=== PATIENT | male | born 1970 | race Caucasian/White ===

== ENCOUNTER 2025-03-06 09:02 | Outpatient (REF) | payer OTHER, SELFPAY ==
--- NOTE | ~2025-03-06 | XR_ITS ---
EXAMINATION: XR SHOULDER, IGOR 2V CLINICAL INFORMATION: M25.511 - Pain in right shoulder COMPARISON: None available. TECHNIQUE: Two views of each shoulder. FINDINGS: RIGHT SHOULDER: Normal bone mineralization. No fracture, dislocation, or suspicious bone lesion. Normal alignment. The glenohumeral joint demonstrates mild degenerative arthritis. The AC joint demonstrates minimal degenerative spurring. No undersurface spurring of the acromion. The subacromial space is preserved. Remainder of the soft tissue and bony structures appear normal. LEFT SHOULDER: Normal bone mineralization. No fracture, dislocation, or suspicious bone lesion. Normal alignment. The glenohumeral joint demonstrates mild degenerative arthritis. The AC joint demonstrates minimal degenerative spurring. No undersurface spurring of the acromion. The subacromial space is preserved. Remainder of the soft tissue and bony structures appear normal. XR/XR Shoulder Igor min 2V IMPRESSION: 1. Mild osteoarthrosis of the bilateral glenohumeral and AC joints. Electronically signed by: Dago Streeter MD 03/06/2025 02:25 PM EDT
--- OUTSIDE RECORDS SUMMARY | 2025-03-07 09:12 | XMS_ITS | Patient Health Record ---
Author Organization [employer] Address [address] [place] [address] [address] [place] [address] Care Team Providers Care Tool Polisher Name Role Phone CORKY TORRES Primary Care Provider Kiara Ethan Unavailable [phone] Allergies Allergen (clinical drug ingredient) Drug/Non Drug Allergy documented on EMR Reaction Allergy Type Onset Date Status Codeine Phosphate Unknown Drug Allergy Active Substance with 3-fzfygik-2-methylglut aryl-coenzyme A reductase inhibitor mechanism of action (substance) Statins muscle pain Drug Allergy Active Results Component Value Reference Range Notes Zolpidem, UR Confirmation Reviewed date:01/28/2025 07:43:10 AM Interpretation: Performing Lab:[email or web address], [address] [place] [address], Phone - [phone], Director - Suzie Notes/Report: Zolpidem Confirmation Positive Zolpidem Acid PRESENT Screening Confirmation Threshold Threshold Analyte --------- --------- -------- 2.0 ng/mL 2.0 ng/mL Zolpidem 10.0 ng/mL 10.0 ng/mL Zolpidem Acid This test was developed and its performance characteristics determined by [employer]. It has not been cleared or approved by the Food and Drug Administration. REFERENCE RANGE: NOT ESTABLISHED Zolpidem Negative REFERENCE RANGE : NOT ESTABLISHED Zolpidem, UR Screen W RFX Co nf Reviewed date:01/28/2025 07:43:21 AM Interpretation: Performing Lab:[email or web address], [address] [place] [address], Phone - [phone], Director - Suzie Notes/Report: Zolpidem Screen Further testing indicated Screening threshold: 2.0 ng/mL Screening analysis for zolpidem performed by Liquid Chromatography with Tandem Mass Spectrometry (LC/MS/MS). This test was developed and its performance characteristics determined by [facility]. It has not been cleared or approved by the Food and Drug Administration. Written Authorization Reviewed date:01/28/2025 07:43:14 AM Interpretation: Performing Lab:[facility], [address] [place] [address], Phone - [phone], Director - Suzie Notes/Report: Written Authorization Written Authorization Received. Authorization received from ORIGINAL REQUEST 12-04-2024 Logged by Alison Howard TSH+Free T4 Reviewed date:12/10/2024 06:05:18 PM Interpretation: Performing Lab:[facility], [address] [place] [address], Phone - [phone], Director - Deniz Notes/Report: TSH-ICMA 2.3 Reference Range: Non- Adult 0.450-4.500 Free T4 by Dialysis/Livestock Speculator 1.5 This test was developed and its performance characteristics determined by [facility]. It has not been cleared or approved by the Food and Drug Administration. Reference Range: Pubertal Children and Adults: 0.8 - 1.7 Hemoglobin [id number] Reviewed date:12/10/2024 06:05:24 PM Interpretation: Performing Lab:[facility], [address] [place] [address], Phone - [phone], Director - Deniz Notes/Report: Hemoglobin A1c 8.8 4.8-5.6 % . Prediabetes: 5.7 - 6.4 Diabetes: >6.4 Glycemic control for adults with diabetes: <7.0 Lipid Panel-[id number] Reviewed date:02/07/2025 03:03:16 PM Interpretation: Performing Lab:[facility], [address] [place] [address], Phone - [phone], Director - Marcella Notes/Report: Cholesterol, Total 138 100-199 mg/dL Triglycerides 201 0-149 mg/dL HDL Cholesterol 31 >39 mg/dL VLDL Cholesterol Pankaj 34 5-40 mg/dL LDL Chol Calc (NIH) 73 0-99 mg/dL CBC with Diff, Platelet, NLR -[id number] Reviewed date:02/07/2025 03:04:42 PM Interpretation: Performing Lab:[facility], [facility], Phone - [phone], Director - MDJodry Notes/Report: WBC 11.1 3.4-10.8 x10E3/uL RBC 5.06 [...] % Immature Grans (Abs) 0.0 0.0-0.1 x10E3/uL Ferritin-[id number] Reviewed date:02/07/2025 03:04:24 PM Interpretation: Performing Lab:[facility], [facility], [place], Phone - [phone], Director - MOJodry Notes/Report: Ferritin 116 30-400 ng/mL Iron and TIBC-[id number] Reviewed date:02/07/2025 03:04:49 PM Interpretation: Performing Lab:[facility], Phone - [phone], Marcella Notes/Report: Iron Bind.Cap.(TIBC) 290 250-450 ug/dL UIBC 170 111-343 ug/dL Iron 120 38-169 ug/dL Iron Saturation 41 15-55 % LDH-[id number] Reviewed date:02/07/2025 03:04:30 PM Interpretation: Performing Lab:[facility] [address] [place] [address], Phone - [phone], Director Francisco Naranjo Notes/Report: LDH 208 121-224 IU/L PSA (Serial Monitor)-[id number] Reviewed date:06/11/2024 05:13:00 PM Interpretation: Performing Lab:[facility], [address] [place] [address], Phone - [phone], Marcella Notes/Report: Prostate Specific Ag 0.2 0.0-4.0 ng/mL Madie ECLIA methodology. . According to the [place] [employer], Serum PSA should decrease and [...] presence or absence of malignant disease. Hemoglobin [id number] Reviewed date:06/11/2024 05:13:08 PM Interpretation: Performing Lab:[facility], [address] [place] [address], Phone - [phone], Director Francisco Naranjo Notes/Report: Hemoglobin A1c 8.5 4.8-5.6 % . Prediabetes: 5.7 - 6.4 Diabetes: >6.4 Glycemic control for adults with diabetes: <7.0 Lipid Panel-[id number] Reviewed date:06/11/2024 05:13:10 PM Interpretation: Performing Lab:[facility] [address] [place] [address] [place], Phone - [phone], Marcella Notes/Report: Cholesterol, Total 132 100-199 mg/dL Triglycerides 166 0-149 mg/dL HDL Cholesterol 30 >39 mg/dL VLDL Cholesterol Pankaj 29 5-40 mg/dL LDL Chol Calc (NIH) 73 0-99 mg/dL Comp. Metabolic Panel (14)-3 Reviewed date:06/11/2024 05:13:16 PM Interpretation: Performing Lab:[facility] [place], [address] [place], [place], Phone - [phone], Director - Marcella Notes/Report: Glucose 54 70-99 [...] ALT (SGPT) 31 0-44 IU/L Albumin/Creatinine Ratio,Uri ne-[id number] Reviewed date:06/11/2024 04:47:12 PM Interpretation: Performing Lab:[facility], [address] [place], [place], Phone - [phone], Director - Marcella Notes/Report: Creatinine, Urine 41.6 Not Estab. mg/dL Albumin, Urine 6.8 Not Estab. ug/mL Alb/Creat Ratio 16 0-29 mg/g creat Normal: 0 - 29 Moderately increased: 30 - 300 Severely increased: >300 Reason For Referral Reason Evaluation and manag ement Diagnosis 1 Encounter for screen ing for malignant neoplasm of colon (Z12.11) Referral Organization [facility] [employer] [facility] Referring Provider First Name CORKY Referring Provider Last Name MELISSA Referring Provider Speciality Internal M edicine Referred Provider Specialty Gastroentero logy General Notes Referral sent to [facility] Gastroenterology - Office will call patient for scheduling.Dayana Latraya 06/05/2024 01:28:50 PM > Referral Priority Routine Reason Evaluation and manag ement Diagnosis 1 Essential (primary) hypertension (I10) Referral Organization [facility] Referring Provider First Name CORKY Referring Provider Last Name GU Referring Provider Speciality Internal edicine Referred Provider Specialty Cardiology General Notes Referral sent to [facility] Cardiology - Office will call patient for scheduling.Dayana Latraya 06/05/2024 03:26:26 PM > Referral Priority Routine Reason Evaluation and manag ement Diagnosis 1 Type 2 diabetes tushar itus with unspecified complications (E11.8) Referral Organization [facility] Referring Provider First Name CORKY Referring Provider Last Name GU Referring Provider Speciality Internal edicine Referred Provider Specialty Endocrinolog y General Notes Referral sent to [facility] Endocrinology - Office will call patient for scheduling.Dayana Latraya 06/05/2024 03:27:15 PM > Referral Priority Routine Reason Evaluation and manag ement Diagnosis 1 Type 2 diabetes tushar itus with unspecified complications (E11.8) Referral Organization [facility] Referring Provider First Name CORKY Referring Provider Last Name [facility] Referred Provider Specialty Podiatry General Notes Referral sent to [facility] in [place] - Office will call patient for scheduling.Dayana Latraya 06/05/2024 03:28:04 PM > Referral Priority Routine Reason Evaluation and manag ement Diagnosis 1 Chronic kidney disea se, unspecified (N18.9) Referral Organization [facility] Referring Provider First Name CORKY Referring Provider Last Name [facility] Referring Provider Speciality Internal edicine Referred Provider Specialty Nephrology General Notes Referral sent to [facility] [place] - [facility] will call patient for scheduling.Dayana Latraya 06/05/2024 03:28:48 PM > Referral Priority Routine Reason Evaluation and manag ement Diagnosis 1 Obstructive sleep ap keith (G47.33) Referral Organization [facility] Referring Provider First Name CORKY Referring Provider Last Name GU Referring Provider Speciality Internal edicine Referred Provider Specialty Sleep Medici ne General Notes Referral sent to [facility] in [facility] will call patient for scheduling.Dayana Latraya 06/05/2024 03:30:15 PM > Referral Priority Routine Reason knee and back pain- NEOS Diagnosis 1 Pain in unspecified knee (M25.569) Diagnosis 2 Pain in thoracic spi ne (M54.6) Referral Organization [facility] Referring Provider First Name CORKY Referring Provider Last Name SHERRY Referring Provider Speciality Internal edicine Referred Provider Specialty Orthopedic S urgery General Notes Referral sent to [facility] - Office will call patient for scheduling., Quentin Anne 06/05/2024 03:33:05 PM > Referral Priority Routine Reason Evaluation and manag ement Diagnosis 1 Type 2 diabetes tushar itus with unspecified complications (E11.8) Referral Organization [facility] Referring Provider First Name CORKY Referring Provider Last Name SHERRY Referring Provider Speciality Internal edicine Referred Provider Specialty Ophthalmolog y General Notes Referral sent to [facility] in [place]- Office will call patient for scheduling., Quentin Anne 06/05/2024 03:34:08 PM > Referral Priority Routine Reason please evaluate and treat Diagnosis 1 Pain in right should er (M25.511) Referral Organization [facility] Referring Provider First Name Ethan Referring Provider Last Name Kiara Referred Provider Specialty Orthopedic S urgery General Notes REFERRAL WAS FAXED T O [facility]. PLEASE CONTACT PATIENT FOR SCHEDULING., Vanda Story 10/03/2024 04:50:54 PM > Referral Priority Routine Reason EGD and C-scope, pos itive cologuard Please evaluate and treat Diagnosis 1 Weight loss, uninten tional (R63.4) Referral Organization [facility] Referring Provider First Name Ethan Referring Provider Last Name Kiara Referred Provider Specialty Gastroentero logy General Notes Please call the johnny ent to schedule the appointment, Referral has been faxed to [facility] - [phone] Charmain 12/26/2024 04:17:19 PM > Referral Priority Routine Reason please evaluate and treat Please evaluate and treat Diagnosis 1 Chronic pain syndrom e (G89.4) Referral Organization [facility] Referring Provider First Name Ethan Referring Provider Last Name Kaira Referred Provider Specialty Pain Medicin e General Notes Please call the johnny ent to schedule the appointment, [facility]. 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) Active confirmed Problem Morbid obesity (disorder) (398301676) Morbid (severe) obesity due to excess calories (E66.01) Active confirmed Problem Mixed hyperlipidemia (265777821) Mixed hyperlipidemia (E78.2) Active confirmed Problem Tobacco user (915876079) Nicotine dependence, cigarettes, uncomplicated (F17.210) Active confirmed Problem Generalized anxiety disorder (09698767) Generalized anxiety disorder (F41.1) Active confirmed Problem Insomnia (040018335) Insomnia, unspecified (G47.00) Active confirmed Problem Chronic pain syndrome (622555783) Chronic pain syndrome (G89.4) Active confirmed Problem Chronic kidney disease (936959781) Chronic kidney disease, unspecified (N18.9) Active confirmed Problem Erectile dysfunction (disorder) (212892490) Male erectile dysfunction, unspecified (N52.9) Active confirmed Problem Essential hypertension (64759421) Essential (primary) hypertension (I10) Active confirmed Problem Lower urinary tract symptoms due to benign prostatic hypertrophy (35922754399483) Benign prostatic hyperplasia with lower urinary tract symptoms (N40.1) Active confirmed Problem Obstructive sleep apnea (54662743) Obstructive sleep apnea (G47.33) Active confirmed Vital Signs Heart Rate 98 /min 02/25/2025 Temperature 97.4 degrees Fahrenheit 02/25/2025 Blood pressure diastolic 90 mm Hg 02/25/2025 Oximetry 95 % 02/25/2025 Height 6'3'' in 02/25/2025 Blood pressure systolic 140 mm Hg 02/25/2025 Weight 350.1 lbs 02/25/2025 BMI 43.75 kg/m2 02/25/2025 Encounters Encounter Location Date Provider Diagnosis [address] [place] [address] 06/03/2024 CORKY TORRES Essential (primary) hypertension I10 [...] Z71.6 and Chronic kidney disease, unspecified N18.[address] [place] [address] 07/08/2024 CORKY TORRES Type 2 diabetes mellitus with unspecified complications E11.8 ; Essential (primary) hypertension I10 ; Mixed hyperlipidemia E78.2 ; Chronic pain syndrome G89.4 and Insomnia, unspecified G47.[address] [place] [address] 08/08/2024 CORKY TORRES Chronic pain syndrom e G89.4 and Essential (primary) hypertension I10 [address] [place] [address] 09/05/2024 Ghadeer Mazloum Chronic pain syndrom e G89.4 ; Essential (primary) hypertension I10 and Pain in right shoulder M25.[address] [place] [address] 10/03/2024 Ghadeer Mazloum Chronic pain syndrom e G89.4 ; Essential (primary) hypertension I10 ; Pain in right shoulder M25.511 ; Hypothyroidism, unspecified E03.9 and Diabetes mellitus due to underlying condition with diabetic nephropathy E08.[address] [place] [address] 10/17/2024 Ghadeer Mazloum Acute sinusitis, unspecified J01.[address] [place] [address] 10/31/2024 Ghadeer Mazloum Chronic pain syndrom e G89.4 ; Essential (primary) hypertension I10 ; Hypothyroidism, unspecified E03.9 and Diabetes mellitus due to underlying condition with diabetic nephropathy E08.[address] [place] [address] 11/28/2024 Ghadeer Mazloum Chronic pain syndrom e G89.4 and Essential (primary) hypertension I10 [address] [place] [address] 12/26/2024 Ghadeer Mazloum Chronic pain syndrom e G89.4 ; Essential (primary) hypertension I10 ; Mixed hyperlipidemia E78.2 and Weight loss, unintentional R63.[address] [place] [address] 01/28/2025 Ghadeer Mazloum Chronic pain syndrom e G89.4 ; Essential (primary) hypertension I10 ; Mixed hyperlipidemia E78.2 ; Diabetes mellitus due to underlying condition with diabetic nephropathy E08.21 and Chronic kidney disease, unspecified N18.[address] [place] [address] 02/25/2025 Ghadeer Mazloum Chronic pain syndrom e G89.4 ; Essential (primary) hypertension I10 ; Mixed hyperlipidemia E78.2 ; Diabetes mellitus due to underlying condition with diabetic nephropathy E08.21 and Chronic kidney disease, unspecified N18.[address] [place] [address] 06/04/[address] [place] [address] 06/06/2024 [facility] [address] [facility] [address] [place] [address] 06/14/2024 [facility] [address] [facility] [address] [place] [address] 06/24/[address] [place] [address] 07/18/2024 [facility] [address] [facility] [address] [place] [address] 10/03/[address] [place] [address] 10/04/[address] [place] [address] 10/14/[address] [place] [address] 11/29/2024 [facility] 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 CHF. Patient mentioned that swine nutritionist told him that his pump is not [...] prescribed by his primary care physician at [place]. We will retrieve old records Chronic kidney disease. Stage is not known. We will do blood work and referral to ab initio etl developer BPH. Stable on current regimen. JAYE. He [...] this note under HIPAA compliance and under [place] law mandated for scribe services. Patient aware [...] and consider PCSK-9. CHF. Patient mentioned that swine nutritionist told him that his pump is not [...] prescribed by his primary care physician at [place]. We will retrieve old records Chronic kidney disease. Stage is not known. We will do blood work and referral to ab initio etl developer BPH. Stable on current regimen. JAYE. He [...] this note under HIPAA compliance and under [place] law mandated for scribe services. Patient aware [...] Ezetimibe 10 MG CHF. Patient mentioned that swine nutritionist told him that his pump is not [...] prescribed by his primary care physician at [place]. Chronic kidney disease. Stage is not known. He does not appear to be in volume overload. Advised appropriate hydration. Avoid NSAIDs. BPH. Stable on current regimen. JYAE./ Insomnia. He sleeps well with AVAPS and [...] this note under HIPAA compliance and under [place] law mandated for scribe services. Patient aware [...] Ezetimibe 10 MG CHF. Patient mentioned that swine nutritionist told him that his pump is not [...] prescribed by his primary care physician at [place]. Chronic kidney disease. Stage is not known. [...] this note under HIPAA compliance and under [place] law mandated for scribe services. Patient aware [...] necessity supported by H&P, imaging and testing [place] pain treatment protocol completed. Yes Chronic opioid/pain [...] opioid misuse based on ORT. Toxicology and BOTTLING MACHINE OPERATOR monitoring done and will follow protocol set forth by practice. As such controlled substance use requires judicious monitoring to access patient compliance with mutually agreed upon controlled substance use agreement which has been signed by the patient and initiation of controlled substance prescribing. Therefore following state, Federal, [facility] guidelines for controlled substance testing policies. This patient has been assessed on the basis of psychometric risk tool, BOTTLING MACHINE OPERATOR monitoring, toxicology test results. Comorbid conditions may [...] necessity supported by H&P, imaging and testing [place] pain treatment protocol completed. Yes Chronic opioid/pain [...] opioid misuse based on ORT. Toxicology and BOTTLING MACHINE OPERATOR monitoring done and will follow protocol set forth by practice. As such controlled substance use requires judicious monitoring to access patient compliance with mutually agreed upon controlled substance use agreement which has been signed by the patient and initiation of controlled substance prescribing. Therefore following state, Federal, [facility] guidelines for controlled substance testing policies. This patient has been assessed on the basis of psychometric risk tool, BOTTLING MACHINE OPERATOR monitoring, toxicology test results. Comorbid conditions may [...] necessity supported by H&P, imaging and testing [place] pain treatment protocol completed. Yes Chronic opioid/pain [...] opioid misuse based on ORT. Toxicology and BOTTLING MACHINE OPERATOR monitoring done and will follow protocol set forth by practice. As such controlled substance use requires judicious monitoring to access patient compliance with mutually agreed upon controlled substance use agreement which has been signed by the patient and initiation of controlled substance prescribing. Therefore following state, Federal, [facility] guidelines for controlled substance testing policies. This patient has been assessed on the basis of psychometric risk tool, BOTTLING MACHINE OPERATOR monitoring, toxicology test results. Comorbid conditions may [...] necessity supported by H&P, imaging and testing [place] pain treatment protocol completed. Yes Chronic opioid/pain [...] opioid misuse based on ORT. Toxicology and BOTTLING MACHINE OPERATOR monitoring done and will follow protocol set forth by practice. As such controlled substance use requires judicious monitoring to access patient compliance with mutually agreed upon controlled substance use agreement which has been signed by the patient and initiation of controlled substance prescribing. Therefore following state, Federal, [facility] guidelines for controlled substance testing policies. This patient has been assessed on the basis of psychometric risk tool, BOTTLING MACHINE OPERATOR monitoring, toxicology test results. Comorbid conditions may [...] necessity supported by H&P, imaging and testing [place] pain treatment protocol completed. Yes Chronic opioid/pain [...] opioid misuse based on ORT. Toxicology and BOTTLING MACHINE OPERATOR monitoring done and will follow protocol set forth by practice. As such controlled substance use requires judicious monitoring to access patient compliance with mutually agreed upon controlled substance use agreement which has been signed by the patient and initiation of controlled substance prescribing. Therefore following state, Federal, [facility] guidelines for controlled substance testing policies. This patient has been assessed on the basis of psychometric risk tool, BOTTLING MACHINE OPERATOR monitoring, toxicology test results. Comorbid conditions may [...] necessity supported by H&P, imaging and testing [place] pain treatment protocol completed. Yes Chronic opioid/pain [...] opioid misuse based on ORT. Toxicology and BOTTLING MACHINE OPERATOR monitoring done and will follow protocol set forth by practice. As such controlled substance use requires judicious monitoring to access patient compliance with mutually agreed upon controlled substance use agreement which has been signed by the patient and initiation of controlled substance prescribing. Therefore following state, Federal, [facility] guidelines for controlled substance testing policies. This patient has been assessed on the basis of psychometric risk tool, BOTTLING MACHINE OPERATOR monitoring, toxicology test results. Comorbid conditions may [...] necessity supported by H&P, imaging and testing [place] pain treatment protocol completed. Yes Chronic opioid/pain [...] opioid misuse based on ORT. Toxicology and BOTTLING MACHINE OPERATOR monitoring done and will follow protocol set forth by practice. As such controlled substance use requires judicious monitoring to access patient compliance with mutually agreed upon controlled substance use agreement which has been signed by the patient and initiation of controlled substance prescribing. Therefore following state, Federal, [facility] guidelines for controlled substance testing policies. This patient has been assessed on the basis of psychometric risk tool, BOTTLING MACHINE OPERATOR monitoring, toxicology test results. Comorbid conditions may [...] necessity supported by H&P, imaging and testing [place] pain treatment protocol completed. Yes Chronic opioid/pain [...] opioid misuse based on ORT. Toxicology and BOTTLING MACHINE OPERATOR monitoring done and will follow protocol set [...] on the basis of psychometric risk tool, BOTTLING MACHINE OPERATOR monitoring, toxicology test results. Comorbid conditions may [...] necessity supported by H&P, imaging and testing [place] pain treatment protocol completed. Yes Chronic opioid/pain [...] opioid misuse based on ORT. Toxicology and BOTTLING MACHINE OPERATOR monitoring done and will follow protocol set [...] on the basis of psychometric risk tool, BOTTLING MACHINE OPERATOR monitoring, toxicology test results. 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 Hernandez is a 54-year-old gentleman with type 2 diabetes mellitus, hypertension, hyperlipidemia, hypothyroidism, ,obstructive sleep apnea, generalized anxiety disorder/depressio n and insomnia here for follow up. Plan as follows Chronic pain secondary to degenerative disc disease. Prognosis: Mild to moderate Medical necessity supported by H&P, imaging and testing [place] pain treatment protocol completed. Yes Chronic opioid/pain [...] opioid misuse based on ORT. Toxicology and BOTTLING MACHINE OPERATOR monitoring done and will follow protocol set [...] on the basis of psychometric risk tool, BOTTLING MACHINE OPERATOR monitoring, toxicology test results. Comorbid conditions may [...] of diabetic medications is usually through his it support analyst. He does have an appointment for follow-up with his it support analyst. He states that he is noncompliant with his diets. He was also recently seen by batterboard setter and recommended Lasix surgery. He does also [...] necessity supported by H&P, imaging and testing [place] pain treatment protocol completed. Yes Chronic opioid/pain [...] opioid misuse based on ORT. Toxicology and BOTTLING MACHINE OPERATOR monitoring done and will follow protocol set forth by practice. As such controlled substance use requires judicious monitoring to access patient compliance with mutually agreed upon controlled substance use agreement which has been signed by the patient and initiation of controlled substance prescribing. Therefore following state, Federal, [facility] guidelines for controlled substance testing policies. This patient has been assessed on the basis of psychometric risk tool, BOTTLING MACHINE OPERATOR monitoring, toxicology test results. Comorbid conditions may [...] of diabetic medications is usually through his it support analyst. He does have an appointment for follow-up with his it support analyst. He states that he is noncompliant with his diets. He was also recently seen by batterboard setter and recommended Lasix surgery. He does also [...] necessity supported by H&P, imaging and testing [place] pain treatment protocol completed. Yes Chronic opioid/pain [...] opioid misuse based on ORT. Toxicology and BOTTLING MACHINE OPERATOR monitoring done and will follow protocol set forth by practice. As such controlled substance use requires judicious monitoring to access patient compliance with mutually agreed upon controlled substance use agreement which has been signed by the patient and initiation of controlled substance prescribing. Therefore following state, Federal, [facility] guidelines for controlled substance testing policies. This patient has been assessed on the basis of psychometric risk tool, BOTTLING MACHINE OPERATOR monitoring, toxicology test results. Comorbid conditions may [...] of diabetic medications is usually through his it support analyst. He does have an appointment for follow-up with his it support analyst. He states that he is noncompliant with his diets. He was also recently seen by batterboard setter and recommended Lasix surgery. He does also [...] GLP-1, Jardiance was also discontinued by the ab initio etl developer. He has an appointment tomorrow with it support analyst for further discussion on diabetes management. Advised on diet modification. He is up-to-date with his batterboard setter. Foot care discussed Chronic kidney disease. He does follow with [facility] the ab initio etl developer. He is not volume overloaded. Avoid nephrotoxins [...] necessity supported by H&P, imaging and testing [place] pain treatment protocol completed. Yes Chronic opioid/pain [...] opioid misuse based on ORT. Toxicology and BOTTLING MACHINE OPERATOR monitoring done and will follow protocol set forth by practice. As such controlled substance use requires judicious monitoring to access patient compliance with mutually agreed upon controlled substance use agreement which has been signed by the patient and initiation of controlled substance prescribing. Therefore following state, Federal, [facility] guidelines for controlled substance testing policies. This patient has been assessed on the basis of psychometric risk tool, BOTTLING MACHINE OPERATOR monitoring, toxicology test results. Comorbid conditions may [...] of diabetic medications is usually through his it support analyst. He does have an appointment for follow-up with his it support analyst. He states that he is noncompliant with his diets. He was also recently seen by batterboard setter and recommended Lasix surgery. He does also [...] GLP-1, Jardiance was also discontinued by the ab initio etl developer. He has an appointment tomorrow with it support analyst for further discussion on diabetes management. Advised on diet modification. He is up-to-date with his batterboard setter. Foot care discussed Chronic kidney disease. He does follow with [facility] the ab initio etl developer. He is not volume overloaded. Avoid nephrotoxins [...] necessity supported by H&P, imaging and testing [place] pain treatment protocol completed. Yes I have [...] opioid misuse based on ORT. Toxicology and BOTTLING MACHINE OPERATOR monitoring done and will follow protocol set forth by practice. As such controlled substance use requires judicious monitoring to access patient compliance with mutually agreed upon controlled substance use agreement which has been signed by the patient and initiation of controlled substance prescribing. Therefore following state, Federal, [facility] guidelines for controlled substance testing policies. This patient has been assessed on the basis of psychometric risk tool, BOTTLING MACHINE OPERATOR monitoring, toxicology test results. Comorbid conditions may [...] of diabetic medications is usually through his it support analyst. He does have an appointment for follow-up with his it support analyst. He states that he is noncompliant with his diets. He was also recently seen by batterboard setter and recommended Lasix surgery. He does also [...] GLP-1, Jardiance was also discontinued by the ab initio etl developer. He has an appointment with it support analyst for further discussion on diabetes management. Advised on diet modification. He is up-to-date with his batterboard setter. Foot care discussed Chronic kidney disease. He does follow with [facility] the ab initio etl developer. He is not volume overloaded. Avoid nephrotoxins [...] necessity supported by H&P, imaging and testing [place] pain treatment protocol completed. Yes I have [...] opioid misuse based on ORT. Toxicology and BOTTLING MACHINE OPERATOR monitoring done and will follow protocol set [...] on the basis of psychometric risk tool, BOTTLING MACHINE OPERATOR monitoring, toxicology test results. Comorbid conditions may [...] of diabetic medications is usually through his it support analyst. He does have an appointment for follow-up with his it support analyst. He states that he is noncompliant with his diets. He was also recently seen by batterboard setter and recommended Lasix surgery. He does also [...] GLP-1, Jardiance was also discontinued by the ab initio etl developer. He has an appointment with it support analyst for further discussion on diabetes management. Advised on diet modification. He is up-to-date with his batterboard setter. Foot care discussed Chronic kidney disease. He does follow with [facility] the ab initio etl developer. He is not volume overloaded. Avoid nephrotoxins [...] necessity supported by H&P, imaging and testing [place] pain treatment protocol completed. Yes I have [...] opioid misuse based on ORT. Toxicology and BOTTLING MACHINE OPERATOR monitoring done and will follow protocol set forth by practice. As such controlled substance use requires judicious monitoring to access patient compliance with mutually agreed upon controlled substance use agreement which has been signed by the patient and initiation of controlled substance prescribing. Therefore following state, Federal, [facility] guidelines for controlled substance testing policies. This patient has been assessed on the basis of psychometric risk tool, BOTTLING MACHINE OPERATOR monitoring, toxicology test results. Comorbid conditions may [...] of diabetic medications is usually through his it support analyst. He does have an appointment for follow-up with his it support analyst. He states that he is noncompliant with his diets. He was also recently seen by batterboard setter and recommended Lasix surgery. He does also [...] GLP-1, Jardiance was also discontinued by the ab initio etl developer. He has an appointment with it support analyst for further discussion on diabetes management. Advised on diet modification. He is up-to-date with his batterboard setter. Foot care discussed Chronic kidney disease. He does follow with [facility] the ab initio etl developer. He is not volume overloaded. Avoid nephrotoxins [...] necessity supported by H&P, imaging and testing [place] pain treatment protocol completed. Yes Chronic opioid/pain [...] opioid misuse based on ORT. Toxicology and BOTTLING MACHINE OPERATOR monitoring done and will follow protocol set forth by practice. As such controlled substance use requires judicious monitoring to access patient compliance with mutually agreed upon controlled substance use agreement which has been signed by the patient and initiation of controlled substance prescribing. Therefore following state, Federal, [facility] guidelines for controlled substance testing policies. This patient has been assessed on the basis of psychometric risk tool, BOTTLING MACHINE OPERATOR monitoring, toxicology test results. Comorbid conditions may [...] of diabetic medications is usually through his it support analyst. He does have an appointment for follow-up with his it support analyst. He states that he is noncompliant with his diets. He was also recently seen by batterboard setter and recommended Lasix surgery. He does also [...] GLP-1, Jardiance was also discontinued by the ab initio etl developer. He has an appointment tomorrow with it support analyst for further discussion on diabetes management. Advised on diet modification. He is up-to-date with his batterboard setter. Foot care discussed Chronic kidney disease. He does follow with [facility] the ab initio etl developer. He is not volume overloaded. Avoid nephrotoxins [...] necessity supported by H&P, imaging and testing [place] pain treatment protocol completed. Yes Chronic opioid/pain [...] opioid misuse based on ORT. Toxicology and BOTTLING MACHINE OPERATOR monitoring done and will follow protocol set forth by practice. As such controlled substance use requires judicious monitoring to access patient compliance with mutually agreed upon controlled substance use agreement which has been signed by the patient and initiation of controlled substance prescribing. Therefore following state, Federal, [facility] guidelines for controlled substance testing policies. This patient has been assessed on the basis of psychometric risk tool, BOTTLING MACHINE OPERATOR monitoring, toxicology test results. Comorbid conditions may [...] of diabetic medications is usually through his it support analyst. He does have an appointment for follow-up with his it support analyst. He states that he is noncompliant with his diets. He was also recently seen by batterboard setter and recommended Lasix surgery. He does also [...] necessity supported by H&P, imaging and testing [place] pain treatment protocol completed. Yes Chronic opioid/pain [...] opioid misuse based on ORT. Toxicology and BOTTLING MACHINE OPERATOR monitoring done and will follow protocol set forth by practice. As such controlled substance use requires judicious monitoring to access patient compliance with mutually agreed upon controlled substance use agreement which has been signed by the patient and initiation of controlled substance prescribing. Therefore following state, Federal, [facility] guidelines for controlled substance testing policies. This patient has been assessed on the basis of psychometric risk tool, BOTTLING MACHINE OPERATOR monitoring, toxicology test results. Comorbid conditions may [...] this patient under direct supervision of Dr. Torrse, who did not see the patient but was available upon request 10/03/2024 Pain in right shoulder (ICD-10 - M25.511) Chronic pain secondary to degenerative disc disease. Prognosis: Mild to moderate Medical necessity supported by H&P, imaging and testing [place] pain treatment protocol completed. Yes Chronic opioid/pain [...] opioid misuse based on ORT. Toxicology and BOTTLING MACHINE OPERATOR monitoring done and will follow protocol set forth by practice. As such controlled substance use requires judicious monitoring to access patient compliance with mutually agreed upon controlled substance use agreement which has been signed by the patient and initiation of controlled substance prescribing. Therefore following state, Federal, [facility] guidelines for controlled substance testing policies. This patient has been assessed on the basis of psychometric risk tool, BOTTLING MACHINE OPERATOR monitoring, toxicology test results. Comorbid conditions may [...] necessity supported by H&P, imaging and testing [place] pain treatment protocol completed. Yes Chronic opioid/pain [...] opioid misuse based on ORT. Toxicology and BOTTLING MACHINE OPERATOR monitoring done and will follow protocol set [...] on the basis of psychometric risk tool, BOTTLING MACHINE OPERATOR monitoring, toxicology test results. Comorbid conditions may [...] necessity supported by H&P, imaging and testing [place] pain treatment protocol completed. Yes Chronic opioid/pain [...] opioid misuse based on ORT. Toxicology and BOTTLING MACHINE OPERATOR monitoring done and will follow protocol set forth by practice. As such controlled substance use requires judicious monitoring to access patient compliance with mutually agreed upon controlled substance use agreement which has been signed by the patient and initiation of controlled substance prescribing. Therefore following state, Federal, [facility] guidelines for controlled substance testing policies. This patient has been assessed on the basis of psychometric risk tool, BOTTLING MACHINE OPERATOR monitoring, toxicology test results. Comorbid conditions may [...] tolerate side effects. He is not on EBAR/ARB and most likely secondary to chronic kidney disease but results are not available. Hypertension. Blood pressure well controlled on current regimen and check renal function and electrolytes Hyperlipidemia. Unfortunately he cannot tolerate statins. Continue Ezetimibe 10 MG CHF. Patient mentioned that swine nutritionist told him that his pump is not [...] prescribed by his primary care physician at [place]. Chronic kidney disease. Stage is not known. [...] this note under HIPAA compliance and under [place] law mandated for scribe services. Patient aware [...] and consider PCSK-9. CHF. Patient mentioned that swine nutritionist told him that his pump is not [...] prescribed by his primary care physician at [place]. We will retrieve old records Chronic kidney disease. Stage is not known. We will do blood work and referral to ab initio etl developer BPH. Stable on current regimen. JAYE. He [...] this note under HIPAA compliance and under [place] law mandated for scribe services. Patient aware [...] and consider PCSK-9. CHF. Patient mentioned that swine nutritionist told him that his pump is not [...] prescribed by his primary care physician at [place]. We will retrieve old records Chronic kidney disease. Stage is not known. We will do blood work and referral to ab initio etl developer BPH. Stable on current regimen. JAYE. He [...] this note under HIPAA compliance and under [place] law mandated for scribe services. Patient aware [...] necessity supported by H&P, imaging and testing [place] pain treatment protocol completed. Yes Chronic opioid/pain [...] opioid misuse based on ORT. Toxicology and BOTTLING MACHINE OPERATOR monitoring done and will follow protocol set forth by practice. As such controlled substance use requires judicious monitoring to access patient compliance with mutually agreed upon controlled substance use agreement which has been signed by the patient and initiation of controlled substance prescribing. Therefore following state, Federal, [facility] guidelines for controlled substance testing policies. This patient has been assessed on the basis of psychometric risk tool, BOTTLING MACHINE OPERATOR monitoring, toxicology test results. Comorbid conditions may [...] necessity supported by H&P, imaging and testing [place] pain treatment protocol completed. Yes Chronic opioid/pain [...] opioid misuse based on ORT. Toxicology and BOTTLING MACHINE OPERATOR monitoring done and will follow protocol set [...] on the basis of psychometric risk tool, BOTTLING MACHINE OPERATOR monitoring, toxicology test results. Comorbid conditions may [...] Ezetimibe 10 MG CHF. Patient mentioned that swine nutritionist told him that his pump is not [...] prescribed by his primary care physician at [place]. Chronic kidney disease. Stage is not known. [...] this note under HIPAA compliance and under [place] law mandated for scribe services. Patient aware [...] necessity supported by H&P, imaging and testing [place] pain treatment protocol completed. Yes Chronic opioid/pain [...] opioid misuse based on ORT. Toxicology and BOTTLING MACHINE OPERATOR monitoring done and will follow protocol set [...] on the basis of psychometric risk tool, BOTTLING MACHINE OPERATOR monitoring, toxicology test results. Comorbid conditions may [...] of diabetic medications is usually through his it support analyst. He does have an appointment for follow-up with his it support analyst. He states that he is noncompliant with his diets. He was also recently seen by batterboard setter and recommended Lasix surgery. He does also [...] necessity supported by H&P, imaging and testing [place] pain treatment protocol completed. Yes Chronic opioid/pain [...] opioid misuse based on ORT. Toxicology and BOTTLING MACHINE OPERATOR monitoring done and will follow protocol set forth by practice. As such controlled substance use requires judicious monitoring to access patient compliance with mutually agreed upon controlled substance use agreement which has been signed by the patient and initiation of controlled substance prescribing. Therefore following state, Federal, [facility] guidelines for controlled substance testing policies. This patient has been assessed on the basis of psychometric risk tool, BOTTLING MACHINE OPERATOR monitoring, toxicology test results. Comorbid conditions may [...] of diabetic medications is usually through his it support analyst. He does have an appointment for follow-up with his it support analyst. He states that he is noncompliant with his diets. He was also recently seen by batterboard setter and recommended Lasix surgery. He does also [...] GLP-1, Jardiance was also discontinued by the ab initio etl developer. He has an appointment tomorrow with it support analyst for further discussion on diabetes management. Advised on diet modification. He is up-to-date with his batterboard setter. Foot care discussed Chronic kidney disease. He does follow with [facility] the ab initio etl developer. He is not volume overloaded. Avoid nephrotoxins [...] necessity supported by H&P, imaging and testing [place] pain treatment protocol completed. Yes I have [...] opioid misuse based on ORT. Toxicology and BOTTLING MACHINE OPERATOR monitoring done and will follow protocol set forth by practice. As such controlled substance use requires judicious monitoring to access patient compliance with mutually agreed upon controlled substance use agreement which has been signed by the patient and initiation of controlled substance prescribing. Therefore following state, Federal, [facility] guidelines for controlled substance testing policies. This patient has been assessed on the basis of psychometric risk tool, BOTTLING MACHINE OPERATOR monitoring, toxicology test results. Comorbid conditions may [...] of diabetic medications is usually through his it support analyst. He does have an appointment for follow-up with his it support analyst. He states that he is noncompliant with his diets. He was also recently seen by batterboard setter and recommended Lasix surgery. He does also [...] GLP-1, Jardiance was also discontinued by the ab initio etl developer. He has an appointment with it support analyst for further discussion on diabetes management. Advised on diet modification. He is up-to-date with his batterboard setter. Foot care discussed Chronic kidney disease. He does follow with [facility] the ab initio etl developer. He is not volume overloaded. Avoid nephrotoxins [...] necessity supported by H&P, imaging and testing [place] pain treatment protocol completed. Yes I have [...] opioid misuse based on ORT. Toxicology and BOTTLING MACHINE OPERATOR monitoring done and will follow protocol set [...] on the basis of psychometric risk tool, BOTTLING MACHINE OPERATOR monitoring, toxicology test results. Comorbid conditions may [...] of diabetic medications is usually through his it support analyst. He does have an appointment for follow-up with his it support analyst. He states that he is noncompliant with his diets. He was also recently seen by batterboard setter and recommended Lasix surgery. He does also [...] GLP-1, Jardiance was also discontinued by the ab initio etl developer. He has an appointment with it support analyst for further discussion on diabetes management. Advised on diet modification. He is up-to-date with his batterboard setter. Foot care discussed Chronic kidney disease. He does follow with [facility] the ab initio etl developer. He is not volume overloaded. Avoid nephrotoxins [...] necessity supported by H&P, imaging and testing [place] pain treatment protocol completed. Yes Chronic opioid/pain [...] opioid misuse based on ORT. Toxicology and BOTTLING MACHINE OPERATOR monitoring done and will follow protocol set forth by practice. As such controlled substance use requires judicious monitoring to access patient compliance with mutually agreed upon controlled substance use agreement which has been signed by the patient and initiation of controlled substance prescribing. Therefore following state, Federal, [facility] guidelines for controlled substance testing policies. This patient has been assessed on the basis of psychometric risk tool, BOTTLING MACHINE OPERATOR monitoring, toxicology test results. Comorbid conditions may [...] of diabetic medications is usually through his it support analyst. He does have an appointment for follow-up with his it support analyst. He states that he is noncompliant with his diets. He was also recently seen by batterboard setter and recommended Lasix surgery. He does also [...] GLP-1, Jardiance was also discontinued by the ab initio etl developer. He has an appointment tomorrow with it support analyst for further discussion on diabetes management. Advised on diet modification. He is up-to-date with his batterboard setter. Foot care discussed Chronic kidney disease. He does follow with [facility] the ab initio etl developer. He is not volume overloaded. Avoid nephrotoxins [...] necessity supported by H&P, imaging and testing [place] pain treatment protocol completed. Yes Chronic opioid/pain [...] opioid misuse based on ORT. Toxicology and BOTTLING MACHINE OPERATOR monitoring done and will follow protocol set forth by practice. As such controlled substance use requires judicious monitoring to access patient compliance with mutually agreed upon controlled substance use agreement which has been signed by the patient and initiation of controlled substance prescribing. Therefore following state, Federal, [facility] guidelines for controlled substance testing policies. This patient has been assessed on the basis of psychometric risk tool, BOTTLING MACHINE OPERATOR monitoring, toxicology test results. Comorbid conditions may [...] Ezetimibe 10 MG CHF. Patient mentioned that swine nutritionist told him that his pump is not [...] prescribed by his primary care physician at [place]. Chronic kidney disease. Stage is not known. [...] this note under HIPAA compliance and under [place] law mandated for scribe services. Patient aware [...] and consider PCSK-9. CHF. Patient mentioned that swine nutritionist told him that his pump is not [...] prescribed by his primary care physician at [place]. We will retrieve old records Chronic kidney disease. Stage is not known. We will do blood work and referral to ab initio etl developer BPH. Stable on current regimen. JAYE. He [...] this note under HIPAA compliance and under [place] law mandated for scribe services. Patient aware [...] and consider PCSK-9. CHF. Patient mentioned that swine nutritionist told him that his pump is not [...] prescribed by his primary care physician at [place]. We will retrieve old records Chronic kidney disease. Stage is not known. We will do blood work and referral to ab initio etl developer BPH. Stable on current regimen. JAYE. He [...] this note under HIPAA compliance and under [place] law mandated for scribe services. Patient aware [...] and consider PCSK-9. CHF. Patient mentioned that swine nutritionist told him that his pump is not [...] prescribed by his primary care physician at [place]. We will retrieve old records Chronic kidney disease. Stage is not known. We will do blood work and referral to ab initio etl developer BPH. Stable on current regimen. JAYE. He [...] this note under HIPAA compliance and under [place] law mandated for scribe services. Patient aware [...] and consider PCSK-9. CHF. Patient mentioned that swine nutritionist told him that his pump is not [...] prescribed by his primary care physician at [place]. We will retrieve old records Chronic kidney disease. Stage is not known. We will do blood work and referral to ab initio etl developer BPH. Stable on current regimen. JAYE. He [...] this note under HIPAA compliance and under [place] law mandated for scribe services. Patient aware [...] and consider PCSK-9. CHF. Patient mentioned that swine nutritionist told him that his pump is not [...] prescribed by his primary care physician at [place]. We will retrieve old records Chronic kidney disease. Stage is not known. We will do blood work and referral to ab initio etl developer BPH. Stable on current regimen. JAYE. He [...] this note under HIPAA compliance and under [place] law mandated for scribe services. Patient aware [...] and consider PCSK-9. CHF. Patient mentioned that swine nutritionist told him that his pump is not [...] prescribed by his primary care physician at [place]. We will retrieve old records Chronic kidney disease. Stage is not known. We will do blood work and referral to ab initio etl developer BPH. Stable on current regimen. JAYE. He [...] this note under HIPAA compliance and under [place] law mandated for scribe services. Patient aware [...] and consider PCSK-9. CHF. Patient mentioned that swine nutritionist told him that his pump is not [...] prescribed by his primary care physician at [place]. We will retrieve old records Chronic kidney disease. Stage is not known. We will do blood work and referral to ab initio etl developer BPH. Stable on current regimen. JAYE. He [...] this note under HIPAA compliance and under [place] law mandated for scribe services. Patient aware [...] and consider PCSK-9. CHF. Patient mentioned that swine nutritionist told him that his pump is not [...] prescribed by his primary care physician at [place]. We will retrieve old records Chronic kidney disease. Stage is not known. We will do blood work and referral to ab initio etl developer BPH. Stable on current regimen. JAYE. He [...] this note under HIPAA compliance and under [place] law mandated for scribe services. Patient aware [...] and consider PCSK-9. CHF. Patient mentioned that swine nutritionist told him that his pump is not [...] prescribed by his primary care physician at [place]. We will retrieve old records Chronic kidney disease. Stage is not known. We will do blood work and referral to ab initio etl developer BPH. Stable on current regimen. JAYE. He [...] this note under HIPAA compliance and under [place] law mandated for scribe services. Patient aware [...] and consider PCSK-9. CHF. Patient mentioned that swine nutritionist told him that his pump is not [...] prescribed by his primary care physician at [place]. We will retrieve old records Chronic kidney disease. Stage is not known. We will do blood work and referral to ab initio etl developer BPH. Stable on current regimen. JAYE. He [...] this note under HIPAA compliance and under [place] law mandated for scribe services. Patient aware [...] and consider PCSK-9. CHF. Patient mentioned that swine nutritionist told him that his pump is not [...] prescribed by his primary care physician at [place]. We will retrieve old records Chronic kidney disease. Stage is not known. We will do blood work and referral to ab initio etl developer BPH. Stable on current regimen. JAYE. He [...] this note under HIPAA compliance and under [place] law mandated for scribe services. Patient aware [...] and consider PCSK-9. CHF. Patient mentioned that swine nutritionist told him that his pump is not [...] prescribed by his primary care physician at [place]. We will retrieve old records Chronic kidney disease. Stage is not known. We will do blood work and referral to ab initio etl developer BPH. Stable on current regimen. JAYE. He [...] this note under HIPAA compliance and under [place] law mandated for scribe services. Patient aware [...] Xray: Shoulder Right-Min 2 Vws 4 Hemoglobin [id number] 10/03/2024 Hemoglobin [id number] 10/31/2024 ColoFIT,Occult Blood,Fecal,IA-[id number] 06/2025 TSH+Free [id number] 10/31/2024 TSH+Free T4 10/03/2024 DRUG MONITOR, ZOLPIDEM, QN, URINE ([id number] ) 11/29/2024 Next Appt Details Provider Name:Ethan nelson, 03/27/2025 11:00:00 AM, [address] [place] [address], [phone], Insurance Providers Payer Name Payer Address Payer Phone Subscriber Number Group Number Insured Name Patient Relationship to Insured Coverage Start Date Coverage End Date [facility] [address] [place] [id number] Peter Hernandez Self - patient is the insured Medical (General) History Medical History History ICD Code type 2 diabetes mellitus see [facility] ndocrinology hypertension hyperlipidemia generalized anxiety disorder insomnia hypothyroidism CKD-[facility] Surgical History Surgery Date(Month/Year) partial thyroidectomy left distal toe amputation
== END 2025-03-06 09:03 | disposition home or self-care (01) ==
LOC: HO.HOSX 09:02
PROVIDERS: Visit Provider Orthopaedic Surgery
DX: M25.512 Pain in left shoulder (principal); M25.311 Other instability, right shoulder
CPT/HCPCS: 73030; 99202

== ENCOUNTER 2025-03-06 13:52 | Outpatient (AMB) | payer OTHER, SELFPAY ==
--- NOTE | 2025-03-06 14:00 | MHC.OFFVIS ---
Vital Signs 03/06/25 14:08 Height 6 ft 4 in Weight 350 lb BMI 42.6 Intake Visit Reasons: Right shoulder pain and weakness, Left shoulder pain Intake Note: Peter is a 54 year old right hand dominant male who presents with complaints of progressively worsening right shoulder pain and weakness as well as intermittent left shoulder pain. The patient states that he fell onto his right shoulder this past winter when he slipped on ice. Since that time he has had difficulty lifting his right hand to shoulder height. He has failed the last 6 weeks of conservative treatment which has included physical therapy exercises, a home exercise program, Tylenol and anti-inflammatory medicines. Allergies codeine (Codeine) Allergy (Unknown, Unverified 03/06/25 14:09) RASH [id number]-[id number] Reductase Inhibitor Adverse Reaction (Severe, Verified 03/06/25 14:10) Joint Pain Medication List - Last Reconciled 03/06/25 by Yobany Cortes MD carvedilol 6.25 mg PO BID cholecalciferol (vitamin D3) 50 mcg PO DAILY ezetimibe 10 mg PO DAILY finasteride 5 mg PO DAILY fluticasone propionate 50 mcg/actuation 1 spray intranasal DAILY gabapentin 600 mg PO DAILY insulin regular hum U-500 conc (Humulin R U-500 (Conc) Insulin Kwikpen) 60 units subcut TID levothyroxine 150 mcg PO QAM oxycodone 15 mg PO QID PRN potassium chloride ER 20 mEq PO DAILY tirzepatide (Mounjaro) 5 mg subcut QWEEK zolpidem 10 mg PO BEDTIME PRN PFSH Social History (Updated 03/06/25 @ 14:09 by TAQUERIA Vizcaino) Patient Tobacco Use Status: Current everyday Tobacco user Current occupational status: retired Current occupation: rt handed Physical Exam Vital Signs: BMI result Body Mass Index 42.6 Const Other: Well-nourished well-developed very friendly male awake alert and oriented x3 in no acute distress Extrem Other: Physical examination of the patient's right shoulder shows full passive range of motion but decreased active range of motion when compared to his left shoulder, 3/5 strength with supraspinatus testing, positive impingement signs, no instability Results Reviewed Results Reviewed: X-rays of the patient's bilateral shoulders taken today show severe acromioclavicular joint narrowing, type 2 acromion, no acute bony Assessment & Plan Assessment & Plan (1) Rotator cuff insufficiency of right shoulder: Code(s): M25.311 - Other instability, right shoulder Category: Medical (2) Left shoulder pain: Code(s): M25.512 - Pain in left shoulder Plan Mr. Hernandez presents with progressively worsening right shoulder pain and weakness due to impingement syndrome and possible full-thickness rotator cuff tearing. Thus, I will send the patient for an MRI of his right shoulder for further evaluation. I will see him back once the MRI is completed to discuss the findings and treatment options. Feel free to call me at any time should questions regarding his orthopedic management arise. Thank you very much for asking me to see this very friendly gentleman. I spent 22 minutes in reviewing the patient's records and imaging studies, seeing the patient and documenting in the medical record. Orders: Orders MR shoulder RT wo con Today M25.311 - Other instability, right shoulder Coding Level of Care Code New Pt Level 3 (76635) Complex EM visit Add On G2211 Diagnoses Rotator cuff insufficiency of right shoulder M25.311 Left shoulder pain M25.512
[2025-03-06 14:08] VITALS: BMI 42.6
--- OUTSIDE RECORDS SUMMARY | 2025-03-06 15:06 | XMS_ITS | Patient Health Record ---
Author Organization [facility] Address [address] [place] [address] [address] [place] [address] Care Team Providers Care Traveling Engineer Name Role Phone CORKY TORRES Primary Care Provider [phone] Ethan Craig Unavailable [phone] Allergies Allergen (clinical drug ingredient) Drug/Non Drug Allergy documented on EMR Reaction Allergy Type Onset Date Status Codeine Phosphate Unknown Drug Allergy Active Substance with 2-owthgig-2-methylglut aryl-coenzyme A reductase inhibitor mechanism of action (substance) Statins muscle pain Drug Allergy Active Results Component Value Reference Range Notes Lipid Panel-[id number] Reviewed date:02/07/2025 03:03:16 PM Interpretation: Performing Lab:[facility], [address] [facility], Phone - [phone], Director - Marcella Notes/Report: Cholesterol, Total 138 100-199 mg/dL Triglycerides 201 0-149 mg/dL HDL Cholesterol 31 >39 mg/dL VLDL Cholesterol Pankaj 34 5-40 mg/dL LDL Chol Calc ([facility]) 73 0-99 mg/dL CBC with Diff, Platelet, NLR -[id number] Reviewed date:02/07/2025 03:04:42 PM Interpretation: Performing Lab:[facility], [address] [facility], [place], Phone - [phone], Director - Marcella Notes/Report: WBC 11.1 3.4-10.8 x10E3/uL RBC 5.06 4.14-5.80 x10E6/uL Hemoglobin 17.2 13.0-17.7 g/dL Hematocrit 49.7 37.5-51.0 % MCV 98 79-97 fL MCH 34.0 26.6-33.0 pg MCHC 34.6 31.5-35.7 g/dL RDW 12.8 11.6-15.4 % Platelets 240 150-450 x10E3/uL Neutrophils 60 Not Estab. % Lymphs 33 Not Estab. % Monocytes 5 Not Estab. % Eos 2 Not Estab. % Basos 0 Not Estab. % Neutrophils (Absolute) 6.6 1.4-7.0 x10E3/uL Lymphs (Absolute) 3.7 0.7-3.1 x10E3/uL Neut/Lymph Ratio 1.8 0.0-2.9 ratio Published COVID-19 studies suggest: Low likelihood of severe COVID-19 disease progression 0.0-2.9 High likelihood of severe COVID-19 disease progression >4.9 Monocytes(Absolute) 0.6 0.1-0.9 x10E3/uL Eos (Absolute) 0.2 0.0-0.4 x10E3/uL Baso (Absolute) 0.0 0.0-0.2 x10E3/uL Immature Granulocytes 0 Not Estab. % Immature Grans (Abs) 0.0 0.0-0.1 x10E3/uL Ferritin-[id number] Reviewed date:02/07/2025 03:04:24 PM Interpretation: Performing Lab:[facility], Phone - [phone], Director - Bany Notes/Report: Ferritin 116 30-400 ng/mL Iron and TIBC-[id number] Reviewed date:02/07/2025 03:04:49 PM Interpretation: Performing Lab:[facility], Phone - [phone], Director - Bany Notes/Report: Iron Bind.Cap.(TIBC) 290 250-450 ug/dL UIBC 170 111-343 ug/dL Iron 120 38-169 ug/dL Iron Saturation 41 15-55 % LDH-[id number] Reviewed date:02/07/2025 03:04:30 PM Interpretation: Performing Lab:[facility] [place], Phone - [phone], Director - Bany Notes/Report: LDH 208 121-224 IU/L Zolpidem, UR Screen W RFX Co nf Reviewed date:01/28/2025 07:43:21 AM Interpretation: Performing Lab:[facility], [address] [place] [address], Phone - [phone], Director - Suzie Notes/Report: Zolpidem Screen Further testing indicated Screening threshold: 2.0 ng/mL Screening analysis for zolpidem performed by Liquid Chromatography with Tandem Mass Spectrometry (LC/MS/MS). This test was developed and its performance characteristics determined by [facility]. It has not been cleared or approved by the Food and Drug Administration. Written Authorization Reviewed date:01/28/2025 07:43:14 AM Interpretation: Performing Lab:[facility], [address] [place] [address], Phone - [phone], Director - Suzie Notes/Report: Written Authorization Written Authorization Received. Authorization received from ORIGINAL REQUEST 12-04-2024 Logged by Alison Howard Zolpidem, UR Confirmation Reviewed date:01/28/2025 07:43:10 AM Interpretation: Performing Lab:[facility], [address] [place] [address], Phone - [phone], Director - Suzie Notes/Report: Zolpidem Confirmation Positive Zolpidem Acid PRESENT Screening Confirmation Threshold Threshold Analyte --------- --------- -------- 2.0 ng/mL 2.0 ng/mL Zolpidem 10.0 ng/mL 10.0 ng/mL Zolpidem Acid This test was developed and its performance characteristics determined by [facility]. It has not been cleared or approved by the Food and Drug Administration. REFERENCE RANGE: NOT ESTABLISHED Zolpidem Negative REFERENCE RANGE : NOT ESTABLISHED TSH+Free T4 Reviewed date:12/10/2024 06:05:18 PM Interpretation: Performing Lab:[facility], [address] [place] [address], Phone - [phone], Director - Deniz Notes/Report: TSH-ICMA 2.3 Reference Range: Non- Adult 0.450-4.500 Free T4 by Dialysis/Surgical Appliances Salesperson 1.5 This test was developed and its performance characteristics determined by [facility]. It has not been cleared or approved by the Food and Drug Administration. Reference Range: Pubertal Children and Adults: 0.8 - 1.7 Hemoglobin X1a-[id number] Reviewed date:12/10/2024 06:05:24 PM Interpretation: Performing Lab:[facility], [address] [place] [address], Phone - [phone], Director [facility] Notes/Report: Hemoglobin A1c 8.8 4.8-5.6 % . Prediabetes: 5.7 - 6.4 Diabetes: >6.4 Glycemic control for adults with diabetes: <7.0 PSA (Serial Monitor)-[id number] Reviewed date:06/11/2024 05:13:00 PM Interpretation: Performing Lab:[facility], [address] [place] [address], Phone - [phone], Director - Marcella Notes/Report: Prostate Specific Ag 0.2 0.0-4.0 ng/mL Madie ECLIA methodology. . According to the [place] [employer], Serum PSA should decrease and remain at undetectable levels after radical prostatectomy. The AUA defines biochemical recurrence as an initial PSA value 0.2 ng/mL or greater followed by a subsequent confirmatory PSA value 0.2 ng/mL or greater. Values obtained with different assay methods or kits cannot be used interchangeably. Results cannot be interpreted as absolute evidence of the presence or absence of malignant disease. Hemoglobin [id number]-[id number] Reviewed date:06/11/2024 05:13:08 PM Interpretation: Performing Lab:[facility], [address] [place] [address], Phone - [phone], - Marcella Notes/Report: Hemoglobin A1c 8.5 4.8-5.6 % . Prediabetes: 5.7 - 6.4 Diabetes: >6.4 Glycemic control for adults with diabetes: <7.0 Lipid Panel-[id number] Reviewed date:06/11/2024 05:13:10 PM Interpretation: Performing Lab:[facility], [address] [place] [address], [place], Phone - [phone], - Marcella Notes/Report: Cholesterol, Total 132 100-199 mg/dL Triglycerides 166 0-149 mg/dL HDL Cholesterol 30 >39 mg/dL VLDL Cholesterol Pankaj 29 5-40 mg/dL LDL Chol Calc (NI[facility]) 73 0-99 mg/dL Comp. Metabolic Panel (14)-3 Reviewed date:06/11/2024 05:13:16 PM Interpretation: Performing Lab:[facility] [place], [address] [place], [place], Phone - [phone], Director - Marcella Notes/Report: Glucose 54 70-99 mg/dL BUN 21 6-24 mg/dL Creatinine 1.34 0.76-1.27 mg/dL eGFR 63 >59 mL/min/1.73 BUN/Creatinine Ratio 16 9-20 Sodium 141 134-144 mmol/L Potassium 4.0 3.5-5.2 mmol/L Chloride 104 96-106 mmol/L Carbon Dioxide, Total 21 20-29 mmol/L Calcium 8.7 8.7-10.2 mg/dL Protein, Total 6.6 6.0-8.5 g/dL Albumin 4.2 3.8-4.9 g/dL Globulin, Total 2.4 1.5-4.5 g/dL Bilirubin, Total 0.4 0.0-1.2 mg/dL Alkaline Phosphatase 104 44-121 IU/L AST (SGOT) 31 0-40 IU/L ALT (SGPT) 31 0-44 IU/L Albumin/Creatinine Ratio,Uri ne-[id number] Reviewed date:06/11/2024 04:47:12 PM Interpretation: Performing Lab:[facility], [address], [place], Phone - [phone], Director - Marcella Notes/Report: Creatinine, Urine 41.6 Not Estab. mg/dL Albumin, Urine 6.8 Not Estab. ug/mL Alb/Creat Ratio 16 0-29 mg/g creat Normal: 0 - 29 Moderately increased: 30 - 300 Severely increased: >300 Reason For Referral Reason Evaluation and manag ement Diagnosis 1 Encounter for screen ing for malignant neoplasm of colon (Z12.11) Referral Organization [facility] Referring Provider First Name CORKY Referring Provider Last Name MELISSA Referring Provider Speciality Internal M edicine Referred Provider Specialty Gastroentero logy General Notes Referral sent to [facility] - Office will call patient for scheduling.Dayana Latraya 06/05/2024 01:28:50 PM > Referral Priority Routine Reason Evaluation and manag ement Diagnosis 1 Essential (primary) hypertension (I10) Referral Organization [facility] Referring Provider First Name CORKY Referring Provider Last Name GU Referring Provider Speciality Internal edicine Referred Provider Specialty Cardiology General Notes Referral sent to [facility] Cardiology - Office will call patient for scheduling.Dayana Latraya 06/05/2024 03:26:26 PM > Referral Priority Routine Reason Evaluation and manag ement Diagnosis 1 Type 2 diabetes tushar itus with unspecified complications (E11.8) Referral Organization [facility] Referring Provider First Name CORKY Referring Provider Last Name GU Referring Provider Speciality Internal edicine Referred Provider Specialty Endocrinolog y General Notes Referral sent to [facility] Endocrinology - Office will call patient for scheduling.Dayana Latraya 06/05/2024 03:27:15 PM > Referral Priority Routine Reason Evaluation and manag ement Diagnosis 1 Type 2 diabetes tushar itus with unspecified complications (E11.8) Referral Organization [facility] Referring Provider First Name CORKY Referring Provider Last Name [facility] Referred Provider Specialty Podiatry General Notes Referral sent to [facility] in [place] - Office will call patient for scheduling.Dayana Latraya 06/05/2024 03:28:04 PM > Referral Priority Routine Reason Evaluation and manag ement Diagnosis 1 Chronic kidney disea se, unspecified (N18.9) Referral Organization [facility] Referring Provider First Name CORKY Referring Provider Last Name [facility] Referring Provider Speciality Internal edicine Referred Provider Specialty Nephrology General Notes Referral sent to [facility] [place] [facility] will call patient for scheduling.Dayana Latraya 06/05/2024 03:28:48 PM > Referral Priority Routine Reason Evaluation and manag ement Diagnosis 1 Obstructive sleep ap keith (G47.33) Referral Organization [facility] Referring Provider First Name CORKY Referring Provider Last Name GU Referring Provider Speciality Internal edicine Referred Provider Specialty Sleep Medici ne General Notes Ref[facility] will call patient for scheduling.Dayana Latraya 06/05/2024 03:30:15 PM > Referral Priority Routine Reason knee and back pain- NEOS Diagnosis 1 Pain in unspecified knee (M25.569) Diagnosis 2 Pain in thoracic spi ne (M54.6) Referral Organization [facility] Referring Provider First Name CORKY Referring Provider Last Name HSERRY Referring Provider Speciality Internal edicine Referred Provider Specialty Orthopedic S urgery General Notes Referral sent to [facility] - Office will call patient for scheduling., Quentin Anne 06/05/2024 03:33:05 PM > Referral Priority Routine Reason Evaluation and manag ement Diagnosis 1 Type 2 diabetes tushar itus with unspecified complications (E11.8) Referral Organization [facility] Referring Provider First Name CORKY Referring Provider Last Name SHERRY Referring Provider Speciality Internal edicine Referred Provider Specialty Ophthalmolog y General Notes Referral sent to [facility] in [place]- Office will call patient for scheduling., Quentin Anne 06/05/2024 03:34:08 PM > Referral Priority Routine Reason please evaluate and treat Diagnosis 1 Pain in right should er (M25.511) Referral Organization [facility] Referring Provider First Name Ethan Referring Provider Last Name Kiara Referred Provider Specialty Orthopedic S urgery General Notes REFERRAL WAS FAXED T O [facility] PLEASE CONTACT PATIENT FOR SCHEDULING., Vanda Story 10/03/2024 04:50:54 PM > Referral Priority Routine Reason EGD and C-scope, pos itive cologuard Please evaluate and treat Diagnosis 1 Weight loss, uninten tional (R63.4) Referral Organization [facility] Referring Provider First Name Ethan Referring Provider Last Name Kiara Referred Provider Specialty Gastroentero logy General Notes Please call the johnny ent to schedule the appointment, Referral has been faxed to [facility] - [phone] Charmain 12/26/2024 04:17:19 PM > Referral Priority Routine Reason please evaluate and treat Please evaluate and treat Diagnosis 1 Chronic pain syndrom e (G89.4) Referral Organization [facility] Referring Provider First Name Ethan Referring Provider Last Name Kiara Referred Provider Specialty Pain Medicin e General Notes Please call the johnny ent to schedule the appointment, [facility]. Please contact them at [phone], Makayla Madrigal 01/30/2025 03:59:43 PM > Referral Priority Routine Medications Medication SIG (Take, Route, Frequency, Duration) Notes Start Date End Date Status buPROPion HCl 75 MG 2 tablets Orally Twice a day for 90 days Active Baclofen 20 MG 1 tablet Administer without regards to meals as needed Orally Three times a day for 90 days Active Ezetimibe 10 MG 1 tablet Orally Once a day for 90 days Active Gabapentin 600 MG 1 tablet Orally three times a day for 90 days Active Fluticasone Propionate 50 MCG/ACT 1 spray in each nostril Nasally Once a day for 90 days Active Carvedilol 6.25 MG 1 tablet with food Orally Twice a day for 90 days Active Levothyroxine Sodium 150 MCG 1 tablet in the morning on an empty stomach Orally Once a day for 90 days Active oxyCODONE HCl 15 MG 1 tablet as needed Orally every 6 hrs for 28 days Partial Fill upon Patient Request 02/25/2025 Active predniSONE 20 MG 1 tablet Orally Once a day for 7 days 10/17/2024 Not-Taking FreeStyle Lite w/Device as directed 06/03/2024 Active Vitamin D3 50 MCG (1999 UT) 1 capsule Orally Once a day for 90 days 06/03/2024 Not-Taking Potassium Chloride ER 20 MEQ 1 tablet with food Orally Once a day for 90 days Active Blood Glucose Test - as directed In Vitro 06/03/2024 Active Benzonatate 100 MG 1 capsule as needed Orally Three times a day for 15 days 10/17/2024 Not-Taking Insulin Syringe-Needle U-100 32G X 5/16 0.5 ML as directed to inject insulin E11.8 for 90 days 06/03/2024 Active Loperamide HCl 2 MG 1 capsule as needed Orally Four times a day for 90 days Not-Taking Jardiance 25 MG 1 tablet Orally Once a day for 90 days Not-Taking Sildenafil Citrate 50 MG 1 tablet as needed Orally Once a day for 30 days 06/03/2024 Active Mounjaro 2.5 MG/0.5ML as directed Subcutaneous Not-Taking Furosemide 40 MG 1 tablet Orally twice a day for 90 days Not-Taking HumaLOG 100 UNIT/ML as directed Injection RU500 Active Vitamin D3 50 MCG (2000 UT) 1 capsule Orally Once a day Active Melatonin 10 MG 1 tablet at bedtime as needed Orally Once a day Active Ibuprofen 800 MG 1 tablet with food or milk as needed Orally every 8 hrs for 90 days Not-Taking Centrum Active Amoxicillin 500 MG 1 tablet Orally Three times a day for 10 days 10/17/2024 Not-Taking Zolpidem Tartrate 10 MG 1 tablet at bedtime as needed Orally Once a day for 90 days 11/28/2024 Active Niacin ER 1000 MG 1 tablet with food Orally Once a day for 90 days Active Finasteride 5 MG 1 tablet Orally Once a day for 90 days Active Social History Tobacco Use: Social History Observation Description Date Details (start date - stop date) Current Smoker NA - NA Tobacco Use/Smoking Question Answer Notes Are you a current smoker How often do you smoke cigarettes? 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) Active confirmed Problem Morbid obesity (disorder) (369575795) Morbid (severe) obesity due to excess calories (E66.01) Active confirmed Problem Mixed hyperlipidemia (844638186) Mixed hyperlipidemia (E78.2) Active confirmed Problem Tobacco user (613489525) Nicotine dependence, cigarettes, uncomplicated (F17.210) Active confirmed Problem Generalized anxiety disorder (95082544) Generalized anxiety disorder (F41.1) Active confirmed Problem Insomnia (511653361) Insomnia, unspecified (G47.00) Active confirmed Problem Chronic pain syndrome (140707473) Chronic pain syndrome (G89.4) Active confirmed Problem Chronic kidney disease (787340690) Chronic kidney disease, unspecified (N18.9) Active confirmed Problem Erectile dysfunction (disorder) (524572931) Male erectile dysfunction, unspecified (N52.9) Active confirmed Problem Essential hypertension (04167005) Essential (primary) hypertension (I10) Active confirmed Problem Lower urinary tract symptoms due to benign prostatic hypertrophy (24131825389800) Benign prostatic hyperplasia with lower urinary tract symptoms (N40.1) Active confirmed Problem Obstructive sleep apnea (86702935) Obstructive sleep apnea (G47.33) Active confirmed Vital Signs Heart Rate 98 /min 02/25/2025 Temperature 97.4 degrees Fahrenheit 02/25/2025 Oximetry 95 % 02/25/2025 Blood pressure diastolic 90 mm Hg 02/25/2025 Height 6'3'' in 02/25/2025 Blood pressure systolic 140 mm Hg 02/25/2025 Weight 350.1 lbs 02/25/2025 BMI 43.75 kg/m2 02/25/2025 Encounters Encounter Location Date Provider Diagnosis [address] [place] [address] 06/03/2024 CORKY TORRES Essential (primary) hypertension I10 ; Diabetes mellitus due to underlying condition with diabetic nephropathy E08.21 ; Mixed hyperlipidemia E78.2 ; Hypothyroidism, unspecified E03.9 ; Generalized anxiety disorder F41.1 ; Insomnia, unspecified G47.00 ; Radiculopathy, lumbosacral region M54.17 ; Benign prostatic hyperplasia with lower urinary tract symptoms N40.1 ; Encounter for screening for malignant neoplasm of prostate Z12.5 ; Male erectile dysfunction, unspecified N52.9 ; Obstructive sleep apnea G47.33 ; Morbid (severe) obesity due to excess calories E66.01 ; Dietary counseling and surveillance Z71.3 ; Nicotine dependence, cigarettes, uncomplicated F17.210 ; Tobacco abuse counseling Z71.6 and Chronic kidney disease, unspecified N18.[address] [place] [address] 07/08/2024 CORKY TORRES Type 2 diabetes mellitus with unspecified complications E11.8 ; Essential (primary) hypertension I10 ; Mixed hyperlipidemia E78.2 ; Chronic pain syndrome G89.4 and Insomnia, unspecified G47.[address] [place] [address] 08/08/2024 CORKY TORRES Chronic pain syndrom e G89.4 and Essential (primary) hypertension I10 [address] [place] [address] 09/05/2024 Ghadeer Mazloum Chronic pain syndrom e G89.4 ; Essential (primary) hypertension I10 and Pain in right shoulder M25.[address] [place] [address] 10/03/2024 Ghadeer Mazloum Chronic pain syndrom e G89.4 ; Essential (primary) hypertension I10 ; Pain in right shoulder M25.511 ; Hypothyroidism, unspecified E03.9 and Diabetes mellitus due to underlying condition with diabetic nephropathy E08.[address] [place] [address] 10/17/2024 Ghadeer Mazloum Acute sinusitis, unspecified J01.[address] [place] [address] 10/31/2024 Ghadeer Mazloum Chronic pain syndrom e G89.4 ; Essential (primary) hypertension I10 ; Hypothyroidism, unspecified E03.9 and Diabetes mellitus due to underlying condition with diabetic nephropathy E08.[address] [place] [address] 11/28/2024 Ghadeer Mazloum Chronic pain syndrom e G89.4 and Essential (primary) hypertension I10 [address] [place] [address] 12/26/2024 Ghadeer Mazloum Chronic pain syndrom e G89.4 ; Essential (primary) hypertension I10 ; Mixed hyperlipidemia E78.2 and Weight loss, unintentional R63.[address] [place] [address] 01/28/2025 Ghadeer Mazloum Chronic pain syndrom e G89.4 ; Essential (primary) hypertension I10 ; Mixed hyperlipidemia E78.2 ; Diabetes mellitus due to underlying condition with diabetic nephropathy E08.21 and Chronic kidney disease, unspecified N18.[address] [place] [address] 02/25/2025 Ghadeer Mazloum Chronic pain syndrom e G89.4 ; Essential (primary) hypertension I10 ; Mixed hyperlipidemia E78.2 ; Diabetes mellitus due to underlying condition with diabetic nephropathy E08.21 and Chronic kidney disease, unspecified N18.[address] [place] [address] 06/04/[address] [place] [address] 06/06/2024 [facility] [address] [facility] [address] [place] [address] 06/14/2024 [facility] [address] [address] [place] [address] 06/24/[address] [place] [address] 07/18/2024 [facility] [address] [facility] [address] [place] [address] 10/03/[address] [place] [address] 10/04/[address] [place] [address] 10/14/[address] [place] [address] 11/29/2024 [facility] 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 Hernandez is a 53-year-old gentleman with type 2 diabetes mellitus, hypertension, hyperlipidemia, hypothyroidism, generalized anxiety disorder and insomnia here to establish care. Plan is as follows: Type 2 diabetes mellitus. His last A1c was greater than 9. Is currently on sliding scale. He is not on statins because he cannot tolerate side effects. He is not on BEAR/ARB and most likely secondary to chronic kidney disease but results are not available. Referred to Ophthalmology and Podiatry. Check A1c. Hypertension. Blood pressure well controlled on current regimen and check renal function and electrolytes Hyperlipidemia. Unfortunately he cannot tolerate statins. Continue Ezetimibe 10 MG and check lipid panel and consider PCSK-9. CHF. Patient mentioned that industrial sociologist told him that his pump is not up to the more. Currently he is on Lasix. Referral to cardiology and retrieve old records. Low-sodium diet recommended. Hypothyroidism. Continue Levothyroxine 150 MCG and advised to take it first thing in the morning on an empty stomach. ELIZ/insomnia. Mood is stable on current regimen plan he is also on Ambien which was prescribed by his previous PCP Radiculopathy. He is on oxycodone 10 MG and according to the patient he has been on this medication for a long time. It was prescribed by his primary care physician at [place]. We will retrieve old records Chronic kidney disease. Stage is not known. 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 Stable on current regimen. JAYE. He sleeps well with AVAPS and needs equipment and is Referred to sleep medicine. Male erectile dysfunction. Start Sildenafil 50 MG Morbid obesity. Advised low calorie foods and appropriate hydration, sleep and try to lose on average 6 pounds a month. Once he has his blood work done he may benefit from GLP-1. Nicotine dependence. Encouraged to quit smoking but is not ready at this point. Screening blood work before next appointment. He dangelo dthis cologuard done and was positive. Referral to GI for colonoscopy General health concerns discussed with patient. Scribe services used to formulate this note under HIPAA compliance and under [place] law mandated for scribe services. Patient aware of service. Verbal consent and written consent taken from the patient. Patient understands and verbalizes understanding of the scribes services and all questions answered regarding scribes services. Patient agrees to use of scribes services. 06/03/2024 Essential (primary) hypertension (ICD-10 - I10) Mr. Hernandez is a 53-year-old gentleman with type 2 diabetes mellitus, hypertension, hyperlipidemia, hypothyroidism, generalized anxiety disorder and insomnia here to establish care. Plan is as follows: Type 2 diabetes mellitus. His last A1c was greater than 9. Is currently on sliding scale. He is not on statins because he cannot tolerate side effects. He is not on BEAR/ARB and most likely secondary to chronic kidney disease but results are not available. Referred to Ophthalmology and Podiatry. Check A1c. Hypertension. Blood pressure well controlled on current regimen and check renal function and electrolytes Hyperlipidemia. Unfortunately he cannot tolerate statins. Continue Ezetimibe 10 MG and check lipid panel and consider PCSK-9. CHF. Patient mentioned that industrial sociologist told him that his pump is not up to the more. Currently he is on Lasix. Referral to cardiology and retrieve old records. Low-sodium diet recommended. Hypothyroidism. Continue Levothyroxine 150 MCG and advised to take it first thing in the morning on an empty stomach. ELIZ/insomnia. Mood is stable on current regimen plan he is also on Ambien which was prescribed by his previous PCP Radiculopathy. He is on oxycodone 10 MG and according to the patient he has been on this medication for a long time. It was prescribed by his primary care physician at [place]. We will retrieve old records Chronic kidney disease. Stage is not known. 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 Stable on current regimen. JAYE. He sleeps well with AVAPS and needs equipment and is Referred to sleep medicine. Male erectile dysfunction. Start Sildenafil 50 MG Morbid obesity. Advised low calorie foods and appropriate hydration, sleep and try to lose on average 6 pounds a month. Once he has his blood work done he may benefit from GLP-1. Nicotine dependence. Encouraged to quit smoking but is not ready at this point. Screening blood work before next appointment. He dangelo dthis cologuard done and was positive. Referral to GI for colonoscopy General health concerns discussed with patient. Scribe services used to formulate this note under HIPAA compliance and under [place] law mandated for scribe services. Patient aware of service. Verbal consent and written consent taken from the patient. Patient understands and verbalizes understanding of the scribes services and all questions answered regarding scribes services. Patient agrees to use of scribes services. 07/08/2024 Type 2 diabetes mellitus with unspecified complications (ICD-10 - E11.8) Mr. Hernandez is a 53-year-old gentleman with type 2 diabetes mellitus, hypertension, hyperlipidemia, hypothyroidism, ,obstructive sleep apnea, generalized anxiety disorder/depressio n and insomnia here for follow up. Plan is as follows: Type 2 diabetes mellitus. His last A1c was 8.5. Is currently on sliding scale. He is not on statins because he cannot tolerate side effects. He is not on BEAR/ARB and most likely secondary to chronic kidney disease but results are not available. Hypertension. Blood pressure well controlled on current regimen and check renal function and electrolytes Hyperlipidemia. Unfortunately he cannot tolerate statins. Continue Ezetimibe 10 MG CHF. Patient mentioned that industrial sociologist told him that his pump is not up to the more. Currently he is on Lasix. Low-sodium diet recommended. Hypothyroidism. Continue Levothyroxine 150 MCG and advised to take it first thing in the morning on an empty stomach. ELIZ/insomnia. Mood is stable on current regimen plan he is also on Ambien which was prescribed by his previous PCP Radiculopathy. He is on oxycodone 10 MG and according to the patient he has been on this medication for a long time. It was prescribed by his primary care physician at [place]. Chronic kidney disease. Stage is not known. He does not appear to be in volume overload. Advised appropriate hydration. Avoid NSAIDs. BPH. Stable on current regimen. JAYE./ Insomnia. He sleeps well with AVAPS and he is on ambien Male erectile dysfunction. Continue Sildenafil 50 MG Morbid obesity. Advised low calorie foods and appropriate hydration, sleep and try to lose on average 6 pounds a month. Nicotine dependence. Encouraged to quit smoking but is not ready at this point. Blood work reviewed with patient and questions answered. General health concerns discussed with patient. Scribe services used to formulate this note under HIPAA compliance and under [place] law mandated for scribe services. Patient aware of service. Verbal consent and written consent taken from the patient. Patient understands and verbalizes understanding of the scribes services and all questions answered regarding scribes services. Patient agrees to use of scribes services. 07/08/2024 Essential (primary) hypertension (ICD-10 - I10) Mr. Hernandez is a 53-year-old gentleman with type 2 diabetes mellitus, hypertension, hyperlipidemia, hypothyroidism, ,obstructive sleep apnea, generalized anxiety disorder/depressio n and insomnia here for follow up. Plan is as follows: Type 2 diabetes mellitus. His last A1c was 8.5. Is currently on sliding scale. He is not on statins because he cannot tolerate side effects. He is not on BEAR/ARB and most likely secondary to chronic kidney disease but results are not available. Hypertension. Blood pressure well controlled on current regimen and check renal function and electrolytes Hyperlipidemia. Unfortunately he cannot tolerate statins. Continue Ezetimibe 10 MG CHF. Patient mentioned that industrial sociologist told him that his pump is not up to the more. Currently he is on Lasix. Low-sodium diet recommended. Hypothyroidism. Continue Levothyroxine 150 MCG and advised to take it first thing in the morning on an empty stomach. ELIZ/insomnia. Mood is stable on current regimen plan he is also on Ambien which was prescribed by his previous PCP Radiculopathy. He is on oxycodone 10 MG and according to the patient he has been on this medication for a long time. It was prescribed by his primary care physician at [place]. Chronic kidney disease. Stage is not known. He does not appear to be in volume overload. Advised appropriate hydration. Avoid NSAIDs. BPH. Stable on current regimen. JAYE./ Insomnia. He sleeps well with AVAPS and he is on ambien Male erectile dysfunction. Continue Sildenafil 50 MG Morbid obesity. Advised low calorie foods and appropriate hydration, sleep and try to lose on average 6 pounds a month. Nicotine dependence. Encouraged to quit smoking but is not ready at this point. Blood work reviewed with patient and questions answered. General health concerns discussed with patient. Scribe services used to formulate this note under HIPAA compliance and under [place] law mandated for scribe services. Patient aware of service. Verbal consent and written consent taken from the patient. Patient understands and verbalizes understanding of the scribes services and all questions answered regarding scribes services. Patient agrees to use of scribes services. 08/08/2024 Chronic pain syndrome (ICD-10 - G89.4) Chronic pain secondary to degenerative disc disease. Prognosis: Mild to moderate Medical necessity supported by H&P, imaging and testing [place] pain treatment protocol completed. Yes Chronic opioid/pain maintenance. This patient request for ongoing pain management using chronic opioids have met the compliance requirement today satisfying the [employer] of state medical board recommendations and guidelines for judicious use, supervised opioid dispensing. Patient agreed to a personal interview for renewal for further opioids as planned at next scheduled visit or sooner if conditions change. Medication contract agreement and compliance reinforced. All risks and benefits associated with opioid neutralization, safe use and storage are described in great detail and patient voluntarily accepts all obligations. Patient is at moderate risk of opioid misuse based on ORT. Toxicology and TRADING ANALYST monitoring done and will follow protocol set forth by practice. As such controlled substance use requires judicious monitoring to access patient compliance with mutually agreed upon controlled substance use agreement which has been signed by the patient and initiation of controlled substance prescribing. Therefore following state, Federal, [facility] guidelines for controlled substance testing policies. This patient has been assessed on the basis of psychometric risk tool, TRADING ANALYST monitoring, toxicology test results. Comorbid conditions may contribute to her compliance with chronic ongoing pain condition/function al impairment. Urine toxicology screen reviewed. appropriately positive and negative Liver function tests are normal Prescription monitoring program reviewed Opioid risk tool [ ORT] for narcotic abuse used to evaluate risk continue current regimen Counseling done. 09/05/2024 Chronic pain syndrome (ICD-10 - G89.4) Chronic pain secondary to degenerative disc disease. Prognosis: Mild to moderate Medical necessity supported by H&P, imaging and testing [place] pain treatment protocol completed. Yes Chronic opioid/pain maintenance. This patient request for ongoing pain management using chronic opioids have met the compliance requirement today satisfying the [employer] of state medical board recommendations and guidelines for judicious use, supervised opioid dispensing. Patient agreed to a personal interview for renewal for further opioids as planned at next scheduled visit or sooner if conditions change. Medication contract agreement and compliance reinforced. All risks and benefits associated with opioid neutralization, safe use and storage are described in great detail and patient voluntarily accepts all obligations. Patient is at moderate risk of opioid misuse based on ORT. Toxicology and TRADING ANALYST monitoring done and will follow protocol set forth by practice. As such controlled substance use requires judicious monitoring to access patient compliance with mutually agreed upon controlled substance use agreement which has been signed by the patient and initiation of controlled substance prescribing. Therefore following state, Federal, [facility] guidelines for controlled substance testing policies. This patient has been assessed on the basis of psychometric risk tool, TRADING ANALYST monitoring, toxicology test results. Comorbid conditions may contribute to her compliance with chronic ongoing pain condition/function al impairment. Urine toxicology screen reviewed. appropriately positive and negative Liver function tests are normal Prescription monitoring program reviewed Opioid risk tool [ORT] for narcotic abuse used to evaluate risk continue current regimen Counseling done. Hypertension - Blood pressure is well controlled. Continue the same regimen. Increase hydration to reduce salt intake are recommended. Weight loss is also recommended. Pain in the right shoulder - He had a mechanical fall, tripped into his right shoulder and he has been experiencing pain. Physical examination is remarkable for limited range of motion. Order x-ray to rule out any abnormalities. He declines physical therapy. Advised on compressions and continue using NSAIDs. I have rendered the services for this patient under direct supervision of Dr. Torres, who did not see the patient but was available upon request 09/05/2024 Essential (primary) hypertension (ICD-10 - I10) Chronic pain secondary to degenerative disc disease. Prognosis: Mild to moderate Medical necessity supported by H&P, imaging and testing [place] pain treatment protocol completed. Yes Chronic opioid/pain maintenance. This patient request for ongoing pain management using chronic opioids have met the compliance requirement today satisfying the [employer] of state medical board recommendations and guidelines for judicious use, supervised opioid dispensing. Patient agreed to a personal interview for renewal for further opioids as planned at next scheduled visit or sooner if conditions change. Medication contract agreement and compliance reinforced. All risks and benefits associated with opioid neutralization, safe use and storage are described in great detail and patient voluntarily accepts all obligations. Patient is at moderate risk of opioid misuse based on ORT. Toxicology and TRADING ANALYST monitoring done and will follow protocol set forth by practice. As such controlled substance use requires judicious monitoring to access patient compliance with mutually agreed upon controlled substance use agreement which has been signed by the patient and initiation of controlled substance prescribing. Therefore following state, Federal, [facility] guidelines for controlled substance testing policies. This patient has been assessed on the basis of psychometric risk tool, TRADING ANALYST monitoring, toxicology test results. Comorbid conditions may contribute to her compliance with chronic ongoing pain condition/function al impairment. Urine toxicology screen reviewed. appropriately positive and negative Liver function tests are normal Prescription monitoring program reviewed Opioid risk tool [ORT] for narcotic abuse used to evaluate risk continue current regimen Counseling done. Hypertension - Blood pressure is well controlled. Continue the same regimen. Increase hydration to reduce salt intake are recommended. Weight loss is also recommended. Pain in the right shoulder - He had a mechanical fall, tripped into his right shoulder and he has been experiencing pain. Physical examination is remarkable for limited range of motion. Order x-ray to rule out any abnormalities. He declines physical therapy. Advised on compressions and continue using NSAIDs. I have rendered the services for this patient under direct supervision of Dr. Torres, who did not see the patient but was available upon request 10/03/2024 Chronic pain syndrome (ICD-10 - G89.4) Chronic pain secondary to degenerative disc disease. Prognosis: Mild to moderate Medical necessity supported by H&P, imaging and testing [place] pain treatment protocol completed. Yes Chronic opioid/pain maintenance. This patient request for ongoing pain management using chronic opioids have met the compliance requirement today satisfying the [employer] of state medical board recommendations and guidelines for judicious use, supervised opioid dispensing. Patient agreed to a personal interview for renewal for further opioids as planned at next scheduled visit or sooner if conditions change. Medication contract agreement and compliance reinforced. All risks and benefits associated with opioid neutralization, safe use and storage are described in great detail and patient voluntarily accepts all obligations. Patient is at moderate risk of opioid misuse based on ORT. Toxicology and TRADING ANALYST monitoring done and will follow protocol set forth by practice. As such controlled substance use requires judicious monitoring to access patient compliance with mutually agreed upon controlled substance use agreement which has been signed by the patient and initiation of controlled substance prescribing. Therefore following state, Federal, [facility] guidelines for controlled substance testing policies. This patient has been assessed on the basis of psychometric risk tool, TRADING ANALYST monitoring, toxicology test results. Comorbid conditions may contribute to her compliance with chronic ongoing pain condition/function al impairment. Urine toxicology screen reviewed. appropriately positive and negative Liver function tests are normal Prescription monitoring program reviewed Opioid risk tool [ORT] for narcotic abuse used to evaluate risk continue current regimen Counseling done. Hypertension - Blood pressure is well controlled. Continue the same regimen. Increase hydration to reduce salt intake are recommended. Weight loss is also recommended. Pain the right shoulder: - Recent Xray was non-concerning for pathology. PE is remarkable for Positive ludington and lift off test, positive empty can test. Referred pt to orthopedic to r/o muscle tear. Declines PT. As for now can take tylenol for pain. Hypothyroidism: - Currently on 150mcg. Check TSH T2DM: - Previous A1c of 8.5. Currently on Mounjaro 2.5mg and Jardiance. He is also on sliding scale. Check A1c. I have rendered the services for this patient under direct supervision of Dr. Torres, who did not see the patient but was available upon request 10/03/2024 Essential (primary) hypertension (ICD-10 - I10) Chronic pain secondary to degenerative disc disease. Prognosis: Mild to moderate Medical necessity supported by H&P, imaging and testing [place] pain treatment protocol completed. Yes Chronic opioid/pain maintenance. This patient request for ongoing pain management using chronic opioids have met the compliance requirement today satisfying the [employer] of state medical board recommendations and guidelines for judicious use, supervised opioid dispensing. Patient agreed to a personal interview for renewal for further opioids as planned at next scheduled visit or sooner if conditions change. Medication contract agreement and compliance reinforced. All risks and benefits associated with opioid neutralization, safe use and storage are described in great detail and patient voluntarily accepts all obligations. Patient is at moderate risk of opioid misuse based on ORT. Toxicology and TRADING ANALYST monitoring done and will follow protocol set forth by practice. As such controlled substance use requires judicious monitoring to access patient compliance with mutually agreed upon controlled substance use agreement which has been signed by the patient and initiation of controlled substance prescribing. Therefore following state, Federal, [facility] guidelines for controlled substance testing policies. This patient has been assessed on the basis of psychometric risk tool, TRADING ANALYST monitoring, toxicology test results. Comorbid conditions may contribute to her compliance with chronic ongoing pain condition/function al impairment. Urine toxicology screen reviewed. appropriately positive and negative Liver function tests are normal Prescription monitoring program reviewed Opioid risk tool [ORT] for narcotic abuse used to evaluate risk continue current regimen Counseling done. Hypertension - Blood pressure is well controlled. Continue the same regimen. Increase hydration to reduce salt intake are recommended. Weight loss is also recommended. Pain the right shoulder: - Recent Xray was non-concerning for pathology. PE is remarkable for Positive ludington and lift off test, positive empty can test. Referred pt to orthopedic to r/o muscle tear. Declines PT. As for now can take tylenol for pain. Hypothyroidism: - Currently on 150mcg. Check TSH T2DM: - Previous A1c of 8.5. Currently on Mounjaro 2.5mg and Jardiance. He is also on sliding scale. Check A1c. I have rendered the services for this patient under direct supervision of Dr. Torres, who did not see the patient but was available upon request 10/17/2024 Acute sinusitis, unspecified (ICD-10 - J01.90) Mr. Hernandez is a 54-year-old gentleman with type 2 diabetes mellitus, hypertension, hyperlipidemia, hypothyroidism, ,obstructive sleep apnea, generalized anxiety disorder/depressio n and insomnia here for possible sinus infection.Plan as follows; Acute sinusitis: - He admits to worsening sxs of acute sinusitis. Tender to palpate along the sinus area. Started patient on Amoxicillin, prednisone and benzonatate. recommended Tylenol prn for pain.Increase in hydration. Given dry oral mucosa, POC obtained with glucose level of 396. He is not on Insulin lantus. He takes Humalog before meal. He did not have any meal yet. recommended ER visit for IV hydration but he refused and states that he is doing fine and once he gets home he will take humalog. I have rendered the services for this patient under direct supervision of Dr. Torres, who did not see the patient but was available upon request 10/31/2024 Chronic pain syndrome (ICD-10 - G89.4) Chronic pain secondary to degenerative disc disease. Prognosis: Mild to moderate Medical necessity supported by H&P, imaging and testing [place] pain treatment protocol completed. Yes Chronic opioid/pain maintenance. This patient request for ongoing pain management using chronic opioids have met the compliance requirement today satisfying the [place] state medical board recommendations and guidelines for judicious use, supervised opioid dispensing. Patient agreed to a personal interview for renewal for further opioids as planned at next scheduled visit or sooner if conditions change. Medication contract agreement and compliance reinforced. All risks and benefits associated with opioid neutralization, safe use and storage are described in great detail and patient voluntarily accepts all obligations. Patient is at moderate risk of opioid misuse based on ORT. Toxicology and TRADING ANALYST monitoring done and will follow protocol set forth by practice. As such controlled substance use requires judicious monitoring to access patient compliance with mutually agreed upon controlled substance use agreement which has been signed by the patient and initiation of controlled substance prescribing. Therefore following state, Federal, [facility] guidelines for controlled substance testing policies. This patient has been assessed on the basis of psychometric risk tool, TRADING ANALYST monitoring, toxicology test results. Comorbid conditions may contribute to her compliance with chronic ongoing pain condition/function al impairment. Urine toxicology screen reviewed. appropriately positive and negative Liver function tests are normal Prescription monitoring program reviewed Opioid risk tool [ORT] for narcotic abuse used to evaluate risk continue current regimen Counseling done. Hypertension - Blood pressure is well controlled. Continue the same regimen. Increase hydration to reduce salt intake are recommended. Weight loss is also recommended. Pain the right shoulder: - Recent Xray was non-concerning for pathology. PE is remarkable for Positive ludington and lift off test, positive empty can test. Referred pt to orthopedic to r/o muscle tear. Declines PT. As for now can take tylenol for pain. Hypothyroidism: - Currently on 150mcg. Check TSH T2DM: - Previous A1c of 8.5. Currently on Mounjaro 5mg and Jardiance. He is also on sliding scale. Check A1c. I have rendered the services for this patient under direct supervision of Dr. Torres, who did not see the patient but was available upon request 10/31/2024 Essential (primary) hypertension (ICD-10 - I10) Chronic pain secondary to degenerative disc disease. Prognosis: Mild to moderate Medical necessity supported by H&P, imaging and testing [place] pain treatment protocol completed. Yes Chronic opioid/pain maintenance. This patient request for ongoing pain management using chronic opioids have met the compliance requirement today satisfying the [employer] [place] state medical board recommendations and guidelines for judicious use, supervised opioid dispensing. Patient agreed to a personal interview for renewal for further opioids as planned at next scheduled visit or sooner if conditions change. Medication contract agreement and compliance reinforced. All risks and benefits associated with opioid neutralization, safe use and storage are described in great detail and patient voluntarily accepts all obligations. Patient is at moderate risk of opioid misuse based on ORT. Toxicology and TRADING ANALYST monitoring done and will follow protocol set forth by practice. As such controlled substance use requires judicious monitoring to access patient compliance with mutually agreed upon controlled substance use agreement which has been signed by the patient and initiation of controlled substance prescribing. Therefore following state, Federal, [facility] guidelines for controlled substance testing policies. This patient has been assessed on the basis of psychometric risk tool, TRADING ANALYST monitoring, toxicology test results. Comorbid conditions may contribute to her compliance with chronic ongoing pain condition/function al impairment. Urine toxicology screen reviewed. appropriately positive and negative Liver function tests are normal Prescription monitoring program reviewed Opioid risk tool [ORT] for narcotic abuse used to evaluate risk continue current regimen Counseling done. Hypertension - Blood pressure is well controlled. Continue the same regimen. Increase hydration to reduce salt intake are recommended. Weight loss is also recommended. Pain the right shoulder: - Recent Xray was non-concerning for pathology. PE is remarkable for Positive [place] and lift off test, positive empty can test. Referred pt to orthopedic to r/o muscle tear. Declines PT. As for now can take tylenol for pain. Hypothyroidism: - Currently on 150mcg. Check TSH T2DM: - Previous A1c of 8.5. Currently on Mounjaro 5mg and Jardiance. He is also on sliding scale. Check A1c. I have rendered the services for this patient under direct supervision of Dr. Torres, who did not see the patient but was available upon request 11/28/2024 Chronic pain syndrome (ICD-10 - G89.4) Chronic pain secondary to degenerative disc disease. Prognosis: Mild to moderate Medical necessity supported by H&P, imaging and testing [place] pain treatment protocol completed. Yes Chronic opioid/pain maintenance. This patient request for ongoing pain management using chronic opioids have met the compliance requirement today satisfying the [place] of state medical board recommendations and guidelines for judicious use, supervised opioid dispensing. Patient agreed to a personal interview for renewal for further opioids as planned at next scheduled visit or sooner if conditions change. Medication contract agreement and compliance reinforced. All risks and benefits associated with opioid neutralization, safe use and storage are described in great detail and patient voluntarily accepts all obligations. Patient is at moderate risk of opioid misuse based on ORT. Toxicology and TRADING ANALYST monitoring done and will follow protocol set forth by practice. As such controlled substance use requires judicious monitoring to access patient compliance with mutually agreed upon controlled substance use agreement which has been signed by the patient and initiation of controlled substance prescribing. Therefore following state, Federal, CMS guidelines for controlled substance testing policies. This patient has been assessed on the basis of psychometric risk tool, TRADING ANALYST monitoring, toxicology test results. Comorbid conditions may contribute to her compliance with chronic ongoing pain condition/function al impairment. Urine toxicology screen reviewed. appropriately positive and negative Liver function tests are normal Prescription monitoring program reviewed Opioid risk tool [ORT] for narcotic abuse used to evaluate risk continue current regimen Counseling done. Hypertension - Blood pressure is well controlled. Continue the same regimen. Increase hydration to reduce salt intake are recommended. Weight loss is also recommended. I have rendered the services for this patient under direct supervision of Dr. Torres, who did not see the patient but was available upon request 11/28/2024 Essential (primary) hypertension (ICD-10 - I10) Chronic pain secondary to degenerative disc disease. Prognosis: Mild to moderate Medical necessity supported by H&P, imaging and testing [place] pain treatment protocol completed. Yes Chronic opioid/pain maintenance. This patient request for ongoing pain management using chronic opioids have met the compliance requirement today satisfying the [employer] of state medical board recommendations and guidelines for judicious use, supervised opioid dispensing. Patient agreed to a personal interview for renewal for further opioids as planned at next scheduled visit or sooner if conditions change. Medication contract agreement and compliance reinforced. All risks and benefits associated with opioid neutralization, safe use and storage are described in great detail and patient voluntarily accepts all obligations. Patient is at moderate risk of opioid misuse based on ORT. Toxicology and TRADING ANALYST monitoring done and will follow protocol set forth by practice. As such controlled substance use requires judicious monitoring to access patient compliance with mutually agreed upon controlled substance use agreement which has been signed by the patient and initiation of controlled substance prescribing. Therefore following state, Federal, CMS guidelines for controlled substance testing policies. This patient has been assessed on the basis of psychometric risk tool, TRADING ANALYST monitoring, toxicology test results. Comorbid conditions may contribute to her compliance with chronic ongoing pain condition/function al impairment. Urine toxicology screen reviewed. appropriately positive and negative Liver function tests are normal Prescription monitoring program reviewed Opioid risk tool [ORT] for narcotic abuse used to evaluate risk continue current regimen Counseling done. Hypertension - Blood pressure is well controlled. Continue the same regimen. Increase hydration to reduce salt intake are recommended. Weight loss is also recommended. I have rendered the services for this patient under direct supervision of Dr. Torres, who did not see the patient but was available upon request 11/29/2024 Other extermination supervisor (current) drug therapy (ICD-10 - Z79.899) 12/26/2024 Chronic pain syndrome (ICD-10 - G89.4) Mr. Hernandez is a 54-year-old gentleman with type 2 diabetes mellitus, hypertension, hyperlipidemia, hypothyroidism, ,obstructive sleep apnea, generalized anxiety disorder/depressio n and insomnia here for follow up. Plan as follows Chronic pain secondary to degenerative disc disease. Prognosis: Mild to moderate Medical necessity supported by H&P, imaging and testing [place] pain treatment protocol completed. Yes Chronic opioid/pain maintenance. This patient request for ongoing pain management using chronic opioids have met the compliance requirement today satisfying the [employer] of state medical board recommendations and guidelines for judicious use, supervised opioid dispensing. Patient agreed to a personal interview for renewal for further opioids as planned at next scheduled visit or sooner if conditions change. Medication contract agreement and compliance reinforced. All risks and benefits associated with opioid neutralization, safe use and storage are described in great detail and patient voluntarily accepts all obligations. Patient is at moderate risk of opioid misuse based on ORT. Toxicology and TRADING ANALYST monitoring done and will follow protocol set forth by practice. As such controlled substance use requires judicious monitoring to access patient compliance with mutually agreed upon controlled substance use agreement which has been signed by the patient and initiation of controlled substance prescribing. Therefore following state, Federal, CMS guidelines for controlled substance testing policies. This patient has been assessed on the basis of psychometric risk tool, TRADING ANALYST monitoring, toxicology test results. Comorbid conditions may contribute to her compliance with chronic ongoing pain condition/function al impairment. Urine toxicology screen reviewed. appropriately positive For oxycodone. Liver function tests are normal Prescription monitoring program reviewed Opioid risk tool [ORT] for narcotic abuse used to evaluate risk continue current regimen Counseling done. Hypertension - Blood pressure is well controlled. Continue the same regimen. Increase hydration to reduce salt intake are recommended. Weight loss is also recommended. Type 2 diabetes - He is currently on Mounjaro 2.5mg. His recent A1c is 8.8. Adjustment of diabetic medications is usually through his security system installer. He does have an appointment for follow-up with his security system installer. He states that he is noncompliant with his diets. He was also recently seen by automation manager and recommended Lasix surgery. He does also follow with podiatry for plantar fasciitis which he has been taking ibuprofen on a daily basis with minimal improvement. I have discussed discussing with his provider cortisone injections. Hyperlipidemia - His previous LDL is within goal of 73. 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 I will check lipid panel again Unintentional weight loss - Have explained to the patient that given he was on Trulicity before and now on Mounjaro, he is also on metformin these meds are known to help with weight loss especially the new GLP-1 medication. I have also discussed that given his diabetes is uncontrolled that also could contribute into weight loss as well. However given that for a period of 5 months he was not on any medications and he lost up to 70 pounds unintentionally and the fact that he had positive stool test and he was supposed to get a repeat of the colonoscopy for reassurance I will start the workup of intentional weight loss to rule out any abnormalities/carlos gnancy. He is a smoker, this year he will be starting to get low-dose CAT scan of the lungs however goal to proceed with low dose of the CAT scan with and without contrast, I will also obtain a CAT scan of the abdomen and pelvis, CAT scan of the brain, he recently had thyroid testing done and it was within normal limits, recent comp is not concerning. I will check CBC and LDH. I will also get stool test and refer patient to GI for endoscopy and colonoscopy workup. I have rendered the services for this patient under direct supervision of Dr. Torres, who did not see the patient but was available upon request I have rendered the services for this patient under direct supervision of Dr. Torres, who did not see the patient but was available upon request 12/26/2024 Essential (primary) hypertension (ICD-10 - I10) Mr. Hernandez is a 54-year-old gentleman with type 2 diabetes mellitus, hypertension, hyperlipidemia, hypothyroidism, ,obstructive sleep apnea, generalized anxiety disorder/depressio n and insomnia here for follow up. Plan as follows Chronic pain secondary to degenerative disc disease. Prognosis: Mild to moderate Medical necessity supported by H&P, imaging and testing [place] pain treatment protocol completed. Yes Chronic opioid/pain maintenance. This patient request for ongoing pain management using chronic opioids have met the compliance requirement today satisfying the [employer] of state medical board recommendations and guidelines for judicious use, supervised opioid dispensing. Patient agreed to a personal interview for renewal for further opioids as planned at next scheduled visit or sooner if conditions change. Medication contract agreement and compliance reinforced. All risks and benefits associated with opioid neutralization, safe use and storage are described in great detail and patient voluntarily accepts all obligations. Patient is at moderate risk of opioid misuse based on ORT. Toxicology and TRADING ANALYST monitoring done and will follow protocol set forth by practice. As such controlled substance use requires judicious monitoring to access patient compliance with mutually agreed upon controlled substance use agreement which has been signed by the patient and initiation of controlled substance prescribing. Therefore following state, Federal, [facility] guidelines for controlled substance testing policies. This patient has been assessed on the basis of psychometric risk tool, TRADING ANALYST monitoring, toxicology test results. Comorbid conditions may contribute to her compliance with chronic ongoing pain condition/function al impairment. Urine toxicology screen reviewed. appropriately positive For oxycodone. Liver function tests are normal Prescription monitoring program reviewed Opioid risk tool [ORT] for narcotic abuse used to evaluate risk continue current regimen Counseling done. Hypertension - Blood pressure is well controlled. Continue the same regimen. Increase hydration to reduce salt intake are recommended. Weight loss is also recommended. Type 2 diabetes - He is currently on Mounjaro 2.5mg. His recent A1c is 8.8. Adjustment of diabetic medications is usually through his security system installer. He does have an appointment for follow-up with his security system installer. He states that he is noncompliant with his diets. He was also recently seen by automation manager and recommended Lasix surgery. He does also follow with podiatry for plantar fasciitis which he has been taking ibuprofen on a daily basis with minimal improvement. I have discussed discussing with his provider cortisone injections. Hyperlipidemia - His previous LDL is within goal of 73. 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 I will check lipid panel again Unintentional weight loss - Have explained to the patient that given he was on Trulicity before and now on Mounjaro, he is also on metformin these meds are known to help with weight loss especially the new GLP-1 medication. I have also discussed that given his diabetes is uncontrolled that also could contribute into weight loss as well. However given that for a period of 5 months he was not on any medications and he lost up to 70 pounds unintentionally and the fact that he had positive stool test and he was supposed to get a repeat of the colonoscopy for reassurance I will start the workup of intentional weight loss to rule out any abnormalities/carlos gnancy. He is a smoker, this year he will be starting to get low-dose CAT scan of the lungs however goal to proceed with low dose of the CAT scan with and without contrast, I will also obtain a CAT scan of the abdomen and pelvis, CAT scan of the brain, he recently had thyroid testing done and it was within normal limits, recent comp is not concerning. I will check CBC and LDH. I will also get stool test and refer patient to GI for endoscopy and colonoscopy workup. I have rendered the services for this patient under direct supervision of Dr. Torres, who did not see the patient but was available upon request I have rendered the services for this patient under direct supervision of Dr. Torres, who did not see the patient but was available upon request 01/28/2025 Chronic pain syndrome (ICD-10 - G89.4) Mr. Hernandez is a 54-year-old gentleman with type 2 diabetes mellitus, hypertension, hyperlipidemia, hypothyroidism, ,obstructive sleep apnea, generalized anxiety disorder/depressio n and insomnia here for follow up. Plan as follows Chronic pain secondary to degenerative disc disease. Prognosis: Mild to moderate Medical necessity supported by H&P, imaging and testing [place] pain treatment protocol completed. Yes Chronic opioid/pain maintenance. This patient request for ongoing pain management using chronic opioids have met the compliance requirement today satisfying the [employer] of state medical board recommendations and guidelines for judicious use, supervised opioid dispensing. Patient agreed to a personal interview for renewal for further opioids as planned at next scheduled visit or sooner if conditions change. Medication contract agreement and compliance reinforced. All risks and benefits associated with opioid neutralization, safe use and storage are described in great detail and patient voluntarily accepts all obligations. Patient is at moderate risk of opioid misuse based on ORT. Toxicology and TRADING ANALYST monitoring done and will follow protocol set forth by practice. As such controlled substance use requires judicious monitoring to access patient compliance with mutually agreed upon controlled substance use agreement which has been signed by the patient and initiation of controlled substance prescribing. Therefore following state, Federal, [facility] guidelines for controlled substance testing policies. This patient has been assessed on the basis of psychometric risk tool, TRADING ANALYST monitoring, toxicology test results. Comorbid conditions may contribute to her compliance with chronic ongoing pain condition/function al impairment. Urine toxicology screen reviewed. appropriately positive For oxycodone. Liver function tests are normal Prescription monitoring program reviewed Opioid risk tool [ORT] for narcotic abuse used to evaluate risk continue current regimen Discussed with patient that due to safety concern at his best to continue with oxycodone rather than switch him back to morphine given the incident as mentioned above in HPI especially that he has uncontrolled type II diabetes with neuropathy. I will also refer patient to pain management given ongoing joint pain, To discuss steroid injections. Counseling done. Hypertension - Blood pressure is well controlled. Continue the same regimen. Increase hydration to reduce salt intake are recommended. Weight loss is also recommended. Type 2 diabetes - He is currently on Mounjaro 2.5mg. His recent A1c is 8.8. Adjustment of diabetic medications is usually through his security system installer. He does have an appointment for follow-up with his security system installer. He states that he is noncompliant with his diets. He was also recently seen by automation manager and recommended Lasix surgery. He does also follow with podiatry for plantar fasciitis which he has been taking ibuprofen on a daily basis with minimal improvement. I have discussed discussing with his provider cortisone injections. Hyperlipidemia - His previous LDL is within goal of 73. 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 I will check lipid panel again Type 2 diabetes. He has stopped taking the GLP-1, Jardiance was also discontinued by the bulk plant operator. He has an appointment tomorrow with security system installer for further discussion on diabetes management. Advised on diet modification. He is up-to-date with his automation manager. Foot care discussed Chronic kidney disease. He does follow with [facility] the bulk plant operator. He is not volume overloaded. Avoid nephrotoxins and NSAIDs. Pending blood work to be done. I have rendered the services for this patient under direct supervision of Dr. Torres, who did not see the patient but was available upon request 01/28/2025 Essential (primary) hypertension (ICD-10 - I10) Mr. Hernandez is a 54-year-old gentleman with type 2 diabetes mellitus, hypertension, hyperlipidemia, hypothyroidism, ,obstructive sleep apnea, generalized anxiety disorder/depressio n and insomnia here for follow up. Plan as follows Chronic pain secondary to degenerative disc disease. Prognosis: Mild to moderate Medical necessity supported by H&P, imaging and testing [place] pain treatment protocol completed. Yes Chronic opioid/pain maintenance. This patient request for ongoing pain management using chronic opioids have met the compliance requirement today satisfying the [employer] of state medical board recommendations and guidelines for judicious use, supervised opioid dispensing. Patient agreed to a personal interview for renewal for further opioids as planned at next scheduled visit or sooner if conditions change. Medication contract agreement and compliance reinforced. All risks and benefits associated with opioid neutralization, safe use and storage are described in great detail and patient voluntarily accepts all obligations. Patient is at moderate risk of opioid misuse based on ORT. Toxicology and TRADING ANALYST monitoring done and will follow protocol set forth by practice. As such controlled substance use requires judicious monitoring to access patient compliance with mutually agreed upon controlled substance use agreement which has been signed by the patient and initiation of controlled substance prescribing. Therefore following state, Federal, [facility] guidelines for controlled substance testing policies. This patient has been assessed on the basis of psychometric risk tool, TRADING ANALYST monitoring, toxicology test results. Comorbid conditions may contribute to her compliance with chronic ongoing pain condition/function al impairment. Urine toxicology screen reviewed. appropriately positive For oxycodone. Liver function tests are normal Prescription monitoring program reviewed Opioid risk tool [ORT] for narcotic abuse used to evaluate risk continue current regimen Discussed with patient that due to safety concern at his best to continue with oxycodone rather than switch him back to morphine given the incident as mentioned above in HPI especially that he has uncontrolled type II diabetes with neuropathy. I will also refer patient to pain management given ongoing joint pain, To discuss steroid injections. Counseling done. Hypertension - Blood pressure is well controlled. Continue the same regimen. Increase hydration to reduce salt intake are recommended. Weight loss is also recommended. Type 2 diabetes - He is currently on Mounjaro 2.5mg. His recent A1c is 8.8. Adjustment of diabetic medications is usually through his security system installer. He does have an appointment for follow-up with his security system installer. He states that he is noncompliant with his diets. He was also recently seen by automation manager and recommended Lasix surgery. He does also follow with podiatry for plantar fasciitis which he has been taking ibuprofen on a daily basis with minimal improvement. I have discussed discussing with his provider cortisone injections. Hyperlipidemia - His previous LDL is within goal of 73. 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 I will check lipid panel again Type 2 diabetes. He has stopped taking the GLP-1, Jardiance was also discontinued by the bulk plant operator. He has an appointment tomorrow with security system installer for further discussion on diabetes management. Advised on diet modification. He is up-to-date with his automation manager. Foot care discussed Chronic kidney disease. He does follow with [facility] the bulk plant operator. He is not volume overloaded. Avoid nephrotoxins and NSAIDs. Pending blood work to be done. I have rendered the services for this patient under direct supervision of Dr. Torres, who did not see the patient but was available upon request 02/25/2025 Chronic pain syndrome (ICD-10 - G89.4) Mr. Hernandez is a 54-year-old gentleman with type 2 diabetes mellitus, hypertension, hyperlipidemia, hypothyroidism, ,obstructive sleep apnea, generalized anxiety disorder/depressio n and insomnia here for follow up. Plan as follows Chronic pain secondary to degenerative disc disease. Prognosis: Mild to moderate Medical necessity supported by H&P, imaging and testing [place] pain treatment protocol completed. Yes I have increased oxycodone to 15 mg every 6 hours. Discussed with patient that for further adjustment in the pain management medication that has to be discussed with Dr. Torres. Chronic opioid/pain maintenance. This patient request for ongoing pain management using chronic opioids have met the compliance requirement today satisfying the [employer] of state medical board recommendations and guidelines for judicious use, supervised opioid dispensing. Patient agreed to a personal interview for renewal for further opioids as planned at next scheduled visit or sooner if conditions change. Medication contract agreement and compliance reinforced. All risks and benefits associated with opioid neutralization, safe use and storage are described in great detail and patient voluntarily accepts all obligations. Patient is at moderate risk of opioid misuse based on ORT. Toxicology and TRADING ANALYST monitoring done and will follow protocol set forth by practice. As such controlled substance use requires judicious monitoring to access patient compliance with mutually agreed upon controlled substance use agreement which has been signed by the patient and initiation of controlled substance prescribing. Therefore following state, Federal, [facility] guidelines for controlled substance testing policies. This patient has been assessed on the basis of psychometric risk tool, TRADING ANALYST monitoring, toxicology test results. Comorbid conditions may contribute to her compliance with chronic ongoing pain condition/function al impairment. Urine toxicology screen reviewed. appropriately positive For oxycodone. Liver function tests are normal Prescription monitoring program reviewed Opioid risk tool [ORT] for narcotic abuse used to evaluate risk continue current regimen Discussed with patient that due to safety concern at his best to continue with oxycodone rather than switch him back to morphine given the incident as mentioned above in HPI especially that he has uncontrolled type II diabetes with neuropathy. I will also refer patient to pain management given ongoing joint pain, To discuss steroid injections. Counseling done. Hypertension - Blood pressure is high normal control. Continue the same regimen. Increase hydration to reduce salt intake are recommended. Weight loss is also recommended. We will check BP in 4 weeks. Type 2 diabetes - He is currently on Mounjaro 2.5mg. His recent A1c is 8.8. Adjustment of diabetic medications is usually through his security system installer. He does have an appointment for follow-up with his security system installer. He states that he is noncompliant with his diets. He was also recently seen by automation manager and recommended Lasix surgery. He does also follow with podiatry for plantar fasciitis which he has been taking ibuprofen on a daily basis with minimal improvement. I have discussed discussing with his provider cortisone injections. Hyperlipidemia - His previous LDL is within goal of 73. 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 Type 2 diabetes. He has stopped taking the GLP-1, Jardiance was also discontinued by the bulk plant operator. He has an appointment with security system installer for further discussion on diabetes management. Advised on diet modification. He is up-to-date with his automation manager. Foot care discussed Chronic kidney disease. He does follow with [facility] the bulk plant operator. He is not volume overloaded. Avoid nephrotoxins and NSAIDs. Pending blood work to be done. I have rendered the services for this patient under direct supervision of Dr. Torres, who did not see the patient but was available upon request 02/25/2025 Essential (primary) hypertension (ICD-10 - I10) Mr. Hernandez is a 54-year-old gentleman with type 2 diabetes mellitus, hypertension, hyperlipidemia, hypothyroidism, ,obstructive sleep apnea, generalized anxiety disorder/depressio n and insomnia here for follow up. Plan as follows Chronic pain secondary to degenerative disc disease. Prognosis: Mild to moderate Medical necessity supported by H&P, imaging and testing [place] pain treatment protocol completed. Yes I have increased oxycodone to 15 mg every 6 hours. Discussed with patient that for further adjustment in the pain management medication that has to be discussed with Dr. Torres. Chronic opioid/pain maintenance. This patient request for ongoing pain management using chronic opioids have met the compliance requirement today satisfying the [place] of state medical board recommendations and guidelines for judicious use, supervised opioid dispensing. Patient agreed to a personal interview for renewal for further opioids as planned at next scheduled visit or sooner if conditions change. Medication contract agreement and compliance reinforced. All risks and benefits associated with opioid neutralization, safe use and storage are described in great detail and patient voluntarily accepts all obligations. Patient is at moderate risk of opioid misuse based on ORT. Toxicology and TRADING ANALYST monitoring done and will follow protocol set forth by practice. As such controlled substance use requires judicious monitoring to access patient compliance with mutually agreed upon controlled substance use agreement which has been signed by the patient and initiation of controlled substance prescribing. Therefore following state, Federal, CMS guidelines for controlled substance testing policies. This patient has been assessed on the basis of psychometric risk tool, TRADING ANALYST monitoring, toxicology test results. Comorbid conditions may contribute to her compliance with chronic ongoing pain condition/function al impairment. Urine toxicology screen reviewed. appropriately positive For oxycodone. Liver function tests are normal Prescription monitoring program reviewed Opioid risk tool [ORT] for narcotic abuse used to evaluate risk continue current regimen Discussed with patient that due to safety concern at his best to continue with oxycodone rather than switch him back to morphine given the incident as mentioned above in HPI especially that he has uncontrolled type II diabetes with neuropathy. I will also refer patient to pain management given ongoing joint pain, To discuss steroid injections. Counseling done. Hypertension - Blood pressure is high normal control. Continue the same regimen. Increase hydration to reduce salt intake are recommended. Weight loss is also recommended. We will check BP in 4 weeks. Type 2 diabetes - He is currently on Mounjaro 2.5mg. His recent A1c is 8.8. Adjustment of diabetic medications is usually through his security system installer. He does have an appointment for follow-up with his security system installer. He states that he is noncompliant with his diets. He was also recently seen by automation manager and recommended Lasix surgery. He does also follow with podiatry for plantar fasciitis which he has been taking ibuprofen on a daily basis with minimal improvement. I have discussed discussing with his provider cortisone injections. Hyperlipidemia - His previous LDL is within goal of 73. 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 Type 2 diabetes. He has stopped taking the GLP-1, Jardiance was also discontinued by the bulk plant operator. He has an appointment with security system installer for further discussion on diabetes management. Advised on diet modification. He is up-to-date with his automation manager. Foot care discussed Chronic kidney disease. He does follow with [facility] the bulk plant operator. He is not volume overloaded. Avoid nephrotoxins and NSAIDs. Pending blood work to be done. I have rendered the services for this patient under direct supervision of Dr. Torres, who did not see the patient but was available upon request 02/25/2025 Mixed hyperlipidemia (ICD-10 - E78.2) Mr. Hernandez is a 54-year-old gentleman with type 2 diabetes mellitus, hypertension, hyperlipidemia, hypothyroidism, ,obstructive sleep apnea, generalized anxiety disorder/depressio n and insomnia here for follow up. Plan as follows Chronic pain secondary to degenerative disc disease. Prognosis: Mild to moderate Medical necessity supported by H&P, imaging and testing [place] pain treatment protocol completed. Yes I have increased oxycodone to 15 mg every 6 hours. Discussed with patient that for further adjustment in the pain management medication that has to be discussed with Dr. Torres. Chronic opioid/pain maintenance. This patient request for ongoing pain management using chronic opioids have met the compliance requirement today satisfying the [place] of state medical board recommendations and guidelines for judicious use, supervised opioid dispensing. Patient agreed to a personal interview for renewal for further opioids as planned at next scheduled visit or sooner if conditions change. Medication contract agreement and compliance reinforced. All risks and benefits associated with opioid neutralization, safe use and storage are described in great detail and patient voluntarily accepts all obligations. Patient is at moderate risk of opioid misuse based on ORT. Toxicology and TRADING ANALYST monitoring done and will follow protocol set forth by practice. As such controlled substance use requires judicious monitoring to access patient compliance with mutually agreed upon controlled substance use agreement which has been signed by the patient and initiation of controlled substance prescribing. Therefore following state, Federal, [facility] guidelines for controlled substance testing policies. This patient has been assessed on the basis of psychometric risk tool, TRADING ANALYST monitoring, toxicology test results. Comorbid conditions may contribute to her compliance with chronic ongoing pain condition/function al impairment. Urine toxicology screen reviewed. appropriately positive For oxycodone. Liver function tests are normal Prescription monitoring program reviewed Opioid risk tool [ORT] for narcotic abuse used to evaluate risk continue current regimen Discussed with patient that due to safety concern at his best to continue with oxycodone rather than switch him back to morphine given the incident as mentioned above in HPI especially that he has uncontrolled type II diabetes with neuropathy. I will also refer patient to pain management given ongoing joint pain, To discuss steroid injections. Counseling done. Hypertension - Blood pressure is high normal control. Continue the same regimen. Increase hydration to reduce salt intake are recommended. Weight loss is also recommended. We will check BP in 4 weeks. Type 2 diabetes - He is currently on Mounjaro 2.5mg. His recent A1c is 8.8. Adjustment of diabetic medications is usually through his security system installer. He does have an appointment for follow-up with his security system installer. He states that he is noncompliant with his diets. He was also recently seen by automation manager and recommended Lasix surgery. He does also follow with podiatry for plantar fasciitis which he has been taking ibuprofen on a daily basis with minimal improvement. I have discussed discussing with his provider cortisone injections. Hyperlipidemia - His previous LDL is within goal of 73. 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 Type 2 diabetes. He has stopped taking the GLP-1, Jardiance was also discontinued by the bulk plant operator. He has an appointment with security system installer for further discussion on diabetes management. Advised on diet modification. He is up-to-date with his automation manager. Foot care discussed Chronic kidney disease. He does follow with [facility] the bulk plant operator. He is not volume overloaded. Avoid nephrotoxins and NSAIDs. Pending blood work to be done. I have rendered the services for this patient under direct supervision of Dr. Torres, who did not see the patient but was available upon request 01/28/2025 Mixed hyperlipidemia (ICD-10 - E78.2) Mr. Hernandez is a 54-year-old gentleman with type 2 diabetes mellitus, hypertension, hyperlipidemia, hypothyroidism, ,obstructive sleep apnea, generalized anxiety disorder/depressio n and insomnia here for follow up. Plan as follows Chronic pain secondary to degenerative disc disease. Prognosis: Mild to moderate Medical necessity supported by H&P, imaging and testing [place] pain treatment protocol completed. Yes Chronic opioid/pain maintenance. This patient request for ongoing pain management using chronic opioids have met the compliance requirement today satisfying the [place] of state medical board recommendations and guidelines for judicious use, supervised opioid dispensing. Patient agreed to a personal interview for renewal for further opioids as planned at next scheduled visit or sooner if conditions change. Medication contract agreement and compliance reinforced. All risks and benefits associated with opioid neutralization, safe use and storage are described in great detail and patient voluntarily accepts all obligations. Patient is at moderate risk of opioid misuse based on ORT. Toxicology and TRADING ANALYST monitoring done and will follow protocol set forth by practice. As such controlled substance use requires judicious monitoring to access patient compliance with mutually agreed upon controlled substance use agreement which has been signed by the patient and initiation of controlled substance prescribing. Therefore following state, Federal, [facility] guidelines for controlled substance testing policies. This patient has been assessed on the basis of psychometric risk tool, TRADING ANALYST monitoring, toxicology test results. Comorbid conditions may contribute to her compliance with chronic ongoing pain condition/function al impairment. Urine toxicology screen reviewed. appropriately positive For oxycodone. Liver function tests are normal Prescription monitoring program reviewed Opioid risk tool [ORT] for narcotic abuse used to evaluate risk continue current regimen Discussed with patient that due to safety concern at his best to continue with oxycodone rather than switch him back to morphine given the incident as mentioned above in HPI especially that he has uncontrolled type II diabetes with neuropathy. I will also refer patient to pain management given ongoing joint pain, To discuss steroid injections. Counseling done. Hypertension - Blood pressure is well controlled. Continue the same regimen. Increase hydration to reduce salt intake are recommended. Weight loss is also recommended. Type 2 diabetes - He is currently on Mounjaro 2.5mg. His recent A1c is 8.8. Adjustment of diabetic medications is usually through his security system installer. He does have an appointment for follow-up with his security system installer. He states that he is noncompliant with his diets. He was also recently seen by automation manager and recommended Lasix surgery. He does also follow with podiatry for plantar fasciitis which he has been taking ibuprofen on a daily basis with minimal improvement. I have discussed discussing with his provider cortisone injections. Hyperlipidemia - His previous LDL is within goal of 73. 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 I will check lipid panel again Type 2 diabetes. He has stopped taking the GLP-1, Jardiance was also discontinued by the bulk plant operator. He has an appointment tomorrow with security system installer for further discussion on diabetes management. Advised on diet modification. He is up-to-date with his automation manager. Foot care discussed Chronic kidney disease. He does follow with [facility] the bulk plant operator. He is not volume overloaded. Avoid nephrotoxins and NSAIDs. Pending blood work to be done. I have rendered the services for this patient under direct supervision of Dr. Torres, who did not see the patient but was available upon request 12/26/2024 Mixed hyperlipidemia (ICD-10 - E78.2) Mr. Hernandez is a 54-year-old gentleman with type 2 diabetes mellitus, hypertension, hyperlipidemia, hypothyroidism, ,obstructive sleep apnea, generalized anxiety disorder/depressio n and insomnia here for follow up. Plan as follows Chronic pain secondary to degenerative disc disease. Prognosis: Mild to moderate Medical necessity supported by H&P, imaging and testing [place] pain treatment protocol completed. Yes Chronic opioid/pain maintenance. This patient request for ongoing pain management using chronic opioids have met the compliance requirement today satisfying the [place] of state medical board recommendations and guidelines for judicious use, supervised opioid dispensing. Patient agreed to a personal interview for renewal for further opioids as planned at next scheduled visit or sooner if conditions change. Medication contract agreement and compliance reinforced. All risks and benefits associated with opioid neutralization, safe use and storage are described in great detail and patient voluntarily accepts all obligations. Patient is at moderate risk of opioid misuse based on ORT. Toxicology and TRADING ANALYST monitoring done and will follow protocol set forth by practice. As such controlled substance use requires judicious monitoring to access patient compliance with mutually agreed upon controlled substance use agreement which has been signed by the patient and initiation of controlled substance prescribing. Therefore following state, Federal, [facility] guidelines for controlled substance testing policies. This patient has been assessed on the basis of psychometric risk tool, TRADING ANALYST monitoring, toxicology test results. Comorbid conditions may contribute to her compliance with chronic ongoing pain condition/function al impairment. Urine toxicology screen reviewed. appropriately positive For oxycodone. Liver function tests are normal Prescription monitoring program reviewed Opioid risk tool [ORT] for narcotic abuse used to evaluate risk continue current regimen Counseling done. Hypertension - Blood pressure is well controlled. Continue the same regimen. Increase hydration to reduce salt intake are recommended. Weight loss is also recommended. Type 2 diabetes - He is currently on Mounjaro 2.5mg. His recent A1c is 8.8. Adjustment of diabetic medications is usually through his security system installer. He does have an appointment for follow-up with his security system installer. He states that he is noncompliant with his diets. He was also recently seen by automation manager and recommended Lasix surgery. He does also follow with podiatry for plantar fasciitis which he has been taking ibuprofen on a daily basis with minimal improvement. I have discussed discussing with his provider cortisone injections. Hyperlipidemia - His previous LDL is within goal of 73. 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 I will check lipid panel again Unintentional weight loss - Have explained to the patient that given he was on Trulicity before and now on Mounjaro, he is also on metformin these meds are known to help with weight loss especially the new GLP-1 medication. I have also discussed that given his diabetes is uncontrolled that also could contribute into weight loss as well. However given that for a period of 5 months he was not on any medications and he lost up to 70 pounds unintentionally and the fact that he had positive stool test and he was supposed to get a repeat of the colonoscopy for reassurance I will start the workup of intentional weight loss to rule out any abnormalities/carlos gnancy. He is a smoker, this year he will be starting to get low-dose CAT scan of the lungs however goal to proceed with low dose of the CAT scan with and without contrast, I will also obtain a CAT scan of the abdomen and pelvis, CAT scan of the brain, he recently had thyroid testing done and it was within normal limits, recent comp is not concerning. I will check CBC and LDH. I will also get stool test and refer patient to GI for endoscopy and colonoscopy workup. I have rendered the services for this patient under direct supervision of Dr. Torres, who did not see the patient but was available upon request I have rendered the services for this patient under direct supervision of Dr. Torres, who did not see the patient but was available upon request 10/31/2024 Hypothyroidism, unspecified (ICD-10 - E03.9) Chronic pain secondary to degenerative disc disease. Prognosis: Mild to moderate Medical necessity supported by H&P, imaging and testing [place] pain treatment protocol completed. Yes Chronic opioid/pain maintenance. This patient request for ongoing pain management using chronic opioids have met the compliance requirement today satisfying the [place] of state medical board recommendations and guidelines for judicious use, supervised opioid dispensing. Patient agreed to a personal interview for renewal for further opioids as planned at next scheduled visit or sooner if conditions change. Medication contract agreement and compliance reinforced. All risks and benefits associated with opioid neutralization, safe use and storage are described in great detail and patient voluntarily accepts all obligations. Patient is at moderate risk of opioid misuse based on ORT. Toxicology and TRADING ANALYST monitoring done and will follow protocol set forth by practice. As such controlled substance use requires judicious monitoring to access patient compliance with mutually agreed upon controlled substance use agreement which has been signed by the patient and initiation of controlled substance prescribing. Therefore following state, Federal, [facility] guidelines for controlled substance testing policies. This patient has been assessed on the basis of psychometric risk tool, TRADING ANALYST monitoring, toxicology test results. Comorbid conditions may contribute to her compliance with chronic ongoing pain condition/function al impairment. Urine toxicology screen reviewed. appropriately positive and negative Liver function tests are normal Prescription monitoring program reviewed Opioid risk tool [ORT] for narcotic abuse used to evaluate risk continue current regimen Counseling done. Hypertension - Blood pressure is well controlled. Continue the same regimen. Increase hydration to reduce salt intake are recommended. Weight loss is also recommended. Pain the right shoulder: - Recent Xray was non-concerning for pathology. PE is remarkable for Positive [place] and lift off test, positive empty can test. Referred pt to orthopedic to r/o muscle tear. Declines PT. As for now can take tylenol for pain. Hypothyroidism: - Currently on 150mcg. Check TSH T2DM: - Previous A1c of 8.5. Currently on Mounjaro 5mg and Jardiance. He is also on sliding scale. Check A1c. I have rendered the services for this patient under direct supervision of Dr. Torres, who did not see the patient but was available upon request 10/03/2024 Pain in right shoulder (ICD-10 - M25.511) Chronic pain secondary to degenerative disc disease. Prognosis: Mild to moderate Medical necessity supported by H&P, imaging and testing [place] pain treatment protocol completed. Yes Chronic opioid/pain maintenance. This patient request for ongoing pain management using chronic opioids have met the compliance requirement today satisfying the [employer] of state medical board recommendations and guidelines for judicious use, supervised opioid dispensing. Patient agreed to a personal interview for renewal for further opioids as planned at next scheduled visit or sooner if conditions change. Medication contract agreement and compliance reinforced. All risks and benefits associated with opioid neutralization, safe use and storage are described in great detail and patient voluntarily accepts all obligations. Patient is at moderate risk of opioid misuse based on ORT. Toxicology and TRADING ANALYST monitoring done and will follow protocol set forth by practice. As such controlled substance use requires judicious monitoring to access patient compliance with mutually agreed upon controlled substance use agreement which has been signed by the patient and initiation of controlled substance prescribing. Therefore following state, Federal, [facility] guidelines for controlled substance testing policies. This patient has been assessed on the basis of psychometric risk tool, TRADING ANALYST monitoring, toxicology test results. Comorbid conditions may contribute to her compliance with chronic ongoing pain condition/function al impairment. Urine toxicology screen reviewed. appropriately positive and negative Liver function tests are normal Prescription monitoring program reviewed Opioid risk tool [ORT] for narcotic abuse used to evaluate risk continue current regimen Counseling done. Hypertension - Blood pressure is well controlled. Continue the same regimen. Increase hydration to reduce salt intake are recommended. Weight loss is also recommended. Pain the right shoulder: - Recent Xray was non-concerning for pathology. PE is remarkable for Positive ludington and lift off test, positive empty can test. Referred pt to orthopedic to r/o muscle tear. Declines PT. As for now can take tylenol for pain. Hypothyroidism: - Currently on 150mcg. Check TSH T2DM: - Previous A1c of 8.5. Currently on Mounjaro 2.5mg and Jardiance. He is also on sliding scale. Check A1c. I have rendered the services for this patient under direct supervision of Dr. Torres, who did not see the patient but was available upon request 09/05/2024 Pain in right shoulder (ICD-10 - M25.511) Chronic pain secondary to degenerative disc disease. Prognosis: Mild to moderate Medical necessity supported by H&P, imaging and testing [place] pain treatment protocol completed. Yes Chronic opioid/pain maintenance. This patient request for ongoing pain management using chronic opioids have met the compliance requirement today satisfying the Federation of state medical board recommendations and guidelines for judicious use, supervised opioid dispensing. Patient agreed to a personal interview for renewal for further opioids as planned at next scheduled visit or sooner if conditions change. Medication contract agreement and compliance reinforced. All risks and benefits associated with opioid neutralization, safe use and storage are described in great detail and patient voluntarily accepts all obligations. Patient is at moderate risk of opioid misuse based on ORT. Toxicology and TRADING ANALYST monitoring done and will follow protocol set forth by practice. As such controlled substance use requires judicious monitoring to access patient compliance with mutually agreed upon controlled substance use agreement which has been signed by the patient and initiation of controlled substance prescribing. Therefore following state, Federal, CMS guidelines for controlled substance testing policies. This patient has been assessed on the basis of psychometric risk tool, TRADING ANALYST monitoring, toxicology test results. Comorbid conditions may contribute to her compliance with chronic ongoing pain condition/function al impairment. Urine toxicology screen reviewed. appropriately positive and negative Liver function tests are normal Prescription monitoring program reviewed Opioid risk tool [ORT] for narcotic abuse used to evaluate risk continue current regimen Counseling done. Hypertension - Blood pressure is well controlled. Continue the same regimen. Increase hydration to reduce salt intake are recommended. Weight loss is also recommended. Pain in the right shoulder - He had a mechanical fall, tripped into his right shoulder and he has been experiencing pain. Physical examination is remarkable for limited range of motion. Order x-ray to rule out any abnormalities. He declines physical therapy. Advised on compressions and continue using NSAIDs. I have rendered the services for this patient under direct supervision of Dr. Torres, who did not see the patient but was available upon request 08/08/2024 Essential (primary) hypertension (ICD-10 - I10) Chronic pain secondary to degenerative disc disease. Prognosis: Mild to moderate Medical necessity supported by H&P, imaging and testing [place] pain treatment protocol completed. Yes Chronic opioid/pain maintenance. This patient request for ongoing pain management using chronic opioids have met the compliance requirement today satisfying the Federation of state medical board recommendations and guidelines for judicious use, supervised opioid dispensing. Patient agreed to a personal interview for renewal for further opioids as planned at next scheduled visit or sooner if conditions change. Medication contract agreement and compliance reinforced. All risks and benefits associated with opioid neutralization, safe use and storage are described in great detail and patient voluntarily accepts all obligations. Patient is at moderate risk of opioid misuse based on ORT. Toxicology and TRADING ANALYST monitoring done and will follow protocol set forth by practice. As such controlled substance use requires judicious monitoring to access patient compliance with mutually agreed upon controlled substance use agreement which has been signed by the patient and initiation of controlled substance prescribing. Therefore following state, Federal, [facility] guidelines for controlled substance testing policies. This patient has been assessed on the basis of psychometric risk tool, TRADING ANALYST monitoring, toxicology test results. Comorbid conditions may contribute to her compliance with chronic ongoing pain condition/function al impairment. Urine toxicology screen reviewed. appropriately positive and negative Liver function tests are normal Prescription monitoring program reviewed Opioid risk tool [ ORT] for narcotic abuse used to evaluate risk continue current regimen Counseling done. 07/08/2024 Mixed hyperlipidemia (ICD-10 - E78.2) Mr. Hernandez is a 53-year-old gentleman with type 2 diabetes mellitus, hypertension, hyperlipidemia, hypothyroidism, ,obstructive sleep apnea, generalized anxiety disorder/depressio n and insomnia here for follow up. Plan is as follows: Type 2 diabetes mellitus. His last A1c was 8.5. Is currently on sliding scale. He is not on statins because he cannot tolerate side effects. He is not on BEAR/ARB and most likely secondary to chronic kidney disease but results are not available. Hypertension. Blood pressure well controlled on current regimen and check renal function and electrolytes Hyperlipidemia. Unfortunately he cannot tolerate statins. Continue Ezetimibe 10 MG CHF. Patient mentioned that industrial sociologist told him that his pump is not up to the more. Currently he is on Lasix. Low-sodium diet recommended. Hypothyroidism. Continue Levothyroxine 150 MCG and advised to take it first thing in the morning on an empty stomach. ELIZ/insomnia. Mood is stable on current regimen plan he is also on Ambien which was prescribed by his previous PCP Radiculopathy. He is on oxycodone 10 MG and according to the patient he has been on this medication for a long time. It was prescribed by his primary care physician at [place]. Chronic kidney disease. Stage is not known. He does not appear to be in volume overload. Advised appropriate hydration. Avoid NSAIDs. BPH. Stable on current regimen. JAYE./ Insomnia. He sleeps well with AVAPS and he is on ambien Male erectile dysfunction. Continue Sildenafil 50 MG Morbid obesity. Advised low calorie foods and appropriate hydration, sleep and try to lose on average 6 pounds a month. Nicotine dependence. Encouraged to quit smoking but is not ready at this point. Blood work reviewed with patient and questions answered. General health concerns discussed with patient. Scribe services used to formulate this note under HIPAA compliance and under [place] law mandated for scribe services. Patient aware of service. Verbal consent and written consent taken from the patient. Patient understands and verbalizes understanding of the scribes services and all questions answered regarding scribes services. Patient agrees to use of scribes services. 06/03/2024 Mixed hyperlipidemia (ICD-10 - E78.2) Mr. Hernandez is a 53-year-old gentleman with type 2 diabetes mellitus, hypertension, hyperlipidemia, hypothyroidism, generalized anxiety disorder and insomnia here to establish care. Plan is as follows: Type 2 diabetes mellitus. His last A1c was greater than 9. Is currently on sliding scale. He is not on statins because he cannot tolerate side effects. He is not on BEAR/ARB and most likely secondary to chronic kidney disease but results are not available. Referred to Ophthalmology and Podiatry. Check A1c. Hypertension. Blood pressure well controlled on current regimen and check renal function and electrolytes Hyperlipidemia. Unfortunately he cannot tolerate statins. Continue Ezetimibe 10 MG and check lipid panel and consider PCSK-9. CHF. Patient mentioned that industrial sociologist told him that his pump is not up to the more. Currently he is on Lasix. Referral to cardiology and retrieve old records. Low-sodium diet recommended. Hypothyroidism. Continue Levothyroxine 150 MCG and advised to take it first thing in the morning on an empty stomach. ELIZ/insomnia. Mood is stable on current regimen plan he is also on Ambien which was prescribed by his previous PCP Radiculopathy. He is on oxycodone 10 MG and according to the patient he has been on this medication for a long time. It was prescribed by his primary care physician at [place]. We will retrieve old records Chronic kidney disease. Stage is not known. 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 Stable on current regimen. JAYE. He sleeps well with AVAPS and needs equipment and is Referred to sleep medicine. Male erectile dysfunction. Start Sildenafil 50 MG Morbid obesity. Advised low calorie foods and appropriate hydration, sleep and try to lose on average 6 pounds a month. Once he has his blood work done he may benefit from GLP-1. Nicotine dependence. Encouraged to quit smoking but is not ready at this point. Screening blood work before next appointment. He dangelo dthis cologuard done and was positive. Referral to GI for colonoscopy General health concerns discussed with patient. Scribe services used to formulate this note under HIPAA compliance and under [place] law mandated for scribe services. Patient aware of service. Verbal consent and written consent taken from the patient. Patient understands and verbalizes understanding of the scribes services and all questions answered regarding scribes services. Patient agrees to use of scribes services. 06/03/2024 Hypothyroidism, unspecified (ICD-10 - E03.9) Mr. Hernandez is a 53-year-old gentleman with type 2 diabetes mellitus, hypertension, hyperlipidemia, hypothyroidism, generalized anxiety disorder and insomnia here to establish care. Plan is as follows: Type 2 diabetes mellitus. His last A1c was greater than 9. Is currently on sliding scale. He is not on statins because he cannot tolerate side effects. He is not on BEAR/ARB and most likely secondary to chronic kidney disease but results are not available. Referred to Ophthalmology and Podiatry. Check A1c. Hypertension. Blood pressure well controlled on current regimen and check renal function and electrolytes Hyperlipidemia. Unfortunately he cannot tolerate statins. Continue Ezetimibe 10 MG and check lipid panel and consider PCSK-9. CHF. Patient mentioned that industrial sociologist told him that his pump is not up to the more. Currently he is on Lasix. Referral to cardiology and retrieve old records. Low-sodium diet recommended. Hypothyroidism. Continue Levothyroxine 150 MCG and advised to take it first thing in the morning on an empty stomach. ELIZ/insomnia. Mood is stable on current regimen plan he is also on Ambien which was prescribed by his previous PCP Radiculopathy. He is on oxycodone 10 MG and according to the patient he has been on this medication for a long time. It was prescribed by his primary care physician at [place]. We will retrieve old records Chronic kidney disease. Stage is not known. 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 Stable on current regimen. JAYE. He sleeps well with AVAPS and needs equipment and is Referred to sleep medicine. Male erectile dysfunction. Start Sildenafil 50 MG Morbid obesity. Advised low calorie foods and appropriate hydration, sleep and try to lose on average 6 pounds a month. Once he has his blood work done he may benefit from GLP-1. Nicotine dependence. Encouraged to quit smoking but is not ready at this point. Screening blood work before next appointment. He dangelo dthis cologuard done and was positive. Referral to GI for colonoscopy General health concerns discussed with patient. Scribe services used to formulate this note under HIPAA compliance and under [place] law mandated for scribe services. Patient aware of service. Verbal consent and written consent taken from the patient. Patient understands and verbalizes understanding of the scribes services and all questions answered regarding scribes services. Patient agrees to use of scribes services. 10/03/2024 Hypothyroidism, unspecified (ICD-10 - E03.9) Chronic pain secondary to degenerative disc disease. Prognosis: Mild to moderate Medical necessity supported by H&P, imaging and testing [place] pain treatment protocol completed. Yes Chronic opioid/pain maintenance. This patient request for ongoing pain management using chronic opioids have met the compliance requirement today satisfying the [employer] of state medical board recommendations and guidelines for judicious use, supervised opioid dispensing. Patient agreed to a personal interview for renewal for further opioids as planned at next scheduled visit or sooner if conditions change. Medication contract agreement and compliance reinforced. All risks and benefits associated with opioid neutralization, safe use and storage are described in great detail and patient voluntarily accepts all obligations. Patient is at moderate risk of opioid misuse based on ORT. Toxicology and TRADING ANALYST monitoring done and will follow protocol set forth by practice. As such controlled substance use requires judicious monitoring to access patient compliance with mutually agreed upon controlled substance use agreement which has been signed by the patient and initiation of controlled substance prescribing. Therefore following state, Federal, [facility] guidelines for controlled substance testing policies. This patient has been assessed on the basis of psychometric risk tool, TRADING ANALYST monitoring, toxicology test results. Comorbid conditions may contribute to her compliance with chronic ongoing pain condition/function al impairment. Urine toxicology screen reviewed. appropriately positive and negative Liver function tests are normal Prescription monitoring program reviewed Opioid risk tool [ORT] for narcotic abuse used to evaluate risk continue current regimen Counseling done. Hypertension - Blood pressure is well controlled. Continue the same regimen. Increase hydration to reduce salt intake are recommended. Weight loss is also recommended. Pain the right shoulder: - Recent Xray was non-concerning for pathology. PE is remarkable for Positive ludington and lift off test, positive empty can test. Referred pt to orthopedic to r/o muscle tear. Declines PT. As for now can take tylenol for pain. Hypothyroidism: - Currently on 150mcg. Check TSH T2DM: - Previous A1c of 8.5. Currently on Mounjaro 2.5mg and Jardiance. He is also on sliding scale. Check A1c. I have rendered the services for this patient under direct supervision of Dr. Torres, who did not see the patient but was available upon request 10/31/2024 Diabetes mellitus due to underlying condition with diabetic nephropathy (ICD-10 - E08.21) Chronic pain secondary to degenerative disc disease. Prognosis: Mild to moderate Medical necessity supported by H&P, imaging and testing [place] pain treatment protocol completed. Yes Chronic opioid/pain maintenance. This patient request for ongoing pain management using chronic opioids have met the compliance requirement today satisfying the [employer] of state medical board recommendations and guidelines for judicious use, supervised opioid dispensing. Patient agreed to a personal interview for renewal for further opioids as planned at next scheduled visit or sooner if conditions change. Medication contract agreement and compliance reinforced. All risks and benefits associated with opioid neutralization, safe use and storage are described in great detail and patient voluntarily accepts all obligations. Patient is at moderate risk of opioid misuse based on ORT. Toxicology and TRADING ANALYST monitoring done and will follow protocol set forth by practice. As such controlled substance use requires judicious monitoring to access patient compliance with mutually agreed upon controlled substance use agreement which has been signed by the patient and initiation of controlled substance prescribing. Therefore following state, Federal, CMS guidelines for controlled substance testing policies. This patient has been assessed on the basis of psychometric risk tool, TRADING ANALYST monitoring, toxicology test results. Comorbid conditions may contribute to her compliance with chronic ongoing pain condition/function al impairment. Urine toxicology screen reviewed. appropriately positive and negative Liver function tests are normal Prescription monitoring program reviewed Opioid risk tool [ORT] for narcotic abuse used to evaluate risk continue current regimen Counseling done. Hypertension - Blood pressure is well controlled. Continue the same regimen. Increase hydration to reduce salt intake are recommended. Weight loss is also recommended. Pain the right shoulder: - Recent Xray was non-concerning for pathology. PE is remarkable for Positive ludington and lift off test, positive empty can test. Referred pt to orthopedic to r/o muscle tear. Declines PT. As for now can take tylenol for pain. Hypothyroidism: - Currently on 150mcg. Check TSH T2DM: - Previous A1c of 8.5. Currently on Mounjaro 5mg and Jardiance. He is also on sliding scale. Check A1c. I have rendered the services for this patient under direct supervision of Dr. Torres, who did not see the patient but was available upon request 07/08/2024 Chronic pain syndrome (ICD-10 - G89.4) Mr. Hernandez is a 53-year-old gentleman with type 2 diabetes mellitus, hypertension, hyperlipidemia, hypothyroidism, ,obstructive sleep apnea, generalized anxiety disorder/depressio n and insomnia here for follow up. Plan is as follows: Type 2 diabetes mellitus. His last A1c was 8.5. Is currently on sliding scale. He is not on statins because he cannot tolerate side effects. He is not on BEAR/ARB and most likely secondary to chronic kidney disease but results are not available. Hypertension. Blood pressure well controlled on current regimen and check renal function and electrolytes Hyperlipidemia. Unfortunately he cannot tolerate statins. Continue Ezetimibe 10 MG CHF. Patient mentioned that industrial sociologist told him that his pump is not up to the more. Currently he is on Lasix. Low-sodium diet recommended. Hypothyroidism. Continue Levothyroxine 150 MCG and advised to take it first thing in the morning on an empty stomach. ELIZ/insomnia. Mood is stable on current regimen plan he is also on Ambien which was prescribed by his previous PCP Radiculopathy. He is on oxycodone 10 MG and according to the patient he has been on this medication for a long time. It was prescribed by his primary care physician at [place]. Chronic kidney disease. Stage is not known. He does not appear to be in volume overload. Advised appropriate hydration. Avoid NSAIDs. BPH. Stable on current regimen. JAYE./ Insomnia. He sleeps well with AVAPS and he is on ambien Male erectile dysfunction. Continue Sildenafil 50 MG Morbid obesity. Advised low calorie foods and appropriate hydration, sleep and try to lose on average 6 pounds a month. Nicotine dependence. Encouraged to quit smoking but is not ready at this point. Blood work reviewed with patient and questions answered. General health concerns discussed with patient. Scribe services used to formulate this note under HIPAA compliance and under [place] law mandated for scribe services. Patient aware of service. Verbal consent and written consent taken from the patient. Patient understands and verbalizes understanding of the scribes services and all questions answered regarding scribes services. Patient agrees to use of scribes services. 12/26/2024 Weight loss, unintentional (ICD-10 - R63.4) Mr. Hernandez is a 54-year-old gentleman with type 2 diabetes mellitus, hypertension, hyperlipidemia, hypothyroidism, ,obstructive sleep apnea, generalized anxiety disorder/depressio n and insomnia here for follow up. Plan as follows Chronic pain secondary to degenerative disc disease. Prognosis: Mild to moderate Medical necessity supported by H&P, imaging and testing [place] pain treatment protocol completed. Yes Chronic opioid/pain maintenance. This patient request for ongoing pain management using chronic opioids have met the compliance requirement today satisfying the [employer] of state medical board recommendations and guidelines for judicious use, supervised opioid dispensing. Patient agreed to a personal interview for renewal for further opioids as planned at next scheduled visit or sooner if conditions change. Medication contract agreement and compliance reinforced. All risks and benefits associated with opioid neutralization, safe use and storage are described in great detail and patient voluntarily accepts all obligations. Patient is at moderate risk of opioid misuse based on ORT. Toxicology and TRADING ANALYST monitoring done and will follow protocol set forth by practice. As such controlled substance use requires judicious monitoring to access patient compliance with mutually agreed upon controlled substance use agreement which has been signed by the patient and initiation of controlled substance prescribing. Therefore following state, Federal, CMS guidelines for controlled substance testing policies. This patient has been assessed on the basis of psychometric risk tool, TRADING ANALYST monitoring, toxicology test results. Comorbid conditions may contribute to her compliance with chronic ongoing pain condition/function al impairment. Urine toxicology screen reviewed. appropriately positive For oxycodone. Liver function tests are normal Prescription monitoring program reviewed Opioid risk tool [ORT] for narcotic abuse used to evaluate risk continue current regimen Counseling done. Hypertension - Blood pressure is well controlled. Continue the same regimen. Increase hydration to reduce salt intake are recommended. Weight loss is also recommended. Type 2 diabetes - He is currently on Mounjaro 2.5mg. His recent A1c is 8.8. Adjustment of diabetic medications is usually through his security system installer. He does have an appointment for follow-up with his security system installer. He states that he is noncompliant with his diets. He was also recently seen by automation manager and recommended Lasix surgery. He does also follow with podiatry for plantar fasciitis which he has been taking ibuprofen on a daily basis with minimal improvement. I have discussed discussing with his provider cortisone injections. Hyperlipidemia - His previous LDL is within goal of 73. 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 I will check lipid panel again Unintentional weight loss - Have explained to the patient that given he was on Trulicity before and now on Mounjaro, he is also on metformin these meds are known to help with weight loss especially the new GLP-1 medication. I have also discussed that given his diabetes is uncontrolled that also could contribute into weight loss as well. However given that for a period of 5 months he was not on any medications and he lost up to 70 pounds unintentionally and the fact that he had positive stool test and he was supposed to get a repeat of the colonoscopy for reassurance I will start the workup of intentional weight loss to rule out any abnormalities/carlos gnancy. He is a smoker, this year he will be starting to get low-dose CAT scan of the lungs however goal to proceed with low dose of the CAT scan with and without contrast, I will also obtain a CAT scan of the abdomen and pelvis, CAT scan of the brain, he recently had thyroid testing done and it was within normal limits, recent comp is not concerning. I will check CBC and LDH. I will also get stool test and refer patient to GI for endoscopy and colonoscopy workup. I have rendered the services for this patient under direct supervision of Dr. Torres, who did not see the patient but was available upon request I have rendered the services for this patient under direct supervision of Dr. Torres, who did not see the patient but was available upon request 01/28/2025 Diabetes mellitus due to underlying condition with diabetic nephropathy (ICD-10 - E08.21) Mr. Hernandez is a 54-year-old gentleman with type 2 diabetes mellitus, hypertension, hyperlipidemia, hypothyroidism, ,obstructive sleep apnea, generalized anxiety disorder/depressio n and insomnia here for follow up. Plan as follows Chronic pain secondary to degenerative disc disease. Prognosis: Mild to moderate Medical necessity supported by H&P, imaging and testing [place] pain treatment protocol completed. Yes Chronic opioid/pain maintenance. This patient request for ongoing pain management using chronic opioids have met the compliance requirement today satisfying the Federation of state medical board recommendations and guidelines for judicious use, supervised opioid dispensing. Patient agreed to a personal interview for renewal for further opioids as planned at next scheduled visit or sooner if conditions change. Medication contract agreement and compliance reinforced. All risks and benefits associated with opioid neutralization, safe use and storage are described in great detail and patient voluntarily accepts all obligations. Patient is at moderate risk of opioid misuse based on ORT. Toxicology and TRADING ANALYST monitoring done and will follow protocol set forth by practice. As such controlled substance use requires judicious monitoring to access patient compliance with mutually agreed upon controlled substance use agreement which has been signed by the patient and initiation of controlled substance prescribing. Therefore following state, Federal, [facility] guidelines for controlled substance testing policies. This patient has been assessed on the basis of psychometric risk tool, TRADING ANALYST monitoring, toxicology test results. Comorbid conditions may contribute to her compliance with chronic ongoing pain condition/function al impairment. Urine toxicology screen reviewed. appropriately positive For oxycodone. Liver function tests are normal Prescription monitoring program reviewed Opioid risk tool [ORT] for narcotic abuse used to evaluate risk continue current regimen Discussed with patient that due to safety concern at his best to continue with oxycodone rather than switch him back to morphine given the incident as mentioned above in HPI especially that he has uncontrolled type II diabetes with neuropathy. I will also refer patient to pain management given ongoing joint pain, To discuss steroid injections. Counseling done. Hypertension - Blood pressure is well controlled. Continue the same regimen. Increase hydration to reduce salt intake are recommended. Weight loss is also recommended. Type 2 diabetes - He is currently on Mounjaro 2.5mg. His recent A1c is 8.8. Adjustment of diabetic medications is usually through his security system installer. He does have an appointment for follow-up with his security system installer. He states that he is noncompliant with his diets. He was also recently seen by automation manager and recommended Lasix surgery. He does also follow with podiatry for plantar fasciitis which he has been taking ibuprofen on a daily basis with minimal improvement. I have discussed discussing with his provider cortisone injections. Hyperlipidemia - His previous LDL is within goal of 73. 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 I will check lipid panel again Type 2 diabetes. He has stopped taking the GLP-1, Jardiance was also discontinued by the bulk plant operator. He has an appointment tomorrow with security system installer for further discussion on diabetes management. Advised on diet modification. He is up-to-date with his automation manager. Foot care discussed Chronic kidney disease. He does follow with [facility] the bulk plant operator. He is not volume overloaded. Avoid nephrotoxins and NSAIDs. Pending blood work to be done. I have rendered the services for this patient under direct supervision of Dr. Torres, who did not see the patient but was available upon request 02/25/2025 Diabetes mellitus due to underlying condition with diabetic nephropathy (ICD-10 - E08.21) Mr. Hernandez is a 54-year-old gentleman with type 2 diabetes mellitus, hypertension, hyperlipidemia, hypothyroidism, ,obstructive sleep apnea, generalized anxiety disorder/depressio n and insomnia here for follow up. Plan as follows Chronic pain secondary to degenerative disc disease. Prognosis: Mild to moderate Medical necessity supported by H&P, imaging and testing [place] pain treatment protocol completed. Yes I have increased oxycodone to 15 mg every 6 hours. Discussed with patient that for further adjustment in the pain management medication that has to be discussed with Dr. Torres. Chronic opioid/pain maintenance. This patient request for ongoing pain management using chronic opioids have met the compliance requirement today satisfying the [employer] of state medical board recommendations and guidelines for judicious use, supervised opioid dispensing. Patient agreed to a personal interview for renewal for further opioids as planned at next scheduled visit or sooner if conditions change. Medication contract agreement and compliance reinforced. All risks and benefits associated with opioid neutralization, safe use and storage are described in great detail and patient voluntarily accepts all obligations. Patient is at moderate risk of opioid misuse based on ORT. Toxicology and TRADING ANALYST monitoring done and will follow protocol set forth by practice. As such controlled substance use requires judicious monitoring to access patient compliance with mutually agreed upon controlled substance use agreement which has been signed by the patient and initiation of controlled substance prescribing. Therefore following state, Federal, [facility] guidelines for controlled substance testing policies. This patient has been assessed on the basis of psychometric risk tool, TRADING ANALYST monitoring, toxicology test results. Comorbid conditions may contribute to her compliance with chronic ongoing pain condition/function al impairment. Urine toxicology screen reviewed. appropriately positive For oxycodone. Liver function tests are normal Prescription monitoring program reviewed Opioid risk tool [ORT] for narcotic abuse used to evaluate risk continue current regimen Discussed with patient that due to safety concern at his best to continue with oxycodone rather than switch him back to morphine given the incident as mentioned above in HPI especially that he has uncontrolled type II diabetes with neuropathy. I will also refer patient to pain management given ongoing joint pain, To discuss steroid injections. Counseling done. Hypertension - Blood pressure is high normal control. Continue the same regimen. Increase hydration to reduce salt intake are recommended. Weight loss is also recommended. We will check BP in 4 weeks. Type 2 diabetes - He is currently on Mounjaro 2.5mg. His recent A1c is 8.8. Adjustment of diabetic medications is usually through his security system installer. He does have an appointment for follow-up with his security system installer. He states that he is noncompliant with his diets. He was also recently seen by automation manager and recommended Lasix surgery. He does also follow with podiatry for plantar fasciitis which he has been taking ibuprofen on a daily basis with minimal improvement. I have discussed discussing with his provider cortisone injections. Hyperlipidemia - His previous LDL is within goal of 73. 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 Type 2 diabetes. He has stopped taking the GLP-1, Jardiance was also discontinued by the bulk plant operator. He has an appointment with security system installer for further discussion on diabetes management. Advised on diet modification. He is up-to-date with his automation manager. Foot care discussed Chronic kidney disease. He does follow with [facility] the bulk plant operator. He is not volume overloaded. Avoid nephrotoxins and NSAIDs. Pending blood work to be done. I have rendered the services for this patient under direct supervision of Dr. Torres, who did not see the patient but was available upon request 02/25/2025 Chronic kidney disease, unspecified (ICD-10 - N18.9) Mr. Hernandez is a 54-year-old gentleman with type 2 diabetes mellitus, hypertension, hyperlipidemia, hypothyroidism, ,obstructive sleep apnea, generalized anxiety disorder/depressio n and insomnia here for follow up. Plan as follows Chronic pain secondary to degenerative disc disease. Prognosis: Mild to moderate Medical necessity supported by H&P, imaging and testing [place] pain treatment protocol completed. Yes I have increased oxycodone to 15 mg every 6 hours. Discussed with patient that for further adjustment in the pain management medication that has to be discussed with Dr. Torres. Chronic opioid/pain maintenance. This patient request for ongoing pain management using chronic opioids have met the compliance requirement today satisfying the [place] of state medical board recommendations and guidelines for judicious use, supervised opioid dispensing. Patient agreed to a personal interview for renewal for further opioids as planned at next scheduled visit or sooner if conditions change. Medication contract agreement and compliance reinforced. All risks and benefits associated with opioid neutralization, safe use and storage are described in great detail and patient voluntarily accepts all obligations. Patient is at moderate risk of opioid misuse based on ORT. Toxicology and TRADING ANALYST monitoring done and will follow protocol set forth by practice. As such controlled substance use requires judicious monitoring to access patient compliance with mutually agreed upon controlled substance use agreement which has been signed by the patient and initiation of controlled substance prescribing. Therefore following state, Federal, CMS guidelines for controlled substance testing policies. This patient has been assessed on the basis of psychometric risk tool, TRADING ANALYST monitoring, toxicology test results. Comorbid conditions may contribute to her compliance with chronic ongoing pain condition/function al impairment. Urine toxicology screen reviewed. appropriately positive For oxycodone. Liver function tests are normal Prescription monitoring program reviewed Opioid risk tool [ORT] for narcotic abuse used to evaluate risk continue current regimen Discussed with patient that due to safety concern at his best to continue with oxycodone rather than switch him back to morphine given the incident as mentioned above in HPI especially that he has uncontrolled type II diabetes with neuropathy. I will also refer patient to pain management given ongoing joint pain, To discuss steroid injections. Counseling done. Hypertension - Blood pressure is high normal control. Continue the same regimen. Increase hydration to reduce salt intake are recommended. Weight loss is also recommended. We will check BP in 4 weeks. Type 2 diabetes - He is currently on Mounjaro 2.5mg. His recent A1c is 8.8. Adjustment of diabetic medications is usually through his security system installer. He does have an appointment for follow-up with his security system installer. He states that he is noncompliant with his diets. He was also recently seen by automation manager and recommended Lasix surgery. He does also follow with podiatry for plantar fasciitis which he has been taking ibuprofen on a daily basis with minimal improvement. I have discussed discussing with his provider cortisone injections. Hyperlipidemia - His previous LDL is within goal of 73. 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 Type 2 diabetes. He has stopped taking the GLP-1, Jardiance was also discontinued by the bulk plant operator. He has an appointment with security system installer for further discussion on diabetes management. Advised on diet modification. He is up-to-date with his automation manager. Foot care discussed Chronic kidney disease. He does follow with [facility] the bulk plant operator. He is not volume overloaded. Avoid nephrotoxins and NSAIDs. Pending blood work to be done. I have rendered the services for this patient under direct supervision of Dr. Torres, who did not see the patient but was available upon request 01/28/2025 Chronic kidney disease, unspecified (ICD-10 - N18.9) Mr. Hernandez is a 54-year-old gentleman with type 2 diabetes mellitus, hypertension, hyperlipidemia, hypothyroidism, ,obstructive sleep apnea, generalized anxiety disorder/depressio n and insomnia here for follow up. Plan as follows Chronic pain secondary to degenerative disc disease. Prognosis: Mild to moderate Medical necessity supported by H&P, imaging and testing [place] pain treatment protocol completed. Yes Chronic opioid/pain maintenance. This patient request for ongoing pain management using chronic opioids have met the compliance requirement today satisfying the [employer] of state medical board recommendations and guidelines for judicious use, supervised opioid dispensing. Patient agreed to a personal interview for renewal for further opioids as planned at next scheduled visit or sooner if conditions change. Medication contract agreement and compliance reinforced. All risks and benefits associated with opioid neutralization, safe use and storage are described in great detail and patient voluntarily accepts all obligations. Patient is at moderate risk of opioid misuse based on ORT. Toxicology and TRADING ANALYST monitoring done and will follow protocol set forth by practice. As such controlled substance use requires judicious monitoring to access patient compliance with mutually agreed upon controlled substance use agreement which has been signed by the patient and initiation of controlled substance prescribing. Therefore following state, Federal, [facility] guidelines for controlled substance testing policies. This patient has been assessed on the basis of psychometric risk tool, TRADING ANALYST monitoring, toxicology test results. Comorbid conditions may contribute to her compliance with chronic ongoing pain condition/function al impairment. Urine toxicology screen reviewed. appropriately positive For oxycodone. Liver function tests are normal Prescription monitoring program reviewed Opioid risk tool [ORT] for narcotic abuse used to evaluate risk continue current regimen Discussed with patient that due to safety concern at his best to continue with oxycodone rather than switch him back to morphine given the incident as mentioned above in HPI especially that he has uncontrolled type II diabetes with neuropathy. I will also refer patient to pain management given ongoing joint pain, To discuss steroid injections. Counseling done. Hypertension - Blood pressure is well controlled. Continue the same regimen. Increase hydration to reduce salt intake are recommended. Weight loss is also recommended. Type 2 diabetes - He is currently on Mounjaro 2.5mg. His recent A1c is 8.8. Adjustment of diabetic medications is usually through his security system installer. He does have an appointment for follow-up with his security system installer. He states that he is noncompliant with his diets. He was also recently seen by automation manager and recommended Lasix surgery. He does also follow with podiatry for plantar fasciitis which he has been taking ibuprofen on a daily basis with minimal improvement. I have discussed discussing with his provider cortisone injections. Hyperlipidemia - His previous LDL is within goal of 73. 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 I will check lipid panel again Type 2 diabetes. He has stopped taking the GLP-1, Jardiance was also discontinued by the bulk plant operator. He has an appointment tomorrow with security system installer for further discussion on diabetes management. Advised on diet modification. He is up-to-date with his automation manager. Foot care discussed Chronic kidney disease. He does follow with [facility] the bulk plant operator. He is not volume overloaded. Avoid nephrotoxins and NSAIDs. Pending blood work to be done. I have rendered the services for this patient under direct supervision of Dr. Torres, who did not see the patient but was available upon request 10/03/2024 Diabetes mellitus due to underlying condition with diabetic nephropathy (ICD-10 - E08.21) Chronic pain secondary to degenerative disc disease. Prognosis: Mild to moderate Medical necessity supported by H&P, imaging and testing [place] pain treatment protocol completed. Yes Chronic opioid/pain maintenance. This patient request for ongoing pain management using chronic opioids have met the compliance requirement today satisfying the Federation of state medical board recommendations and guidelines for judicious use, supervised opioid dispensing. Patient agreed to a personal interview for renewal for further opioids as planned at next scheduled visit or sooner if conditions change. Medication contract agreement and compliance reinforced. All risks and benefits associated with opioid neutralization, safe use and storage are described in great detail and patient voluntarily accepts all obligations. Patient is at moderate risk of opioid misuse based on ORT. Toxicology and TRADING ANALYST monitoring done and will follow protocol set forth by practice. As such controlled substance use requires judicious monitoring to access patient compliance with mutually agreed upon controlled substance use agreement which has been signed by the patient and initiation of controlled substance prescribing. Therefore following state, Federal, [facility] guidelines for controlled substance testing policies. This patient has been assessed on the basis of psychometric risk tool, TRADING ANALYST monitoring, toxicology test results. Comorbid conditions may contribute to her compliance with chronic ongoing pain condition/function al impairment. Urine toxicology screen reviewed. appropriately positive and negative Liver function tests are normal Prescription monitoring program reviewed Opioid risk tool [ORT] for narcotic abuse used to evaluate risk continue current regimen Counseling done. Hypertension - Blood pressure is well controlled. Continue the same regimen. Increase hydration to reduce salt intake are recommended. Weight loss is also recommended. Pain the right shoulder: - Recent Xray was non-concerning for pathology. PE is remarkable for Positive [place] and lift off test, positive empty can test. Referred pt to orthopedic to r/o muscle tear. Declines PT. As for now can take tylenol for pain. Hypothyroidism: - Currently on 150mcg. Check TSH T2DM: - Previous A1c of 8.5. Currently on Mounjaro 2.5mg and Jardiance. He is also on sliding scale. Check A1c. I have rendered the services for this patient under direct supervision of Dr. Torres, who did not see the patient but was available upon request 07/08/2024 Insomnia, unspecified (ICD-10 - G47.00) Mr. Hernandez is a 53-year-old gentleman with type 2 diabetes mellitus, hypertension, hyperlipidemia, hypothyroidism, ,obstructive sleep apnea, generalized anxiety disorder/depressio n and insomnia here for follow up. Plan is as follows: Type 2 diabetes mellitus. His last A1c was 8.5. Is currently on sliding scale. He is not on statins because he cannot tolerate side effects. He is not on BEAR/ARB and most likely secondary to chronic kidney disease but results are not available. Hypertension. Blood pressure well controlled on current regimen and check renal function and electrolytes Hyperlipidemia. Unfortunately he cannot tolerate statins. Continue Ezetimibe 10 MG CHF. Patient mentioned that industrial sociologist told him that his pump is not up to the more. Currently he is on Lasix. Low-sodium diet recommended. Hypothyroidism. Continue Levothyroxine 150 MCG and advised to take it first thing in the morning on an empty stomach. ELIZ/insomnia. Mood is stable on current regimen plan he is also on Ambien which was prescribed by his previous PCP Radiculopathy. He is on oxycodone 10 MG and according to the patient he has been on this medication for a long time. It was prescribed by his primary care physician at [place]. Chronic kidney disease. Stage is not known. He does not appear to be in volume overload. Advised appropriate hydration. Avoid NSAIDs. BPH. Stable on current regimen. JAYE./ Insomnia. He sleeps well with AVAPS and he is on ambien Male erectile dysfunction. Continue Sildenafil 50 MG Morbid obesity. Advised low calorie foods and appropriate hydration, sleep and try to lose on average 6 pounds a month. Nicotine dependence. Encouraged to quit smoking but is not ready at this point. Blood work reviewed with patient and questions answered. General health concerns discussed with patient. Scribe services used to formulate this note under HIPAA compliance and under [place] law mandated for scribe services. Patient aware of service. Verbal consent and written consent taken from the patient. Patient understands and verbalizes understanding of the scribes services and all questions answered regarding scribes services. Patient agrees to use of scribes services. 06/03/2024 Generalized anxiety disorder (ICD-10 - F41.1) Mr. Hernandez is a 53-year-old gentleman with type 2 diabetes mellitus, hypertension, hyperlipidemia, hypothyroidism, generalized anxiety disorder and insomnia here to establish care. Plan is as follows: Type 2 diabetes mellitus. His last A1c was greater than 9. Is currently on sliding scale. He is not on statins because he cannot tolerate side effects. He is not on BEAR/ARB and most likely secondary to chronic kidney disease but results are not available. Referred to Ophthalmology and Podiatry. Check A1c. Hypertension. Blood pressure well controlled on current regimen and check renal function and electrolytes Hyperlipidemia. Unfortunately he cannot tolerate statins. Continue Ezetimibe 10 MG and check lipid panel and consider PCSK-9. CHF. Patient mentioned that industrial sociologist told him that his pump is not up to the more. Currently he is on Lasix. Referral to cardiology and retrieve old records. Low-sodium diet recommended. Hypothyroidism. Continue Levothyroxine 150 MCG and advised to take it first thing in the morning on an empty stomach. ELIZ/insomnia. Mood is stable on current regimen plan he is also on Ambien which was prescribed by his previous PCP Radiculopathy. He is on oxycodone 10 MG and according to the patient he has been on this medication for a long time. It was prescribed by his primary care physician at [place]. We will retrieve old records Chronic kidney disease. Stage is not known. 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 Stable on current regimen. JAYE. He sleeps well with AVAPS and needs equipment and is Referred to sleep medicine. Male erectile dysfunction. Start Sildenafil 50 MG Morbid obesity. Advised low calorie foods and appropriate hydration, sleep and try to lose on average 6 pounds a month. Once he has his blood work done he may benefit from GLP-1. Nicotine dependence. Encouraged to quit smoking but is not ready at this point. Screening blood work before next appointment. He dangelo dthis cologuard done and was positive. Referral to GI for colonoscopy General health concerns discussed with patient. Scribe services used to formulate this note under HIPAA compliance and under [place] law mandated for scribe services. Patient aware of service. Verbal consent and written consent taken from the patient. Patient understands and verbalizes understanding of the scribes services and all questions answered regarding scribes services. Patient agrees to use of scribes services. 06/03/2024 Insomnia, unspecified (ICD-10 - G47.00) Mr. Hernandez is a 53-year-old gentleman with type 2 diabetes mellitus, hypertension, hyperlipidemia, hypothyroidism, generalized anxiety disorder and insomnia here to establish care. Plan is as follows: Type 2 diabetes mellitus. His last A1c was greater than 9. Is currently on sliding scale. He is not on statins because he cannot tolerate side effects. He is not on BEAR/ARB and most likely secondary to chronic kidney disease but results are not available. Referred to Ophthalmology and Podiatry. Check A1c. Hypertension. Blood pressure well controlled on current regimen and check renal function and electrolytes Hyperlipidemia. Unfortunately he cannot tolerate statins. Continue Ezetimibe 10 MG and check lipid panel and consider PCSK-9. CHF. Patient mentioned that industrial sociologist told him that his pump is not up to the more. Currently he is on Lasix. Referral to cardiology and retrieve old records. Low-sodium diet recommended. Hypothyroidism. Continue Levothyroxine 150 MCG and advised to take it first thing in the morning on an empty stomach. ELIZ/insomnia. Mood is stable on current regimen plan he is also on Ambien which was prescribed by his previous PCP Radiculopathy. He is on oxycodone 10 MG and according to the patient he has been on this medication for a long time. It was prescribed by his primary care physician at [place]. We will retrieve old records Chronic kidney disease. Stage is not known. 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 Stable on current regimen. JAYE. He sleeps well with AVAPS and needs equipment and is Referred to sleep medicine. Male erectile dysfunction. Start Sildenafil 50 MG Morbid obesity. Advised low calorie foods and appropriate hydration, sleep and try to lose on average 6 pounds a month. Once he has his blood work done he may benefit from GLP-1. Nicotine dependence. Encouraged to quit smoking but is not ready at this point. Screening blood work before next appointment. He dangelo dthis cologuard done and was positive. Referral to GI for colonoscopy General health concerns discussed with patient. Scribe services used to formulate this note under HIPAA compliance and under [place] law mandated for scribe services. Patient aware of service. Verbal consent and written consent taken from the patient. Patient understands and verbalizes understanding of the scribes services and all questions answered regarding scribes services. Patient agrees to use of scribes services. 06/03/2024 Radiculopathy, lumbosacral region (ICD-10 - M54.17) Mr. Hernandez is a 53-year-old gentleman with type 2 diabetes mellitus, hypertension, hyperlipidemia, hypothyroidism, generalized anxiety disorder and insomnia here to establish care. Plan is as follows: Type 2 diabetes mellitus. His last A1c was greater than 9. Is currently on sliding scale. He is not on statins because he cannot tolerate side effects. He is not on BEAR/ARB and most likely secondary to chronic kidney disease but results are not available. Referred to Ophthalmology and Podiatry. Check A1c. Hypertension. Blood pressure well controlled on current regimen and check renal function and electrolytes Hyperlipidemia. Unfortunately he cannot tolerate statins. Continue Ezetimibe 10 MG and check lipid panel and consider PCSK-9. CHF. Patient mentioned that industrial sociologist told him that his pump is not up to the more. Currently he is on Lasix. Referral to cardiology and retrieve old records. Low-sodium diet recommended. Hypothyroidism. Continue Levothyroxine 150 MCG and advised to take it first thing in the morning on an empty stomach. ELIZ/insomnia. Mood is stable on current regimen plan he is also on Ambien which was prescribed by his previous PCP Radiculopathy. He is on oxycodone 10 MG and according to the patient he has been on this medication for a long time. It was prescribed by his primary care physician at [place]. We will retrieve old records Chronic kidney disease. Stage is not known. 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 Stable on current regimen. JAYE. He sleeps well with AVAPS and needs equipment and is Referred to sleep medicine. Male erectile dysfunction. Start Sildenafil 50 MG Morbid obesity. Advised low calorie foods and appropriate hydration, sleep and try to lose on average 6 pounds a month. Once he has his blood work done he may benefit from GLP-1. Nicotine dependence. Encouraged to quit smoking but is not ready at this point. Screening blood work before next appointment. He dangelo dthis cologuard done and was positive. Referral to GI for colonoscopy General health concerns discussed with patient. Scribe services used to formulate this note under HIPAA compliance and under [place] law mandated for scribe services. Patient aware of service. Verbal consent and written consent taken from the patient. Patient understands and verbalizes understanding of the scribes services and all questions answered regarding scribes services. Patient agrees to use of scribes services. 06/03/2024 Benign prostatic hyperplasia with lower urinary tract symptoms (ICD-10 - N40.1) Mr. Hernandez is a 53-year-old gentleman with type 2 diabetes mellitus, hypertension, hyperlipidemia, hypothyroidism, generalized anxiety disorder and insomnia here to establish care. Plan is as follows: Type 2 diabetes mellitus. His last A1c was greater than 9. Is currently on sliding scale. He is not on statins because he cannot tolerate side effects. He is not on BEAR/ARB and most likely secondary to chronic kidney disease but results are not available. Referred to Ophthalmology and Podiatry. Check A1c. Hypertension. Blood pressure well controlled on current regimen and check renal function and electrolytes Hyperlipidemia. Unfortunately he cannot tolerate statins. Continue Ezetimibe 10 MG and check lipid panel and consider PCSK-9. CHF. Patient mentioned that industrial sociologist told him that his pump is not up to the more. Currently he is on Lasix. Referral to cardiology and retrieve old records. Low-sodium diet recommended. Hypothyroidism. Continue Levothyroxine 150 MCG and advised to take it first thing in the morning on an empty stomach. ELIZ/insomnia. Mood is stable on current regimen plan he is also on Ambien which was prescribed by his previous PCP Radiculopathy. He is on oxycodone 10 MG and according to the patient he has been on this medication for a long time. It was prescribed by his primary care physician at [place]. We will retrieve old records Chronic kidney disease. Stage is not known. 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 Stable on current regimen. JAYE. He sleeps well with AVAPS and needs equipment and is Referred to sleep medicine. Male erectile dysfunction. Start Sildenafil 50 MG Morbid obesity. Advised low calorie foods and appropriate hydration, sleep and try to lose on average 6 pounds a month. Once he has his blood work done he may benefit from GLP-1. Nicotine dependence. Encouraged to quit smoking but is not ready at this point. Screening blood work before next appointment. He dangelo dthis cologuard done and was positive. Referral to GI for colonoscopy General health concerns discussed with patient. Scribe services used to formulate this note under HIPAA compliance and under [place] law mandated for scribe services. Patient aware of service. Verbal consent and written consent taken from the patient. Patient understands and verbalizes understanding of the scribes services and all questions answered regarding scribes services. Patient agrees to use of scribes services. 06/03/2024 Encounter for screening for malignant neoplasm of prostate (ICD-10 - Z12.5) Mr. Hernandez is a 53-year-old gentleman with type 2 diabetes mellitus, hypertension, hyperlipidemia, hypothyroidism, generalized anxiety disorder and insomnia here to establish care. Plan is as follows: Type 2 diabetes mellitus. His last A1c was greater than 9. Is currently on sliding scale. He is not on statins because he cannot tolerate side effects. He is not on BEAR/ARB and most likely secondary to chronic kidney disease but results are not available. Referred to Ophthalmology and Podiatry. Check A1c. Hypertension. Blood pressure well controlled on current regimen and check renal function and electrolytes Hyperlipidemia. Unfortunately he cannot tolerate statins. Continue Ezetimibe 10 MG and check lipid panel and consider PCSK-9. CHF. Patient mentioned that industrial sociologist told him that his pump is not up to the more. Currently he is on Lasix. Referral to cardiology and retrieve old records. Low-sodium diet recommended. Hypothyroidism. Continue Levothyroxine 150 MCG and advised to take it first thing in the morning on an empty stomach. ELIZ/insomnia. Mood is stable on current regimen plan he is also on Ambien which was prescribed by his previous PCP Radiculopathy. He is on oxycodone 10 MG and according to the patient he has been on this medication for a long time. It was prescribed by his primary care physician at [place]. We will retrieve old records Chronic kidney disease. Stage is not known. 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 Stable on current regimen. JAYE. He sleeps well with AVAPS and needs equipment and is Referred to sleep medicine. Male erectile dysfunction. Start Sildenafil 50 MG Morbid obesity. Advised low calorie foods and appropriate hydration, sleep and try to lose on average 6 pounds a month. Once he has his blood work done he may benefit from GLP-1. Nicotine dependence. Encouraged to quit smoking but is not ready at this point. Screening blood work before next appointment. He dangelo dthis cologuard done and was positive. Referral to GI for colonoscopy General health concerns discussed with patient. Scribe services used to formulate this note under HIPAA compliance and under [place] law mandated for scribe services. Patient aware of service. Verbal consent and written consent taken from the patient. Patient understands and verbalizes understanding of the scribes services and all questions answered regarding scribes services. Patient agrees to use of scribes services. 06/03/2024 Male erectile dysfunction, unspecified (ICD-10 - N52.9) Mr. Hernandez is a 53-year-old gentleman with type 2 diabetes mellitus, hypertension, hyperlipidemia, hypothyroidism, generalized anxiety disorder and insomnia here to establish care. Plan is as follows: Type 2 diabetes mellitus. His last A1c was greater than 9. Is currently on sliding scale. He is not on statins because he cannot tolerate side effects. He is not on BEAR/ARB and most likely secondary to chronic kidney disease but results are not available. Referred to Ophthalmology and Podiatry. Check A1c. Hypertension. Blood pressure well controlled on current regimen and check renal function and electrolytes Hyperlipidemia. Unfortunately he cannot tolerate statins. Continue Ezetimibe 10 MG and check lipid panel and consider PCSK-9. CHF. Patient mentioned that industrial sociologist told him that his pump is not up to the more. Currently he is on Lasix. Referral to cardiology and retrieve old records. Low-sodium diet recommended. Hypothyroidism. Continue Levothyroxine 150 MCG and advised to take it first thing in the morning on an empty stomach. ELIZ/insomnia. Mood is stable on current regimen plan he is also on Ambien which was prescribed by his previous PCP Radiculopathy. He is on oxycodone 10 MG and according to the patient he has been on this medication for a long time. It was prescribed by his primary care physician at [place]. We will retrieve old records Chronic kidney disease. Stage is not known. 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 Stable on current regimen. JAYE. He sleeps well with AVAPS and needs equipment and is Referred to sleep medicine. Male erectile dysfunction. Start Sildenafil 50 MG Morbid obesity. Advised low calorie foods and appropriate hydration, sleep and try to lose on average 6 pounds a month. Once he has his blood work done he may benefit from GLP-1. Nicotine dependence. Encouraged to quit smoking but is not ready at this point. Screening blood work before next appointment. He dangelo dthis cologuard done and was positive. Referral to GI for colonoscopy General health concerns discussed with patient. Scribe services used to formulate this note under HIPAA compliance and under [place] law mandated for scribe services. Patient aware of service. Verbal consent and written consent taken from the patient. Patient understands and verbalizes understanding of the scribes services and all questions answered regarding scribes services. Patient agrees to use of scribes services. 06/03/2024 Obstructive sleep apnea (ICD-10 - G47.33) Mr. Hernandez is a 53-year-old gentleman with type 2 diabetes mellitus, hypertension, hyperlipidemia, hypothyroidism, generalized anxiety disorder and insomnia here to establish care. Plan is as follows: Type 2 diabetes mellitus. His last A1c was greater than 9. Is currently on sliding scale. He is not on statins because he cannot tolerate side effects. He is not on BEAR/ARB and most likely secondary to chronic kidney disease but results are not available. Referred to Ophthalmology and Podiatry. Check A1c. Hypertension. Blood pressure well controlled on current regimen and check renal function and electrolytes Hyperlipidemia. Unfortunately he cannot tolerate statins. Continue Ezetimibe 10 MG and check lipid panel and consider PCSK-9. CHF. Patient mentioned that industrial sociologist told him that his pump is not up to the more. Currently he is on Lasix. Referral to cardiology and retrieve old records. Low-sodium diet recommended. Hypothyroidism. Continue Levothyroxine 150 MCG and advised to take it first thing in the morning on an empty stomach. ELIZ/insomnia. Mood is stable on current regimen plan he is also on Ambien which was prescribed by his previous PCP Radiculopathy. He is on oxycodone 10 MG and according to the patient he has been on this medication for a long time. It was prescribed by his primary care physician at [place]. We will retrieve old records Chronic kidney disease. Stage is not known. 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 Stable on current regimen. JAYE. He sleeps well with AVAPS and needs equipment and is Referred to sleep medicine. Male erectile dysfunction. Start Sildenafil 50 MG Morbid obesity. Advised low calorie foods and appropriate hydration, sleep and try to lose on average 6 pounds a month. Once he has his blood work done he may benefit from GLP-1. Nicotine dependence. Encouraged to quit smoking but is not ready at this point. Screening blood work before next appointment. He dangelo dthis cologuard done and was positive. Referral to GI for colonoscopy General health concerns discussed with patient. Scribe services used to formulate this note under HIPAA compliance and under [place] law mandated for scribe services. Patient aware of service. Verbal consent and written consent taken from the patient. Patient understands and verbalizes understanding of the scribes services and all questions answered regarding scribes services. Patient agrees to use of scribes services. 06/03/2024 Morbid (severe) obesity due to excess calories (ICD-10 - E66.01) Mr. Hernandez is a 53-year-old gentleman with type 2 diabetes mellitus, hypertension, hyperlipidemia, hypothyroidism, generalized anxiety disorder and insomnia here to establish care. Plan is as follows: Type 2 diabetes mellitus. His last A1c was greater than 9. Is currently on sliding scale. He is not on statins because he cannot tolerate side effects. He is not on BEAR/ARB and most likely secondary to chronic kidney disease but results are not available. Referred to Ophthalmology and Podiatry. Check A1c. Hypertension. Blood pressure well controlled on current regimen and check renal function and electrolytes Hyperlipidemia. Unfortunately he cannot tolerate statins. Continue Ezetimibe 10 MG and check lipid panel and consider PCSK-9. CHF. Patient mentioned that industrial sociologist told him that his pump is not up to the more. Currently he is on Lasix. Referral to cardiology and retrieve old records. Low-sodium diet recommended. Hypothyroidism. Continue Levothyroxine 150 MCG and advised to take it first thing in the morning on an empty stomach. ELIZ/insomnia. Mood is stable on current regimen plan he is also on Ambien which was prescribed by his previous PCP Radiculopathy. He is on oxycodone 10 MG and according to the patient he has been on this medication for a long time. It was prescribed by his primary care physician at [place]. We will retrieve old records Chronic kidney disease. Stage is not known. 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 Stable on current regimen. JAYE. He sleeps well with AVAPS and needs equipment and is Referred to sleep medicine. Male erectile dysfunction. Start Sildenafil 50 MG Morbid obesity. Advised low calorie foods and appropriate hydration, sleep and try to lose on average 6 pounds a month. Once he has his blood work done he may benefit from GLP-1. Nicotine dependence. Encouraged to quit smoking but is not ready at this point. Screening blood work before next appointment. He dangelo dthis cologuard done and was positive. Referral to GI for colonoscopy General health concerns discussed with patient. Scribe services used to formulate this note under HIPAA compliance and under [place] law mandated for scribe services. Patient aware of service. Verbal consent and written consent taken from the patient. Patient understands and verbalizes understanding of the scribes services and all questions answered regarding scribes services. Patient agrees to use of scribes services. 06/03/2024 Dietary counseling and surveillance (ICD-10 - Z71.3) Mr. Hernandez is a 53-year-old gentleman with type 2 diabetes mellitus, hypertension, hyperlipidemia, hypothyroidism, generalized anxiety disorder and insomnia here to establish care. Plan is as follows: Type 2 diabetes mellitus. His last A1c was greater than 9. Is currently on sliding scale. He is not on statins because he cannot tolerate side effects. He is not on BEAR/ARB and most likely secondary to chronic kidney disease but results are not available. Referred to Ophthalmology and Podiatry. Check A1c. Hypertension. Blood pressure well controlled on current regimen and check renal function and electrolytes Hyperlipidemia. Unfortunately he cannot tolerate statins. Continue Ezetimibe 10 MG and check lipid panel and consider PCSK-9. CHF. Patient mentioned that industrial sociologist told him that his pump is not up to the more. Currently he is on Lasix. Referral to cardiology and retrieve old records. Low-sodium diet recommended. Hypothyroidism. Continue Levothyroxine 150 MCG and advised to take it first thing in the morning on an empty stomach. ELIZ/insomnia. Mood is stable on current regimen plan he is also on Ambien which was prescribed by his previous PCP Radiculopathy. He is on oxycodone 10 MG and according to the patient he has been on this medication for a long time. It was prescribed by his primary care physician at [place]. We will retrieve old records Chronic kidney disease. Stage is not known. 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 Stable on current regimen. JAYE. He sleeps well with AVAPS and needs equipment and is Referred to sleep medicine. Male erectile dysfunction. Start Sildenafil 50 MG Morbid obesity. Advised low calorie foods and appropriate hydration, sleep and try to lose on average 6 pounds a month. Once he has his blood work done he may benefit from GLP-1. Nicotine dependence. Encouraged to quit smoking but is not ready at this point. Screening blood work before next appointment. He dangelo dthis cologuard done and was positive. Referral to GI for colonoscopy General health concerns discussed with patient. Scribe services used to formulate this note under HIPAA compliance and under [place] law mandated for scribe services. Patient aware of service. Verbal consent and written consent taken from the patient. Patient understands and verbalizes understanding of the scribes services and all questions answered regarding scribes services. Patient agrees to use of scribes services. 06/03/2024 Nicotine dependence, cigarettes, uncomplicated (ICD-10 - F17.210) Mr. Hernandez is a 53-year-old gentleman with type 2 diabetes mellitus, hypertension, hyperlipidemia, hypothyroidism, generalized anxiety disorder and insomnia here to establish care. Plan is as follows: Type 2 diabetes mellitus. His last A1c was greater than 9. Is currently on sliding scale. He is not on statins because he cannot tolerate side effects. He is not on BEAR/ARB and most likely secondary to chronic kidney disease but results are not available. Referred to Ophthalmology and Podiatry. Check A1c. Hypertension. Blood pressure well controlled on current regimen and check renal function and electrolytes Hyperlipidemia. Unfortunately he cannot tolerate statins. Continue Ezetimibe 10 MG and check lipid panel and consider PCSK-9. CHF. Patient mentioned that industrial sociologist told him that his pump is not up to the more. Currently he is on Lasix. Referral to cardiology and retrieve old records. Low-sodium diet recommended. Hypothyroidism. Continue Levothyroxine 150 MCG and advised to take it first thing in the morning on an empty stomach. ELIZ/insomnia. Mood is stable on current regimen plan he is also on Ambien which was prescribed by his previous PCP Radiculopathy. He is on oxycodone 10 MG and according to the patient he has been on this medication for a long time. It was prescribed by his primary care physician at [place]. We will retrieve old records Chronic kidney disease. Stage is not known. 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 Stable on current regimen. JAYE. He sleeps well with AVAPS and needs equipment and is Referred to sleep medicine. Male erectile dysfunction. Start Sildenafil 50 MG Morbid obesity. Advised low calorie foods and appropriate hydration, sleep and try to lose on average 6 pounds a month. Once he has his blood work done he may benefit from GLP-1. Nicotine dependence. Encouraged to quit smoking but is not ready at this point. Screening blood work before next appointment. He dangelo dthis cologuard done and was positive. Referral to GI for colonoscopy General health concerns discussed with patient. Scribe services used to formulate this note under HIPAA compliance and under [place] law mandated for scribe services. Patient aware of service. Verbal consent and written consent taken from the patient. Patient understands and verbalizes understanding of the scribes services and all questions answered regarding scribes services. Patient agrees to use of scribes services. 06/03/2024 Tobacco abuse counseling (ICD-10 - Z71.6) Mr. Hernandez is a 53-year-old gentleman with type 2 diabetes mellitus, hypertension, hyperlipidemia, hypothyroidism, generalized anxiety disorder and insomnia here to establish care. Plan is as follows: Type 2 diabetes mellitus. His last A1c was greater than 9. Is currently on sliding scale. He is not on statins because he cannot tolerate side effects. He is not on BEAR/ARB and most likely secondary to chronic kidney disease but results are not available. Referred to Ophthalmology and Podiatry. Check A1c. Hypertension. Blood pressure well controlled on current regimen and check renal function and electrolytes Hyperlipidemia. Unfortunately he cannot tolerate statins. Continue Ezetimibe 10 MG and check lipid panel and consider PCSK-9. CHF. Patient mentioned that industrial sociologist told him that his pump is not up to the more. Currently he is on Lasix. Referral to cardiology and retrieve old records. Low-sodium diet recommended. Hypothyroidism. Continue Levothyroxine 150 MCG and advised to take it first thing in the morning on an empty stomach. ELIZ/insomnia. Mood is stable on current regimen plan he is also on Ambien which was prescribed by his previous PCP Radiculopathy. He is on oxycodone 10 MG and according to the patient he has been on this medication for a long time. It was prescribed by his primary care physician at [place]. We will retrieve old records Chronic kidney disease. Stage is not known. 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 Stable on current regimen. JAYE. He sleeps well with AVAPS and needs equipment and is Referred to sleep medicine. Male erectile dysfunction. Start Sildenafil 50 MG Morbid obesity. Advised low calorie foods and appropriate hydration, sleep and try to lose on average 6 pounds a month. Once he has his blood work done he may benefit from GLP-1. Nicotine dependence. Encouraged to quit smoking but is not ready at this point. Screening blood work before next appointment. He dangelo dthis cologuard done and was positive. Referral to GI for colonoscopy General health concerns discussed with patient. Scribe services used to formulate this note under HIPAA compliance and under [place] law mandated for scribe services. Patient aware of service. Verbal consent and written consent taken from the patient. Patient understands and verbalizes understanding of the scribes services and all questions answered regarding scribes services. Patient agrees to use of scribes services. 06/03/2024 Chronic kidney disease, unspecified (ICD-10 - N18.9) Mr. Hernandez is a 53-year-old gentleman with type 2 diabetes mellitus, hypertension, hyperlipidemia, hypothyroidism, generalized anxiety disorder and insomnia here to establish care. Plan is as follows: Type 2 diabetes mellitus. His last A1c was greater than 9. Is currently on sliding scale. He is not on statins because he cannot tolerate side effects. He is not on BEAR/ARB and most likely secondary to chronic kidney disease but results are not available. Referred to Ophthalmology and Podiatry. Check A1c. Hypertension. Blood pressure well controlled on current regimen and check renal function and electrolytes Hyperlipidemia. Unfortunately he cannot tolerate statins. Continue Ezetimibe 10 MG and check lipid panel and consider PCSK-9. CHF. Patient mentioned that industrial sociologist told him that his pump is not up to the more. Currently he is on Lasix. Referral to cardiology and retrieve old records. Low-sodium diet recommended. Hypothyroidism. Continue Levothyroxine 150 MCG and advised to take it first thing in the morning on an empty stomach. ELIZ/insomnia. Mood is stable on current regimen plan he is also on Ambien which was prescribed by his previous PCP Radiculopathy. He is on oxycodone 10 MG and according to the patient he has been on this medication for a long time. It was prescribed by his primary care physician at [place]. We will retrieve old records Chronic kidney disease. Stage is not known. 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 Stable on current regimen. JAYE. He sleeps well with AVAPS and needs equipment and is Referred to sleep medicine. Male erectile dysfunction. Start Sildenafil 50 MG Morbid obesity. Advised low calorie foods and appropriate hydration, sleep and try to lose on average 6 pounds a month. Once he has his blood work done he may benefit from GLP-1. Nicotine dependence. Encouraged to quit smoking but is not ready at this point. Screening blood work before next appointment. He dangelo dthis cologuard done and was positive. Referral to GI for colonoscopy General health concerns discussed with patient. Scribe services used to formulate this note under HIPAA compliance and under [place] law mandated for scribe services. Patient aware of service. Verbal consent and written consent taken from the patient. Patient understands and verbalizes understanding of the scribes services and all questions answered regarding scribes services. Patient agrees to use of scribes services. Plan Of Treatment Pending Test Test Name Order Date CT Scan : Chest W W/O Contrast 5 CT Abdomen & Pelvis W/WO Cont 12/26/2024 CT Brain WO 12/26/2024 Xray: Shoulder Right-Min 2 Vws 4 Hemoglobin [id number] 10/03/2024 Hemoglobin [id number] 10/31/2024 ColoFIT,Occult Blood,Fecal,[id number] 06/2025 TSH+Free [id number] 10/31/2024 TSH+Free T4 10/03/2024 DRUG MONITOR, ZOLPIDEM, QN, URINE ([id number] ) 11/29/2024 Next Appt Details Provider Name:Ethan nelson, 03/27/2025 11:00:00 AM, [address] [place] [address], [id number], Insurance Providers Payer Name Payer Address Payer Phone Subscriber Number Group Number Insured Name Patient Relationship to Insured Coverage Start Date Coverage End Date [facility] [address] [place] [id number] Peter Hernandez Self - patient is the insured Medical (General) History Medical History History ICD Code type 2 diabetes mellitus see [facility] ndocrinology hypertension hyperlipidemia generalized anxiety disorder insomnia hypothyroidism [facility] Surgical History Surgery Date(Month/Year) partial thyroidectomy left distal toe amputation
== END 2025-03-06 14:17 | disposition home or self-care (01) ==
PROVIDERS: PCP Family Medicine; Visit Provider Orthopaedic Surgery
DX: M25.311 Other instability, right shoulder (principal); M25.512 Pain in left shoulder
CPT/HCPCS: 99203; G2211

== ENCOUNTER → 2025-03-06 13:56 | Outpatient (BNV) | payer OTHER, SELFPAY | PROVIDERS: Visit Provider Radiology Diagnostic Radiology | DX: M25.511 Pain in right shoulder (principal) | CPT/HCPCS: 73030 ==

== ENCOUNTER 2025-07-26 07:15 | Outpatient (REF) | payer OTHER, SELFPAY ==
--- NOTE | ~2025-07-26 | MR_ITS ---
EXAMINATION: MR SHOULDER WITHOUT CONTRAST, RIGHT CLINICAL INFORMATION: Instability COMPARISON: X-ray 03/06/2025 TECHNIQUE: MRI of the shoulder without contrast was performed on a high-field scanner. FINDINGS: ROTATOR CUFF: Supraspinatus: Full-thickness tear measuring 3 cm AP, up to 2.1 cm medial-lateral. Intact fibers demonstrate mild tendinosis. Infraspinatus: Mild tendinosis. Mild bursal surface fraying in the anterior fibers. Teres minor: Intact. Subscapularis: Moderate tendinosis. No muscle atrophy or fatty infiltration. BICEPS: The proximal tendon is not visualized, suspicious for full-thickness tearing.. CORACOACROMIAL ARCH: The undersurface of the acromion is curved with no subacromial spur. Mild acromioclavicular arthritis. There is fluid in the subacromial subdeltoid space. LABRUM/CAPSULE: Superior labrum is small in caliber, suspicious for tearing. No labral tear is otherwise seen. GLENOHUMERAL JOINT/MARROW: Mild glenohumeral joint arthritis. Greater tuberosity subcortical cysts, with reactive/degenerative edema. No fracture.. Small effusion. No axillary lymphadenopathy. MR/MR shoulder RT wo con IMPRESSION: * Supraspinatus full-thickness tear measuring 3 x 2.1 cm. Intact fibers demonstrate mild tendinosis. * Mild infraspinatus tendinosis, bursal surface fraying. * Moderate subscapularis tendinosis * Findings suspicious for proximal long head biceps tendon full-thickness tear. *Superior labral findings suspicious for a tear. *Mild glenohumeral joint arthritis. Small effusion. *Mild acromioclavicular arthritis. Electronically signed by: Jn Slaughter MD 07/28/2025 08:11 AM [facility]
--- NOTE | ~2025-07-26 | MR_ITS ---
CLINICAL HISTORY: M54.2 - Cervicalgia Exam: MRI cervical spine without IV contrast Comparison: None Findings: Some sequences are repeated due to motion and artifacts. Cervical spine alignment is normal. Atlantoaxial relationship is normal. No acute fracture, osseous lesion or suspicious bone marrow signal. Craniocervical junction and cervical spinal cord are normal. Congenitally small cervical spinal canal. Ill-defined T2 hyperintense signal of the soft tissue between spinous processes of C2/C3, C3/C4. Unremarkable paraspinal musculature, prevertebral soft tissue and imaged neck. Moderate arthrosis of the median atlantoaxial articulation. C2-3: Small posterior central focal disc protrusion, facet arthrosis bilaterally. No central canal stenosis or foraminal narrowing. C3-4: Mild diffuse posterior disc bulge. Small uncovertebral osteophytes. Mild central canal stenosis. Mild facet arthrosis, right facet prominent joint effusion. C4-5: Small posterior central focal disc protrusion, bilateral facet arthrosis, worse on the right. Mild central canal stenosis, no foraminal narrowing. C5-6: Diffuse posterior disc bulge 3 mm in AP dimension, mild central canal stenosis, the disc is slightly indenting spinal cord at the midline. Facet arthrosis. Mild left foraminal narrowing. No right foraminal narrowing. C6-7: Minimal diffuse posterior disc bulge. Equivocal central canal stenosis. Bilateral facet arthrosis. No foraminal narrowing. C7-T1: Normal disc. Facet arthrosis is more conspicuous on the left. No central canal stenosis or foraminal narrowing. Impression: 1. T2 hyperintense signal between spinous processes C2 to C4, may reflect interspinous bursitis or ligamentous strain. 2. Prominent facet joint effusion of right C3-4. 3. Multilevel degenerative spondylosis of cervical spine with background congenitally small spinal canal, no high-grade central canal stenosis or foraminal narrowing. This document has been electronically signed by: Julia Hart MD on 07/29/2025 14:34:18
--- OUTSIDE RECORDS SUMMARY | 2025-07-26 07:19 | XMS_ITS | Clinical Summary ---
Demographics Address [address] [place] [address] Home Phone Mobile Phone Preferred Language en Marital Status Presybeterian Affiliation Unknown Race White Ethnic Group Not or Lati no Author Organization [facility] Address [address] [place] [address] Phone Care Team Providers Care Photo Technician Name Role Phone Bruno Singer MD Primary Care Provider [phone] Allergies Active Allergy Reactions Criticality Noted Date Comments Codeine Other (see comments) 11/08/2019 Statins Other (see comments) 11/29/2021 Medications aspirin (ST WILLIAM) 81 MG EC tablet Take 81 mg by mouth in the morning. Active baclofen (LIORESAL) 20 MG tablet Take 20 mg by mouth in the morning and 20 mg in the evening and 20 mg before bedtime. 1 Active buPROPion (WELLBUTRIN) 75 MG tablet Take 150 mg by mouth in the morning and 150 mg in the evening. Active carvedilol (COREG) 6.25 MG tablet Take 6.25 mg by mouth in the morning and 6.25 mg in the evening. 4 Active cholecalciferol (VITAMIN D-3) 25 MCG (1000 UT) tablet Take 2,000 Units by mouth in the morning. Active ezetimibe (ZETIA) 10 MG tablet Take 10 mg by mouth 1 (one) time each day Active finasteride (PROSCAR) 5 MG tablet Take 5 mg by mouth 1 (one) time each day Active fluticasone (FLONASE) 50 MCG/ACT nasal spray Administer 2 sprays into each nostril 1 (one) time each day 0 Active gabapentin (NEURONTIN) 600 MG tablet Take 600 mg by mouth 1 (one) time each day Active ibuprofen (ADVIL,MOTRIN) 800 MG tablet Take 800 mg by mouth in the morning and 800 mg in the evening. 4 Active HumuLIN R 500 UNIT/ML CONCENTRATED injection Inject 55 Units under the skin in the morning and 55 Units at noon and 55 Units in the evening. Inject before meals. 2 Active levothyroxine (SYNTHROID, LEVOTHROID) 150 MCG tablet Take 150 mcg by mouth 1 (one) time each day 3 Active loperamide (IMODIUM) 2 MG capsule Take 2 mg by mouth 4 (four) times a day if needed 0 Active Melatonin 10 MG tablet Take 10 mg by mouth 1 (one) time each day Active multivitamin (THERAGRAN) tablet Take 1 tablet by mouth in the morning. Active Niacin ER 1000 MG tablet controlled-releas e Take 1,000 mg by mouth 1 (one) time each day 4 Active potassium chloride (K-TAB) 20 MEQ CR tablet Take 20 mEq by mouth in the morning and 20 mEq in the evening. Active Mounjaro 2.5 MG/0.5ML solution pen-injector Inject 0.5 mg under the skin every 7 (seven) days 4 Active zolpidem (AMBIEN) 10 MG tablet Take 10 mg by mouth at bed time 4 Active sildenafil (VIAGRA) 50 MG tablet Take 50 mg by mouth if needed 4 Active oxyCODONE (ROXICODONE) 10 MG immediate release tablet Take 10 mg by mouth every 6 (six) hours if needed for moderate pain Active Active Problems Problem Noted Date Diagnosed Date Disorder of peripheral nervous system 01/22/2025 Diabetic glomerulonephritis 07/08/2024 Hypertension 07/08/2024 Proteinuria, not otherwise specified 07/08/2024 Tobacco use 08/26/2023 Overview (07/08/2024): Last Assessment & Plan: Patient no longer smokes Tobacco cessation counseling provided for > 3 min NRT ordered with patch and PRN nicorette gum Continuous opioid dependence 11/22/2022 Chronic combined systolic an d diastolic congestive heart failure 09/08/2022 Overview (07/08/2024): Last Assessment & Plan: Wt Readings from Last 3 Encounters: 08/26/23 (!) 186 kg (410 lb 11.5 oz) 08/23/23 (!) 191 kg (422 lb) 08/19/23 (!) 191 kg (420 lb) Euvolemic on exam Echo (09/09/21): EF 55% with increased wall thickness Continue home Lasix Daily weights, I&Os Chronic pain syndrome 11/16/2021 Stage 3a chronic kidney disease 08/09/2021 Overview (07/08/2024): Last Assessment & Plan: Lab Results Component Value Date EGFR 63 08/26/2023 EGFR 73 08/25/2023 EGFR 65 08/24/2023 CREATININE 1.28 08/26/2023 CREATININE 1.14 08/25/2023 CREATININE 1.25 08/24/2023 Creatinine stable at baseline Avoid hypotension and nephrotoxic agents Monitor daily BMP Insulin treated type 2 diabetes mellitus 020 Overview (07/08/2024): Last Assessment & Plan: Lab Results Component Value Date HGBA1C 9.0 (H) 08/23/2023 Recent Labs 08/25/23 1616 08/25/23 2106 08/26/23 0618 08/26/23 1057 POCGLU 333* 241* 101 232* Blood Sugar Average: Last 72 hrs: (P) [id number] Resume home regimen Obstructive sleep apnea syndrome 11/08/2019 Vitamin D deficiency 11/08/2019 Family History Medical History Relation Comments Diabetes Father Hypertension Mother Relation Status Comments Father Unknown Mother Unknown Social History Tobacco Use Types Packs/Day Years Used Date Smoking Tobacco: Former Sex and Gender Information Value Date Recorded Sex Assigned at Not on file Legal Sex Male 5:07 PM EST Gender Identity Not on file Sexual Orientation Not on file Last Filed Vital Signs Vital Sign Reading Time Taken Comments Blood Pressure 118/68 04/23/2025 10:17 AM EDT Pulse 84 04/23/2025 10:17 AM EDT Temperature - - Respiratory Rate - - Oxygen Saturation 95% 04/23/2025 10:17 AM EDT Inhaled Oxygen Concentration - - Weight 159 kg (351 lb) 04/23/2025 10:17 AM EDT Height 190.5 cm (6' 3 ) 07/10/2024 11:00 AM EDT Body Mass Index 43.87 07/10/2024 11:00 AM EDT Plan of Treatment Upcoming Encounters Date Type Department Care Team (Late st Contact Info) Description 10/23/2025 10:00 AM EST [facility] [address] [address] Curtis Kovacs MD [address] [address] Health Maintenance Due Date Last Done Comments Hepatitis B Vaccine (1 of 3 - 19+ 3-dose series) 1988 Colorectal Cancer Screening: Annual FOBT 2018 Colorectal Cancer Screening: Sigmoidoscopy 2018 Diabetes: Ophthalmology Exam 10/18/2020 Diabetes: Pedal Pulse Checked 10/18/2020 Diabetes: Sensory Foot Exam 10/18/2020 Diabetes: Visual Foot Exam 10/18/2020 Pneumococcal Vaccine: 50+ Ye ars (3 of 3 - PCV) 02/24/2022 02/24/2021, 06/26/2019, 06/26/2019, Additional history exists Diabetes: Hemoglobin A1C 02/29/2024 11/29/2023 Influenza Vaccine (#1) 2025 , 06/01/2021, 05/27/2020, Additional history exists Colorectal Cancer Screening: Colonoscopy 07/26/2033 07/26/2023 Pneumococcal Vaccine: Peds ( 0 to 5 Years) and At-Risk Patients (6 to 49 Years) Discontinued 02/24/2021, 06/26/2019, 06/26/2019, Additional history exists Insurance [address] [place] [id number] [place] [address] [place] [id number] Care Teams Photo Technician Relationship Specialty Start Date End Date Bruno Singer MD [address] [place] [address], [address] [place] [address] PCP - General Internal Medicine 06/13/24
--- OUTSIDE RECORDS SUMMARY | 2025-07-26 07:19 | XMS_ITS | Patient Health Record ---
[facility] Address [address] [place] [address] Care Team Providers Care Credit Counselor Name Role Phone Bruno Singer Primary Care Provider Pratik Grant Unavailable [phone] Allergies Allergen (clinical drug ingredient) Drug/Non Drug Allergy documented on EMR Reaction Allergy Type Onset Date Status codeine Codeine Unknown Drug Allergy Active Substance with 7-pkmnzpo-4-methylgluta ryl-coenzyme A reductase inhibitor mechanism of action (substance) Statins Unknown Drug Allergy Active Results Component Value Reference Range Notes HEMOGLOBIN A1C (GLYCOHEMOGLO BIN) Reviewed date:04/23/2025 01:54:00 PM Interpretation: Performing Lab: Notes/Report: HEMOGLOBIN A1C % (HH) 7.4 HEMOGLOBIN A1C (GLYCOHEMOGLO BIN) Reviewed date:05/28/2025 02:15:49 PM Interpretation: Performing Lab: Notes/Report: HEMOGLOBIN A1C % (HH) 7.4 Reason For Referral No Information Medications Medication SIG (Take, Route, Frequency, Duration) Notes Start Date End Date Status Potassium Active Finasteride Active Gabapentin Active Furosemide 40 MG 1 tablet Orally Once a day Active Ambien Active Baclofen Active Mens 50+ Multivitamin Active Ezetimibe Active Mounjaro 2.5 MG/0.5ML as directed Subcutaneous Active Carvedilol Active Night Splint AFO - L1930 1 wear at rest; Duration: 30 days Active Levothyroxine Sodium Active Niacin Active oxyCODONE HCl Active buPROPion HCl Active Aspirin Active Vitamin D3 Active HumuLIN R Active Immunizations Vaccine Route Administration Date Status Comme nts Influenza Unknown 07/22/2024 Administered Social History Tobacco Use: Social History Observation Description Date Details (start date - stop date) Current Smoker 04/18/1990 - NA Tobacco use other than smoking: Question Answer Notes Are you an other tobacco user? Yes V ape Tobacco Control (Standard) Question Answer Notes Tobacco use: Current smoker When did you start smoking? 04/18/1990 How often do you smoke cigarettes? Every day How many cigarettes a day do you smoke? 11-20 How soon after you wake up d o you smoke your first cigarette? 31-60 minutes Additional Findings: Tobacco user Modera te cigarette smoker (10-19 cigs/day) AUDIT-C (Standard) Question Answer Notes Did you have a drink contain ing alcohol in the past year? Yes How often did you have a dri nk containing alcohol in the past year? Never (0 point) How many drinks did you have on a typical day when you were drinking in the past year? 1 or 2 drinks (0 point) How often did you have six o r more drinks on one occasion in the past year? Never (0 point) Points 0 Interpretation Negative Problems Problem Type SNOMED Code ICD Code Onset Dates Problem Status W/U Status Risk Notes Problem Polyneuropathy due to type 2 diabetes mellitus (467926016) Type 2 diabetes mellitus with diabetic polyneuropathy (E11.42) Active confirmed Problem Plantar fascial fibromatosis (77385570) Plantar fasciitis, bilateral (M72.2) Active confirmed Vital Signs Height 6ft 4in in 05/28/2025 Weight 346 lbs 05/28/2025 BMI 42.11 kg/m2 05/28/2025 Procedures Procedure Date Ordered Date Performed Result Body Sit e 39111-NBYIUEZ NAIL, 1-5 05/28/2025 N/A 37675-WHKM SKIN LESIONS, 2 TO 4 05/28/2025 N/A [id number] DYSTROPHIC NAILS ANY # 05/28/2025 N/A Encounters Encounter Location Date Provider Diagnosis [facility] [address] [address] 04/23/2025 Pratik Gauthier Type 2 diabetes mellitus with diabetic polyneuropathy E11.42 ; Tinea unguium B35.1 ; Pain in right foot M79.671 ; Plantar fasciitis, bilateral M72.2 ; Calcaneal spur, right foot M77.31 ; Other myositis of right foot M60.871 ; Bursitis of right foot M77.51 ; Pain in left foot M79.672 ; Calcaneal spur, left foot M77.32 ; Other myositis of left foot M60.872 and Bursitis of left foot M77.52 [facility] [address] [place] [address] 05/28/2025 Pratik Gauthier Type 2 diabetes mellitus with diabetic polyneuropathy E11.42 ; Tinea unguium B35.1 and Plantar fasciitis, bilateral M72.[address] [address] 01/29/2025 [facility] Disha [address] [address] 04/10/2025 [facility] Disha [address] [address] 04/23/2025 [facility] Disha [address] [address] 05/28/2025 Pratik Gauthier Assessments Encounter Date Diagnosis (ICD Code) Assessment Notes Treatment Notes Treatment Clinical Notes Section Notes 04/23/2025 Tinea unguium (ICD-10 - B35.1) 04/23/2025 Type 2 diabetes mellitus with diabetic polyneuropathy (ICD-10 - E11.42) 05/28/2025 Tinea unguium (ICD-10 - B35.1) 05/28/2025 Type 2 diabetes mellitus with diabetic polyneuropathy (ICD-10 - E11.42) 05/28/2025 Plantar fasciitis, bilateral (ICD-10 - M72.2) 04/23/2025 Pain in right foot (ICD-10 - M79.671) 04/23/2025 Plantar fasciitis, bilateral (ICD-10 - M72.2) Patient Educated with: HEEL CORD STRETCHES.pdf (HEEL CORD STRETCHES.pdf ) Patient Educated with: RICE THERAPY.pdf (RICE THERAPY.pdf) 04/23/2025 Calcaneal spur, right foot (ICD-10 - M77.31) 04/23/2025 Other myositis of right foot (ICD-10 - M60.871) 04/23/2025 Bursitis of right foot (ICD-10 - M77.51) 04/23/2025 Pain in left foot (ICD-10 - M79.672) 04/23/2025 Calcaneal spur, left foot (ICD-10 - M77.32) 04/23/2025 Other myositis of left foot (ICD-10 - M60.872) 04/23/2025 Bursitis of left foot (ICD-10 - M77.52) Plan Of Treatment Pending Test Test Name Order Date X ray : Foot, left 3V 04/23/2025 X ray : Foot, right 3V 04/23/2025 29007-ARQJCUJ NAIL, 1-5 05/28/2025 35505-WJME SKIN LESIONS, 2 TO 4 05/28/20 25 [id number] DYSTROPHIC NAILS ANY # Next Appt Details Provider Name:Pratik Gauthier , 09/04/2025 01:00:00 PM, [address] [facility] [address], [place], [address], Insurance Providers Payer Name Payer Address Payer Phone Subscriber Number Group Number Insured Name Patient Relationship to Insured Coverage Start Date Coverage End Date [facility] [employer] Claims [address] [place] [id number] Peter Hernandez Self - patient is the insured Medical (General) History Medical History History ICD Code Back, Hip, Knee Pain Cataracts Depression Diabetes Heart Disease High Blood Pressure Kidney Disease Numbness (Neuropathy) Poor Circulation (PVD) Sciatica Thyroid
--- OUTSIDE RECORDS SUMMARY | 2025-07-26 07:19 | XMS_ITS | Patient Health Record ---
Author Organization [facility] Address [address] [place] [address] [address] [place] [address] Care Team Providers Care Anthropology Department Chair Name Role Phone CORKY TORRES Primary Care Provider Ethan Craig Unavailable [phone] Allergies Allergen (clinical drug ingredient) Drug/Non Drug Allergy documented on EMR Reaction Allergy Type Onset Date Status Codeine Phosphate Unknown Drug Allergy Active Substance with 6-sgbbgnw-7-methylglut aryl-coenzyme A reductase inhibitor mechanism of action (substance) Statins muscle pain Drug Allergy Active Results Component Value Reference Range Notes Basic Metabolic Panel [id number] Reviewed date:05/27/2025 09:57:03 AM Interpretation: Performing Lab:[facility], [address] [facility], Phone - [phone], Director - Marcella Notes/Report: Glucose 323 70-99 mg/dL BUN 17 6-24 mg/dL Creatinine 1.18 0.76-1.27 mg/dL eGFR 73 >59 mL/min/1.73 BUN/Creatinine Ratio 14 9-20 Sodium 136 134-144 mmol/L Potassium 5.3 3.5-5.2 mmol/L Chloride 105 96-106 mmol/L Carbon Dioxide, Total 17 20-29 mmol/L Basic Metabolic Panel [id number] Reviewed date:05/28/2025 11:28:56 AM Interpretation: Performing Lab:[facility] [place], [address] [facility], Phone - [phone], Director - Marcella Notes/Report: Glucose 205 70-99 mg/dL BUN 16 6-24 mg/dL Creatinine 1.23 0.76-1.27 mg/dL eGFR 69 >59 mL/min/1.73 BUN/Creatinine Ratio 13 9-20 Sodium 142 134-144 mmol/L Potassium 5.1 3.5-5.2 mmol/L Chloride 107 96-106 mmol/L Carbon Dioxide, Total 19 20-29 mmol/L Basic Metabolic Panel [id number] Reviewed date:06/24/2025 12:00:48 PM Interpretation: Performing Lab:[facility], [address] [facility], Phone - [phone], Director - Marcella Notes/Report: Glucose 223 70-99 mg/dL BUN 15 6-24 mg/dL Creatinine 1.17 0.76-1.27 mg/dL eGFR 74 >59 mL/min/1.73 BUN/Creatinine Ratio 13 9-20 Sodium 141 134-144 mmol/L Potassium 4.6 3.5-5.2 mmol/L Chloride 104 96-106 mmol/L Carbon Dioxide, Total 22 20-29 mmol/L Calcium 9.5 8.7-10.2 mg/dL LDH-[id number] Reviewed date:02/07/2025 03:04:30 PM Interpretation: Performing Lab:[facility] [place], [address] [place] [address], Phone - [phone], Director - Marcella Notes/Report: LDH 208 121-224 IU/L Hemoglobin [id number]-[id number] Reviewed date:12/10/2024 06:05:24 PM Interpretation: Performing Lab:[facility], [address] [place] [address], Phone - [phone], Director - [facility] D[facility] Notes/Report: Hemoglobin A1c 8.8 4.8-5.6 % . Prediabetes: 5.7 - 6.4 Diabetes: >6.4 Glycemic control for adults with diabetes: <7.0 TSH+Free T4 Reviewed date:12/10/2024 06:05:18 PM Interpretation: Performing Lab:[facility], [address] [place] [address], Phone - [phone], Director - [facility] Notes/Report: TSH-ICMA 2.3 Reference Range: Non- Adult 0.450-4.500 Free T4 by Dialysis/[employer] Black Belt Engineer 1.5 This test was developed and its performance characteristics determined by [facility]. It has not been cleared or approved by the Food and Drug Administration. Reference Range: Pubertal Children and Adults: 0.8 - 1.7 Iron and TIBC-[id number] Reviewed date:02/07/2025 03:04:49 PM Interpretation: Performing Lab:[facility], [address] [place] [address], Phone - [phone], Director - MDJodry Notes/Report: Iron Bind.Cap.(TIBC) 290 250-450 ug/dL UIBC 170 111-343 ug/dL Iron 120 38-169 ug/dL Iron Saturation 41 15-55 % Ferritin-[id number] Reviewed date:02/07/2025 03:04:24 PM Interpretation: Performing Lab:[facility], [address] [place] [address], [place], Phone - [phone], Director - MDdry Notes/Report: Ferritin 116 30-400 ng/mL CBC with Diff, Platelet, NLR -[id number] Reviewed date:02/07/2025 03:04:42 PM Interpretation: Performing Lab:[facility] [place], [address] [place] [address], Phone - [phone], Director - MDJodry Notes/Report: WBC 11.1 3.4-10.8 [...] % Immature Grans (Abs) 0.0 0.0-0.1 x10E3/uL Lipid Panel-[id number] Reviewed date:02/07/2025 03:03:16 PM Interpretation: Performing Lab:[facility], [address] [place] [address], Phone - [phone], Director - Marcella Notes/Report: Cholesterol, Total 138 100-199 mg/dL Triglycerides 201 0-149 mg/dL HDL Cholesterol 31 >39 mg/dL VLDL Cholesterol Pankaj 34 5-40 mg/dL LDL Chol Calc (NIH) 73 0-99 mg/dL Written Authorization Reviewed date:01/28/2025 07:43:14 AM Interpretation: Performing Lab:[email or web address], [address] [place] [address], Phone - [phone], Director - Suzie Notes/Report: Written Authorization Written Authorization Received. Authorization received from ORIGINAL REQUEST 12-04-2024 Logged by Alison Howard Zolpidem, UR Screen W RFX Co nf Reviewed date:01/28/2025 07:43:21 AM Interpretation: Performing Lab:[email or web address], [address] [place] [address], Phone - [phone], Director - Suzie Notes/Report: Zolpidem Screen Further testing indicated Screening threshold: 2.0 ng/mL Screening analysis for zolpidem performed by Liquid Chromatography with Tandem Mass Spectrometry (LC/MS/MS). This test was developed and its performance characteristics determined by [facility]. It has not been cleared or approved by the Food and Drug Administration. Zolpidem, UR Confirmation Reviewed date:01/28/2025 07:43:10 AM Interpretation: Performing Lab:[email or web address], [address] [place] [address], Phone - [phone], Director - Suzei Notes/Report: Zolpidem Confirmation Positive Zolpidem Acid PRESENT Screening Confirmation Threshold Threshold Analyte --------- --------- -------- 2.0 ng/mL 2.0 ng/mL Zolpidem 10.0 ng/mL 10.0 ng/mL Zolpidem Acid This test was developed and its performance characteristics determined by [facility]. It has not been cleared or approved by the Food and Drug Administration. REFERENCE RANGE: NOT ESTABLISHED Zolpidem Negative REFERENCE RANGE : NOT ESTABLISHED Reason For Referral Reason please evaluate and treat Diagnosis 1 Pain in right should er (M25.511) Referral Organization [facility] Referring Provider First Name [facility] Referring Provider Last Name [facility] Referred Provider Specialty Orthopedic S urgery General Notes REFERRAL WAS FAXED T O [facility]. PLEASE CONTACT PATIENT FOR SCHEDULING. [facility] 10/03/2024 04:50:54 PM > Referral Priority Routine Reason EGD and C-scope, pos itive cologuard Please evaluate and treat Diagnosis 1 Weight loss, uninten tional (R63.4) Referral Organization [facility] Referring Provider First Name [facility] Referring Provider Last Name [facility] Referred Provider Specialty Gastroentero logy General Notes Please call the johnny ent to schedule the appointment, Referral has been faxed to [facility] - [phone], Makayla Madrigal 12/26/2024 04:17:19 PM > Referral Priority Routine Reason please evaluate and treat Please evaluate and treat Diagnosis 1 Chronic pain syndrom e (G89.4) Referral Organization [facility] Referring Provider First Name [facility] Referring Provider Last Name [facility] Referred Provider Specialty Pain Medicin e General Notes Please call the johnny ent to schedule the appointment, [facility]. Please contact them at [phone], Makayla Madrigal 01/30/2025 03:59:43 PM > Referral Priority Routine Reason [place] [facility] evaluate and treat Please evaluate and treat Diagnosis 1 Cervicalgia (M54.2) Referral Organization [facility] Referring Provider First Name [facility] Referring Provider Last Name [facility] Referred Provider Specialty Orthopedic S urgery General Notes Please call the johnny ent to schedule the appointment, Encounter created and SMS sent to the pt., Makayla Madrigal 04/01/2025 03:53:27 PM > Referral Priority Routine Medications Medication SIG (Take, Route, Frequency, Duration) Notes Start Date End Date Status Benzonatate 100 MG 1 capsule as needed Orally Three times a day; Duration: 15 days 10/17/2024 Not-Taking Blood Glucose Test - as directed In Vitro daily; Duration: 30 days 06/03/2024 Active predniSONE 20 MG 1 tablet Orally Once a day; Duration: 7 days 10/17/2024 Not-Taking Vitamin D3 50 MCG (2000 UT) 1 capsule Orally Once a day; Duration: 30 days Active Amoxicillin 500 MG 1 tablet Orally Three times a day; Duration: 10 days 10/17/2024 Not-Taking Ibuprofen 800 MG 1 tablet with food or milk as needed Orally every 8 hrs; Duration: 90 days Active Carvedilol 6.25 MG 1 tablet with food Orally Twice a day; Duration: 90 days Active Gabapentin 600 MG 1 tablet Orally three times a day; Duration: 90 days Active Narcan 4 MG/0.1ML as directed Nasally; Duration: 1 days As needed 03/27/2025 Active Potassium Chloride ER 20 MEQ 1 tablet with food Orally Once a day; Duration: 90 days Active Niacin ER 1000 MG 1 tablet with food Orally Once a day; Duration: 90 days Active Fluticasone Propionate 50 MCG/ACT 1 spray in each nostril Nasally Once a day; Duration: 90 days Active Baclofen 20 MG 1 tablet Administer without regards to meals as needed Orally Three times a day; Duration: 90 days Active FreeStyle Lite w/Device as directed 06/03/2024 Active Insulin Syringe-Needle U-100 32G X 5/16 0.5 ML as directed to inject insulin E11.8; Duration: 90 days 06/03/2024 Active Vitamin D3 50 MCG (2000 UT) 1 capsule Orally Once a day; Duration: 90 days 06/03/2024 Not-Taking Loperamide HCl 2 MG 1 capsule as needed Orally Four times a day; Duration: 90 days Not-Taking Centrum Active Melatonin 10 MG 1 tablet at bedtime as needed Orally Once a day Active Sildenafil Citrate 50 MG 1 tablet as needed Orally Once a day; Duration: 30 days 06/03/2024 Active Jardiance 25 MG 1 tablet Orally Once a day; Duration: 90 days Not-Taking Creon 6000-78800 UNIT as directed Orally Active Furosemide 40 MG 1 tablet Orally Once a day; Duration: 90 days Not-Taking Ezetimibe 10 MG 1 tablet Orally Once a day; Duration: 90 days Active Mounjaro 2.5 MG/0.5ML as directed Subcutaneous; Duration: 30 days Not-Taking HumaLOG 100 UNIT/ML as directed, 60units per meal Injection RU500 Not-Taking Finasteride 5 MG 1 tablet Orally Once a day; Duration: 90 days Active Levothyroxine Sodium 150 MCG 1 tablet in the morning on an empty stomach Orally Once a day; Duration: 90 days Active buPROPion HCl 75 MG 2 tablets Orally Twice a day; Duration: 90 days Active oxyCODONE HCl 20 MG 1 tablet as needed Orally every 6 hrs; Duration: 28 days Partial Fill upon Patient Request 07/03/2025 Active Zolpidem Tartrate 10 MG 1 tablet at bedtime as needed Orally Once a day; Duration: 90 days 06/23/2025 Active oxyCODONE HCl 20 MG 1 tablet as needed Orally every 6 hrs; Duration: 28 days Partial Fill upon Patient Request 06/11/2025 Active Social History Tobacco Use: Social History Observation Description Date Details (start date - stop date) Current Smoker NA - NA Tobacco Use/Smoking Question Answer Notes Are you a current smoker How often do you smoke cigarettes? 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) Active confirmed Problem Morbid obesity (disorder) (091906488) Morbid (severe) obesity due to excess calories (E66.01) Active confirmed Problem Mixed hyperlipidemia (206951453) Mixed hyperlipidemia (E78.2) Active confirmed Problem Tobacco user (833857775) Nicotine dependence, cigarettes, uncomplicated (F17.210) Active confirmed Problem Generalized anxiety disorder (54306613) Generalized anxiety disorder (F41.1) Active confirmed Problem Insomnia (421856119) Insomnia, unspecified (G47.00) Active confirmed Problem Chronic pain syndrome (495297395) Chronic pain syndrome (G89.4) Active confirmed Problem Cervicalgia (98566921) Cervicalgia (M54.2) Active confirmed Problem Plantar fascial fibromatosis (71957619) Plantar fascial fibromatosis (M72.2) Active confirmed Problem Chronic kidney disease (641208595) Chronic kidney disease, unspecified (N18.9) Active confirmed Problem Erectile dysfunction (disorder) (716668380) Male erectile dysfunction, unspecified (N52.9) Active confirmed Problem Essential hypertension (35072102) Essential (primary) hypertension (I10) Active confirmed Problem Lower urinary tract symptoms due to benign prostatic hypertrophy (64803691017348) Benign prostatic hyperplasia with lower urinary tract symptoms (N40.1) Active confirmed Problem Obstructive sleep apnea (11772324) Obstructive sleep apnea (G47.33) Active confirmed Vital Signs Heart Rate 77 /min 07/17/2025 Temperature 96.4 degrees Fahrenheit 07/17/2025 Oximetry 97 % 07/17/2025 Blood pressure diastolic 82 mm Hg 07/17/2025 Height 6'3'' in 07/17/2025 Blood pressure systolic 120 mm Hg 07/17/2025 Weight 355.0 lbs 07/17/2025 BMI 44.37 kg/m2 07/17/2025 Encounters Encounter Location Date Provider Diagnosis [address] [address] 08/08/2024 FRIEDWILFRED TORRES Chronic pain syndrom e G89.4 and Essential (primary) hypertension I10 [address] [address] 09/05/2024 Ethan Craig Chronic pain syndrom e G89.4 ; Essential (primary) hypertension I10 and Pain in right shoulder M25.[address] [address] 10/03/2024 Ghadeer Haroonloum Chronic pain syndrom e G89.4 ; Essential (primary) hypertension I10 ; Pain in right shoulder M25.511 ; Hypothyroidism, unspecified E03.9 and Diabetes mellitus due to underlying condition with diabetic nephropathy E08.[address] [address] 10/17/2024 Ethan Craig Acute sinusitis, unspecified J01.[address] [address] 10/31/2024 Ghadeer Mazloum Chronic pain syndrom e G89.4 ; Essential (primary) hypertension I10 ; Hypothyroidism, unspecified E03.9 and Diabetes mellitus due to underlying condition with diabetic nephropathy E08.[address] [place] [address] 11/28/2024 Ghadeer Mazloum Chronic pain syndrom e G89.4 and Essential (primary) hypertension I10 [address] [place] [address] 12/26/2024 Ghadeer Mazloum Chronic pain syndrom e G89.4 ; Essential (primary) hypertension I10 ; Mixed hyperlipidemia E78.2 and Weight loss, unintentional R63.[address] [place] [address] 01/28/2025 Ghadeer Mazloum Chronic pain syndrom e G89.4 ; Essential (primary) hypertension I10 ; Mixed hyperlipidemia E78.2 ; Diabetes mellitus due to underlying condition with diabetic nephropathy E08.21 and Chronic kidney disease, unspecified N18.[address] [place] [address] 02/25/2025 Ghadeer Mazloum Chronic pain syndrom e G89.4 ; Essential (primary) hypertension I10 ; Mixed hyperlipidemia E78.2 ; Diabetes mellitus due to underlying condition with diabetic nephropathy E08.21 and Chronic kidney disease, unspecified N18.[address] [place] [address] 03/27/2025 Ghadeer Mazloum Chronic pain syndrom e G89.4 ; Essential (primary) hypertension I10 ; Mixed hyperlipidemia E78.2 ; Diabetes mellitus due to underlying condition with diabetic nephropathy E08.21 ; Chronic kidney disease, unspecified N18.9 ; Plantar fascial fibromatosis M72.2 and Cervicalgia M54.[address] [place] [address] 04/24/2025 Ghadeer Mazloum Chronic pain syndrom e G89.4 ; Essential (primary) hypertension I10 ; Mixed hyperlipidemia E78.2 ; Diabetes mellitus due to underlying condition with diabetic nephropathy E08.21 ; Chronic kidney disease, unspecified N18.9 and Plantar fascial fibromatosis M72.[address] [place] [address] 05/22/2025 Ghadeer Haroonloum Chronic pain syndrom e G89.4 ; Essential (primary) hypertension I10 ; Bilateral leg edema R60.0 ; Mixed hyperlipidemia E78.2 ; Diabetes mellitus due to underlying condition with diabetic nephropathy E08.21 ; Chronic kidney disease, unspecified N18.9 and Plantar fascial fibromatosis M72.[address] [place] [address] 06/19/2025 Ghadeer Mazloum Chronic pain syndrom e G89.4 ; Essential (primary) hypertension I10 ; Bilateral leg edema R60.0 ; Mixed hyperlipidemia E78.2 ; Diabetes mellitus due to underlying condition with diabetic nephropathy E08.21 ; Chronic kidney disease, unspecified N18.9 and Plantar fascial fibromatosis M72.[address] [place] [address] 07/17/2025 [facility] Chronic [facility] syndrom e G89.4 ; Essential (primary) hypertension I10 ; Bilateral leg edema R60.0 ; Mixed hyperlipidemia E78.2 ; Diabetes mellitus due to underlying condition with diabetic nephropathy E08.21 ; Chronic kidney disease, unspecified N18.9 and Plantar fascial fibromatosis M72.[address] [place] [address] 10/03/[address] [place] [address] 10/04/[address] [place] [address] 10/14/[address] [place] [address] 11/29/2024 FRIED [facility] drug therapy Z79.[address] [place] [address] 12/04/2024 [facility] [address] [facility] [address] [place] [address] 01/22/2025 [facility] [address] [facility] [address] [place] [address] 02/17/2025 [facility] [address] [facility] [address] [place] [address] 03/24/2025 [facility] [address] [facility] [address] [place] [address] 03/31/2025 [facility] [address] [facility] [address] [place] [address] 04/01/2025 [facility] [address] [facility] [address] [place] [address] 04/22/2025 Ghbernardino Meloum Chronic pain syndrom e G89.4 [facility] [address] [facility] [address] [place] [address] 05/15/2025 [facility] [address] [facility] [address] [place] [address] 05/23/2025 FRIED GU Diabetes mellitus du e to underlying condition with diabetic nephropathy E08.21 [facility] [address] [facility] [address] [place] [address] 05/27/2025 FRIED GUL Essential (primary) hypertension I10 [facility] [address] [facility] [address] [place] [address] 06/02/2025 [facility] [address] [facility] [address] [place] [address] 06/11/2025 Ghjurgener Haroonloum Chronic pain syndrom e G89.4 [facility] [address] [facility] [address] [place] [address] 06/23/20[facility] [address] [facility] [address] [place] [address] 07/03/2025 Ethan Patiñolokimber [facility] [address] [facility] [address] [place] [address] 07/10/2025 Ethan Craig Assessments Encounter Date Diagnosis (ICD Code) Assessment Notes Treatment Notes Treatment Clinical Notes Section Notes 08/08/2024 Chronic pain syndrome (ICD-10 - G89.4) Chronic pain secondary to degenerative disc disease. Prognosis: Mild to moderate Medical necessity supported by H&P, imaging and testing [facility] pain treatment protocol completed. Yes Chronic opioid/pain [...] opioid misuse based on ORT. Toxicology and PALEONTOLOGICAL HELPER monitoring done and will follow protocol set forth by practice. As such controlled substance use requires judicious monitoring to access patient compliance with mutually agreed upon controlled substance use agreement which has been signed by the patient and initiation of controlled substance prescribing. Therefore following state, Federal, [facility] guidelines for controlled substance testing policies. This patient has been assessed on the basis of psychometric risk tool, PALEONTOLOGICAL HELPER monitoring, toxicology test results. Comorbid conditions may [...] necessity supported by H&P, imaging and testing [facility] pain treatment protocol completed. Yes Chronic opioid/pain [...] opioid misuse based on ORT. Toxicology and PALEONTOLOGICAL HELPER monitoring done and will follow protocol set forth by practice. As such controlled substance use requires judicious monitoring to access patient compliance with mutually agreed upon controlled substance use agreement which has been signed by the patient and initiation of controlled substance prescribing. Therefore following state, Federal, [facility] guidelines for controlled substance testing policies. This patient has been assessed on the basis of psychometric risk tool, PALEONTOLOGICAL HELPER monitoring, toxicology test results. Comorbid conditions may [...] necessity supported by H&P, imaging and testing [facility] pain treatment protocol completed. Yes Chronic opioid/pain [...] opioid misuse based on ORT. Toxicology and PALEONTOLOGICAL HELPER monitoring done and will follow protocol set forth by practice. As such controlled substance use requires judicious monitoring to access patient compliance with mutually agreed upon controlled substance use agreement which has been signed by the patient and initiation of controlled substance prescribing. Therefore following state, Federal, [facility] guidelines for controlled substance testing policies. This patient has been assessed on the basis of psychometric risk tool, PALEONTOLOGICAL HELPER monitoring, toxicology test results. Comorbid conditions may [...] necessity supported by H&P, imaging and testing [facility] pain treatment protocol completed. Yes Chronic opioid/pain [...] opioid misuse based on ORT. Toxicology and PALEONTOLOGICAL HELPER monitoring done and will follow protocol set [...] on the basis of psychometric risk tool, PALEONTOLOGICAL HELPER monitoring, toxicology test results. Comorbid conditions may [...] necessity supported by H&P, imaging and testing [facility] pain treatment protocol completed. Yes Chronic opioid/pain [...] opioid misuse based on ORT. Toxicology and PALEONTOLOGICAL HELPER monitoring done and will follow protocol set forth by practice. As such controlled substance use requires judicious monitoring to access patient compliance with mutually agreed upon controlled substance use agreement which has been signed by the patient and initiation of controlled substance prescribing. Therefore following state, Federal, [facility] guidelines for controlled substance testing policies. This patient has been assessed on the basis of psychometric risk tool, PALEONTOLOGICAL HELPER monitoring, toxicology test results. Comorbid conditions may [...] necessity supported by H&P, imaging and testing [facility] pain treatment protocol completed. Yes Chronic opioid/pain [...] opioid misuse based on ORT. Toxicology and PALEONTOLOGICAL HELPER monitoring done and will follow protocol set [...] on the basis of psychometric risk tool, PALEONTOLOGICAL HELPER monitoring, toxicology test results. Comorbid conditions may [...] necessity supported by H&P, imaging and testing [facility] pain treatment protocol completed. Yes Chronic opioid/pain [...] opioid misuse based on ORT. Toxicology and PALEONTOLOGICAL HELPER monitoring done and will follow protocol set forth by practice. As such controlled substance use requires judicious monitoring to access patient compliance with mutually agreed upon controlled substance use agreement which has been signed by the patient and initiation of controlled substance prescribing. Therefore following state, Federal, [facility] guidelines for controlled substance testing policies. This patient has been assessed on the basis of psychometric risk tool, PALEONTOLOGICAL HELPER monitoring, toxicology test results. Comorbid conditions may [...] necessity supported by H&P, imaging and testing [facility] pain treatment protocol completed. Yes Chronic opioid/pain [...] opioid misuse based on ORT. Toxicology and PALEONTOLOGICAL HELPER monitoring done and will follow protocol set forth by practice. As such controlled substance use requires judicious monitoring to access patient compliance with mutually agreed upon controlled substance use agreement which has been signed by the patient and initiation of controlled substance prescribing. Therefore following state, Federal, [facility] guidelines for controlled substance testing policies. This patient has been assessed on the basis of psychometric risk tool, PALEONTOLOGICAL HELPER monitoring, toxicology test results. Comorbid conditions may [...] necessity supported by H&P, imaging and testing [facility] pain treatment protocol completed. Yes Chronic opioid/pain [...] opioid misuse based on ORT. Toxicology and PALEONTOLOGICAL HELPER monitoring done and will follow protocol set forth by practice. As such controlled substance use requires judicious monitoring to access patient compliance with mutually agreed upon controlled substance use agreement which has been signed by the patient and initiation of controlled substance prescribing. Therefore following state, Federal, [facility] guidelines for controlled substance testing policies. This patient has been assessed on the basis of psychometric risk tool, PALEONTOLOGICAL HELPER monitoring, toxicology test results. Comorbid conditions may [...] but was available upon request 11/29/2024 [facility] [place] [facility] drug therapy (ICD-10 - Z79.899) 12/26/2024 Chronic pain syndrome (ICD-10 - G89.4) Mr. Hernandez is a 54-year-old gentleman with type 2 diabetes mellitus, hypertension, hyperlipidemia, hypothyroidism, ,obstructive sleep apnea, generalized anxiety disorder/depressio n and insomnia here for follow up. Plan as follows Chronic pain secondary to degenerative disc disease. Prognosis: Mild to moderate Medical necessity supported by H&P, imaging and testing [facility] pain treatment protocol completed. Yes Chronic opioid/pain [...] opioid misuse based on ORT. Toxicology and PALEONTOLOGICAL HELPER monitoring done and will follow protocol set forth by practice. As such controlled substance use requires judicious monitoring to access patient compliance with mutually agreed upon controlled substance use agreement which has been signed by the patient and initiation of controlled substance prescribing. Therefore following state, Federal, [facility] guidelines for controlled substance testing policies. This patient has been assessed on the basis of psychometric risk tool, PALEONTOLOGICAL HELPER monitoring, toxicology test results. Comorbid conditions may [...] of diabetic medications is usually through his refresh technician. He does have an appointment for follow-up with his refresh technician. He states that he is noncompliant with his diets. He was also recently seen by lumber checker and recommended Lasix surgery. He does also [...] intentional weight loss to rule out any abnormalities/cralos gnancy. He is a smoker, this year [...] necessity supported by H&P, imaging and testing [facility] pain treatment protocol completed. Yes Chronic opioid/pain [...] opioid misuse based on ORT. Toxicology and PALEONTOLOGICAL HELPER monitoring done and will follow protocol set [...] on the basis of psychometric risk tool, PALEONTOLOGICAL HELPER monitoring, toxicology test results. Comorbid conditions may [...] of diabetic medications is usually through his refresh technician. He does have an appointment for follow-up with his refresh technician. He states that he is noncompliant with his diets. He was also recently seen by lumber checker and recommended Lasix surgery. He does also [...] necessity supported by H&P, imaging and testing [facility] pain treatment protocol completed. Yes Chronic opioid/pain [...] opioid misuse based on ORT. Toxicology and PALEONTOLOGICAL HELPER monitoring done and will follow protocol set forth by practice. As such controlled substance use requires judicious monitoring to access patient compliance with mutually agreed upon controlled substance use agreement which has been signed by the patient and initiation of controlled substance prescribing. Therefore following state, Federal, [facility] guidelines for controlled substance testing policies. This patient has been assessed on the basis of psychometric risk tool, PALEONTOLOGICAL HELPER monitoring, toxicology test results. Comorbid conditions may [...] of diabetic medications is usually through his refresh technician. He does have an appointment for follow-up with his refresh technician. He states that he is noncompliant with his diets. He was also recently seen by lumber checker and recommended Lasix surgery. He does also [...] GLP-1, Jardiance was also discontinued by the electrician apprentice. He has an appointment tomorrow with refresh technician for further discussion on diabetes management. Advised on diet modification. He is up-to-date with his lumber checker. Foot care discussed Chronic kidney disease. 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 He is not volume overloaded. Avoid nephrotoxins [...] necessity supported by H&P, imaging and testing [facility] pain treatment protocol completed. Yes Chronic opioid/pain [...] opioid misuse based on ORT. Toxicology and PALEONTOLOGICAL HELPER monitoring done and will follow protocol set forth by practice. As such controlled substance use requires judicious monitoring to access patient compliance with mutually agreed upon controlled substance use agreement which has been signed by the patient and initiation of controlled substance prescribing. Therefore following state, Federal, [facility] guidelines for controlled substance testing policies. This patient has been assessed on the basis of psychometric risk tool, PALEONTOLOGICAL HELPER monitoring, toxicology test results. Comorbid conditions may [...] of diabetic medications is usually through his refresh technician. He does have an appointment for follow-up with his refresh technician. He states that he is noncompliant with his diets. He was also recently seen by lumber checker and recommended Lasix surgery. He does also [...] GLP-1, Jardiance was also discontinued by the electrician apprentice. He has an appointment tomorrow with refresh technician for further discussion on diabetes management. Advised on diet modification. He is up-to-date with his lumber checker. Foot care discussed Chronic kidney disease. 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 He is not volume overloaded. Avoid nephrotoxins [...] necessity supported by H&P, imaging and testing [facility] pain treatment protocol completed. Yes I have [...] opioid misuse based on ORT. Toxicology and PALEONTOLOGICAL HELPER monitoring done and will follow protocol set forth by practice. As such controlled substance use requires judicious monitoring to access patient compliance with mutually agreed upon controlled substance use agreement which has been signed by the patient and initiation of controlled substance prescribing. Therefore following state, Federal, [facility] guidelines for controlled substance testing policies. This patient has been assessed on the basis of psychometric risk tool, PALEONTOLOGICAL HELPER monitoring, toxicology test results. Comorbid conditions may [...] of diabetic medications is usually through his refresh technician. He does have an appointment for follow-up with his refresh technician. He states that he is noncompliant with his diets. He was also recently seen by lumber checker and recommended Lasix surgery. He does also [...] GLP-1, Jardiance was also discontinued by the electrician apprentice. He has an appointment with refresh technician for further discussion on diabetes management. Advised on diet modification. He is up-to-date with his lumber checker. Foot care discussed Chronic kidney disease. 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 He is not volume overloaded. Avoid nephrotoxins [...] necessity supported by H&P, imaging and testing [facility] pain treatment protocol completed. Yes I have [...] opioid misuse based on ORT. Toxicology and PALEONTOLOGICAL HELPER monitoring done and will follow protocol set forth by practice. As such controlled substance use requires judicious monitoring to access patient compliance with mutually agreed upon controlled substance use agreement which has been signed by the patient and initiation of controlled substance prescribing. Therefore following state, Federal, [facility] guidelines for controlled substance testing policies. This patient has been assessed on the basis of psychometric risk tool, PALEONTOLOGICAL HELPER monitoring, toxicology test results. Comorbid conditions may [...] of diabetic medications is usually through his refresh technician. He does have an appointment for follow-up with his refresh technician. He states that he is noncompliant with his diets. He was also recently seen by lumber checker and recommended Lasix surgery. He does also [...] GLP-1, Jardiance was also discontinued by the electrician apprentice. He has an appointment with refresh technician for further discussion on diabetes management. Advised on diet modification. He is up-to-date with his lumber checker. Foot care discussed Chronic kidney disease. 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 He is not volume overloaded. Avoid nephrotoxins and NSAIDs. Pending blood work to be done. I have rendered the services for this patient under direct supervision of Dr. Torres, who did not see the patient but was available upon request 03/27/2025 Chronic pain syndrome (ICD-10 - G89.4) Mr. Hernandez is a 54-year-old gentleman with type 2 diabetes mellitus, hypertension, hyperlipidemia, hypothyroidism, ,obstructive sleep apnea, generalized anxiety disorder/depressio n and insomnia here for follow up. Plan as follows Chronic pain secondary to degenerative disc disease. Prognosis: Mild to moderate Medical necessity supported by H&P, imaging and testing [facility] pain treatment protocol completed. Yes I have increased oxycodone to 20 mg every 6 hours. Discussed with patient that medication will no longer be further adjusted, given Sleep apnea and risk of MEDIA DEVELOPER depression. Chronic opioid/pain maintenance. This patient request for [...] opioid misuse based on ORT. Toxicology and PALEONTOLOGICAL HELPER monitoring done and will follow protocol set forth by practice. As such controlled substance use requires judicious monitoring to access patient compliance with mutually agreed upon controlled substance use agreement which has been signed by the patient and initiation of controlled substance prescribing. Therefore following state, Federal, [facility] guidelines for controlled substance testing policies. This patient has been assessed on the basis of psychometric risk tool, PALEONTOLOGICAL HELPER monitoring, toxicology test results. Comorbid conditions may [...] he has uncontrolled type II diabetes with neuropathy.Pain management will not evaluate patient at this point due to uncontrolled diabetes. Counseling done. Hypertension - Blood pressure is high normal control. Continue the same regimen. Increase hydration to reduce salt intake are recommended. Weight loss is also recommended. We will check BP in 4 weeks. Type 2 diabetes - Previous a1c of 8.8. Adjustment of diabetic medications is usually through his refresh technician. Humalog was adjusted to 60 before meal. He states that he is noncompliant with his diets. Jardiance was d/c by neprologist due to metabolic acidosis. Discussed a trial of ozempic again or can do a trial of Rysbelus. He was also recently seen by lumber checker and recommended Lasix surgery. He does also follow with podiatry for plantar fasciitis. I have discussed discussing with his provider cortisone injections. Hyperlipidemia - His previous LDL is within goal of 73. 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 Chronic kidney disease stage 3a. 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 He is not volume overloaded. Avoid nephrotoxins and NSAIDs. He has a follow-up in April. Pending blood work to be done. Plantar fascitis- He was recommended orthotics. Discussed salt-warm water foot soak. He follows with [facility] podiatry. Shoulder pain: He follows with [facility] require a referral to neck pain. We will refer patient. I have rendered the services for this patient under direct supervision of Dr. Torres, who did not see the patient but was available upon request 03/27/2025 Essential (primary) hypertension (ICD-10 - I10) Mr. Hernandez is a 54-year-old gentleman with type 2 diabetes mellitus, hypertension, hyperlipidemia, hypothyroidism, ,obstructive sleep apnea, generalized anxiety disorder/depressio n and insomnia here for follow up. Plan as follows Chronic pain secondary to degenerative disc disease. Prognosis: Mild to moderate Medical necessity supported by H&P, imaging and testing [facility] pain treatment protocol completed. Yes I have increased oxycodone to 20 mg every 6 hours. Discussed with patient that medication will no longer be further adjusted, given Sleep apnea and risk of MEDIA DEVELOPER depression. Chronic opioid/pain maintenance. This patient request for [...] opioid misuse based on ORT. Toxicology and PALEONTOLOGICAL HELPER monitoring done and will follow protocol set forth by practice. As such controlled substance use requires judicious monitoring to access patient compliance with mutually agreed upon controlled substance use agreement which has been signed by the patient and initiation of controlled substance prescribing. Therefore following state, Federal, [facility] guidelines for controlled substance testing policies. This patient has been assessed on the basis of psychometric risk tool, PALEONTOLOGICAL HELPER monitoring, toxicology test results. Comorbid conditions may [...] he has uncontrolled type II diabetes with neuropathy.Pain management will not evaluate patient at this point due to uncontrolled diabetes. Counseling done. Hypertension - Blood pressure is high normal control. Continue the same regimen. Increase hydration to reduce salt intake are recommended. Weight loss is also recommended. We will check BP in 4 weeks. Type 2 diabetes - Previous a1c of 8.8. Adjustment of diabetic medications is usually through his refresh technician. Humalog was adjusted to 60 before meal. He states that he is noncompliant with his diets. Jardiance was d/c by neprologist due to metabolic acidosis. Discussed a trial of ozempic again or can do a trial of Rysbelus. He was also recently seen by lumber checker and recommended Lasix surgery. He does also follow with podiatry for plantar fasciitis. I have discussed discussing with his provider cortisone injections. Hyperlipidemia - His previous LDL is within goal of 73. 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 Chronic kidney disease stage 3a. 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 He is not volume overloaded. Avoid nephrotoxins and NSAIDs. He has a follow-up in April. Pending blood work to be done. Plantar fascitis- He was recommended orthotics. Discussed salt-warm water foot soak. He follows with [facility] podiatry. Shoulder pain: He follows with [facility] require a referral to neck pain. We will refer patient. I have rendered the services for this patient under direct supervision of Dr. Torres, who did not see the patient but was available upon request 04/22/2025 Chronic pain syndrome (ICD-10 - G89.4) 04/24/2025 Chronic pain syndrome (ICD-10 - G89.4) Mr. Hernandez is a 54-year-old gentleman with type 2 diabetes mellitus, hypertension, hyperlipidemia, hypothyroidism, ,obstructive sleep apnea, generalized anxiety disorder/depressio n and insomnia here for follow up. Plan as follows Chronic pain secondary to degenerative disc disease. Prognosis: Mild to moderate Medical necessity supported by H&P, imaging and testing [facility] pain treatment protocol completed. Yes I have increased oxycodone to 20 mg every 6 hours. Discussed with patient that medication will no longer be further adjusted, given Sleep apnea and risk of MEDIA DEVELOPER depression. Chronic opioid/pain maintenance. This patient request for [...] opioid misuse based on ORT. Toxicology and PALEONTOLOGICAL HELPER monitoring done and will follow protocol set [...] on the basis of psychometric risk tool, PALEONTOLOGICAL HELPER monitoring, toxicology test results. Comorbid conditions may [...] he has uncontrolled type II diabetes with neuropathy.Pain management will not evaluate patient at this point due to uncontrolled diabetes. Counseling done. Hypertension - Blood pressure is high normal control. Continue the same regimen. Increase hydration to reduce salt intake are recommended. Weight loss is also recommended. We will check BP in 4 weeks. Type 2 diabetes - Previous a1c of 8.8. Adjustment of diabetic medications is usually through his refresh technician. Humalog was adjusted to 60 before meal. He resumed himself on Mounjaro 2.5mg. Tolerating the medication. He has a follow-up with Spreading Machine Operator coming up next month Hyperlipidemia - His previous LDL is within goal of 73. 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 Chronic kidney disease stage 3a. 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 He is not volume overloaded. He is off of Lasix and Jardiance. per electrician apprentice note, it is permissible for short-term only to be on NSAIDs and to be taken sparingly. Plantar fascitis- He was recommended orthotics. Discussed salt-warm water foot soak. He follows with [facility] podiatry. Shoulder pain: He follows with [facility] require a referral to neck pain. We will refer patient. I have rendered the services for this patient under direct supervision of Dr. Torres, who did not see the patient but was available upon request 04/24/2025 Essential (primary) hypertension (ICD-10 - I10) Mr. Hernandez is a 54-year-old gentleman with type 2 diabetes mellitus, hypertension, hyperlipidemia, hypothyroidism, ,obstructive sleep apnea, generalized anxiety disorder/depressio n and insomnia here for follow up. Plan as follows Chronic pain secondary to degenerative disc disease. Prognosis: Mild to moderate Medical necessity supported by H&P, imaging and testing [facility] pain treatment protocol completed. Yes I have increased oxycodone to 20 mg every 6 hours. Discussed with patient that medication will no longer be further adjusted, given Sleep apnea and risk of MEDIA DEVELOPER depression. Chronic opioid/pain maintenance. This patient request for [...] opioid misuse based on ORT. Toxicology and PALEONTOLOGICAL HELPER monitoring done and will follow protocol set forth by practice. As such controlled substance use requires judicious monitoring to access patient compliance with mutually agreed upon controlled substance use agreement which has been signed by the patient and initiation of controlled substance prescribing. Therefore following state, Federal, [facility] guidelines for controlled substance testing policies. This patient has been assessed on the basis of psychometric risk tool, PALEONTOLOGICAL HELPER monitoring, toxicology test results. Comorbid conditions may [...] he has uncontrolled type II diabetes with neuropathy.Pain management will not evaluate patient at this point due to uncontrolled diabetes. Counseling done. Hypertension - Blood pressure is high normal control. Continue the same regimen. Increase hydration to reduce salt intake are recommended. Weight loss is also recommended. We will check BP in 4 weeks. Type 2 diabetes - Previous a1c of 8.8. Adjustment of diabetic medications is usually through his refresh technician. Humalog was adjusted to 60 before meal. He resumed himself on Mounjaro 2.5mg. Tolerating the medication. He has a follow-up with Spreading Machine Operator coming up next month Hyperlipidemia - His previous LDL is within goal of 73. 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 Chronic kidney disease stage 3a. 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 He is not volume overloaded. He is off of Lasix and Jardiance. per electrician apprentice note, it is permissible for short-term only to be on NSAIDs and to be taken sparingly. Plantar fascitis- He was recommended orthotics. Discussed salt-warm water foot soak. He follows with [facility] podiatry. Shoulder pain: He follows with [facility] require a referral to neck pain. We will refer patient. I have rendered the services for this patient under direct supervision of Dr. Torres, who did not see the patient but was available upon request 05/22/2025 Chronic pain syndrome (ICD-10 - G89.4) Mr. Hernandez is a 54-year-old gentleman with type 2 diabetes mellitus, hypertension, hyperlipidemia, hypothyroidism, ,obstructive sleep apnea, generalized anxiety disorder/depressio n and insomnia here for follow up. Plan as follows Chronic pain secondary to degenerative disc disease. Prognosis: Mild to moderate Medical necessity supported by H&P, imaging and testing [facility] pain treatment protocol completed. Yes I have increased oxycodone to 20 mg every 6 hours. Discussed with patient that medication will no longer be further adjusted, given Sleep apnea and risk of MEDIA DEVELOPER depression. Chronic opioid/pain maintenance. This patient request for [...] opioid misuse based on ORT. Toxicology and PALEONTOLOGICAL HELPER monitoring done and will follow protocol set [...] on the basis of psychometric risk tool, PALEONTOLOGICAL HELPER monitoring, toxicology test results. Comorbid conditions may [...] he has uncontrolled type II diabetes with neuropathy.Pain management will not evaluate patient at this point due to uncontrolled diabetes. Counseling done. Hypertension -Blood pressure is within normal limits. Continue the same regimen. Increase hydration to reduce salt intake are recommended. Weight loss is also recommended. Bilateral 2+ pitting edema is noted in the exam. Is currently off of furosemide as he was on 40 mg twice a day. He does mention an improvement in his GFR to 50. Given 2+ pitting edema we will check BMP today resume patient on 40 mg of furosemide for 3 days and BMP to be rechecked after. I did discuss with patient to consult with his electrician apprentice as he has an appointment coming up to discuss on possibility with being on low-dose Lasix daily or every other day. Type 2 diabetes - Previous a1c of 8.8. Adjustment of diabetic medications is usually through his refresh technician. Humalog was adjusted to 60 before meal. He resumed himself on Mounjaro 2.5mg. Tolerating the medication. He has a follow-up with Spreading Machine Operator This month Plantar fascitis- He was recommended orthotics. Discussed salt-warm water foot soak. He follows with [facility] podiatry, Has an appointment for follow-up on May 28 I have rendered the services for this patient under direct supervision of Dr. Torres, who did not see the patient but was available upon request 05/22/2025 Essential (primary) hypertension (ICD-10 - I10) Mr. Hernandez is a 54-year-old gentleman with type 2 diabetes mellitus, hypertension, hyperlipidemia, hypothyroidism, ,obstructive sleep apnea, generalized anxiety disorder/depressio n and insomnia here for follow up. Plan as follows Chronic pain secondary to degenerative disc disease. Prognosis: Mild to moderate Medical necessity supported by H&P, imaging and testing [facility] pain treatment protocol completed. Yes I have increased oxycodone to 20 mg every 6 hours. Discussed with patient that medication will no longer be further adjusted, given Sleep apnea and risk of MEDIA DEVELOPER depression. Chronic opioid/pain maintenance. This patient request for [...] opioid misuse based on ORT. Toxicology and PALEONTOLOGICAL HELPER monitoring done and will follow protocol set forth by practice. As such controlled substance use requires judicious monitoring to access patient compliance with mutually agreed upon controlled substance use agreement which has been signed by the patient and initiation of controlled substance prescribing. Therefore following state, Federal, [facility] guidelines for controlled substance testing policies. This patient has been assessed on the basis of psychometric risk tool, PALEONTOLOGICAL HELPER monitoring, toxicology test results. Comorbid conditions may [...] he has uncontrolled type II diabetes with neuropathy.Pain management will not evaluate patient at this point due to uncontrolled diabetes. Counseling done. Hypertension -Blood pressure is within normal limits. Continue the same regimen. Increase hydration to reduce salt intake are recommended. Weight loss is also recommended. Bilateral 2+ pitting edema is noted in the exam. Is currently off of furosemide as he was on 40 mg twice a day. He does mention an improvement in his GFR to 50. Given 2+ pitting edema we will check BMP today resume patient on 40 mg of furosemide for 3 days and BMP to be rechecked after. I did discuss with patient to consult with his electrician apprentice as he has an appointment coming up to discuss on possibility with being on low-dose Lasix daily or every other day. Type 2 diabetes - Previous a1c of 8.8. Adjustment of diabetic medications is usually through his refresh technician. Humalog was adjusted to 60 before meal. He resumed himself on Mounjaro 2.5mg. Tolerating the medication. He has a follow-up with Spreading [employer] This month Plantar fascitis- He was recommended orthotics. Discussed salt-warm water foot soak. He follows with [facility] podiatry, Has an appointment for follow-up on May 28 I have rendered the services for this patient under direct supervision of Dr. Torres, who did not see the patient but was available upon request 05/27/2025 Essential (primary) hypertension (ICD-10 - I10) 06/11/2025 Chronic pain syndrome (ICD-10 - G89.4) 06/19/2025 Chronic pain syndrome (ICD-10 - G89.4) Mr. Hernandez is a 54-year-old gentleman with type 2 diabetes mellitus, hypertension, hyperlipidemia, hypothyroidism, ,obstructive sleep apnea, generalized anxiety disorder/depressio n and insomnia here for follow up. Plan as follows Chronic pain secondary to degenerative disc disease. Prognosis: Mild to moderate Medical necessity supported by H&P, imaging and testing [facility] pain treatment protocol completed. Yes I have increased oxycodone to 20 mg every 6 hours. Discussed with patient that medication will no longer be further adjusted, given Sleep apnea and risk of MEDIA DEVELOPER depression. Chronic opioid/pain maintenance. This patient request for [...] opioid misuse based on ORT. Toxicology and PALEONTOLOGICAL HELPER monitoring done and will follow protocol set forth by practice. As such controlled substance use requires judicious monitoring to access patient compliance with mutually agreed upon controlled substance use agreement which has been signed by the patient and initiation of controlled substance prescribing. Therefore following state, Federal, [facility] guidelines for controlled substance testing policies. This patient has been assessed on the basis of psychometric risk tool, PALEONTOLOGICAL HELPER monitoring, toxicology test results. Comorbid conditions may [...] he has uncontrolled type II diabetes with neuropathy.Pain management will not evaluate patient at this point due to uncontrolled diabetes. Counseling done. Hypertension -Blood pressure is within normal limits. Continue the same regimen. Increase hydration to reduce salt intake are recommended. Weight loss is also recommended. Bilateral 2+ pitting edema is noted in the exam. Is currently off of furosemide as he was on 40 mg twice a day. He does mention an improvement in his GFR to 50. Given 2+ pitting edema we will check BMP today resume patient on 40 mg of furosemide for 3 days and BMP to be rechecked after. I did discuss with patient to consult with his electrician apprentice as he has an appointment coming up to discuss on possibility with being on low-dose Lasix daily or every other day. Type 2 diabetes - A1c improved to 7.9. Adjustment of diabetic medications is usually through his refresh technician. Humalog was adjusted to 60 before meal. Mounjaro Was discontinued by his refresh technician and a history of pancreatitis. Plantar fascitis- He was recommended orthotics. Discussed salt-warm water foot soak. He follows with [facility] podiatry. I have rendered the services for this patient under direct supervision of Dr. Torres, who did not see the patient but was available upon request 06/19/2025 Essential (primary) hypertension (ICD-10 - I10) Mr. Hernandez is a 54-year-old gentleman with type 2 diabetes mellitus, hypertension, hyperlipidemia, hypothyroidism, ,obstructive sleep apnea, generalized anxiety disorder/depressio n and insomnia here for follow up. Plan as follows Chronic pain secondary to degenerative disc disease. Prognosis: Mild to moderate Medical necessity supported by H&P, imaging and testing [facility] pain treatment protocol completed. Yes I have increased oxycodone to 20 mg every 6 hours. Discussed with patient that medication will no longer be further adjusted, given Sleep apnea and risk of MEDIA DEVELOPER depression. Chronic opioid/pain maintenance. This patient request for [...] opioid misuse based on ORT. Toxicology and PALEONTOLOGICAL HELPER monitoring done and will follow protocol set forth by practice. As such controlled substance use requires judicious monitoring to access patient compliance with mutually agreed upon controlled substance use agreement which has been signed by the patient and initiation of controlled substance prescribing. Therefore following state, Federal, [facility] guidelines for controlled substance testing policies. This patient has been assessed on the basis of psychometric risk tool, PALEONTOLOGICAL HELPER monitoring, toxicology test results. Comorbid conditions may [...] he has uncontrolled type II diabetes with neuropathy.Pain management will not evaluate patient at this point due to uncontrolled diabetes. Counseling done. Hypertension -Blood pressure is within normal limits. Continue the same regimen. Increase hydration to reduce salt intake are recommended. Weight loss is also recommended. Bilateral 2+ pitting edema is noted in the exam. Is currently off of furosemide as he was on 40 mg twice a day. He does mention an improvement in his GFR to 50. Given 2+ pitting edema we will check BMP today resume patient on 40 mg of furosemide for 3 days and BMP to be rechecked after. I did discuss with patient to consult with his electrician apprentice as he has an appointment coming up to discuss on possibility with being on low-dose Lasix daily or every other day. Type 2 diabetes - A1c improved to 7.9. Adjustment of diabetic medications is usually through his refresh technician. Humalog was adjusted to 60 before meal. Mounjaro Was discontinued by his refresh technician and a history of pancreatitis. Plantar fascitis- He was recommended orthotics. Discussed salt-warm water foot soak. He follows with [facility] podiatry. I have rendered the services for this patient under direct supervision of Dr. Torres, who did not see the patient but was available upon request 07/17/2025 Chronic pain syndrome (ICD-10 - G89.4) Mr. Hernandez is a 54-year-old gentleman with type 2 diabetes mellitus, hypertension, hyperlipidemia, hypothyroidism, ,obstructive sleep apnea, generalized anxiety disorder/depressio n and insomnia here for follow up. Plan as follows Chronic pain secondary to degenerative disc disease. Prognosis: Mild to moderate Medical necessity supported by H&P, imaging and testing [facility] pain treatment protocol completed. Yes I have increased oxycodone to 20 mg every 6 hours. Discussed with patient that medication will no longer be further adjusted, given Sleep apnea and risk of MEDIA DEVELOPER depression. Chronic opioid/pain maintenance. This patient request for [...] opioid misuse based on ORT. Toxicology and PALEONTOLOGICAL HELPER monitoring done and will follow protocol set forth by practice. As such controlled substance use requires judicious monitoring to access patient compliance with mutually agreed upon controlled substance use agreement which has been signed by the patient and initiation of controlled substance prescribing. Therefore following state, Federal, [facility] guidelines for controlled substance testing policies. This patient has been assessed on the basis of psychometric risk tool, PALEONTOLOGICAL HELPER monitoring, toxicology test results. Comorbid conditions may [...] he has uncontrolled type II diabetes with neuropathy.Pain management will not evaluate patient at this point due to uncontrolled diabetes. Counseling done. Hypertension -Blood pressure is within normal limits. Continue the same regimen. Increase hydration to reduce salt intake are recommended. Weight loss is also recommended. Type 2 diabetes - A1c improved to 7.9. Adjustment of diabetic medications is usually through his refresh technician. Humalog was adjusted to 60 before meal. Mounjaro Was discontinued by his refresh technician and a history of pancreatitis. Plantar fascitis - He was recommended orthotics. Discussed salt-warm water foot soak. He follows with [facility] podiatry. I have rendered the services for this patient under direct supervision of Dr. Torres, who did not see the patient but was available upon request 07/17/2025 Essential (primary) hypertension (ICD-10 - I10) Mr. Hernandez is a 54-year-old gentleman with type 2 diabetes mellitus, hypertension, hyperlipidemia, hypothyroidism, ,obstructive sleep apnea, generalized anxiety disorder/depressio n and insomnia here for follow up. Plan as follows Chronic pain secondary to degenerative disc disease. Prognosis: Mild to moderate Medical necessity supported by H&P, imaging and testing [facility] pain treatment protocol completed. Yes I have increased oxycodone to 20 mg every 6 hours. Discussed with patient that medication will no longer be further adjusted, given Sleep apnea and risk of MEDIA DEVELOPER depression. Chronic opioid/pain maintenance. This patient request for [...] opioid misuse based on ORT. Toxicology and PALEONTOLOGICAL HELPER monitoring done and will follow protocol set forth by practice. As such controlled substance use requires judicious monitoring to access patient compliance with mutually agreed upon controlled substance use agreement which has been signed by the patient and initiation of controlled substance prescribing. Therefore following state, Federal, [facility] guidelines for controlled substance testing policies. This patient has been assessed on the basis of psychometric risk tool, PALEONTOLOGICAL HELPER monitoring, toxicology test results. Comorbid conditions may [...] he has uncontrolled type II diabetes with neuropathy.Pain management will not evaluate patient at this point due to uncontrolled diabetes. Counseling done. Hypertension -Blood pressure is within normal limits. Continue the same regimen. Increase hydration to reduce salt intake are recommended. Weight loss is also recommended. Type 2 diabetes - A1c improved to 7.9. Adjustment of diabetic medications is usually through his refresh technician. Humalog was adjusted to 60 before meal. Mounjaro Was discontinued by his refresh technician and a history of pancreatitis. Plantar fascitis - He was recommended orthotics. Discussed salt-warm water foot soak. He follows with [facility] podiatry. I have rendered the services for this patient under direct supervision of Dr. Torres, who did not see the patient but was available upon request 07/17/2025 Bilateral leg edema (ICD-10 - R60.0) Mr. Hernandez is a 54-year-old gentleman with type 2 diabetes mellitus, hypertension, hyperlipidemia, hypothyroidism, ,obstructive sleep apnea, generalized anxiety disorder/depressio n and insomnia here for follow up. Plan as follows Chronic pain secondary to degenerative disc disease. Prognosis: Mild to moderate Medical necessity supported by H&P, imaging and testing [facility] pain treatment protocol completed. Yes I have increased oxycodone to 20 mg every 6 hours. Discussed with patient that medication will no longer be further adjusted, given Sleep apnea and risk of MEDIA DEVELOPER depression. Chronic opioid/pain maintenance. This patient request for [...] opioid misuse based on ORT. Toxicology and PALEONTOLOGICAL HELPER monitoring done and will follow protocol set forth by practice. As such controlled substance use requires judicious monitoring to access patient compliance with mutually agreed upon controlled substance use agreement which has been signed by the patient and initiation of controlled substance prescribing. Therefore following state, Federal, [facility] guidelines for controlled substance testing policies. This patient has been assessed on the basis of psychometric risk tool, PALEONTOLOGICAL HELPER monitoring, toxicology test results. Comorbid conditions may [...] he has uncontrolled type II diabetes with neuropathy.Pain management will not evaluate patient at this point due to uncontrolled diabetes. Counseling done. Hypertension -Blood pressure is within normal limits. Continue the same regimen. Increase hydration to reduce salt intake are recommended. Weight loss is also recommended. Type 2 diabetes - A1c improved to 7.9. Adjustment of diabetic medications is usually through his refresh technician. Humalog was adjusted to 60 before meal. Mounjaro Was discontinued by his refresh technician and a history of pancreatitis. Plantar fascitis - He was recommended orthotics. Discussed salt-warm water foot soak. He follows with [facility] podiatry. I have rendered the services for this patient under direct supervision of Dr. Torres, who did not see the patient but was available upon request 06/19/2025 Bilateral leg edema (ICD-10 - R60.0) Mr. Hernandez is a 54-year-old gentleman with type 2 diabetes mellitus, hypertension, hyperlipidemia, hypothyroidism, ,obstructive sleep apnea, generalized anxiety disorder/depressio n and insomnia here for follow up. Plan as follows Chronic pain secondary to degenerative disc disease. Prognosis: Mild to moderate Medical necessity supported by H&P, imaging and testing [facility] pain treatment protocol completed. Yes I have increased oxycodone to 20 mg every 6 hours. Discussed with patient that medication will no longer be further adjusted, given Sleep apnea and risk of MEDIA DEVELOPER depression. Chronic opioid/pain maintenance. This patient request for [...] opioid misuse based on ORT. Toxicology and PALEONTOLOGICAL HELPER monitoring done and will follow protocol set [...] on the basis of psychometric risk tool, PALEONTOLOGICAL HELPER monitoring, toxicology test results. Comorbid conditions may [...] he has uncontrolled type II diabetes with neuropathy.Pain management will not evaluate patient at this point due to uncontrolled diabetes. Counseling done. Hypertension -Blood pressure is within normal limits. Continue the same regimen. Increase hydration to reduce salt intake are recommended. Weight loss is also recommended. Bilateral 2+ pitting edema is noted in the exam. Is currently off of furosemide as he was on 40 mg twice a day. He does mention an improvement in his GFR to 50. Given 2+ pitting edema we will check BMP today resume patient on 40 mg of furosemide for 3 days and BMP to be rechecked after. I did discuss with patient to consult with his electrician apprentice as he has an appointment coming up to discuss on possibility with being on low-dose Lasix daily or every other day. Type 2 diabetes - A1c improved to 7.9. Adjustment of diabetic medications is usually through his refresh technician. Humalog was adjusted to 60 before meal. Mounjaro Was discontinued by his refresh technician and a history of pancreatitis. Plantar fascitis- He was recommended orthotics. Discussed salt-warm water foot soak. He follows with [facility] podiatry. I have rendered the services for this patient under direct supervision of Dr. Torres, who did not see the patient but was available upon request 05/22/2025 Bilateral leg edema (ICD-10 - R60.0) Mr. Hernandez is a 54-year-old gentleman with type 2 diabetes mellitus, hypertension, hyperlipidemia, hypothyroidism, ,obstructive sleep apnea, generalized anxiety disorder/depressio n and insomnia here for follow up. Plan as follows Chronic pain secondary to degenerative disc disease. Prognosis: Mild to moderate Medical necessity supported by H&P, imaging and testing [facility] pain treatment protocol completed. Yes I have increased oxycodone to 20 mg every 6 hours. Discussed with patient that medication will no longer be further adjusted, given Sleep apnea and risk of MEDIA DEVELOPER depression. Chronic opioid/pain maintenance. This patient request for [...] opioid misuse based on ORT. Toxicology and PALEONTOLOGICAL HELPER monitoring done and will follow protocol set forth by practice. As such controlled substance use requires judicious monitoring to access patient compliance with mutually agreed upon controlled substance use agreement which has been signed by the patient and initiation of controlled substance prescribing. Therefore following state, Federal, [facility] guidelines for controlled substance testing policies. This patient has been assessed on the basis of psychometric risk tool, PALEONTOLOGICAL HELPER monitoring, toxicology test results. Comorbid conditions may [...] he has uncontrolled type II diabetes with neuropathy.Pain management will not evaluate patient at this point due to uncontrolled diabetes. Counseling done. Hypertension -Blood pressure is within normal limits. Continue the same regimen. Increase hydration to reduce salt intake are recommended. Weight loss is also recommended. Bilateral 2+ pitting edema is noted in the exam. Is currently off of furosemide as he was on 40 mg twice a day. He does mention an improvement in his GFR to 50. Given 2+ pitting edema we will check BMP today resume patient on 40 mg of furosemide for 3 days and BMP to be rechecked after. I did discuss with patient to consult with his electrician apprentice as he has an appointment coming up to discuss on possibility with being on low-dose Lasix daily or every other day. Type 2 diabetes - Previous a1c of 8.8. Adjustment of diabetic medications is usually through his refresh technician. Humalog was adjusted to 60 before meal. He resumed himself on Mounjaro 2.5mg. Tolerating the medication. He has a follow-up with [employer] This month Plantar fascitis- He was recommended orthotics. Discussed salt-warm water foot soak. He follows with [facility] podiatry, Has an appointment for follow-up on May 28 I have rendered the services for this patient under direct supervision of Dr. Torres, who did not see the patient but was available upon request 05/23/2025 Diabetes mellitus due to underlying condition with diabetic nephropathy (ICD-10 - E08.21) 04/24/2025 Mixed hyperlipidemia (ICD-10 - E78.2) Mr. Hernandez is a 54-year-old gentleman with type 2 diabetes mellitus, hypertension, hyperlipidemia, hypothyroidism, ,obstructive sleep apnea, generalized anxiety disorder/depressio n and insomnia here for follow up. Plan as follows Chronic pain secondary to degenerative disc disease. Prognosis: Mild to moderate Medical necessity supported by H&P, imaging and testing [facility] pain treatment protocol completed. Yes I have increased oxycodone to 20 mg every 6 hours. Discussed with patient that medication will no longer be further adjusted, given Sleep apnea and risk of MEDIA DEVELOPER depression. Chronic opioid/pain maintenance. This patient request for [...] opioid misuse based on ORT. Toxicology and PALEONTOLOGICAL HELPER monitoring done and will follow protocol set forth by practice. As such controlled substance use requires judicious monitoring to access patient compliance with mutually agreed upon controlled substance use agreement which has been signed by the patient and initiation of controlled substance prescribing. Therefore following state, Federal, [facility] guidelines for controlled substance testing policies. This patient has been assessed on the basis of psychometric risk tool, PALEONTOLOGICAL HELPER monitoring, toxicology test results. Comorbid conditions may [...] he has uncontrolled type II diabetes with neuropathy.Pain management will not evaluate patient at this point due to uncontrolled diabetes. Counseling done. Hypertension - Blood pressure is high normal control. Continue the same regimen. Increase hydration to reduce salt intake are recommended. Weight loss is also recommended. We will check BP in 4 weeks. Type 2 diabetes - Previous a1c of 8.8. Adjustment of diabetic medications is usually through his refresh technician. Humalog was adjusted to 60 before meal. He resumed himself on Mounjaro 2.5mg. Tolerating the medication. He has a follow-up with Spreading Machine Operator coming up next month Hyperlipidemia - His previous LDL is within goal of 73. 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 Chronic kidney disease stage 3a. 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 He is not volume overloaded. He is off of Lasix and Jardiance. per electrician apprentice note, it is permissible for short-term only to be on NSAIDs and to be taken sparingly. Plantar fascitis- He was recommended orthotics. Discussed salt-warm water foot soak. He follows with [facility] podiatry. Shoulder pain: He follows with [facility] require a referral to neck pain. We will refer patient. I have rendered the services for this [...] necessity supported by H&P, imaging and testing [facility] pain treatment protocol completed. Yes I have [...] opioid misuse based on ORT. Toxicology and PALEONTOLOGICAL HELPER monitoring done and will follow protocol set forth by practice. As such controlled substance use requires judicious monitoring to access patient compliance with mutually agreed upon controlled substance use agreement which has been signed by the patient and initiation of controlled substance prescribing. Therefore following state, Federal, [facility] guidelines for controlled substance testing policies. This patient has been assessed on the basis of psychometric risk tool, PALEONTOLOGICAL HELPER monitoring, toxicology test results. Comorbid conditions may [...] of diabetic medications is usually through his refresh technician. He does have an appointment for follow-up with his refresh technician. He states that he is noncompliant with his diets. He was also recently seen by lumber checker and recommended Lasix surgery. He does also [...] GLP-1, Jardiance was also discontinued by the electrician apprentice. He has an appointment with refresh technician for further discussion on diabetes management. Advised on diet modification. He is up-to-date with his lumber checker. Foot care discussed Chronic kidney disease. 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 He is not volume overloaded. Avoid nephrotoxins and NSAIDs. Pending blood work to be done. I have rendered the services for this patient under direct supervision of Dr. Torres, who did not see the patient but was available upon request 03/27/2025 Mixed hyperlipidemia (ICD-10 - E78.2) Mr. Hernandez is a 54-year-old gentleman with type 2 diabetes mellitus, hypertension, hyperlipidemia, hypothyroidism, ,obstructive sleep apnea, generalized anxiety disorder/depressio n and insomnia here for follow up. Plan as follows Chronic pain secondary to degenerative disc disease. Prognosis: Mild to moderate Medical necessity supported by H&P, imaging and testing [facility] pain treatment protocol completed. Yes I have increased oxycodone to 20 mg every 6 hours. Discussed with patient that medication will no longer be further adjusted, given Sleep apnea and risk of MEDIA DEVELOPER depression. Chronic opioid/pain maintenance. This patient request for [...] opioid misuse based on ORT. Toxicology and PALEONTOLOGICAL HELPER monitoring done and will follow protocol set forth by practice. As such controlled substance use requires judicious monitoring to access patient compliance with mutually agreed upon controlled substance use agreement which has been signed by the patient and initiation of controlled substance prescribing. Therefore following state, Federal, [facility] guidelines for controlled substance testing policies. This patient has been assessed on the basis of psychometric risk tool, PALEONTOLOGICAL HELPER monitoring, toxicology test results. Comorbid conditions may [...] he has uncontrolled type II diabetes with neuropathy.Pain management will not evaluate patient at this point due to uncontrolled diabetes. Counseling done. Hypertension - Blood pressure is high normal control. Continue the same regimen. Increase hydration to reduce salt intake are recommended. Weight loss is also recommended. We will check BP in 4 weeks. Type 2 diabetes - Previous a1c of 8.8. Adjustment of diabetic medications is usually through his refresh technician. Humalog was adjusted to 60 before meal. He states that he is noncompliant with his diets. Jardiance was d/c by neprologist due to metabolic acidosis. Discussed a trial of ozempic again or can do a trial of Rysbelus. He was also recently seen by lumber checker and recommended Lasix surgery. He does also follow with podiatry for plantar fasciitis. I have discussed discussing with his provider cortisone injections. Hyperlipidemia - His previous LDL is within goal of 73. 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 Chronic kidney disease stage 3a. 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 He is not volume overloaded. Avoid nephrotoxins and NSAIDs. He has a follow-up in April. Pending blood work to be done. Plantar fascitis- He was recommended orthotics. Discussed salt-warm water foot soak. He follows with [facility] podiatry. Shoulder pain: He follows with [facility].Orthope dic clinic require a referral to neck pain. We will refer patient. I have rendered the services for this [...] necessity supported by H&P, imaging and testing [facility] pain treatment protocol completed. Yes Chronic opioid/pain [...] opioid misuse based on ORT. Toxicology and PALEONTOLOGICAL HELPER monitoring done and will follow protocol set forth by practice. As such controlled substance use requires judicious monitoring to access patient compliance with mutually agreed upon controlled substance use agreement which has been signed by the patient and initiation of controlled substance prescribing. Therefore following state, Federal, [facility] guidelines for controlled substance testing policies. This patient has been assessed on the basis of psychometric risk tool, PALEONTOLOGICAL HELPER monitoring, toxicology test results. Comorbid conditions may [...] of diabetic medications is usually through his refresh technician. He does have an appointment for follow-up with his refresh technician. He states that he is noncompliant with his diets. He was also recently seen by lumber checker and recommended Lasix surgery. He does also [...] GLP-1, Jardiance was also discontinued by the electrician apprentice. He has an appointment tomorrow with refresh technician for further discussion on diabetes management. Advised on diet modification. He is up-to-date with his lumber checker. Foot care discussed Chronic kidney disease. 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 He is not volume overloaded. Avoid nephrotoxins [...] necessity supported by H&P, imaging and testing [facility] pain treatment protocol completed. Yes Chronic opioid/pain [...] opioid misuse based on ORT. Toxicology and PALEONTOLOGICAL HELPER monitoring done and will follow protocol set forth by practice. As such controlled substance use requires judicious monitoring to access patient compliance with mutually agreed upon controlled substance use agreement which has been signed by the patient and initiation of controlled substance prescribing. Therefore following state, Federal, [facility] guidelines for controlled substance testing policies. This patient has been assessed on the basis of psychometric risk tool, PALEONTOLOGICAL HELPER monitoring, toxicology test results. Comorbid conditions may [...] of diabetic medications is usually through his refresh technician. He does have an appointment for follow-up with his refresh technician. He states that he is noncompliant with his diets. He was also recently seen by lumber checker and recommended Lasix surgery. He does also [...] necessity supported by H&P, imaging and testing [facility] pain treatment protocol completed. Yes Chronic opioid/pain [...] opioid misuse based on ORT. Toxicology and PALEONTOLOGICAL HELPER monitoring done and will follow protocol set forth by practice. As such controlled substance use requires judicious monitoring to access patient compliance with mutually agreed upon controlled substance use agreement which has been signed by the patient and initiation of controlled substance prescribing. Therefore following state, Federal, [facility] guidelines for controlled substance testing policies. This patient has been assessed on the basis of psychometric risk tool, PALEONTOLOGICAL HELPER monitoring, toxicology test results. Comorbid conditions may [...] necessity supported by H&P, imaging and testing [facility] pain treatment protocol completed. Yes Chronic opioid/pain [...] opioid misuse based on ORT. Toxicology and PALEONTOLOGICAL HELPER monitoring done and will follow protocol set forth by practice. As such controlled substance use requires judicious monitoring to access patient compliance with mutually agreed upon controlled substance use agreement which has been signed by the patient and initiation of controlled substance prescribing. Therefore following state, Federal, [facility] guidelines for controlled substance testing policies. This patient has been assessed on the basis of psychometric risk tool, PALEONTOLOGICAL HELPER monitoring, toxicology test results. Comorbid conditions may [...] necessity supported by H&P, imaging and testing [facility] pain treatment protocol completed. Yes Chronic opioid/pain [...] opioid misuse based on ORT. Toxicology and PALEONTOLOGICAL HELPER monitoring done and will follow protocol set forth by practice. As such controlled substance use requires judicious monitoring to access patient compliance with mutually agreed upon controlled substance use agreement which has been signed by the patient and initiation of controlled substance prescribing. Therefore following state, Federal, [facility] guidelines for controlled substance testing policies. This patient has been assessed on the basis of psychometric risk tool, PALEONTOLOGICAL HELPER monitoring, toxicology test results. Comorbid conditions may [...] necessity supported by H&P, imaging and testing [facility] pain treatment protocol completed. Yes Chronic opioid/pain [...] opioid misuse based on ORT. Toxicology and PALEONTOLOGICAL HELPER monitoring done and will follow protocol set forth by practice. As such controlled substance use requires judicious monitoring to access patient compliance with mutually agreed upon controlled substance use agreement which has been signed by the patient and initiation of controlled substance prescribing. Therefore following state, Federal, [facility] guidelines for controlled substance testing policies. This patient has been assessed on the basis of psychometric risk tool, PALEONTOLOGICAL HELPER monitoring, toxicology test results. Comorbid conditions may contribute to her compliance with chronic ongoing pain condition/function al impairment. Urine toxicology screen reviewed. appropriately positive and negative Liver function tests are normal Prescription monitoring program reviewed Opioid risk tool [ ORT] for narcotic abuse used to evaluate risk continue current regimen Counseling done. 10/03/2024 Hypothyroidism, unspecified (ICD-10 - E03.9) Chronic pain secondary to degenerative disc disease. Prognosis: Mild to moderate Medical necessity supported by H&P, imaging and testing [facility] pain treatment protocol completed. Yes Chronic opioid/pain [...] opioid misuse based on ORT. Toxicology and PALEONTOLOGICAL HELPER monitoring done and will follow protocol set forth by practice. As such controlled substance use requires judicious monitoring to access patient compliance with mutually agreed upon controlled substance use agreement which has been signed by the patient and initiation of controlled substance prescribing. Therefore following state, Federal, [facility] guidelines for controlled substance testing policies. This patient has been assessed on the basis of psychometric risk tool, PALEONTOLOGICAL HELPER monitoring, toxicology test results. Comorbid conditions may [...] necessity supported by H&P, imaging and testing [facility] pain treatment protocol completed. Yes Chronic opioid/pain [...] opioid misuse based on ORT. Toxicology and PALEONTOLOGICAL HELPER monitoring done and will follow protocol set forth by practice. As such controlled substance use requires judicious monitoring to access patient compliance with mutually agreed upon controlled substance use agreement which has been signed by the patient and initiation of controlled substance prescribing. Therefore following state, Federal, [facility] guidelines for controlled substance testing policies. This patient has been assessed on the basis of psychometric risk tool, PALEONTOLOGICAL HELPER monitoring, toxicology test results. Comorbid conditions may [...] patient but was available upon request 12/26/2024 Weight loss, unintentional (ICD-10 - R63.4) Mr. Hernandez is a 54-year-old gentleman with type 2 diabetes mellitus, hypertension, hyperlipidemia, hypothyroidism, ,obstructive sleep apnea, generalized anxiety disorder/depressio n and insomnia here for follow up. Plan as follows Chronic pain secondary to degenerative disc disease. Prognosis: Mild to moderate Medical necessity supported by H&P, imaging and testing [facility] pain treatment protocol completed. Yes Chronic opioid/pain [...] opioid misuse based on ORT. Toxicology and PALEONTOLOGICAL HELPER monitoring done and will follow protocol set forth by practice. As such controlled substance use requires judicious monitoring to access patient compliance with mutually agreed upon controlled substance use agreement which has been signed by the patient and initiation of controlled substance prescribing. Therefore following state, Federal, [facility] guidelines for controlled substance testing policies. This patient has been assessed on the basis of psychometric risk tool, PALEONTOLOGICAL HELPER monitoring, toxicology test results. Comorbid conditions may [...] of diabetic medications is usually through his refresh technician. He does have an appointment for follow-up with his refresh technician. He states that he is noncompliant with his diets. He was also recently seen by lumber checker and recommended Lasix surgery. He does also [...] necessity supported by H&P, imaging and testing [facility] pain treatment protocol completed. Yes Chronic opioid/pain [...] opioid misuse based on ORT. Toxicology and PALEONTOLOGICAL HELPER monitoring done and will follow protocol set forth by practice. As such controlled substance use requires judicious monitoring to access patient compliance with mutually agreed upon controlled substance use agreement which has been signed by the patient and initiation of controlled substance prescribing. Therefore following state, Federal, [facility] guidelines for controlled substance testing policies. This patient has been assessed on the basis of psychometric risk tool, PALEONTOLOGICAL HELPER monitoring, toxicology test results. Comorbid conditions may [...] of diabetic medications is usually through his refresh technician. He does have an appointment for follow-up with his refresh technician. He states that he is noncompliant with his diets. He was also recently seen by lumber checker and recommended Lasix surgery. He does also [...] GLP-1, Jardiance was also discontinued by the electrician apprentice. He has an appointment tomorrow with refresh technician for further discussion on diabetes management. Advised on diet modification. He is up-to-date with his lumber checker. Foot care discussed Chronic kidney disease. 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 He is not volume overloaded. Avoid nephrotoxins and NSAIDs. Pending blood work to be done. I have rendered the services for this patient under direct supervision of Dr. 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 Hernandez is a 54-year-old gentleman with type 2 diabetes mellitus, hypertension, hyperlipidemia, hypothyroidism, ,obstructive sleep apnea, generalized anxiety disorder/depressio n and insomnia here for follow up. Plan as follows Chronic pain secondary to degenerative disc disease. Prognosis: Mild to moderate Medical necessity supported by H&P, imaging and testing [facility] pain treatment protocol completed. Yes I have increased oxycodone to 20 mg every 6 hours. Discussed with patient that medication will no longer be further adjusted, given Sleep apnea and risk of MEDIA DEVELOPER depression. Chronic opioid/pain maintenance. This patient request for [...] opioid misuse based on ORT. Toxicology and PALEONTOLOGICAL HELPER monitoring done and will follow protocol set [...] on the basis of psychometric risk tool, PALEONTOLOGICAL HELPER monitoring, toxicology test results. Comorbid conditions may [...] he has uncontrolled type II diabetes with neuropathy.Pain management will not evaluate patient at this point due to uncontrolled diabetes. Counseling done. Hypertension - Blood pressure is high normal control. Continue the same regimen. Increase hydration to reduce salt intake are recommended. Weight loss is also recommended. We will check BP in 4 weeks. Type 2 diabetes - Previous a1c of 8.8. Adjustment of diabetic medications is usually through his refresh technician. Humalog was adjusted to 60 before meal. He states that he is noncompliant with his diets. Jardiance was d/c by neprologist due to metabolic acidosis. Discussed a trial of ozempic again or can do a trial of Rysbelus. He was also recently seen by lumber checker and recommended Lasix surgery. He does also follow with podiatry for plantar fasciitis. I have discussed discussing with his provider cortisone injections. Hyperlipidemia - His previous LDL is within goal of 73. 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 Chronic kidney disease stage 3a. 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 He is not volume overloaded. Avoid nephrotoxins and NSAIDs. He has a follow-up in April. Pending blood work to be done. Plantar fascitis- He was recommended orthotics. Discussed salt-warm water foot soak. He follows with [facility] podiatry. Shoulder pain: He follows with [facility].Orthope dic clinic require a referral to neck pain. We will refer patient. I have rendered the services for this [...] necessity supported by H&P, imaging and testing [facility] pain treatment protocol completed. Yes I have [...] opioid misuse based on ORT. Toxicology and PALEONTOLOGICAL HELPER monitoring done and will follow protocol set forth by practice. As such controlled substance use requires judicious monitoring to access patient compliance with mutually agreed upon controlled substance use agreement which has been signed by the patient and initiation of controlled substance prescribing. Therefore following state, Federal, [facility] guidelines for controlled substance testing policies. This patient has been assessed on the basis of psychometric risk tool, PALEONTOLOGICAL HELPER monitoring, toxicology test results. Comorbid conditions may [...] of diabetic medications is usually through his refresh technician. He does have an appointment for follow-up with his refresh technician. He states that he is noncompliant with his diets. He was also recently seen by lumber checker and recommended Lasix surgery. He does also [...] GLP-1, Jardiance was also discontinued by the electrician apprentice. He has an appointment with refresh technician for further discussion on diabetes management. Advised on diet modification. He is up-to-date with his lumber checker. Foot care discussed Chronic kidney disease. 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 He is not volume overloaded. Avoid nephrotoxins and NSAIDs. Pending blood work to be done. I have rendered the services for this patient under direct supervision of Dr. Torres, who did not see the patient but was available upon request 05/22/2025 Mixed hyperlipidemia (ICD-10 - E78.2) Mr. Hernandez is a 54-year-old gentleman with type 2 diabetes mellitus, hypertension, hyperlipidemia, hypothyroidism, ,obstructive sleep apnea, generalized anxiety disorder/depressio n and insomnia here for follow up. Plan as follows Chronic pain secondary to degenerative disc disease. Prognosis: Mild to moderate Medical necessity supported by H&P, imaging and testing [facility] pain treatment protocol completed. Yes I have increased oxycodone to 20 mg every 6 hours. Discussed with patient that medication will no longer be further adjusted, given Sleep apnea and risk of MEDIA DEVELOPER depression. Chronic opioid/pain maintenance. This patient request for [...] opioid misuse based on ORT. Toxicology and PALEONTOLOGICAL HELPER monitoring done and will follow protocol set [...] on the basis of psychometric risk tool, PALEONTOLOGICAL HELPER monitoring, toxicology test results. Comorbid conditions may [...] he has uncontrolled type II diabetes with neuropathy.Pain management will not evaluate patient at this point due to uncontrolled diabetes. Counseling done. Hypertension -Blood pressure is within normal limits. Continue the same regimen. Increase hydration to reduce salt intake are recommended. Weight loss is also recommended. Bilateral 2+ pitting edema is noted in the exam. Is currently off of furosemide as he was on 40 mg twice a day. He does mention an improvement in his GFR to 50. Given 2+ pitting edema we will check BMP today resume patient on 40 mg of furosemide for 3 days and BMP to be rechecked after. I did discuss with patient to consult with his electrician apprentice as he has an appointment coming up to discuss on possibility with being on low-dose Lasix daily or every other day. Type 2 diabetes - Previous a1c of 8.8. Adjustment of diabetic medications is usually through his refresh technician. Humalog was adjusted to 60 before meal. He resumed himself on Mounjaro 2.5mg. Tolerating the medication. He has a follow-up with Spreading Machine Operator This month Plantar fascitis- He was recommended orthotics. Discussed salt-warm water foot soak. He follows with [facility] podiatry, Has an appointment for follow-up on May 28 I have rendered the services for this patient under direct supervision of Dr. Torres, who did not see the patient but was available upon request 04/24/2025 Diabetes mellitus due to underlying condition with diabetic nephropathy (ICD-10 - E08.21) Mr. Hernandez is a 54-year-old gentleman with type 2 diabetes mellitus, hypertension, hyperlipidemia, hypothyroidism, ,obstructive sleep apnea, generalized anxiety disorder/depressio n and insomnia here for follow up. Plan as follows Chronic pain secondary to degenerative disc disease. Prognosis: Mild to moderate Medical necessity supported by H&P, imaging and testing [facility] pain treatment protocol completed. Yes I have increased oxycodone to 20 mg every 6 hours. Discussed with patient that medication will no longer be further adjusted, given Sleep apnea and risk of MEDIA DEVELOPER depression. Chronic opioid/pain maintenance. This patient request for [...] opioid misuse based on ORT. Toxicology and PALEONTOLOGICAL HELPER monitoring done and will follow protocol set forth by practice. As such controlled substance use requires judicious monitoring to access patient compliance with mutually agreed upon controlled substance use agreement which has been signed by the patient and initiation of controlled substance prescribing. Therefore following state, Federal, [facility] guidelines for controlled substance testing policies. This patient has been assessed on the basis of psychometric risk tool, PALEONTOLOGICAL HELPER monitoring, toxicology test results. Comorbid conditions may [...] he has uncontrolled type II diabetes with neuropathy.Pain management will not evaluate patient at this point due to uncontrolled diabetes. Counseling done. Hypertension - Blood pressure is high normal control. Continue the same regimen. Increase hydration to reduce salt intake are recommended. Weight loss is also recommended. We will check BP in 4 weeks. Type 2 diabetes - Previous a1c of 8.8. Adjustment of diabetic medications is usually through his refresh technician. Humalog was adjusted to 60 before meal. He resumed himself on Mounjaro 2.5mg. Tolerating the medication. He has a follow-up with Spreading Machine Operator coming up next month Hyperlipidemia - His previous LDL is within goal of 73. 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 Chronic kidney disease stage 3a. 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 He is not volume overloaded. He is off of Lasix and Jardiance. per electrician apprentice note, it is permissible for short-term only to be on NSAIDs and to be taken sparingly. Plantar fascitis- He was recommended orthotics. Discussed salt-warm water foot soak. He follows with [facility] podiatry. Shoulder pain: He follows with [facility] require a referral to neck pain. We will refer patient. I have rendered the services for this patient under direct supervision of Dr. Torres, who did not see the patient but was available upon request 06/19/2025 Mixed hyperlipidemia (ICD-10 - E78.2) Mr. Hernandez is a 54-year-old gentleman with type 2 diabetes mellitus, hypertension, hyperlipidemia, hypothyroidism, ,obstructive sleep apnea, generalized anxiety disorder/depressio n and insomnia here for follow up. Plan as follows Chronic pain secondary to degenerative disc disease. Prognosis: Mild to moderate Medical necessity supported by H&P, imaging and testing [facility] pain treatment protocol completed. Yes I have increased oxycodone to 20 mg every 6 hours. Discussed with patient that medication will no longer be further adjusted, given Sleep apnea and risk of MEDIA DEVELOPER depression. Chronic opioid/pain maintenance. This patient request for [...] opioid misuse based on ORT. Toxicology and PALEONTOLOGICAL HELPER monitoring done and will follow protocol set forth by practice. As such controlled substance use requires judicious monitoring to access patient compliance with mutually agreed upon controlled substance use agreement which has been signed by the patient and initiation of controlled substance prescribing. Therefore following state, Federal, [facility] guidelines for controlled substance testing policies. This patient has been assessed on the basis of psychometric risk tool, PALEONTOLOGICAL HELPER monitoring, toxicology test results. Comorbid conditions may [...] he has uncontrolled type II diabetes with neuropathy.Pain management will not evaluate patient at this point due to uncontrolled diabetes. Counseling done. Hypertension -Blood pressure is within normal limits. Continue the same regimen. Increase hydration to reduce salt intake are recommended. Weight loss is also recommended. Bilateral 2+ pitting edema is noted in the exam. Is currently off of furosemide as he was on 40 mg twice a day. He does mention an improvement in his GFR to 50. Given 2+ pitting edema we will check BMP today resume patient on 40 mg of furosemide for 3 days and BMP to be rechecked after. I did discuss with patient to consult with his electrician apprentice as he has an appointment coming up to discuss on possibility with being on low-dose Lasix daily or every other day. Type 2 diabetes - A1c improved to 7.9. Adjustment of diabetic medications is usually through his refresh technician. Humalog was adjusted to 60 before meal. Mounjaro Was discontinued by his refresh technician and a history of pancreatitis. Plantar fascitis- He was recommended orthotics. Discussed salt-warm water foot soak. He follows with [facility] podiatry. I have rendered the services for this patient under direct supervision of Dr. Torres, who did not see the patient but was available upon request 07/17/2025 Mixed hyperlipidemia (ICD-10 - E78.2) Mr. Hernandez is a 54-year-old gentleman with type 2 diabetes mellitus, hypertension, hyperlipidemia, hypothyroidism, ,obstructive sleep apnea, generalized anxiety disorder/depressio n and insomnia here for follow up. Plan as follows Chronic pain secondary to degenerative disc disease. Prognosis: Mild to moderate Medical necessity supported by H&P, imaging and testing [facility] pain treatment protocol completed. Yes I have increased oxycodone to 20 mg every 6 hours. Discussed with patient that medication will no longer be further adjusted, given Sleep apnea and risk of MEDIA DEVELOPER depression. Chronic opioid/pain maintenance. This patient request for [...] opioid misuse based on ORT. Toxicology and PALEONTOLOGICAL HELPER monitoring done and will follow protocol set forth by practice. As such controlled substance use requires judicious monitoring to access patient compliance with mutually agreed upon controlled substance use agreement which has been signed by the patient and initiation of controlled substance prescribing. Therefore following state, Federal, [facility] guidelines for controlled substance testing policies. This patient has been assessed on the basis of psychometric risk tool, PALEONTOLOGICAL HELPER monitoring, toxicology test results. Comorbid conditions may [...] he has uncontrolled type II diabetes with neuropathy.Pain management will not evaluate patient at this point due to uncontrolled diabetes. Counseling done. Hypertension -Blood pressure is within normal limits. Continue the same regimen. Increase hydration to reduce salt intake are recommended. Weight loss is also recommended. Type 2 diabetes - A1c improved to 7.9. Adjustment of diabetic medications is usually through his refresh technician. Humalog was adjusted to 60 before meal. Mounjaro Was discontinued by his refresh technician and a history of pancreatitis. Plantar fascitis - He was recommended orthotics. Discussed salt-warm water foot soak. He follows with [facility] podiatry. I have rendered the services for this patient under direct supervision of Dr. Torres, who did not see the patient but was available upon request 07/17/2025 Diabetes mellitus due to underlying condition with diabetic nephropathy (ICD-10 - E08.21) Mr. Hernandez is a 54-year-old gentleman with type 2 diabetes mellitus, hypertension, hyperlipidemia, hypothyroidism, ,obstructive sleep apnea, generalized anxiety disorder/depressio n and insomnia here for follow up. Plan as follows Chronic pain secondary to degenerative disc disease. Prognosis: Mild to moderate Medical necessity supported by H&P, imaging and testing [facility] pain treatment protocol completed. Yes I have increased oxycodone to 20 mg every 6 hours. Discussed with patient that medication will no longer be further adjusted, given Sleep apnea and risk of MEDIA DEVELOPER depression. Chronic opioid/pain maintenance. This patient request for [...] opioid misuse based on ORT. Toxicology and PALEONTOLOGICAL HELPER monitoring done and will follow protocol set forth by practice. As such controlled substance use requires judicious monitoring to access patient compliance with mutually agreed upon controlled substance use agreement which has been signed by the patient and initiation of controlled substance prescribing. Therefore following state, Federal, [facility] guidelines for controlled substance testing policies. This patient has been assessed on the basis of psychometric risk tool, PALEONTOLOGICAL HELPER monitoring, toxicology test results. Comorbid conditions may [...] he has uncontrolled type II diabetes with neuropathy.Pain management will not evaluate patient at this point due to uncontrolled diabetes. Counseling done. Hypertension -Blood pressure is within normal limits. Continue the same regimen. Increase hydration to reduce salt intake are recommended. Weight loss is also recommended. Type 2 diabetes - A1c improved to 7.9. Adjustment of diabetic medications is usually through his refresh technician. Humalog was adjusted to 60 before meal. Mounjaro Was discontinued by his refresh technician and a history of pancreatitis. Plantar fascitis - He was recommended orthotics. Discussed salt-warm water foot soak. He follows with [facility] podiatry. I have rendered the services for this patient under direct supervision of Dr. Torres, who did not see the patient but was available upon request 06/19/2025 Diabetes mellitus due to underlying condition with diabetic nephropathy (ICD-10 - E08.21) Mr. Hernandez is a 54-year-old gentleman with type 2 diabetes mellitus, hypertension, hyperlipidemia, hypothyroidism, ,obstructive sleep apnea, generalized anxiety disorder/depressio n and insomnia here for follow up. Plan as follows Chronic pain secondary to degenerative disc disease. Prognosis: Mild to moderate Medical necessity supported by H&P, imaging and testing [facility] pain treatment protocol completed. Yes I have increased oxycodone to 20 mg every 6 hours. Discussed with patient that medication will no longer be further adjusted, given Sleep apnea and risk of MEDIA DEVELOPER depression. Chronic opioid/pain maintenance. This patient request for [...] opioid misuse based on ORT. Toxicology and PALEONTOLOGICAL HELPER monitoring done and will follow protocol set forth by practice. As such controlled substance use requires judicious monitoring to access patient compliance with mutually agreed upon controlled substance use agreement which has been signed by the patient and initiation of controlled substance prescribing. Therefore following state, Federal, [facility] guidelines for controlled substance testing policies. This patient has been assessed on the basis of psychometric risk tool, PALEONTOLOGICAL HELPER monitoring, toxicology test results. Comorbid conditions may [...] he has uncontrolled type II diabetes with neuropathy.Pain management will not evaluate patient at this point due to uncontrolled diabetes. Counseling done. Hypertension -Blood pressure is within normal limits. Continue the same regimen. Increase hydration to reduce salt intake are recommended. Weight loss is also recommended. Bilateral 2+ pitting edema is noted in the exam. Is currently off of furosemide as he was on 40 mg twice a day. He does mention an improvement in his GFR to 50. Given 2+ pitting edema we will check BMP today resume patient on 40 mg of furosemide for 3 days and BMP to be rechecked after. I did discuss with patient to consult with his electrician apprentice as he has an appointment coming up to discuss on possibility with being on low-dose Lasix daily or every other day. Type 2 diabetes - A1c improved to 7.9. Adjustment of diabetic medications is usually through his refresh technician. Humalog was adjusted to 60 before meal. Mounjaro Was discontinued by his refresh technician and a history of pancreatitis. Plantar fascitis- He was recommended orthotics. Discussed salt-warm water foot soak. He follows with [facility] podiatry. I have rendered the services for this patient under direct supervision of Dr. Torres, who did not see the patient but was available upon request 03/27/2025 Chronic kidney disease, unspecified (ICD-10 - N18.9) Mr. Hernandez is a 54-year-old gentleman with type 2 diabetes mellitus, hypertension, hyperlipidemia, hypothyroidism, ,obstructive sleep apnea, generalized anxiety disorder/depressio n and insomnia here for follow up. Plan as follows Chronic pain secondary to degenerative disc disease. Prognosis: Mild to moderate Medical necessity supported by H&P, imaging and testing [facility] pain treatment protocol completed. Yes I have increased oxycodone to 20 mg every 6 hours. Discussed with patient that medication will no longer be further adjusted, given Sleep apnea and risk of MEDIA DEVELOPER depression. Chronic opioid/pain maintenance. This patient request for [...] opioid misuse based on ORT. Toxicology and PALEONTOLOGICAL HELPER monitoring done and will follow protocol set [...] on the basis of psychometric risk tool, PALEONTOLOGICAL HELPER monitoring, toxicology test results. Comorbid conditions may [...] he has uncontrolled type II diabetes with neuropathy.Pain management will not evaluate patient at this point due to uncontrolled diabetes. Counseling done. Hypertension - Blood pressure is high normal control. Continue the same regimen. Increase hydration to reduce salt intake are recommended. Weight loss is also recommended. We will check BP in 4 weeks. Type 2 diabetes - Previous a1c of 8.8. Adjustment of diabetic medications is usually through his refresh technician. Humalog was adjusted to 60 before meal. He states that he is noncompliant with his diets. Jardiance was d/c by neprologist due to metabolic acidosis. Discussed a trial of ozempic again or can do a trial of Rysbelus. He was also recently seen by lumber checker and recommended Lasix surgery. He does also follow with podiatry for plantar fasciitis. I have discussed discussing with his provider cortisone injections. Hyperlipidemia - His previous LDL is within goal of 73. 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 Chronic kidney disease stage 3a. 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 He is not volume overloaded. Avoid nephrotoxins and NSAIDs. He has a follow-up in April. Pending blood work to be done. Plantar fascitis- He was recommended orthotics. Discussed salt-warm water foot soak. He follows with [facility] podiatry. Shoulder pain: He follows with [facility] require a referral to neck pain. We will refer patient. I have rendered the services for this patient under direct supervision of Dr. Torres, who did not see the patient but was available upon request 04/24/2025 Chronic kidney disease, unspecified (ICD-10 - N18.9) Mr. Hernandez is a 54-year-old gentleman with type 2 diabetes mellitus, hypertension, hyperlipidemia, hypothyroidism, ,obstructive sleep apnea, generalized anxiety disorder/depressio n and insomnia here for follow up. Plan as follows Chronic pain secondary to degenerative disc disease. Prognosis: Mild to moderate Medical necessity supported by H&P, imaging and testing [facility] pain treatment protocol completed. Yes I have increased oxycodone to 20 mg every 6 hours. Discussed with patient that medication will no longer be further adjusted, given Sleep apnea and risk of MEDIA DEVELOPER depression. Chronic opioid/pain maintenance. This patient request for [...] opioid misuse based on ORT. Toxicology and PALEONTOLOGICAL HELPER monitoring done and will follow protocol set [...] on the basis of psychometric risk tool, PALEONTOLOGICAL HELPER monitoring, toxicology test results. Comorbid conditions may [...] he has uncontrolled type II diabetes with neuropathy.Pain management will not evaluate patient at this point due to uncontrolled diabetes. Counseling done. Hypertension - Blood pressure is high normal control. Continue the same regimen. Increase hydration to reduce salt intake are recommended. Weight loss is also recommended. We will check BP in 4 weeks. Type 2 diabetes - Previous a1c of 8.8. Adjustment of diabetic medications is usually through his refresh technician. Humalog was adjusted to 60 before meal. He resumed himself on Mounjaro 2.5mg. Tolerating the medication. He has a follow-up with Spreading Machine Operator coming up next month Hyperlipidemia - His previous LDL is within goal of 73. 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 Chronic kidney disease stage 3a. 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 He is not volume overloaded. He is off of Lasix and Jardiance. per electrician apprentice note, it is permissible for short-term only to be on NSAIDs and to be taken sparingly. Plantar fascitis- He was recommended orthotics. Discussed salt-warm water foot soak. He follows with [facility] podiatry. Shoulder pain: He follows with [facility] dic clinic require a referral to neck pain. We will refer patient. I have rendered the services for this patient under direct supervision of Dr. Torres, who did not see the patient but was available upon request 05/22/2025 Diabetes mellitus due to underlying condition with diabetic nephropathy (ICD-10 - E08.21) Mr. Hernandez is a 54-year-old gentleman with type 2 diabetes mellitus, hypertension, hyperlipidemia, hypothyroidism, ,obstructive sleep apnea, generalized anxiety disorder/depressio n and insomnia here for follow up. Plan as follows Chronic pain secondary to degenerative disc disease. Prognosis: Mild to moderate Medical necessity supported by H&P, imaging and testing [facility] pain treatment protocol completed. Yes I have increased oxycodone to 20 mg every 6 hours. Discussed with patient that medication will no longer be further adjusted, given Sleep apnea and risk of MEDIA DEVELOPER depression. Chronic opioid/pain maintenance. This patient request for [...] opioid misuse based on ORT. Toxicology and PALEONTOLOGICAL HELPER monitoring done and will follow protocol set [...] on the basis of psychometric risk tool, PALEONTOLOGICAL HELPER monitoring, toxicology test results. Comorbid conditions may [...] he has uncontrolled type II diabetes with neuropathy.Pain management will not evaluate patient at this point due to uncontrolled diabetes. Counseling done. Hypertension -Blood pressure is within normal limits. Continue the same regimen. Increase hydration to reduce salt intake are recommended. Weight loss is also recommended. Bilateral 2+ pitting edema is noted in the exam. Is currently off of furosemide as he was on 40 mg twice a day. He does mention an improvement in his GFR to 50. Given 2+ pitting edema we will check BMP today resume patient on 40 mg of furosemide for 3 days and BMP to be rechecked after. I did discuss with patient to consult with his electrician apprentice as he has an appointment coming up to discuss on possibility with being on low-dose Lasix daily or every other day. Type 2 diabetes - Previous a1c of 8.8. Adjustment of diabetic medications is usually through his refresh technician. Humalog was adjusted to 60 before meal. He resumed himself on Mounjaro 2.5mg. Tolerating the medication. He has a follow-up with Spreading Machine Operator This month Plantar fascitis- He was recommended orthotics. Discussed salt-warm water foot soak. He follows with [facility] podiatry, Has an appointment for follow-up on May 28 I have rendered the services for this [...] necessity supported by H&P, imaging and testing [facility] pain treatment protocol completed. Yes I have [...] opioid misuse based on ORT. Toxicology and PALEONTOLOGICAL HELPER monitoring done and will follow protocol set forth by practice. As such controlled substance use requires judicious monitoring to access patient compliance with mutually agreed upon controlled substance use agreement which has been signed by the patient and initiation of controlled substance prescribing. Therefore following state, Federal, [facility] guidelines for controlled substance testing policies. This patient has been assessed on the basis of psychometric risk tool, PALEONTOLOGICAL HELPER monitoring, toxicology test results. Comorbid conditions may [...] of diabetic medications is usually through his refresh technician. He does have an appointment for follow-up with his refresh technician. He states that he is noncompliant with his diets. He was also recently seen by lumber checker and recommended Lasix surgery. He does also [...] GLP-1, Jardiance was also discontinued by the electrician apprentice. He has an appointment with refresh technician for further discussion on diabetes management. Advised on diet modification. He is up-to-date with his lumber checker. Foot care discussed Chronic kidney disease. 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 He is not volume overloaded. Avoid nephrotoxins [...] necessity supported by H&P, imaging and testing [facility] pain treatment protocol completed. Yes Chronic opioid/pain [...] opioid misuse based on ORT. Toxicology and PALEONTOLOGICAL HELPER monitoring done and will follow protocol set forth by practice. As such controlled substance use requires judicious monitoring to access patient compliance with mutually agreed upon controlled substance use agreement which has been signed by the patient and initiation of controlled substance prescribing. Therefore following state, Federal, [facility] guidelines for controlled substance testing policies. This patient has been assessed on the basis of psychometric risk tool, PALEONTOLOGICAL HELPER monitoring, toxicology test results. Comorbid conditions may [...] of diabetic medications is usually through his refresh technician. He does have an appointment for follow-up with his refresh technician. He states that he is noncompliant with his diets. He was also recently seen by lumber checker and recommended Lasix surgery. He does also [...] GLP-1, Jardiance was also discontinued by the electrician apprentice. He has an appointment tomorrow with refresh technician for further discussion on diabetes management. Advised on diet modification. He is up-to-date with his lumber checker. Foot care discussed Chronic kidney disease. 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 He is not volume overloaded. Avoid nephrotoxins [...] necessity supported by H&P, imaging and testing [facility] pain treatment protocol completed. Yes Chronic opioid/pain [...] opioid misuse based on ORT. Toxicology and PALEONTOLOGICAL HELPER monitoring done and will follow protocol set forth by practice. As such controlled substance use requires judicious monitoring to access patient compliance with mutually agreed upon controlled substance use agreement which has been signed by the patient and initiation of controlled substance prescribing. Therefore following state, Federal, [facility] guidelines for controlled substance testing policies. This patient has been assessed on the basis of psychometric risk tool, PALEONTOLOGICAL HELPER monitoring, toxicology test results. Comorbid conditions may [...] the patient but was available upon request 05/22/2025 Chronic kidney disease, unspecified (ICD-10 - N18.9) Mr. Hernandez is a 54-year-old gentleman with type 2 diabetes mellitus, hypertension, hyperlipidemia, hypothyroidism, ,obstructive sleep apnea, generalized anxiety disorder/depressio n and insomnia here for follow up. Plan as follows Chronic pain secondary to degenerative disc disease. Prognosis: Mild to moderate Medical necessity supported by H&P, imaging and testing [facility] pain treatment protocol completed. Yes I have increased oxycodone to 20 mg every 6 hours. Discussed with patient that medication will no longer be further adjusted, given Sleep apnea and risk of MEDIA DEVELOPER depression. Chronic opioid/pain maintenance. This patient request for [...] opioid misuse based on ORT. Toxicology and PALEONTOLOGICAL HELPER monitoring done and will follow protocol set forth by practice. As such controlled substance use requires judicious monitoring to access patient compliance with mutually agreed upon controlled substance use agreement which has been signed by the patient and initiation of controlled substance prescribing. Therefore following state, Federal, [facility] guidelines for controlled substance testing policies. This patient has been assessed on the basis of psychometric risk tool, PALEONTOLOGICAL HELPER monitoring, toxicology test results. Comorbid conditions may [...] he has uncontrolled type II diabetes with neuropathy.Pain management will not evaluate patient at this point due to uncontrolled diabetes. Counseling done. Hypertension -Blood pressure is within normal limits. Continue the same regimen. Increase hydration to reduce salt intake are recommended. Weight loss is also recommended. Bilateral 2+ pitting edema is noted in the exam. Is currently off of furosemide as he was on 40 mg twice a day. He does mention an improvement in his GFR to 50. Given 2+ pitting edema we will check BMP today resume patient on 40 mg of furosemide for 3 days and BMP to be rechecked after. I did discuss with patient to consult with his electrician apprentice as he has an appointment coming up to discuss on possibility with being on low-dose Lasix daily or every other day. Type 2 diabetes - Previous a1c of 8.8. Adjustment of diabetic medications is usually through his refresh technician. Humalog was adjusted to 60 before meal. He resumed himself on Mounjaro 2.5mg. Tolerating the medication. He has a follow-up with Spreading Machine Operator This month Plantar fascitis- He was recommended orthotics. Discussed salt-warm water foot soak. He follows with [facility] podiatry, Has an appointment for follow-up on May 28 I have rendered the services for this patient under direct supervision of Dr. Torres, who did not see the patient but was available upon request 03/27/2025 Plantar fascial fibromatosis (ICD-10 - M72.2) Mr. Hernandez is a 54-year-old gentleman with type 2 diabetes mellitus, hypertension, hyperlipidemia, hypothyroidism, ,obstructive sleep apnea, generalized anxiety disorder/depressio n and insomnia here for follow up. Plan as follows Chronic pain secondary to degenerative disc disease. Prognosis: Mild to moderate Medical necessity supported by H&P, imaging and testing [facility] pain treatment protocol completed. Yes I have increased oxycodone to 20 mg every 6 hours. Discussed with patient that medication will no longer be further adjusted, given Sleep apnea and risk of MEDIA DEVELOPER depression. Chronic opioid/pain maintenance. This patient request for [...] opioid misuse based on ORT. Toxicology and PALEONTOLOGICAL HELPER monitoring done and will follow protocol set forth by practice. As such controlled substance use requires judicious monitoring to access patient compliance with mutually agreed upon controlled substance use agreement which has been signed by the patient and initiation of controlled substance prescribing. Therefore following state, Federal, [facility] guidelines for controlled substance testing policies. This patient has been assessed on the basis of psychometric risk tool, PALEONTOLOGICAL HELPER monitoring, toxicology test results. Comorbid conditions may [...] he has uncontrolled type II diabetes with neuropathy.Pain management will not evaluate patient at this point due to uncontrolled diabetes. Counseling done. Hypertension - Blood pressure is high normal control. Continue the same regimen. Increase hydration to reduce salt intake are recommended. Weight loss is also recommended. We will check BP in 4 weeks. Type 2 diabetes - Previous a1c of 8.8. Adjustment of diabetic medications is usually through his refresh technician. Humalog was adjusted to 60 before meal. He states that he is noncompliant with his diets. Jardiance was d/c by neprologist due to metabolic acidosis. Discussed a trial of ozempic again or can do a trial of Rysbelus. He was also recently seen by lumber checker and recommended Lasix surgery. He does also follow with podiatry for plantar fasciitis. I have discussed discussing with his provider cortisone injections. Hyperlipidemia - His previous LDL is within goal of 73. 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 Chronic kidney disease stage 3a. 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 He is not volume overloaded. Avoid nephrotoxins and NSAIDs. He has a follow-up in April. Pending blood work to be done. Plantar fascitis- He was recommended orthotics. Discussed salt-warm water foot soak. He follows with [facility] podiatry. Shoulder pain: He follows with [facility] dic clinic require a referral to neck pain. We will refer patient. I have rendered the services for this patient under direct supervision of Dr. Torres, who did not see the patient but was available upon request 04/24/2025 Plantar fascial fibromatosis (ICD-10 - M72.2) Mr. Hernandez is a 54-year-old gentleman with type 2 diabetes mellitus, hypertension, hyperlipidemia, hypothyroidism, ,obstructive sleep apnea, generalized anxiety disorder/depressio n and insomnia here for follow up. Plan as follows Chronic pain secondary to degenerative disc disease. Prognosis: Mild to moderate Medical necessity supported by H&P, imaging and testing [facility] pain treatment protocol completed. Yes I have increased oxycodone to 20 mg every 6 hours. Discussed with patient that medication will no longer be further adjusted, given Sleep apnea and risk of MEDIA DEVELOPER depression. Chronic opioid/pain maintenance. This patient request for [...] opioid misuse based on ORT. Toxicology and PALEONTOLOGICAL HELPER monitoring done and will follow protocol set forth by practice. As such controlled substance use requires judicious monitoring to access patient compliance with mutually agreed upon controlled substance use agreement which has been signed by the patient and initiation of controlled substance prescribing. Therefore following state, Federal, [facility] guidelines for controlled substance testing policies. This patient has been assessed on the basis of psychometric risk tool, PALEONTOLOGICAL HELPER monitoring, toxicology test results. Comorbid conditions may [...] he has uncontrolled type II diabetes with neuropathy.Pain management will not evaluate patient at this point due to uncontrolled diabetes. Counseling done. Hypertension - Blood pressure is high normal control. Continue the same regimen. Increase hydration to reduce salt intake are recommended. Weight loss is also recommended. We will check BP in 4 weeks. Type 2 diabetes - Previous a1c of 8.8. Adjustment of diabetic medications is usually through his refresh technician. Humalog was adjusted to 60 before meal. He resumed himself on Mounjaro 2.5mg. Tolerating the medication. He has a follow-up with Spreading Machine Operator coming up next month Hyperlipidemia - His previous LDL is within goal of 73. 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 Chronic kidney disease stage 3a. 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 He is not volume overloaded. He is off of Lasix and Jardiance. per electrician apprentice note, it is permissible for short-term only to be on NSAIDs and to be taken sparingly. Plantar fascitis- He was recommended orthotics. Discussed salt-warm water foot soak. He follows with [facility] podiatry. Shoulder pain: He follows with [facility].Orthope dic clinic require a referral to neck pain. We will refer patient. I have rendered the services for this patient under direct supervision of Dr. Torres, who did not see the patient but was available upon request 06/19/2025 Chronic kidney disease, unspecified (ICD-10 - N18.9) Mr. Hernandez is a 54-year-old gentleman with type 2 diabetes mellitus, hypertension, hyperlipidemia, hypothyroidism, ,obstructive sleep apnea, generalized anxiety disorder/depressio n and insomnia here for follow up. Plan as follows Chronic pain secondary to degenerative disc disease. Prognosis: Mild to moderate Medical necessity supported by H&P, imaging and testing [facility] pain treatment protocol completed. Yes I have increased oxycodone to 20 mg every 6 hours. Discussed with patient that medication will no longer be further adjusted, given Sleep apnea and risk of MEDIA DEVELOPER depression. Chronic opioid/pain maintenance. This patient request for [...] opioid misuse based on ORT. Toxicology and PALEONTOLOGICAL HELPER monitoring done and will follow protocol set [...] on the basis of psychometric risk tool, PALEONTOLOGICAL HELPER monitoring, toxicology test results. Comorbid conditions may [...] he has uncontrolled type II diabetes with neuropathy.Pain management will not evaluate patient at this point due to uncontrolled diabetes. Counseling done. Hypertension -Blood pressure is within normal limits. Continue the same regimen. Increase hydration to reduce salt intake are recommended. Weight loss is also recommended. Bilateral 2+ pitting edema is noted in the exam. Is currently off of furosemide as he was on 40 mg twice a day. He does mention an improvement in his GFR to 50. Given 2+ pitting edema we will check BMP today resume patient on 40 mg of furosemide for 3 days and BMP to be rechecked after. I did discuss with patient to consult with his electrician apprentice as he has an appointment coming up to discuss on possibility with being on low-dose Lasix daily or every other day. Type 2 diabetes - A1c improved to 7.9. Adjustment of diabetic medications is usually through his refresh technician. Humalog was adjusted to 60 before meal. Mounjaro Was discontinued by his refresh technician and a history of pancreatitis. Plantar fascitis- He was recommended orthotics. Discussed salt-warm water foot soak. He follows with [facility] podiatry. I have rendered the services for this patient under direct supervision of Dr. Torres, who did not see the patient but was available upon request 07/17/2025 Chronic kidney disease, unspecified (ICD-10 - N18.9) Mr. Hernandez is a 54-year-old gentleman with type 2 diabetes mellitus, hypertension, hyperlipidemia, hypothyroidism, ,obstructive sleep apnea, generalized anxiety disorder/depressio n and insomnia here for follow up. Plan as follows Chronic pain secondary to degenerative disc disease. Prognosis: Mild to moderate Medical necessity supported by H&P, imaging and testing [facility] pain treatment protocol completed. Yes I have increased oxycodone to 20 mg every 6 hours. Discussed with patient that medication will no longer be further adjusted, given Sleep apnea and risk of MEDIA DEVELOPER depression. Chronic opioid/pain maintenance. This patient request for [...] opioid misuse based on ORT. Toxicology and PALEONTOLOGICAL HELPER monitoring done and will follow protocol set forth by practice. As such controlled substance use requires judicious monitoring to access patient compliance with mutually agreed upon controlled substance use agreement which has been signed by the patient and initiation of controlled substance prescribing. Therefore following state, Federal, [facility] guidelines for controlled substance testing policies. This patient has been assessed on the basis of psychometric risk tool, PALEONTOLOGICAL HELPER monitoring, toxicology test results. Comorbid conditions may [...] he has uncontrolled type II diabetes with neuropathy.Pain management will not evaluate patient at this point due to uncontrolled diabetes. Counseling done. Hypertension -Blood pressure is within normal limits. Continue the same regimen. Increase hydration to reduce salt intake are recommended. Weight loss is also recommended. Type 2 diabetes - A1c improved to 7.9. Adjustment of diabetic medications is usually through his refresh technician. Humalog was adjusted to 60 before meal. Mounjaro Was discontinued by his refresh technician and a history of pancreatitis. Plantar fascitis - He was recommended orthotics. Discussed salt-warm water foot soak. He follows with [facility] podiatry. I have rendered the services for this patient under direct supervision of Dr. Torres, who did not see the patient but was available upon request 07/17/2025 Plantar fascial fibromatosis (ICD-10 - M72.2) Mr. Hernandez is a 54-year-old gentleman with type 2 diabetes mellitus, hypertension, hyperlipidemia, hypothyroidism, ,obstructive sleep apnea, generalized anxiety disorder/depressio n and insomnia here for follow up. Plan as follows Chronic pain secondary to degenerative disc disease. Prognosis: Mild to moderate Medical necessity supported by H&P, imaging and testing [facility] pain treatment protocol completed. Yes I have increased oxycodone to 20 mg every 6 hours. Discussed with patient that medication will no longer be further adjusted, given Sleep apnea and risk of MEDIA DEVELOPER depression. Chronic opioid/pain maintenance. This patient request for [...] opioid misuse based on ORT. Toxicology and PALEONTOLOGICAL HELPER monitoring done and will follow protocol set forth by practice. As such controlled substance use requires judicious monitoring to access patient compliance with mutually agreed upon controlled substance use agreement which has been signed by the patient and initiation of controlled substance prescribing. Therefore following state, Federal, [facility] guidelines for controlled substance testing policies. This patient has been assessed on the basis of psychometric risk tool, PALEONTOLOGICAL HELPER monitoring, toxicology test results. Comorbid conditions may [...] he has uncontrolled type II diabetes with neuropathy.Pain management will not evaluate patient at this point due to uncontrolled diabetes. Counseling done. Hypertension -Blood pressure is within normal limits. Continue the same regimen. Increase hydration to reduce salt intake are recommended. Weight loss is also recommended. Type 2 diabetes - A1c improved to 7.9. Adjustment of diabetic medications is usually through his refresh technician. Humalog was adjusted to 60 before meal. Mounjaro Was discontinued by his refresh technician and a history of pancreatitis. Plantar fascitis - He was recommended orthotics. Discussed salt-warm water foot soak. He follows with [facility] podiatry. I have rendered the services for this patient under direct supervision of Dr. Torres, who did not see the patient but was available upon request 06/19/2025 Plantar fascial fibromatosis (ICD-10 - M72.2) Mr. Hernandez is a 54-year-old gentleman with type 2 diabetes mellitus, hypertension, hyperlipidemia, hypothyroidism, ,obstructive sleep apnea, generalized anxiety disorder/depressio n and insomnia here for follow up. Plan as follows Chronic pain secondary to degenerative disc disease. Prognosis: Mild to moderate Medical necessity supported by H&P, imaging and testing [facility] pain treatment protocol completed. Yes I have increased oxycodone to 20 mg every 6 hours. Discussed with patient that medication will no longer be further adjusted, given Sleep apnea and risk of MEDIA DEVELOPER depression. Chronic opioid/pain maintenance. This patient request for [...] opioid misuse based on ORT. Toxicology and PALEONTOLOGICAL HELPER monitoring done and will follow protocol set [...] on the basis of psychometric risk tool, PALEONTOLOGICAL HELPER monitoring, toxicology test results. Comorbid conditions may [...] he has uncontrolled type II diabetes with neuropathy.Pain management will not evaluate patient at this point due to uncontrolled diabetes. Counseling done. Hypertension -Blood pressure is within normal limits. Continue the same regimen. Increase hydration to reduce salt intake are recommended. Weight loss is also recommended. Bilateral 2+ pitting edema is noted in the exam. Is currently off of furosemide as he was on 40 mg twice a day. He does mention an improvement in his GFR to 50. Given 2+ pitting edema we will check BMP today resume patient on 40 mg of furosemide for 3 days and BMP to be rechecked after. I did discuss with patient to consult with his electrician apprentice as he has an appointment coming up to discuss on possibility with being on low-dose Lasix daily or every other day. Type 2 diabetes - A1c improved to 7.9. Adjustment of diabetic medications is usually through his refresh technician. Humalog was adjusted to 60 before meal. Mounjaro Was discontinued by his refresh technician and a history of pancreatitis. Plantar fascitis- He was recommended orthotics. Discussed salt-warm water foot soak. He follows with [facility] podiatry. I have rendered the services for this patient under direct supervision of Dr. Torres, who did not see the patient but was available upon request 03/27/2025 Cervicalgia (ICD-10 - M54.2) Mr. Hernandez is a 54-year-old gentleman with type 2 diabetes mellitus, hypertension, hyperlipidemia, hypothyroidism, ,obstructive sleep apnea, generalized anxiety disorder/depressio n and insomnia here for follow up. Plan as follows Chronic pain secondary to degenerative disc disease. Prognosis: Mild to moderate Medical necessity supported by H&P, imaging and testing [facility] pain treatment protocol completed. Yes I have increased oxycodone to 20 mg every 6 hours. Discussed with patient that medication will no longer be further adjusted, given Sleep apnea and risk of MEDIA DEVELOPER depression. Chronic opioid/pain maintenance. This patient request for [...] opioid misuse based on ORT. Toxicology and PALEONTOLOGICAL HELPER monitoring done and will follow protocol set [...] on the basis of psychometric risk tool, PALEONTOLOGICAL HELPER monitoring, toxicology test results. Comorbid conditions may [...] he has uncontrolled type II diabetes with neuropathy.Pain management will not evaluate patient at this point due to uncontrolled diabetes. Counseling done. Hypertension - Blood pressure is high normal control. Continue the same regimen. Increase hydration to reduce salt intake are recommended. Weight loss is also recommended. We will check BP in 4 weeks. Type 2 diabetes - Previous a1c of 8.8. Adjustment of diabetic medications is usually through his refresh technician. Humalog was adjusted to 60 before meal. He states that he is noncompliant with his diets. Jardiance was d/c by neprologist due to metabolic acidosis. Discussed a trial of ozempic again or can do a trial of Rysbelus. He was also recently seen by lumber checker and recommended Lasix surgery. He does also follow with podiatry for plantar fasciitis. I have discussed discussing with his provider cortisone injections. Hyperlipidemia - His previous LDL is within goal of 73. 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 Chronic kidney disease stage 3a. 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 He is not volume overloaded. Avoid nephrotoxins and NSAIDs. He has a follow-up in April. Pending blood work to be done. Plantar fascitis- He was recommended orthotics. Discussed salt-warm water foot soak. He follows with [facility] podiatry. Shoulder pain: He follows with [facility]ope dic clinic require a referral to neck pain. We will refer patient. I have rendered the services for this patient under direct supervision of Dr. Torres, who did not see the patient but was available upon request 05/22/2025 Plantar fascial fibromatosis (ICD-10 - M72.2) Mr. Hernandez is a 54-year-old gentleman with type 2 diabetes mellitus, hypertension, hyperlipidemia, hypothyroidism, ,obstructive sleep apnea, generalized anxiety disorder/depressio n and insomnia here for follow up. Plan as follows Chronic pain secondary to degenerative disc disease. Prognosis: Mild to moderate Medical necessity supported by H&P, imaging and testing [facility] pain treatment protocol completed. Yes I have increased oxycodone to 20 mg every 6 hours. Discussed with patient that medication will no longer be further adjusted, given Sleep apnea and risk of MEDIA DEVELOPER depression. Chronic opioid/pain maintenance. This patient request for [...] opioid misuse based on ORT. Toxicology and PALEONTOLOGICAL HELPER monitoring done and will follow protocol set forth by practice. As such controlled substance use requires judicious monitoring to access patient compliance with mutually agreed upon controlled substance use agreement which has been signed by the patient and initiation of controlled substance prescribing. Therefore following state, Federal, [facility] guidelines for controlled substance testing policies. This patient has been assessed on the basis of psychometric risk tool, PALEONTOLOGICAL HELPER monitoring, toxicology test results. Comorbid conditions may [...] he has uncontrolled type II diabetes with neuropathy.Pain management will not evaluate patient at this point due to uncontrolled diabetes. Counseling done. Hypertension -Blood pressure is within normal limits. Continue the same regimen. Increase hydration to reduce salt intake are recommended. Weight loss is also recommended. Bilateral 2+ pitting edema is noted in the exam. Is currently off of furosemide as he was on 40 mg twice a day. He does mention an improvement in his GFR to 50. Given 2+ pitting edema we will check BMP today resume patient on 40 mg of furosemide for 3 days and BMP to be rechecked after. I did discuss with patient to consult with his electrician apprentice as he has an appointment coming up to discuss on possibility with being on low-dose Lasix daily or every other day. Type 2 diabetes - Previous a1c of 8.8. Adjustment of diabetic medications is usually through his refresh technician. Humalog was adjusted to 60 before meal. He resumed himself on Mounjaro 2.5mg. Tolerating the medication. He has a follow-up with Spreading Machine Operator This month Plantar fascitis- He was recommended orthotics. Discussed salt-warm water foot soak. He follows with [facility] podiatry, Has an appointment for follow-up on May 28 I have rendered the services for this patient under direct supervision of Dr. Torres, who did not see the patient but was available upon request Plan Of Treatment Pending Test Test Name Order Date CT Scan : Chest W W/O Contrast CT Abdomen & Pelvis W/WO Cont 12/26/2024 CT Brain WO 12/26/2024 Xray: Shoulder Right-Min 2 Vws 4 Hemoglobin [id number] 10/03/2024 Hemoglobin [id number] 10/31/2024 ColoFIT,Occult Blood,Fecal,[id number] 06/2025 TSH+Free [id number] 10/31/2024 TSH+Free T4 10/03/2024 DRUG MONITOR, ZOLPIDEM, QN, URINE ([id number] ) 11/29/2024 Next Appt Details Provider Name:Ethan nelson, 09/16/2025 01:15:00 PM, [address] [place] [address], [id number], Insurance Providers Payer Name Payer Address Payer Phone Subscriber Number Group Number Insured Name Patient Relationship to Insured Coverage Start Date Coverage End Date [facility] [employer] [address] [place] [id number] Peter Hernandez Self - patient is the insured Medical (General) History Medical History History ICD Code type 2 diabetes mellitus see [facility] e ndocrinology hypertension hyperlipidemia generalized anxiety disorder insomnia hypothyroidism CKD-[facility] Surgical History Surgery Date(Month/Year) partial thyroidectomy left distal toe amputation
== END 2025-07-26 07:16 | disposition home or self-care (01) ==
LOC: HO.MRI 07:15
PROVIDERS: Visit Provider Orthopaedic Surgery
DX: M25.311 Other instability, right shoulder (principal); M54.2 Cervicalgia
CPT/HCPCS: 72141; 73221

== ENCOUNTER → 2025-07-26 07:21 | Outpatient (BNV) | payer OTHER, SELFPAY | PROVIDERS: Visit Provider Radiology Diagnostic Ultrasound | DX: M54.2 Cervicalgia (principal) | CPT/HCPCS: 72141; 73221 ==

== ENCOUNTER 2025-07-31 11:17 | Outpatient (AMB) | payer OTHER, SELFPAY ==
--- NOTE | 2025-07-31 11:20 | A.OFFVIS_ITS ---
Vital Signs 07/31/25 11:24 Height 6 ft 4 in Weight 350 lb BMI 42.6 Intake Visit Reasons: [employer]- Cervicalgia neck pain Intake Note: Peter is a 54 year old male who presents today as a new patient for his cervicalgia neck pain. Patient was referred by his PCP 04/01/25. At today's visit he states that for the past year he has had left sided neck pain. He states that he is currently seeing DR for left shoulder pain and was sent for an MRI of the Cervical spine 07/26/25. Patient states that he is taking pain medication for his back, knee and feels that it helps relieve the neck pain. Allergies codeine (Codeine) Allergy (Unknown, Unverified 03/06/25 14:09) RASH [id number] Reductase Inhibitor Adverse Reaction (Severe, Verified 03/06/25 14:10) Joint Pain Medication List - Last Reconciled 07/31/25 by Mahogany Orr MD carvedilol 6.25 mg PO BID cholecalciferol (vitamin D3) 50 mcg PO DAILY finasteride 5 mg PO DAILY fluticasone propionate 50 mcg/actuation 1 spray intranasal DAILY furosemide 40 mg PO BID gabapentin 600 mg PO DAILY ibuprofen 800 mg PO Q8H PRN insulin regular hum U-500 conc (Humulin R U-500 (Conc) Insulin Kwikpen) 60 units subcut TID levothyroxine 150 mcg PO QAM niacin ER 1,000 mg PO DAILY oxycodone 15 mg PO QID PRN potassium chloride ER 20 mEq PO DAILY zolpidem 10 mg PO BEDTIME PRN HPI Comments Details: Was seen Dr. Wilkes for shoulder pain. Cervical MRI reviewed as below. At least 1 year posterior neck pain, right sided. But also has right shoulder pain, radiates both downwards to elbow and into the neck. Some numbness on fingers that happens with neck pain. Neck pain worse with turning head, while he drives. Feels weakness, difficult to reach over head, drops things, can happen on both sides though. Separate back and knee pain, uses cane. No bladder/bowel incontinence. Poor balance or stagges sometimes. [facility] Social History (Updated 03/06/25 @ 14:09 by TAQUERIA Vizcaino) Patient Tobacco Use Status: Current everyday Tobacco user Current occupational status: retired Current occupation: rt handed Review of Systems Const All systems reviewed & are unremarkable except as noted in HPI and below Physical Exam Exam Exam: Constitutional: Patient appears to be in no acute distress, well nourished and well developed. Patient was appropriately conversant and oriented. Good historian. MSK: Inspection reveals appropriate head and neck positioning. Tender right-sided cervical facets, paraspinals, subacromial area, upper trapezius. Cervical ROM was full. Spurling's sign negative. Limited right shoulder range of motion due to pain. Unable to do empty can sign or Mcallister sign due to pain. Strength is 5/5 in all muscle groups tested. No increased tone noted. Neurological: Neurologic examination of the upper and lower extremities was nonfocal with intact sensation, muscle stretch reflexes and without focal motor deficits . Wills?s negative bilaterally. Babinski was down going bilaterally. Clonus was negative. Gait is non-antalgic without loss of balance. Results Reviewed Results Reviewed: I independently reviewed the results of the following: Central disc herniation most notable at C5-6 with indentation to the spinal cord, also at C4-5 and C6-7. Question increased signal in the spinal cord at level between C4-5 and C5-6. This was not mentioned on the report. Ordering Physician: Yobany Cortes MD Date of Service: 07/26/25 Procedure(s): MR cervical spine wo con Accession Number(s): [id number] cc: Yobany Cortes MD~ Reason for Exam: M54.2 - Cervicalgia CLINICAL HISTORY: M54.2 - Cervicalgia Exam: MRI cervical spine without IV contrast Comparison: None Findings: Some sequences are repeated due to motion and artifacts. Cervical spine alignment is normal. Atlantoaxial relationship is normal. No acute fracture, osseous lesion or suspicious bone marrow signal. Craniocervical junction and cervical spinal cord are normal. Congenitally small cervical spinal canal. Ill-defined T2 hyperintense signal of the soft tissue between spinous processes of C2/C3, C3/C4. Unremarkable paraspinal musculature, prevertebral soft tissue and imaged neck. Moderate arthrosis of the median atlantoaxial articulation. C2-3: Small posterior central focal disc protrusion, facet arthrosis bilaterally. No central canal stenosis or foraminal narrowing. C3-4: Mild diffuse posterior disc bulge. Small uncovertebral osteophytes. Mild central canal stenosis. Mild facet arthrosis, right facet prominent joint effusion. C4-5: Small posterior central focal disc protrusion, bilateral facet arthrosis, worse on the right. Mild central canal stenosis, no foraminal narrowing. C5-6: Diffuse posterior disc bulge 3 mm in AP dimension, mild central canal stenosis, the disc is slightly indenting spinal cord at the midline. Facet arthrosis. Mild left foraminal narrowing. No right foraminal narrowing. C6-7: Minimal diffuse posterior disc bulge. Equivocal central canal stenosis. Bilateral facet arthrosis. No foraminal narrowing. C7-T1: Normal disc. Facet arthrosis is more conspicuous on the left. No central canal stenosis or foraminal narrowing. Impression: 1. T2 hyperintense signal between spinous processes C2 to C4, may reflect interspinous bursitis or ligamentous strain. 2. Prominent facet joint effusion of right C3-4. 3. Multilevel degenerative spondylosis of cervical spine with background congenitally small spinal canal, no high-grade central canal stenosis or foraminal narrowing. This document has been electronically signed by: Julia Hart MD on 07/29/2025 14:34:18 Ordering Physician: Yobany Cortes MD Date of Service: 07/26/25 Procedure(s): MR shoulder RT wo con Accession Number(s): [id number] cc: Yobany Cortes MD~ Reason for Exam: M25.311 - Other instability, right shoulder EXAMINATION: MR SHOULDER WITHOUT CONTRAST, RIGHT CLINICAL INFORMATION: Instability COMPARISON: X-ray 03/06/2025 TECHNIQUE: MRI of the shoulder without contrast was performed on a high-field scanner. FINDINGS: ROTATOR CUFF: Supraspinatus: Full-thickness tear measuring 3 cm AP, up to 2.1 cm medial-lateral. Intact fibers demonstrate mild tendinosis. Infraspinatus: Mild tendinosis. Mild bursal surface fraying in the anterior fibers. Teres minor: Intact. Subscapularis: Moderate tendinosis. No muscle atrophy or fatty infiltration. BICEPS: The proximal tendon is not visualized, suspicious for full-thickness tearing.. CORACOACROMIAL ARCH: The undersurface of the acromion is curved with no subacromial spur. Mild acromioclavicular arthritis. There is fluid in the subacromial subdeltoid space. LABRUM/CAPSULE: Superior labrum is small in caliber, suspicious for tearing. No labral tear is otherwise seen. GLENOHUMERAL JOINT/MARROW: Mild glenohumeral joint arthritis. Greater tuberosity subcortical cysts, with reactive/degenerative edema. No fracture.. Small effusion. No axillary lymphadenopathy. MR/MR shoulder RT wo con IMPRESSION: * Supraspinatus full-thickness tear measuring 3 x 2.1 cm. Intact fibers demonstrate mild tendinosis. * Mild infraspinatus tendinosis, bursal surface fraying. * Moderate subscapularis tendinosis * Findings suspicious for proximal long head biceps tendon full-thickness tear. *Superior labral findings suspicious for a tear. *Mild glenohumeral joint arthritis. Small effusion. *Mild acromioclavicular arthritis. Electronically signed by: Jn Slaughter MD 07/28/2025 08:11 AM EST I reviewed records from the following: Dr. Cortes Assessment & Plan Assessment & Plan (1) Spinal cord compression: Code(s): G95.20 - Unspecified cord compression Category: Medical (2) Cervical disc herniation: Code(s): M50.20 - Other cervical disc displacement, unspecified cervical region Category: Medical Plan 1. Cervical MRI images reviewed with patient. Central disc herniation seen most notable C5-6, but also C4-5 and C6-C7. Disc herniation indents into the spinal cord. Question myelomalacia or increased signal in the spinal cord, that was not mentioned in the radiologist report. Would like neurospine's opinion on this. Note that I do not see red flags or signs of myelopathy on exam today. If deemed not needing surgery, then we can send him for cervical epidural injection or further physical therapy. 2. Right shoulder pain which I believe is separate from his neck pain, with rotator cuff tear seen on MRI. He saw Dr. Cortes and will see Dr. Calvert on 08/25. Assessment and plan discussed with patient, and patient was agreeable. All questions were answered thoroughly. Follow up after neuro spine consult. Mahogany Orr MD, STEPHANIE Board Certified, [place] [employer] and [employer] (ABPMR) Board Certified, [place] [employer] (ABEM) Orders: Referrals Neurosurgery Referral G95.20 - Unspecified cord compression, M50.20 - Other cervical disc displacement, unspecified cervical region Coding Level of Care Code New Pt Level 4 (92779) Diagnoses Spinal cord compression G95.20 Cervical disc herniation M50.20
[2025-07-31 11:24] VITALS: BMI 42.6
--- OUTSIDE RECORDS SUMMARY | 2025-07-31 14:21 | XMS_ITS | Patient Health Record ---
Author Organization [facility] Address [address] [place] [address] [address] [place] [address] Care Team Providers Care Parquetry Layer Name Role Phone CORKY TORRES Primary Care Provider [phone] Ethan Craig Unavailable [phone] Allergies Allergen (clinical drug ingredient) Drug/Non Drug Allergy documented on EMR Reaction Allergy Type Onset Date Status Codeine Phosphate Unknown Drug Allergy Active Substance with 5-rleshnd-9-methylglut aryl-coenzyme A reductase inhibitor mechanism of action (substance) Statins muscle pain Drug Allergy Active Results Component Value Reference Range Notes Basic Metabolic Panel [phone] Reviewed date:05/28/2025 11:28:56 AM Interpretation: Performing Lab:[facility], [address] [place] [address], Phone - [phone], Director - Marcella Notes/Report: Glucose 205 70-99 mg/dL BUN 16 6-24 mg/dL Creatinine 1.23 0.76-1.27 mg/dL eGFR 69 >59 mL/min/1.73 BUN/Creatinine Ratio 13 9-20 Sodium 142 134-144 mmol/L Potassium 5.1 3.5-5.2 mmol/L Chloride 107 96-106 mmol/L Carbon Dioxide, Total 19 20-29 mmol/L Zolpidem, UR Confirmation Reviewed date:01/28/2025 07:43:10 AM Interpretation: Performing Lab:[facility], [address] [place] [address], Phone - [phone], Director - Suzie Notes/Report: Zolpidem Confirmation Positive Zolpidem Acid PRESENT Screening Confirmation Threshold Threshold Analyte --------- --------- -------- 2.0 ng/mL 2.0 ng/mL Zolpidem 10.0 ng/mL 10.0 ng/mL Zolpidem Acid This test was developed and its performance characteristics determined by [employer] It has not been cleared or approved by the Food and Drug Administration. REFERENCE RANGE: NOT ESTABLISHED Zolpidem Negative REFERENCE RANGE : NOT ESTABLISHED TSH+Free T4 Reviewed date:12/10/2024 06:05:18 PM Interpretation: Performing Lab:[facility], [address] [place] [address], Phone - [phone], Director - [facility] Notes/Report: TSH-ICMA 2.3 Reference Range: Non- Adult 0.450-4.500 Free T4 by Dialysis/Delicatessen Slicer 1.5 This test was developed and its performance characteristics determined by [employer]. It has not been cleared or approved by the Food and Drug Administration. Reference Range: Pubertal Children and Adults: 0.8 - 1.7 Hemoglobin [id number] Reviewed date:12/10/2024 06:05:24 PM Interpretation: Performing Lab:[facility], [address] [place] [address], Phone - [phone], Director - [facility] Notes/Report: Hemoglobin A1c 8.8 4.8-5.6 % . Prediabetes: 5.7 - 6.4 Diabetes: >6.4 Glycemic control for adults with diabetes: <7.0 Basic Metabolic Panel ([phone] Reviewed date:06/24/2025 12:00:48 PM Interpretation: Performing Lab:[facility], [address] [place] [address], Phone - [phone], Director - Marcella Notes/Report: Glucose 223 70-99 mg/dL BUN 15 6-24 mg/dL Creatinine 1.17 0.76-1.27 mg/dL eGFR 74 >59 mL/min/1.73 BUN/Creatinine Ratio 13 9-20 Sodium 141 134-144 mmol/L Potassium 4.6 3.5-5.2 mmol/L Chloride 104 96-106 mmol/L Carbon Dioxide, Total 22 20-29 mmol/L Calcium 9.5 8.7-10.2 mg/dL Basic Metabolic Panel (7)-30 [id number] Reviewed date:05/27/2025 09:57:03 AM Interpretation: Performing Lab:[facility], [address] [facility] [place], Phone - [phone], Director - Marcella Notes/Report: Glucose 323 70-99 mg/dL BUN 17 6-24 mg/dL Creatinine 1.18 0.76-1.27 mg/dL eGFR 73 >59 mL/min/1.73 BUN/Creatinine Ratio 14 9-20 Sodium 136 134-144 mmol/L Potassium 5.3 3.5-5.2 mmol/L Chloride 105 96-106 mmol/L Carbon Dioxide, Total 17 20-29 mmol/L Zolpidem, UR Screen W RFX Co nf Reviewed date:01/28/2025 07:43:21 AM Interpretation: Performing Lab:[facility], [address] [place] [address], Phone - [phone], Director - Suzie Notes/Report: Zolpidem Screen Further testing indicated Screening threshold: 2.0 ng/mL Screening analysis for zolpidem performed by Liquid Chromatography with Tandem Mass Spectrometry (LC/MS/MS). This test was developed and its performance characteristics determined by [employer]. It has not been cleared or approved by the Food and Drug Administration. Written Authorization Reviewed date:01/28/2025 07:43:14 AM Interpretation: Performing Lab:[facility], [address] [place] [address], Phone - [phone], Director - Suzie Notes/Report: Written Authorization Written Authorization Received. Authorization received from ORIGINAL REQUEST 12-04-2024 Logged by Alison Howard Lipid Panel-[id number] Reviewed date:02/07/2025 03:03:16 PM Interpretation: Performing Lab:[facility] [place], [address] [facility], [place], Phone - [phone], Director - Marcella Notes/Report: Cholesterol, Total 138 100-199 mg/dL Triglycerides 201 0-149 mg/dL HDL Cholesterol 31 >39 mg/dL VLDL Cholesterol Pankaj 34 5-40 mg/dL LDL Chol Calc (NIH) 73 0-99 mg/dL CBC with Diff, Platelet, NLR -[id number] Reviewed date:02/07/2025 03:04:42 PM Interpretation: Performing Lab:[facility], [address] [facility], Phone - [phone], Director - Bany Notes/Report: WBC 11.1 3.4-10.8 x10E3/uL RBC 5.06 [...] % Immature Grans (Abs) 0.0 0.0-0.1 x10E3/uL Ferritin-[id number] Reviewed date:02/07/2025 03:04:24 PM Interpretation: Performing Lab:[facility], [address] [facility], Phone - [phone], Director - Bany Notes/Report: Ferritin 116 30-400 ng/mL Iron and TIBC-[id number] Reviewed date:02/07/2025 03:04:49 PM Interpretation: Performing Lab:[facility] [place], [address] [facility], Phone - [phone], Director - Bany Notes/Report: Iron Bind.Cap.(TIBC) 290 250-450 ug/dL UIBC 170 111-343 ug/dL Iron 120 38-169 ug/dL Iron Saturation 41 15-55 % LDH-[id number] Reviewed date:02/07/2025 03:04:30 PM Interpretation: Performing Lab:[facility], [address], [place], Phone - [phone], Director - Marcella Notes/Report: LDH 208 121-224 IU/L Reason For Referral Reason please evaluate and treat Diagnosis 1 Pain in right should er (M25.511) Referral Organization [facility] Referring Provider First Name [facility] Ref[facility]erred Provider Specialty Orthopedic S urgery General Notes REFERRAL WAS FAXED T [facility] PLEASE CONTACT PATIENT FOR SCHEDULING.Jez Rashida 10/03/2024 04:50:54 PM > Referral Priority Routine Reason EGD and C-scope, pos itive cologuard Please evaluate and treat Diagnosis 1 Weight loss, uninten tional (R63.4) Referral Organization [facility] Referring Provider First Name [facility] Referring Provider Last Name [facility] Referred Provider Specialty Gastroentero logy General Notes Please call the johnny ent to schedule the appointment, Referral has been faxed to [facility] - [phone] Charmain 12/26/2024 04:17:19 PM > Referral Priority Routine Reason please evaluate and treat Please evaluate and treat Diagnosis 1 Chronic pain syndrom e (G89.4) Referral Organization [facility] Referring Provider First Name [facility] Referring Provider Last Name Har[facility] Referred Provider Specialty Pain Medicin e General Notes Please call the johnny ent to schedule the appointment, [facility]. Please contact them at [phone], Makayla Madrigal 01/30/2025 03:59:43 PM > Referral Priority Routine Reason [facility] evaluate and treat Please evaluate and treat Diagnosis 1 Cervicalgia (M54.2) Referral Organization [facility] Referring Provider First Name [facility] Referring Provider Last Name Haroonlo Referred Provider Specialty Orthopedic S urgery General [...] Once a day; Duration: 90 days Active FreeStyle Lite w/Device as directed 06/03/2024 Active Insulin Syringe-Needle U-100 32G X 01/31 0.5 ML as directed to inject insulin [...] a day; Duration: 90 days Not-Taking Creon 6000-09992 UNIT as directed Orally Active Furosemide 40 [...] a day; Duration: 90 days 06/23/2025 Active Baclofen 20 MG 1 tablet Administer without regards to meals as needed Orally Three times a day; Duration: 90 days Active oxyCODONE HCl 20 MG 1 tablet as needed Orally every 6 hrs; Duration: 28 days Partial Fill upon Patient Request 07/31/2025 Active Social History Tobacco Use: Social History Observation Description Date Details (start date - stop date) Current Smoker NA - NA Tobacco Use/Smoking Question Answer Notes Are you a current smoker How often do you smoke cigarettes? 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) Active confirmed Problem Morbid obesity (disorder) (150833072) Morbid (severe) obesity due to excess calories (E66.01) Active confirmed Problem Mixed hyperlipidemia (479929010) Mixed hyperlipidemia (E78.2) Active confirmed Problem Tobacco user (968609638) Nicotine dependence, cigarettes, uncomplicated (F17.210) Active confirmed Problem Generalized anxiety disorder (85701469) Generalized anxiety disorder (F41.1) Active confirmed Problem Insomnia (104398502) Insomnia, unspecified (G47.00) Active confirmed Problem Chronic pain syndrome (778330410) Chronic pain syndrome (G89.4) Active confirmed Problem Cervicalgia (56356835) Cervicalgia (M54.2) Active confirmed Problem Plantar fascial fibromatosis (08150881) Plantar fascial fibromatosis (M72.2) Active confirmed Problem Chronic kidney disease (739150919) Chronic kidney disease, unspecified (N18.9) Active confirmed Problem Erectile dysfunction (disorder) (459722893) Male erectile dysfunction, unspecified (N52.9) Active confirmed Problem Essential hypertension (03585519) Essential (primary) hypertension (I10) Active confirmed Problem Lower urinary tract symptoms due to benign prostatic hypertrophy (97998128778829) Benign prostatic hyperplasia with lower urinary tract symptoms (N40.1) Active confirmed Problem Obstructive sleep apnea (35589992) Obstructive sleep apnea (G47.33) Active confirmed Vital Signs Heart Rate 77 /min 07/17/2025 Temperature 96.4 degrees Fahrenheit 07/17/2025 Blood pressure diastolic 82 mm Hg 07/17/2025 Oximetry 97 % 07/17/2025 Height 6'3'' in 07/17/2025 Blood pressure systolic 120 mm Hg 07/17/2025 Weight 355.0 lbs 07/17/2025 BMI 44.37 kg/m2 07/17/2025 Encounters Encounter Location Date Provider Diagnosis [address] [address] 08/08/2024 FRIEDWILFRED TORRES Chronic pain syndrom e G89.4 and Essential (primary) hypertension I10 [address] [address] 09/05/2024 Ethan Craig Chronic pain syndrom e G89.4 ; Essential (primary) hypertension I10 and Pain in right shoulder M25.[address] [address] 10/03/2024 Ghadeer Haroonloum Chronic pain syndrom e G89.4 ; Essential (primary) hypertension I10 ; Pain in right shoulder M25.511 ; Hypothyroidism, unspecified E03.9 and Diabetes mellitus due to underlying condition with diabetic nephropathy E08.[address] [address] 10/17/2024 Ethan Craig Acute sinusitis, unspecified J01.[address] [address] 10/31/2024 Ghadeer Mazloum Chronic pain syndrom e G89.4 ; Essential (primary) hypertension I10 ; Hypothyroidism, unspecified E03.9 and Diabetes mellitus due to underlying condition with diabetic nephropathy E08.[address] [place] [address] 11/28/2024 Ghadeer Mazloum Chronic pain syndrom e G89.4 and Essential (primary) hypertension I10 [address] [place] [address] 12/26/2024 Ghadeer Mazloum Chronic pain syndrom e G89.4 ; Essential (primary) hypertension I10 ; Mixed hyperlipidemia E78.2 and Weight loss, unintentional R63.[address] [place] [address] 01/28/2025 Ghadeer Mazloum Chronic pain syndrom e G89.4 ; Essential (primary) hypertension I10 ; Mixed hyperlipidemia E78.2 ; Diabetes mellitus due to underlying condition with diabetic nephropathy E08.21 and Chronic kidney disease, unspecified N18.[address] [place] [address] 02/25/2025 Ghadeer Mazloum Chronic pain syndrom e G89.4 ; Essential (primary) hypertension I10 ; Mixed hyperlipidemia E78.2 ; Diabetes mellitus due to underlying condition with diabetic nephropathy E08.21 and Chronic kidney disease, unspecified N18.[address] [place] [address] 03/27/2025 Ghadeer Mazloum Chronic pain syndrom e G89.4 ; Essential (primary) hypertension I10 ; Mixed hyperlipidemia E78.2 ; Diabetes mellitus due to underlying condition with diabetic nephropathy E08.21 ; Chronic kidney disease, unspecified N18.9 ; Plantar fascial fibromatosis M72.2 and Cervicalgia M54.[address] [place] [address] 04/24/2025 Ghadeer Mazloum Chronic pain syndrom e G89.4 ; Essential (primary) hypertension I10 ; Mixed hyperlipidemia E78.2 ; Diabetes mellitus due to underlying condition with diabetic nephropathy E08.21 ; Chronic kidney disease, unspecified N18.9 and Plantar fascial fibromatosis M72.[address] [place] [address] 05/22/2025 Ghadeer Haroonloum Chronic pain syndrom e G89.4 ; Essential (primary) hypertension I10 ; Bilateral leg edema R60.0 ; Mixed hyperlipidemia E78.2 ; Diabetes mellitus due to underlying condition with diabetic nephropathy E08.21 ; Chronic kidney disease, unspecified N18.9 and Plantar fascial fibromatosis M72.[address] [place] [address] 06/19/2025 Ghadeer Mazloum Chronic pain syndrom e G89.4 ; Essential (primary) hypertension I10 ; Bilateral leg edema R60.0 ; Mixed hyperlipidemia E78.2 ; Diabetes mellitus due to underlying condition with diabetic nephropathy E08.21 ; Chronic kidney disease, unspecified N18.9 and Plantar fascial fibromatosis M72.[address] [place] [address] 07/17/2025 [facility]adeer [facility] Chronic pain syndrom e G89.4 ; Essential (primary) hypertension I10 ; Bilateral leg edema R60.0 ; Mixed hyperlipidemia E78.2 ; Diabetes mellitus due to underlying condition with diabetic nephropathy E08.21 ; Chronic kidney disease, unspecified N18.9 and Plantar fascial fibromatosis M72.[address] [place] [address] 10/03/[address] [place] [address] 10/04/[address] [place] [address] 10/14/[address] [place] [address] 11/29/2024 FRIED [facility] Other fdc (current) drug therapy Z79.[address] [place] [address] 12/04/2024 [facility] [address] [facility] [address] [place] [address] 01/22/2025 [facility] [address] [facility] [address] [place] [address] 02/17/2025 [facility] [address] [facility] [address] [place] [address] 03/24/2025 [facility] [address] [facility] [address] [place] [address] 03/31/2025 [facility] [address] [facility] [address] [place] [address] 04/01/2025 [facility] [address] [facility] [address] [place] [address] 04/22/2025 Ghbernardino Meloum Chronic pain syndrom e G89.4 [facility] [address] [facility] [address] [place] [address] 05/15/2025 [facility] [address] [facility] [address] [place] [address] 05/23/2025 FRIED GU Diabetes mellitus du e to underlying condition with diabetic nephropathy E08.21 [facility] [address] [facility] [address] [place] [address] 05/27/2025 FRIED GUL Essential (primary) hypertension I10 [facility] [address] [facility] [address] [place] [address] 06/02/2025 [facility] [address] [facility] [address] [place] [address] 06/11/2025 Ghjurgener Haroonloum Chronic pain syndrom e G89.4 [facility] [address] [facility] [address] [place] [address] 06/23/2025 [facility] [address] [facility] [address] [place] [address] 07/03/2025 [facility] [address] [facility] [address] [place] [address] 07/10/2025 [facility] [address] [facility] [address] [place] [address] 07/31/2025 [facility] Chronic pain syndrom e G89.4 Assessments Encounter Date Diagnosis (ICD Code) Assessment Notes Treatment Notes Treatment Clinical Notes Section Notes 08/08/2024 Chronic pain syndrome (ICD-10 - G89.4) Chronic pain secondary to degenerative disc disease. Prognosis: Mild to moderate Medical necessity supported by H&P, imaging and testing [place] pain treatment protocol completed. Yes Chronic opioid/pain [...] opioid misuse based on ORT. Toxicology and IMMIGRATION ASSOCIATE monitoring done and will follow protocol set [...] on the basis of psychometric risk tool, IMMIGRATION ASSOCIATE monitoring, toxicology test results. Comorbid conditions may [...] necessity supported by H&P, imaging and testing [place] pain treatment protocol completed. Yes Chronic opioid/pain [...] opioid misuse based on ORT. Toxicology and IMMIGRATION ASSOCIATE monitoring done and will follow protocol set forth by practice. As such controlled substance use requires judicious monitoring to access patient compliance with mutually agreed upon controlled substance use agreement which has been signed by the patient and initiation of controlled substance prescribing. Therefore following state, Federal, [facility] guidelines for controlled substance testing policies. This patient has been assessed on the basis of psychometric risk tool, IMMIGRATION ASSOCIATE monitoring, toxicology test results. Comorbid conditions may [...] necessity supported by H&P, imaging and testing [place] pain treatment protocol completed. Yes Chronic opioid/pain [...] opioid misuse based on ORT. Toxicology and IMMIGRATION ASSOCIATE monitoring done and will follow protocol set forth by practice. As such controlled substance use requires judicious monitoring to access patient compliance with mutually agreed upon controlled substance use agreement which has been signed by the patient and initiation of controlled substance prescribing. Therefore following state, Federal, [facility] guidelines for controlled substance testing policies. This patient has been assessed on the basis of psychometric risk tool, IMMIGRATION ASSOCIATE monitoring, toxicology test results. Comorbid conditions may [...] necessity supported by H&P, imaging and testing [place] pain treatment protocol completed. Yes Chronic opioid/pain [...] opioid misuse based on ORT. Toxicology and IMMIGRATION ASSOCIATE monitoring done and will follow protocol set forth by practice. As such controlled substance use requires judicious monitoring to access patient compliance with mutually agreed upon controlled substance use agreement which has been signed by the patient and initiation of controlled substance prescribing. Therefore following state, Federal, [facility] guidelines for controlled substance testing policies. This patient has been assessed on the basis of psychometric risk tool, IMMIGRATION ASSOCIATE monitoring, toxicology test results. Comorbid conditions may [...] necessity supported by H&P, imaging and testing [place] pain treatment protocol completed. Yes Chronic opioid/pain [...] opioid misuse based on ORT. Toxicology and IMMIGRATION ASSOCIATE monitoring done and will follow protocol set forth by practice. As such controlled substance use requires judicious monitoring to access patient compliance with mutually agreed upon controlled substance use agreement which has been signed by the patient and initiation of controlled substance prescribing. Therefore following state, Federal, [facility] guidelines for controlled substance testing policies. This patient has been assessed on the basis of psychometric risk tool, IMMIGRATION ASSOCIATE monitoring, toxicology test results. Comorbid conditions may [...] necessity supported by H&P, imaging and testing [place] pain treatment protocol completed. Yes Chronic opioid/pain [...] opioid misuse based on ORT. Toxicology and IMMIGRATION ASSOCIATE monitoring done and will follow protocol set [...] on the basis of psychometric risk tool, IMMIGRATION ASSOCIATE monitoring, toxicology test results. Comorbid conditions may [...] necessity supported by H&P, imaging and testing [place] pain treatment protocol completed. Yes Chronic opioid/pain [...] opioid misuse based on ORT. Toxicology and IMMIGRATION ASSOCIATE monitoring done and will follow protocol set [...] on the basis of psychometric risk tool, IMMIGRATION ASSOCIATE monitoring, toxicology test results. Comorbid conditions may [...] necessity supported by H&P, imaging and testing [place] pain treatment protocol completed. Yes Chronic opioid/pain [...] opioid misuse based on ORT. Toxicology and IMMIGRATION ASSOCIATE monitoring done and will follow protocol set forth by practice. As such controlled substance use requires judicious monitoring to access patient compliance with mutually agreed upon controlled substance use agreement which has been signed by the patient and initiation of controlled substance prescribing. Therefore following state, Federal, [facility] guidelines for controlled substance testing policies. This patient has been assessed on the basis of psychometric risk tool, IMMIGRATION ASSOCIATE monitoring, toxicology test results. Comorbid conditions may [...] necessity supported by H&P, imaging and testing [place] pain treatment protocol completed. Yes Chronic opioid/pain [...] opioid misuse based on ORT. Toxicology and IMMIGRATION ASSOCIATE monitoring done and will follow protocol set forth by practice. As such controlled substance use requires judicious monitoring to access patient compliance with mutually agreed upon controlled substance use agreement which has been signed by the patient and initiation of controlled substance prescribing. Therefore following state, Federal, [facility] guidelines for controlled substance testing policies. This patient has been assessed on the basis of psychometric risk tool, IMMIGRATION ASSOCIATE monitoring, toxicology test results. Comorbid conditions may [...] but was available upon request 11/29/2024 Other filler leaf cutter long (current) drug therapy (ICD-10 - Z79.899) 12/26/2024 Chronic pain syndrome (ICD-10 - G89.4) Mr. Hernandez is a 54-year-old gentleman with type 2 diabetes mellitus, hypertension, hyperlipidemia, hypothyroidism, ,obstructive sleep apnea, generalized anxiety disorder/depressio n and insomnia here for follow up. Plan as follows Chronic pain secondary to degenerative disc disease. Prognosis: Mild to moderate Medical necessity supported by H&P, imaging and testing [place] pain treatment protocol completed. Yes Chronic opioid/pain [...] opioid misuse based on ORT. Toxicology and IMMIGRATION ASSOCIATE monitoring done and will follow protocol set forth by practice. As such controlled substance use requires judicious monitoring to access patient compliance with mutually agreed upon controlled substance use agreement which has been signed by the patient and initiation of controlled substance prescribing. Therefore following state, Federal, [facility] guidelines for controlled substance testing policies. This patient has been assessed on the basis of psychometric risk tool, IMMIGRATION ASSOCIATE monitoring, toxicology test results. Comorbid conditions may [...] of diabetic medications is usually through his jewellery designer. He does have an appointment for follow-up with his jewellery designer. He states that he is noncompliant with his diets. He was also recently seen by clean room assembler and recommended Lasix surgery. He does also [...] necessity supported by H&P, imaging and testing [place] pain treatment protocol completed. Yes Chronic opioid/pain [...] opioid misuse based on ORT. Toxicology and IMMIGRATION ASSOCIATE monitoring done and will follow protocol set [...] on the basis of psychometric risk tool, IMMIGRATION ASSOCIATE monitoring, toxicology test results. Comorbid conditions may [...] of diabetic medications is usually through his jewellery designer. He does have an appointment for follow-up with his jewellery designer. He states that he is noncompliant with his diets. He was also recently seen by clean room assembler and recommended Lasix surgery. He does also [...] necessity supported by H&P, imaging and testing [place] pain treatment protocol completed. Yes Chronic opioid/pain [...] opioid misuse based on ORT. Toxicology and IMMIGRATION ASSOCIATE monitoring done and will follow protocol set [...] on the basis of psychometric risk tool, IMMIGRATION ASSOCIATE monitoring, toxicology test results. Comorbid conditions may [...] of diabetic medications is usually through his jewellery designer. He does have an appointment for follow-up with his jewellery designer. He states that he is noncompliant with his diets. He was also recently seen by clean room assembler and recommended Lasix surgery. He does also [...] GLP-1, Jardiance was also discontinued by the clerical support. He has an appointment tomorrow with jewellery designer for further discussion on diabetes management. Advised on diet modification. He is up-to-date with his clean room assembler. Foot care discussed Chronic kidney disease. He does follow with [facility] the clerical support. He is not volume overloaded. Avoid nephrotoxins [...] necessity supported by H&P, imaging and testing [place] pain treatment protocol completed. Yes Chronic opioid/pain [...] opioid misuse based on ORT. Toxicology and IMMIGRATION ASSOCIATE monitoring done and will follow protocol set forth by practice. As such controlled substance use requires judicious monitoring to access patient compliance with mutually agreed upon controlled substance use agreement which has been signed by the patient and initiation of controlled substance prescribing. Therefore following state, Federal, [facility] guidelines for controlled substance testing policies. This patient has been assessed on the basis of psychometric risk tool, IMMIGRATION ASSOCIATE monitoring, toxicology test results. Comorbid conditions may [...] of diabetic medications is usually through his jewellery designer. He does have an appointment for follow-up with his jewellery designer. He states that he is noncompliant with his diets. He was also recently seen by clean room assembler and recommended Lasix surgery. He does also [...] GLP-1, Jardiance was also discontinued by the clerical support. He has an appointment tomorrow with jewellery designer for further discussion on diabetes management. Advised on diet modification. He is up-to-date with his clean room assembler. Foot care discussed Chronic kidney disease. He does follow with [facility] the clerical support. He is not volume overloaded. Avoid nephrotoxins [...] necessity supported by H&P, imaging and testing [place] pain treatment protocol completed. Yes I have [...] opioid misuse based on ORT. Toxicology and IMMIGRATION ASSOCIATE monitoring done and will follow protocol set forth by practice. As such controlled substance use requires judicious monitoring to access patient compliance with mutually agreed upon controlled substance use agreement which has been signed by the patient and initiation of controlled substance prescribing. Therefore following state, Federal, [facility] guidelines for controlled substance testing policies. This patient has been assessed on the basis of psychometric risk tool, IMMIGRATION ASSOCIATE monitoring, toxicology test results. Comorbid conditions may [...] of diabetic medications is usually through his jewellery designer. He does have an appointment for follow-up with his jewellery designer. He states that he is noncompliant with his diets. He was also recently seen by clean room assembler and recommended Lasix surgery. He does also [...] GLP-1, Jardiance was also discontinued by the clerical support. He has an appointment with jewellery designer for further discussion on diabetes management. Advised on diet modification. He is up-to-date with his clean room assembler. Foot care discussed Chronic kidney disease. He does follow with [facility] the clerical support. He is not volume overloaded. Avoid nephrotoxins [...] necessity supported by H&P, imaging and testing [place] pain treatment protocol completed. Yes I have [...] opioid misuse based on ORT. Toxicology and IMMIGRATION ASSOCIATE monitoring done and will follow protocol set forth by practice. As such controlled substance use requires judicious monitoring to access patient compliance with mutually agreed upon controlled substance use agreement which has been signed by the patient and initiation of controlled substance prescribing. Therefore following state, Federal, [facility] guidelines for controlled substance testing policies. This patient has been assessed on the basis of psychometric risk tool, IMMIGRATION ASSOCIATE monitoring, toxicology test results. Comorbid conditions may [...] of diabetic medications is usually through his jewellery designer. He does have an appointment for follow-up with his jewellery designer. He states that he is noncompliant with his diets. He was also recently seen by clean room assembler and recommended Lasix surgery. He does also [...] GLP-1, Jardiance was also discontinued by the clerical support. He has an appointment with jewellery designer for further discussion on diabetes management. Advised on diet modification. He is up-to-date with his clean room assembler. Foot care discussed Chronic kidney disease. He does follow with [facility] the clerical support. He is not volume overloaded. Avoid nephrotoxins [...] necessity supported by H&P, imaging and testing [place] pain treatment protocol completed. Yes I have increased oxycodone to 20 mg every 6 hours. 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 Chronic opioid/pain maintenance. This patient request [...] opioid misuse based on ORT. Toxicology and IMMIGRATION ASSOCIATE monitoring done and will follow protocol set forth by practice. As such controlled substance use requires judicious monitoring to access patient compliance with mutually agreed upon controlled substance use agreement which has been signed by the patient and initiation of controlled substance prescribing. Therefore following state, Federal, [facility] guidelines for controlled substance testing policies. This patient has been assessed on the basis of psychometric risk tool, IMMIGRATION ASSOCIATE monitoring, toxicology test results. Comorbid conditions may [...] of diabetic medications is usually through his jewellery designer. Humalog was adjusted to 60 before meal. He states that he is noncompliant with his diets. Jardiance was d/c by neprologist due to metabolic acidosis. Discussed a trial of ozempic again or can do a trial of Rysbelus. He was also recently seen by clean room assembler and recommended Lasix surgery. He does also [...] disease stage 3a. He does follow with [facility] the clerical support. He is not volume overloaded. Avoid nephrotoxins and NSAIDs. He has a follow-up in April. Pending blood work to be done. Plantar fascitis- He was recommended orthotics. Discussed salt-warm water foot soak. He follows with [facility] podiatry. Shoulder pain: He follows with [facility] require a referral to [...] necessity supported by H&P, imaging and testing [place] pain treatment protocol completed. Yes I have increased oxycodone to 20 mg every 6 hours. 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 Chronic opioid/pain maintenance. This patient request [...] opioid misuse based on ORT. Toxicology and IMMIGRATION ASSOCIATE monitoring done and will follow protocol set forth by practice. As such controlled substance use requires judicious monitoring to access patient compliance with mutually agreed upon controlled substance use agreement which has been signed by the patient and initiation of controlled substance prescribing. Therefore following state, Federal, [facility] guidelines for controlled substance testing policies. This patient has been assessed on the basis of psychometric risk tool, IMMIGRATION ASSOCIATE monitoring, toxicology test results. Comorbid conditions may [...] of diabetic medications is usually through his jewellery designer. Humalog was adjusted to 60 before meal. He states that he is noncompliant with his diets. Jardiance was d/c by neprologist due to metabolic acidosis. Discussed a trial of ozempic again or can do a trial of Rysbelus. He was also recently seen by clean room assembler and recommended Lasix surgery. He does also [...] disease stage 3a. He does follow with [facility] the clerical support. He is not volume overloaded. Avoid nephrotoxins and NSAIDs. He has a follow-up in April. Pending blood work to be done. Plantar fascitis- He was recommended orthotics. Discussed salt-warm water foot soak. He follows with [facility] podiatry. Shoulder pain: He follows with [facility] require a referral to [...] necessity supported by H&P, imaging and testing [place] pain treatment protocol completed. Yes I have increased oxycodone to 20 mg every 6 hours. 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 Chronic opioid/pain maintenance. This patient request [...] opioid misuse based on ORT. Toxicology and IMMIGRATION ASSOCIATE monitoring done and will follow protocol set [...] on the basis of psychometric risk tool, IMMIGRATION ASSOCIATE monitoring, toxicology test results. Comorbid conditions may [...] of diabetic medications is usually through his jewellery designer. Humalog was adjusted to 60 before meal. He resumed himself on Mounjaro 2.5mg. Tolerating the medication. He has a follow-up with Employee Relations Manager coming up next month Hyperlipidemia - His previous LDL is within goal of 73. 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 Chronic kidney disease stage 3a. He does follow with [facility] the clerical support. He is not volume overloaded. He is off of Lasix and Jardiance. per clerical support note, it is permissible for short-term only to be on NSAIDs and to be taken sparingly. Plantar fascitis- He was recommended orthotics. Discussed salt-warm water foot soak. He follows with [facility] podiatry. Shoulder pain: He follows with [facility] require a referral to [...] necessity supported by H&P, imaging and testing [place] pain treatment protocol completed. Yes I have increased oxycodone to 20 mg every 6 hours. 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 Chronic opioid/pain maintenance. This patient request [...] opioid misuse based on ORT. Toxicology and IMMIGRATION ASSOCIATE monitoring done and will follow protocol set forth by practice. As such controlled substance use requires judicious monitoring to access patient compliance with mutually agreed upon controlled substance use agreement which has been signed by the patient and initiation of controlled substance prescribing. Therefore following state, Federal, [facility] guidelines for controlled substance testing policies. This patient has been assessed on the basis of psychometric risk tool, IMMIGRATION ASSOCIATE monitoring, toxicology test results. Comorbid conditions may [...] of diabetic medications is usually through his jewellery designer. Humalog was adjusted to 60 before meal. He resumed himself on Mounjaro 2.5mg. Tolerating the medication. He has a follow-up with Employee Relations Manager coming up next month Hyperlipidemia - His previous LDL is within goal of 73. 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 Chronic kidney disease stage 3a. He does follow with [facility] the clerical support. He is not volume overloaded. He is off of Lasix and Jardiance. per clerical support note, it is permissible for short-term only to be on NSAIDs and to be taken sparingly. Plantar fascitis- He was recommended orthotics. Discussed salt-warm water foot soak. He follows with [facility] podiatry. Shoulder pain: He follows with [facility] require a referral to [...] necessity supported by H&P, imaging and testing [place] pain treatment protocol completed. Yes I have increased oxycodone to 20 mg every 6 hours. 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 Chronic opioid/pain maintenance. This patient request [...] opioid misuse based on ORT. Toxicology and IMMIGRATION ASSOCIATE monitoring done and will follow protocol set forth by practice. As such controlled substance use requires judicious monitoring to access patient compliance with mutually agreed upon controlled substance use agreement which has been signed by the patient and initiation of controlled substance prescribing. Therefore following state, Federal, [facility] guidelines for controlled substance testing policies. This patient has been assessed on the basis of psychometric risk tool, IMMIGRATION ASSOCIATE monitoring, toxicology test results. Comorbid conditions may [...] discuss with patient to consult with his clerical support as he has an appointment coming up to discuss on possibility with being on low-dose Lasix daily or every other day. Type 2 diabetes - Previous a1c of 8.8. Adjustment of diabetic medications is usually through his jewellery designer. Humalog was adjusted to 60 before meal. He resumed himself on Mounjaro 2.5mg. Tolerating the medication. He has a follow-up with Employee Relations Manager This month Plantar fascitis- He was recommended orthotics. Discussed salt-warm water foot soak. He follows with [facility] podiatry, Has an appointment for [...] necessity supported by H&P, imaging and testing [place] pain treatment protocol completed. Yes I have increased oxycodone to 20 mg every 6 hours. 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 Chronic opioid/pain maintenance. This patient request [...] opioid misuse based on ORT. Toxicology and IMMIGRATION ASSOCIATE monitoring done and will follow protocol set forth by practice. As such controlled substance use requires judicious monitoring to access patient compliance with mutually agreed upon controlled substance use agreement which has been signed by the patient and initiation of controlled substance prescribing. Therefore following state, Federal, [facility] guidelines for controlled substance testing policies. This patient has been assessed on the basis of psychometric risk tool, IMMIGRATION ASSOCIATE monitoring, toxicology test results. Comorbid conditions may [...] discuss with patient to consult with his clerical support as he has an appointment coming up to discuss on possibility with being on low-dose Lasix daily or every other day. Type 2 diabetes - Previous a1c of 8.8. Adjustment of diabetic medications is usually through his jewellery designer. Humalog was adjusted to 60 before meal. He resumed himself on Mounjaro 2.5mg. Tolerating the medication. He has a follow-up with Employee Relations Manager This month Plantar fascitis- He was recommended orthotics. Discussed salt-warm water foot soak. He follows with [facility] podiatry, Has an appointment for [...] necessity supported by H&P, imaging and testing [place] pain treatment protocol completed. Yes I have increased oxycodone to 20 mg every 6 hours. 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 Chronic opioid/pain maintenance. This patient request [...] opioid misuse based on ORT. Toxicology and IMMIGRATION ASSOCIATE monitoring done and will follow protocol set forth by practice. As such controlled substance use requires judicious monitoring to access patient compliance with mutually agreed upon controlled substance use agreement which has been signed by the patient and initiation of controlled substance prescribing. Therefore following state, Federal, [facility] guidelines for controlled substance testing policies. This patient has been assessed on the basis of psychometric risk tool, IMMIGRATION ASSOCIATE monitoring, toxicology test results. Comorbid conditions may [...] discuss with patient to consult with his clerical support as he has an appointment coming up to discuss on possibility with being on low-dose Lasix daily or every other day. Type 2 diabetes - A1c improved to 7.9. Adjustment of diabetic medications is usually through his jewellery designer. Humalog was adjusted to 60 before meal. Mounjaro Was discontinued by his jewellery designer and a history of pancreatitis. Plantar fascitis- He was recommended orthotics. Discussed salt-warm water foot soak. He follows with [facility] podiatry. I have rendered the [...] necessity supported by H&P, imaging and testing [place] pain treatment protocol completed. Yes I have increased oxycodone to 20 mg every 6 hours. 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 Chronic opioid/pain maintenance. This patient request [...] opioid misuse based on ORT. Toxicology and IMMIGRATION ASSOCIATE monitoring done and will follow protocol set forth by practice. As such controlled substance use requires judicious monitoring to access patient compliance with mutually agreed upon controlled substance use agreement which has been signed by the patient and initiation of controlled substance prescribing. Therefore following state, Federal, [facility] guidelines for controlled substance testing policies. This patient has been assessed on the basis of psychometric risk tool, IMMIGRATION ASSOCIATE monitoring, toxicology test results. Comorbid conditions may [...] discuss with patient to consult with his clerical support as he has an appointment coming up to discuss on possibility with being on low-dose Lasix daily or every other day. Type 2 diabetes - A1c improved to 7.9. Adjustment of diabetic medications is usually through his jewellery designer. Humalog was adjusted to 60 before meal. Mounjaro Was discontinued by his jewellery designer and a history of pancreatitis. Plantar fascitis- He was recommended orthotics. Discussed salt-warm water foot soak. He follows with [facility] podiatry. I have rendered the [...] necessity supported by H&P, imaging and testing [place] pain treatment protocol completed. Yes I have increased oxycodone to 20 mg every 6 hours. 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 Chronic opioid/pain maintenance. This patient request [...] opioid misuse based on ORT. Toxicology and IMMIGRATION ASSOCIATE monitoring done and will follow protocol set forth by practice. As such controlled substance use requires judicious monitoring to access patient compliance with mutually agreed upon controlled substance use agreement which has been signed by the patient and initiation of controlled substance prescribing. Therefore following state, Federal, [facility] guidelines for controlled substance testing policies. This patient has been assessed on the basis of psychometric risk tool, IMMIGRATION ASSOCIATE monitoring, toxicology test results. Comorbid conditions may [...] of diabetic medications is usually through his jewellery designer. Humalog was adjusted to 60 before meal. Mounjaro Was discontinued by his jewellery designer and a history of pancreatitis. Plantar fascitis - He was recommended orthotics. Discussed salt-warm water foot soak. He follows with [facility] podiatry. I have rendered the [...] necessity supported by H&P, imaging and testing [place] pain treatment protocol completed. Yes I have increased oxycodone to 20 mg every 6 hours. 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 Chronic opioid/pain maintenance. This patient request [...] opioid misuse based on ORT. Toxicology and IMMIGRATION ASSOCIATE monitoring done and will follow protocol set forth by practice. As such controlled substance use requires judicious monitoring to access patient compliance with mutually agreed upon controlled substance use agreement which has been signed by the patient and initiation of controlled substance prescribing. Therefore following state, Federal, [facility] guidelines for controlled substance testing policies. This patient has been assessed on the basis of psychometric risk tool, IMMIGRATION ASSOCIATE monitoring, toxicology test results. Comorbid conditions may [...] of diabetic medications is usually through his jewellery designer. Humalog was adjusted to 60 before meal. Mounjaro Was discontinued by his jewellery designer and a history of pancreatitis. Plantar fascitis - He was recommended orthotics. Discussed salt-warm water foot soak. He follows with [facility] podiatry. I have rendered the services for this patient under direct supervision of Dr. Torres, who did not see the patient but was available upon request 07/31/2025 Chronic pain syndrome (ICD-10 - G89.4) 07/17/2025 Bilateral leg edema (ICD-10 - R60.0) Mr. Hernandez is a 54-year-old gentleman with type 2 diabetes mellitus, hypertension, hyperlipidemia, hypothyroidism, ,obstructive sleep apnea, generalized anxiety disorder/depressio n and insomnia here for follow up. Plan as follows Chronic pain secondary to degenerative disc disease. Prognosis: Mild to moderate Medical necessity supported by H&P, imaging and testing [place] pain treatment protocol completed. Yes I have increased oxycodone to 20 mg every 6 hours. 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 Chronic opioid/pain maintenance. This patient request [...] opioid misuse based on ORT. Toxicology and IMMIGRATION ASSOCIATE monitoring done and will follow protocol set forth by practice. As such controlled substance use requires judicious monitoring to access patient compliance with mutually agreed upon controlled substance use agreement which has been signed by the patient and initiation of controlled substance prescribing. Therefore following state, Federal, [facility] guidelines for controlled substance testing policies. This patient has been assessed on the basis of psychometric risk tool, IMMIGRATION ASSOCIATE monitoring, toxicology test results. Comorbid conditions may [...] of diabetic medications is usually through his jewellery designer. Humalog was adjusted to 60 before meal. Mounjaro Was discontinued by his jewellery designer and a history of pancreatitis. Plantar fascitis - He was recommended orthotics. Discussed salt-warm water foot soak. He follows with [facility] podiatry. I have rendered the [...] necessity supported by H&P, imaging and testing [place] pain treatment protocol completed. Yes I have increased oxycodone to 20 mg every 6 hours. 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 Chronic opioid/pain maintenance. This patient request [...] opioid misuse based on ORT. Toxicology and IMMIGRATION ASSOCIATE monitoring done and will follow protocol set [...] on the basis of psychometric risk tool, IMMIGRATION ASSOCIATE monitoring, toxicology test results. Comorbid conditions may [...] discuss with patient to consult with his clerical support as he has an appointment coming up to discuss on possibility with being on low-dose Lasix daily or every other day. Type 2 diabetes - A1c improved to 7.9. Adjustment of diabetic medications is usually through his jewellery designer. Humalog was adjusted to 60 before meal. Mounjaro Was discontinued by his jewellery designer and a history of pancreatitis. Plantar fascitis- He was recommended orthotics. Discussed salt-warm water foot soak. He follows with [facility] podiatry. I have rendered the [...] necessity supported by H&P, imaging and testing [place] pain treatment protocol completed. Yes I have increased oxycodone to 20 mg every 6 hours. 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 Chronic opioid/pain maintenance. This patient request [...] opioid misuse based on ORT. Toxicology and IMMIGRATION ASSOCIATE monitoring done and will follow protocol set forth by practice. As such controlled substance use requires judicious monitoring to access patient compliance with mutually agreed upon controlled substance use agreement which has been signed by the patient and initiation of controlled substance prescribing. Therefore following state, Federal, [facility] guidelines for controlled substance testing policies. This patient has been assessed on the basis of psychometric risk tool, IMMIGRATION ASSOCIATE monitoring, toxicology test results. Comorbid conditions may [...] discuss with patient to consult with his clerical support as he has an appointment coming up to discuss on possibility with being on low-dose Lasix daily or every other day. Type 2 diabetes - Previous a1c of 8.8. Adjustment of diabetic medications is usually through his jewellery designer. Humalog was adjusted to 60 before meal. He resumed himself on Mounjaro 2.5mg. Tolerating the medication. He has a follow-up with Employee Relations Manager This month Plantar fascitis- He was recommended orthotics. Discussed salt-warm water foot soak. He follows with [facility] podiatry, Has an appointment for [...] necessity supported by H&P, imaging and testing [place] pain treatment protocol completed. Yes I have increased oxycodone to 20 mg every 6 hours. 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 Chronic opioid/pain maintenance. This patient request [...] opioid misuse based on ORT. Toxicology and IMMIGRATION ASSOCIATE monitoring done and will follow protocol set [...] on the basis of psychometric risk tool, IMMIGRATION ASSOCIATE monitoring, toxicology test results. Comorbid conditions may [...] of diabetic medications is usually through his jewellery designer. Humalog was adjusted to 60 before meal. He resumed himself on Mounjaro 2.5mg. Tolerating the medication. He has a follow-up with Employee Relations Manager coming up next month Hyperlipidemia - His previous LDL is within goal of 73. 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 Chronic kidney disease stage 3a. He does follow with [facility] the clerical support. He is not volume overloaded. He is off of Lasix and Jardiance. per clerical support note, it is permissible for short-term only to be on NSAIDs and to be taken sparingly. Plantar fascitis- He was recommended orthotics. Discussed salt-warm water foot soak. He follows with [facility] podiatry. Shoulder pain: He follows with [facility] require a referral to [...] necessity supported by H&P, imaging and testing [place] pain treatment protocol completed. Yes I have [...] opioid misuse based on ORT. Toxicology and IMMIGRATION ASSOCIATE monitoring done and will follow protocol set forth by practice. As such controlled substance use requires judicious monitoring to access patient compliance with mutually agreed upon controlled substance use agreement which has been signed by the patient and initiation of controlled substance prescribing. Therefore following state, Federal, [facility] guidelines for controlled substance testing policies. This patient has been assessed on the basis of psychometric risk tool, IMMIGRATION ASSOCIATE monitoring, toxicology test results. Comorbid conditions may [...] of diabetic medications is usually through his jewellery designer. He does have an appointment for follow-up with his jewellery designer. He states that he is noncompliant with his diets. He was also recently seen by clean room assembler and recommended Lasix surgery. He does also [...] GLP-1, Jardiance was also discontinued by the clerical support. He has an appointment with jewellery designer for further discussion on diabetes management. Advised on diet modification. He is up-to-date with his clean room assembler. Foot care discussed Chronic kidney disease. He does follow with [facility] the clerical support. He is not volume overloaded. Avoid nephrotoxins [...] necessity supported by H&P, imaging and testing [place] pain treatment protocol completed. Yes I have increased oxycodone to 20 mg every 6 hours. 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 Chronic opioid/pain maintenance. This patient request [...] opioid misuse based on ORT. Toxicology and IMMIGRATION ASSOCIATE monitoring done and will follow protocol set [...] on the basis of psychometric risk tool, IMMIGRATION ASSOCIATE monitoring, toxicology test results. Comorbid conditions may [...] of diabetic medications is usually through his jewellery designer. Humalog was adjusted to 60 before meal. He states that he is noncompliant with his diets. Jardiance was d/c by neprologist due to metabolic acidosis. Discussed a trial of ozempic again or can do a trial of Rysbelus. He was also recently seen by clean room assembler and recommended Lasix surgery. He does also [...] disease stage 3a. He does follow with [facility] the clerical support. He is not volume overloaded. Avoid nephrotoxins and NSAIDs. He has a follow-up in April. Pending blood work to be done. Plantar fascitis- He was recommended orthotics. Discussed salt-warm water foot soak. He follows with [facility] podiatry. Shoulder pain: He follows with [facility] dic clinic require a referral to [...] necessity supported by H&P, imaging and testing [place] pain treatment protocol completed. Yes Chronic opioid/pain [...] opioid misuse based on ORT. Toxicology and IMMIGRATION ASSOCIATE monitoring done and will follow protocol set forth by practice. As such controlled substance use requires judicious monitoring to access patient compliance with mutually agreed upon controlled substance use agreement which has been signed by the patient and initiation of controlled substance prescribing. Therefore following state, Federal, [facility] guidelines for controlled substance testing policies. This patient has been assessed on the basis of psychometric risk tool, IMMIGRATION ASSOCIATE monitoring, toxicology test results. Comorbid conditions may [...] of diabetic medications is usually through his jewellery designer. He does have an appointment for follow-up with his jewellery designer. He states that he is noncompliant with his diets. He was also recently seen by clean room assembler and recommended Lasix surgery. He does also [...] GLP-1, Jardiance was also discontinued by the clerical support. He has an appointment tomorrow with jewellery designer for further discussion on diabetes management. Advised on diet modification. He is up-to-date with his clean room assembler. Foot care discussed Chronic kidney disease. He does follow with [facility] the clerical support. He is not volume overloaded. Avoid nephrotoxins [...] necessity supported by H&P, imaging and testing [place] pain treatment protocol completed. Yes Chronic opioid/pain [...] opioid misuse based on ORT. Toxicology and IMMIGRATION ASSOCIATE monitoring done and will follow protocol set [...] on the basis of psychometric risk tool, IMMIGRATION ASSOCIATE monitoring, toxicology test results. Comorbid conditions may [...] of diabetic medications is usually through his jewellery designer. He does have an appointment for follow-up with his jewellery designer. He states that he is noncompliant with his diets. He was also recently seen by clean room assembler and recommended Lasix surgery. He does also [...] necessity supported by H&P, imaging and testing [place] pain treatment protocol completed. Yes Chronic opioid/pain [...] opioid misuse based on ORT. Toxicology and IMMIGRATION ASSOCIATE monitoring done and will follow protocol set forth by practice. As such controlled substance use requires judicious monitoring to access patient compliance with mutually agreed upon controlled substance use agreement which has been signed by the patient and initiation of controlled substance prescribing. Therefore following state, Federal, [facility] guidelines for controlled substance testing policies. This patient has been assessed on the basis of psychometric risk tool, IMMIGRATION ASSOCIATE monitoring, toxicology test results. Comorbid conditions may [...] necessity supported by H&P, imaging and testing [place] pain treatment protocol completed. Yes Chronic opioid/pain [...] opioid misuse based on ORT. Toxicology and IMMIGRATION ASSOCIATE monitoring done and will follow protocol set forth by practice. As such controlled substance use requires judicious monitoring to access patient compliance with mutually agreed upon controlled substance use agreement which has been signed by the patient and initiation of controlled substance prescribing. Therefore following state, Federal, [facility] guidelines for controlled substance testing policies. This patient has been assessed on the basis of psychometric risk tool, IMMIGRATION ASSOCIATE monitoring, toxicology test results. Comorbid conditions may [...] necessity supported by H&P, imaging and testing [place] pain treatment protocol completed. Yes Chronic opioid/pain [...] opioid misuse based on ORT. Toxicology and IMMIGRATION ASSOCIATE monitoring done and will follow protocol set forth by practice. As such controlled substance use requires judicious monitoring to access patient compliance with mutually agreed upon controlled substance use agreement which has been signed by the patient and initiation of controlled substance prescribing. Therefore following state, Federal, [facility] guidelines for controlled substance testing policies. This patient has been assessed on the basis of psychometric risk tool, IMMIGRATION ASSOCIATE monitoring, toxicology test results. Comorbid conditions may [...] necessity supported by H&P, imaging and testing [place] pain treatment protocol completed. Yes Chronic opioid/pain [...] opioid misuse based on ORT. Toxicology and IMMIGRATION ASSOCIATE monitoring done and will follow protocol set [...] on the basis of psychometric risk tool, IMMIGRATION ASSOCIATE monitoring, toxicology test results. Comorbid conditions may [...] necessity supported by H&P, imaging and testing [place] pain treatment protocol completed. Yes Chronic opioid/pain [...] opioid misuse based on ORT. Toxicology and IMMIGRATION ASSOCIATE monitoring done and will follow protocol set [...] on the basis of psychometric risk tool, IMMIGRATION ASSOCIATE monitoring, toxicology test results. Comorbid conditions may [...] necessity supported by H&P, imaging and testing [place] pain treatment protocol completed. Yes Chronic opioid/pain [...] opioid misuse based on ORT. Toxicology and IMMIGRATION ASSOCIATE monitoring done and will follow protocol set forth by practice. As such controlled substance use requires judicious monitoring to access patient compliance with mutually agreed upon controlled substance use agreement which has been signed by the patient and initiation of controlled substance prescribing. Therefore following state, Federal, [facility] guidelines for controlled substance testing policies. This patient has been assessed on the basis of psychometric risk tool, IMMIGRATION ASSOCIATE monitoring, toxicology test results. Comorbid conditions may [...] necessity supported by H&P, imaging and testing [place] pain treatment protocol completed. Yes Chronic opioid/pain [...] opioid misuse based on ORT. Toxicology and IMMIGRATION ASSOCIATE monitoring done and will follow protocol set [...] on the basis of psychometric risk tool, IMMIGRATION ASSOCIATE monitoring, toxicology test results. Comorbid conditions may [...] of diabetic medications is usually through his jewellery designer. He does have an appointment for follow-up with his jewellery designer. He states that he is noncompliant with his diets. He was also recently seen by clean room assembler and recommended Lasix surgery. He does also [...] necessity supported by H&P, imaging and testing [place] pain treatment protocol completed. Yes Chronic opioid/pain [...] opioid misuse based on ORT. Toxicology and IMMIGRATION ASSOCIATE monitoring done and will follow protocol set forth by practice. As such controlled substance use requires judicious monitoring to access patient compliance with mutually agreed upon controlled substance use agreement which has been signed by the patient and initiation of controlled substance prescribing. Therefore following state, Federal, [facility] guidelines for controlled substance testing policies. This patient has been assessed on the basis of psychometric risk tool, IMMIGRATION ASSOCIATE monitoring, toxicology test results. Comorbid conditions may [...] of diabetic medications is usually through his jewellery designer. He does have an appointment for follow-up with his jewellery designer. He states that he is noncompliant with his diets. He was also recently seen by clean room assembler and recommended Lasix surgery. He does also [...] GLP-1, Jardiance was also discontinued by the clerical support. He has an appointment tomorrow with jewellery designer for further discussion on diabetes management. Advised on diet modification. He is up-to-date with his clean room assembler. Foot care discussed Chronic kidney disease. He does follow with [facility] the clerical support. He is not volume overloaded. Avoid nephrotoxins [...] necessity supported by H&P, imaging and testing [place] pain treatment protocol completed. Yes I have increased oxycodone to 20 mg every 6 hours. 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 Chronic opioid/pain maintenance. This patient request [...] opioid misuse based on ORT. Toxicology and IMMIGRATION ASSOCIATE monitoring done and will follow protocol set [...] on the basis of psychometric risk tool, IMMIGRATION ASSOCIATE monitoring, toxicology test results. Comorbid conditions may [...] of diabetic medications is usually through his jewellery designer. Humalog was adjusted to 60 before meal. He states that he is noncompliant with his diets. Jardiance was d/c by neprologist due to metabolic acidosis. Discussed a trial of ozempic again or can do a trial of Rysbelus. He was also recently seen by clean room assembler and recommended Lasix surgery. He does also [...] disease stage 3a. He does follow with [facility] the clerical support. He is not volume overloaded. Avoid nephrotoxins and NSAIDs. He has a follow-up in April. Pending blood work to be done. Plantar fascitis- He was recommended orthotics. Discussed salt-warm water foot soak. He follows with [facility] podiatry. Shoulder pain: He follows with [facility] dic clinic require a referral to [...] necessity supported by H&P, imaging and testing [place] pain treatment protocol completed. Yes I have [...] opioid misuse based on ORT. Toxicology and IMMIGRATION ASSOCIATE monitoring done and will follow protocol set forth by practice. As such controlled substance use requires judicious monitoring to access patient compliance with mutually agreed upon controlled substance use agreement which has been signed by the patient and initiation of controlled substance prescribing. Therefore following state, Federal, [facility] guidelines for controlled substance testing policies. This patient has been assessed on the basis of psychometric risk tool, IMMIGRATION ASSOCIATE monitoring, toxicology test results. Comorbid conditions may [...] of diabetic medications is usually through his jewellery designer. He does have an appointment for follow-up with his jewellery designer. He states that he is noncompliant with his diets. He was also recently seen by clean room assembler and recommended Lasix surgery. He does also [...] GLP-1, Jardiance was also discontinued by the clerical support. He has an appointment with jewellery designer for further discussion on diabetes management. Advised on diet modification. He is up-to-date with his clean room assembler. Foot care discussed Chronic kidney disease. He does follow with [facility] the clerical support. He is not volume overloaded. Avoid nephrotoxins [...] necessity supported by H&P, imaging and testing [place] pain treatment protocol completed. Yes I have increased oxycodone to 20 mg every 6 hours. 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 Chronic opioid/pain maintenance. This patient request [...] opioid misuse based on ORT. Toxicology and IMMIGRATION ASSOCIATE monitoring done and will follow protocol set forth by practice. As such controlled substance use requires judicious monitoring to access patient compliance with mutually agreed upon controlled substance use agreement which has been signed by the patient and initiation of controlled substance prescribing. Therefore following state, Federal, [facility] guidelines for controlled substance testing policies. This patient has been assessed on the basis of psychometric risk tool, IMMIGRATION ASSOCIATE monitoring, toxicology test results. Comorbid conditions may [...] discuss with patient to consult with his clerical support as he has an appointment coming up to discuss on possibility with being on low-dose Lasix daily or every other day. Type 2 diabetes - Previous a1c of 8.8. Adjustment of diabetic medications is usually through his jewellery designer. Humalog was adjusted to 60 before meal. He resumed himself on Mounjaro 2.5mg. Tolerating the medication. He has a follow-up with Employee Relations Manager This month Plantar fascitis- He was recommended orthotics. Discussed salt-warm water foot soak. He follows with [facility] podiatry, Has an appointment for [...] necessity supported by H&P, imaging and testing [place] pain treatment protocol completed. Yes I have increased oxycodone to 20 mg every 6 hours. 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 Chronic opioid/pain maintenance. This patient request [...] opioid misuse based on ORT. Toxicology and IMMIGRATION ASSOCIATE monitoring done and will follow protocol set forth by practice. As such controlled substance use requires judicious monitoring to access patient compliance with mutually agreed upon controlled substance use agreement which has been signed by the patient and initiation of controlled substance prescribing. Therefore following state, Federal, [facility] guidelines for controlled substance testing policies. This patient has been assessed on the basis of psychometric risk tool, IMMIGRATION ASSOCIATE monitoring, toxicology test results. Comorbid conditions may [...] of diabetic medications is usually through his jewellery designer. Humalog was adjusted to 60 before meal. He resumed himself on Mounjaro 2.5mg. Tolerating the medication. He has a follow-up with Employee Relations Manager coming up next month Hyperlipidemia - His previous LDL is within goal of 73. 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 Chronic kidney disease stage 3a. He does follow with [facility] the clerical support. He is not volume overloaded. He is off of Lasix and Jardiance. per clerical support note, it is permissible for short-term only to be on NSAIDs and to be taken sparingly. Plantar fascitis- He was recommended orthotics. Discussed salt-warm water foot soak. He follows with [facility] podiatry. Shoulder pain: He follows with [facility] clinic require a referral to [...] necessity supported by H&P, imaging and testing [place] pain treatment protocol completed. Yes I have increased oxycodone to 20 mg every 6 hours. 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 Chronic opioid/pain maintenance. This patient request [...] opioid misuse based on ORT. Toxicology and IMMIGRATION ASSOCIATE monitoring done and will follow protocol set [...] on the basis of psychometric risk tool, IMMIGRATION ASSOCIATE monitoring, toxicology test results. Comorbid conditions may [...] discuss with patient to consult with his clerical support as he has an appointment coming up to discuss on possibility with being on low-dose Lasix daily or every other day. Type 2 diabetes - A1c improved to 7.9. Adjustment of diabetic medications is usually through his jewellery designer. Humalog was adjusted to 60 before meal. Mounjaro Was discontinued by his jewellery designer and a history of pancreatitis. Plantar fascitis- He was recommended orthotics. Discussed salt-warm water foot soak. He follows with [facility] podiatry. I have rendered the [...] necessity supported by H&P, imaging and testing [place] pain treatment protocol completed. Yes I have increased oxycodone to 20 mg every 6 hours. 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 Chronic opioid/pain maintenance. This patient request [...] opioid misuse based on ORT. Toxicology and IMMIGRATION ASSOCIATE monitoring done and will follow protocol set forth by practice. As such controlled substance use requires judicious monitoring to access patient compliance with mutually agreed upon controlled substance use agreement which has been signed by the patient and initiation of controlled substance prescribing. Therefore following state, Federal, [facility] guidelines for controlled substance testing policies. This patient has been assessed on the basis of psychometric risk tool, IMMIGRATION ASSOCIATE monitoring, toxicology test results. Comorbid conditions may [...] of diabetic medications is usually through his jewellery designer. Humalog was adjusted to 60 before meal. Mounjaro Was discontinued by his jewellery designer and a history of pancreatitis. Plantar fascitis - He was recommended orthotics. Discussed salt-warm water foot soak. He follows with [facility] podiatry. I have rendered the [...] necessity supported by H&P, imaging and testing [place] pain treatment protocol completed. Yes I have increased oxycodone to 20 mg every 6 hours. 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 Chronic opioid/pain maintenance. This patient request [...] opioid misuse based on ORT. Toxicology and IMMIGRATION ASSOCIATE monitoring done and will follow protocol set forth by practice. As such controlled substance use requires judicious monitoring to access patient compliance with mutually agreed upon controlled substance use agreement which has been signed by the patient and initiation of controlled substance prescribing. Therefore following state, Federal, [facility] guidelines for controlled substance testing policies. This patient has been assessed on the basis of psychometric risk tool, IMMIGRATION ASSOCIATE monitoring, toxicology test results. Comorbid conditions may [...] of diabetic medications is usually through his jewellery designer. Humalog was adjusted to 60 before meal. Mounjaro Was discontinued by his jewellery designer and a history of pancreatitis. Plantar fascitis - He was recommended orthotics. Discussed salt-warm water foot soak. He follows with [facility] podiatry. I have rendered the [...] necessity supported by H&P, imaging and testing [place] pain treatment protocol completed. Yes I have increased oxycodone to 20 mg every 6 hours. 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 Chronic opioid/pain maintenance. This patient request [...] opioid misuse based on ORT. Toxicology and IMMIGRATION ASSOCIATE monitoring done and will follow protocol set forth by practice. As such controlled substance use requires judicious monitoring to access patient compliance with mutually agreed upon controlled substance use agreement which has been signed by the patient and initiation of controlled substance prescribing. Therefore following state, Federal, [facility] guidelines for controlled substance testing policies. This patient has been assessed on the basis of psychometric risk tool, IMMIGRATION ASSOCIATE monitoring, toxicology test results. Comorbid conditions may [...] discuss with patient to consult with his clerical support as he has an appointment coming up to discuss on possibility with being on low-dose Lasix daily or every other day. Type 2 diabetes - A1c improved to 7.9. Adjustment of diabetic medications is usually through his jewellery designer. Humalog was adjusted to 60 before meal. Mounjaro Was discontinued by his jewellery designer and a history of pancreatitis. Plantar fascitis- He was recommended orthotics. Discussed salt-warm water foot soak. He follows with [facility] podiatry. I have rendered the [...] necessity supported by H&P, imaging and testing [place] pain treatment protocol completed. Yes I have increased oxycodone to 20 mg every 6 hours. 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 Chronic opioid/pain maintenance. This patient request [...] opioid misuse based on ORT. Toxicology and IMMIGRATION ASSOCIATE monitoring done and will follow protocol set forth by practice. As such controlled substance use requires judicious monitoring to access patient compliance with mutually agreed upon controlled substance use agreement which has been signed by the patient and initiation of controlled substance prescribing. Therefore following state, Federal, [facility] guidelines for controlled substance testing policies. This patient has been assessed on the basis of psychometric risk tool, IMMIGRATION ASSOCIATE monitoring, toxicology test results. Comorbid conditions may [...] of diabetic medications is usually through his jewellery designer. Humalog was adjusted to 60 before meal. He states that he is noncompliant with his diets. Jardiance was d/c by neprologist due to metabolic acidosis. Discussed a trial of ozempic again or can do a trial of Rysbelus. He was also recently seen by clean room assembler and recommended Lasix surgery. He does also [...] disease stage 3a. He does follow with [facility] the clerical support. He is not volume overloaded. Avoid nephrotoxins and NSAIDs. He has a follow-up in April. Pending blood work to be done. Plantar fascitis- He was recommended orthotics. Discussed salt-warm water foot soak. He follows with [facility] podiatry. Shoulder pain: He follows with [facility] require a referral to [...] necessity supported by H&P, imaging and testing [place] pain treatment protocol completed. Yes I have increased oxycodone to 20 mg every 6 hours. 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 Chronic opioid/pain maintenance. This patient request [...] opioid misuse based on ORT. Toxicology and IMMIGRATION ASSOCIATE monitoring done and will follow protocol set forth by practice. As such controlled substance use requires judicious monitoring to access patient compliance with mutually agreed upon controlled substance use agreement which has been signed by the patient and initiation of controlled substance prescribing. Therefore following state, Federal, [facility] guidelines for controlled substance testing policies. This patient has been assessed on the basis of psychometric risk tool, IMMIGRATION ASSOCIATE monitoring, toxicology test results. Comorbid conditions may [...] of diabetic medications is usually through his jewellery designer. Humalog was adjusted to 60 before meal. He resumed himself on Mounjaro 2.5mg. Tolerating the medication. He has a follow-up with Employee Relations Manager coming up next month Hyperlipidemia - His previous LDL is within goal of 73. 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 Chronic kidney disease stage 3a. He does follow with [facility] the clerical support. He is not volume overloaded. He is off of Lasix and Jardiance. per clerical support note, it is permissible for short-term only to be on NSAIDs and to be taken sparingly. Plantar fascitis- He was recommended orthotics. Discussed salt-warm water foot soak. He follows with [facility] podiatry. Shoulder pain: He follows with [facility] require a referral to [...] necessity supported by H&P, imaging and testing [place] pain treatment protocol completed. Yes I have increased oxycodone to 20 mg every 6 hours. 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 Chronic opioid/pain maintenance. This patient request [...] opioid misuse based on ORT. Toxicology and IMMIGRATION ASSOCIATE monitoring done and will follow protocol set forth by practice. As such controlled substance use requires judicious monitoring to access patient compliance with mutually agreed upon controlled substance use agreement which has been signed by the patient and initiation of controlled substance prescribing. Therefore following state, Federal, [facility] guidelines for controlled substance testing policies. This patient has been assessed on the basis of psychometric risk tool, IMMIGRATION ASSOCIATE monitoring, toxicology test results. Comorbid conditions may [...] discuss with patient to consult with his clerical support as he has an appointment coming up to discuss on possibility with being on low-dose Lasix daily or every other day. Type 2 diabetes - Previous a1c of 8.8. Adjustment of diabetic medications is usually through his jewellery designer. Humalog was adjusted to 60 before meal. He resumed himself on Mounjaro 2.5mg. Tolerating the medication. He has a follow-up with Employee Relations Manager This month Plantar fascitis- He was recommended orthotics. Discussed salt-warm water foot soak. He follows with [facility] podiatry, Has an appointment for [...] necessity supported by H&P, imaging and testing [place] pain treatment protocol completed. Yes I have [...] opioid misuse based on ORT. Toxicology and IMMIGRATION ASSOCIATE monitoring done and will follow protocol set forth by practice. As such controlled substance use requires judicious monitoring to access patient compliance with mutually agreed upon controlled substance use agreement which has been signed by the patient and initiation of controlled substance prescribing. Therefore following state, Federal, [facility] guidelines for controlled substance testing policies. This patient has been assessed on the basis of psychometric risk tool, IMMIGRATION ASSOCIATE monitoring, toxicology test results. Comorbid conditions may [...] of diabetic medications is usually through his jewellery designer. He does have an appointment for follow-up with his jewellery designer. He states that he is noncompliant with his diets. He was also recently seen by clean room assembler and recommended Lasix surgery. He does also [...] GLP-1, Jardiance was also discontinued by the clerical support. He has an appointment with jewellery designer for further discussion on diabetes management. Advised on diet modification. He is up-to-date with his clean room assembler. Foot care discussed Chronic kidney disease. He does follow with [facility] the clerical support. He is not volume overloaded. Avoid nephrotoxins [...] necessity supported by H&P, imaging and testing [place] pain treatment protocol completed. Yes Chronic opioid/pain [...] opioid misuse based on ORT. Toxicology and IMMIGRATION ASSOCIATE monitoring done and will follow protocol set [...] on the basis of psychometric risk tool, IMMIGRATION ASSOCIATE monitoring, toxicology test results. Comorbid conditions may [...] of diabetic medications is usually through his jewellery designer. He does have an appointment for follow-up with his jewellery designer. He states that he is noncompliant with his diets. He was also recently seen by clean room assembler and recommended Lasix surgery. He does also [...] GLP-1, Jardiance was also discontinued by the clerical support. He has an appointment tomorrow with jewellery designer for further discussion on diabetes management. Advised on diet modification. He is up-to-date with his clean room assembler. Foot care discussed Chronic kidney disease. He does follow with [facility] the clerical support. He is not volume overloaded. Avoid nephrotoxins [...] necessity supported by H&P, imaging and testing [place] pain treatment protocol completed. Yes Chronic opioid/pain [...] opioid misuse based on ORT. Toxicology and IMMIGRATION ASSOCIATE monitoring done and will follow protocol set forth by practice. As such controlled substance use requires judicious monitoring to access patient compliance with mutually agreed upon controlled substance use agreement which has been signed by the patient and initiation of controlled substance prescribing. Therefore following state, Federal, [facility] guidelines for controlled substance testing policies. This patient has been assessed on the basis of psychometric risk tool, IMMIGRATION ASSOCIATE monitoring, toxicology test results. Comorbid conditions may [...] necessity supported by H&P, imaging and testing [place] pain treatment protocol completed. Yes I have increased oxycodone to 20 mg every 6 hours. 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 Chronic opioid/pain maintenance. This patient request [...] opioid misuse based on ORT. Toxicology and IMMIGRATION ASSOCIATE monitoring done and will follow protocol set [...] on the basis of psychometric risk tool, IMMIGRATION ASSOCIATE monitoring, toxicology test results. Comorbid conditions may [...] discuss with patient to consult with his clerical support as he has an appointment coming up to discuss on possibility with being on low-dose Lasix daily or every other day. Type 2 diabetes - Previous a1c of 8.8. Adjustment of diabetic medications is usually through his jewellery designer. Humalog was adjusted to 60 before meal. He resumed himself on Mounjaro 2.5mg. Tolerating the medication. He has a follow-up with Employee Relations Manager This month Plantar fascitis- He was recommended orthotics. Discussed salt-warm water foot soak. He follows with [facility] podiatry, Has an appointment for [...] necessity supported by H&P, imaging and testing [place] pain treatment protocol completed. Yes I have increased oxycodone to 20 mg every 6 hours. 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 Chronic opioid/pain maintenance. This patient request [...] opioid misuse based on ORT. Toxicology and IMMIGRATION ASSOCIATE monitoring done and will follow protocol set [...] on the basis of psychometric risk tool, IMMIGRATION ASSOCIATE monitoring, toxicology test results. Comorbid conditions may [...] of diabetic medications is usually through his jewellery designer. Humalog was adjusted to 60 before meal. He states that he is noncompliant with his diets. Jardiance was d/c by neprologist due to metabolic acidosis. Discussed a trial of ozempic again or can do a trial of Rysbelus. He was also recently seen by clean room assembler and recommended Lasix surgery. He does also [...] disease stage 3a. He does follow with [facility] the clerical support. He is not volume overloaded. Avoid nephrotoxins and NSAIDs. He has a follow-up in April. Pending blood work to be done. Plantar fascitis- He was recommended orthotics. Discussed salt-warm water foot soak. He follows with [facility] podiatry. Shoulder pain: He follows with [facility] require a referral to [...] necessity supported by H&P, imaging and testing [place] pain treatment protocol completed. Yes I have increased oxycodone to 20 mg every 6 hours. 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 Chronic opioid/pain maintenance. This patient request [...] opioid misuse based on ORT. Toxicology and IMMIGRATION ASSOCIATE monitoring done and will follow protocol set forth by practice. As such controlled substance use requires judicious monitoring to access patient compliance with mutually agreed upon controlled substance use agreement which has been signed by the patient and initiation of controlled substance prescribing. Therefore following state, Federal, [facility] guidelines for controlled substance testing policies. This patient has been assessed on the basis of psychometric risk tool, IMMIGRATION ASSOCIATE monitoring, toxicology test results. Comorbid conditions may [...] of diabetic medications is usually through his jewellery designer. Humalog was adjusted to 60 before meal. He resumed himself on Mounjaro 2.5mg. Tolerating the medication. He has a follow-up with Employee Relations Manager coming up next month Hyperlipidemia - His previous LDL is within goal of 73. 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 Chronic kidney disease stage 3a. He does follow with [facility] the clerical support. He is not volume overloaded. He is off of Lasix and Jardiance. per clerical support note, it is permissible for short-term only to be on NSAIDs and to be taken sparingly. Plantar fascitis- He was recommended orthotics. Discussed salt-warm water foot soak. He follows with [facility] podiatry. Shoulder pain: He follows with [facility] require a referral to [...] necessity supported by H&P, imaging and testing [place] pain treatment protocol completed. Yes I have increased oxycodone to 20 mg every 6 hours. 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 Chronic opioid/pain maintenance. This patient request [...] opioid misuse based on ORT. Toxicology and IMMIGRATION ASSOCIATE monitoring done and will follow protocol set [...] on the basis of psychometric risk tool, IMMIGRATION ASSOCIATE monitoring, toxicology test results. Comorbid conditions may [...] discuss with patient to consult with his clerical support as he has an appointment coming up to discuss on possibility with being on low-dose Lasix daily or every other day. Type 2 diabetes - A1c improved to 7.9. Adjustment of diabetic medications is usually through his jewellery designer. Humalog was adjusted to 60 before meal. Mounjaro Was discontinued by his jewellery designer and a history of pancreatitis. Plantar fascitis- He was recommended orthotics. Discussed salt-warm water foot soak. He follows with [facility] podiatry. I have rendered the [...] necessity supported by H&P, imaging and testing [place] pain treatment protocol completed. Yes I have increased oxycodone to 20 mg every 6 hours. 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 Chronic opioid/pain maintenance. This patient request [...] opioid misuse based on ORT. Toxicology and IMMIGRATION ASSOCIATE monitoring done and will follow protocol set forth by practice. As such controlled substance use requires judicious monitoring to access patient compliance with mutually agreed upon controlled substance use agreement which has been signed by the patient and initiation of controlled substance prescribing. Therefore following state, Federal, [facility] guidelines for controlled substance testing policies. This patient has been assessed on the basis of psychometric risk tool, IMMIGRATION ASSOCIATE monitoring, toxicology test results. Comorbid conditions may [...] of diabetic medications is usually through his jewellery designer. Humalog was adjusted to 60 before meal. Mounjaro Was discontinued by his jewellery designer and a history of pancreatitis. Plantar fascitis - He was recommended orthotics. Discussed salt-warm water foot soak. He follows with [facility] podiatry. I have rendered the [...] necessity supported by H&P, imaging and testing [place] pain treatment protocol completed. Yes I have increased oxycodone to 20 mg every 6 hours. 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 Chronic opioid/pain maintenance. This patient request [...] opioid misuse based on ORT. Toxicology and IMMIGRATION ASSOCIATE monitoring done and will follow protocol set forth by practice. As such controlled substance use requires judicious monitoring to access patient compliance with mutually agreed upon controlled substance use agreement which has been signed by the patient and initiation of controlled substance prescribing. Therefore following state, Federal, [facility] guidelines for controlled substance testing policies. This patient has been assessed on the basis of psychometric risk tool, IMMIGRATION ASSOCIATE monitoring, toxicology test results. Comorbid conditions may [...] of diabetic medications is usually through his jewellery designer. Humalog was adjusted to 60 before meal. Mounjaro Was discontinued by his jewellery designer and a history of pancreatitis. Plantar fascitis - He was recommended orthotics. Discussed salt-warm water foot soak. He follows with [facility] podiatry. I have rendered the [...] necessity supported by H&P, imaging and testing [place] pain treatment protocol completed. Yes I have increased oxycodone to 20 mg every 6 hours. 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 Chronic opioid/pain maintenance. This patient request [...] opioid misuse based on ORT. Toxicology and IMMIGRATION ASSOCIATE monitoring done and will follow protocol set forth by practice. As such controlled substance use requires judicious monitoring to access patient compliance with mutually agreed upon controlled substance use agreement which has been signed by the patient and initiation of controlled substance prescribing. Therefore following state, Federal, [facility] guidelines for controlled substance testing policies. This patient has been assessed on the basis of psychometric risk tool, IMMIGRATION ASSOCIATE monitoring, toxicology test results. Comorbid conditions may [...] discuss with patient to consult with his clerical support as he has an appointment coming up to discuss on possibility with being on low-dose Lasix daily or every other day. Type 2 diabetes - A1c improved to 7.9. Adjustment of diabetic medications is usually through his jewellery designer. Humalog was adjusted to 60 before meal. Mounjaro Was discontinued by his jewellery designer and a history of pancreatitis. Plantar fascitis- He was recommended orthotics. Discussed salt-warm water foot soak. He follows with [facility] podiatry. I have rendered the [...] necessity supported by H&P, imaging and testing [place] pain treatment protocol completed. Yes I have increased oxycodone to 20 mg every 6 hours. 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 Chronic opioid/pain maintenance. This patient request [...] opioid misuse based on ORT. Toxicology and IMMIGRATION ASSOCIATE monitoring done and will follow protocol set [...] on the basis of psychometric risk tool, IMMIGRATION ASSOCIATE monitoring, toxicology test results. Comorbid conditions may [...] of diabetic medications is usually through his jewellery designer. Humalog was adjusted to 60 before meal. He states that he is noncompliant with his diets. Jardiance was d/c by neprologist due to metabolic acidosis. Discussed a trial of ozempic again or can do a trial of Rysbelus. He was also recently seen by clean room assembler and recommended Lasix surgery. He does also [...] disease stage 3a. He does follow with [facility] the clerical support. He is not volume overloaded. Avoid nephrotoxins and NSAIDs. He has a follow-up in April. Pending blood work to be done. Plantar fascitis- He was recommended orthotics. Discussed salt-warm water foot soak. He follows with [facility] podiatry. Shoulder pain: He follows with [facility] require a referral to [...] necessity supported by H&P, imaging and testing [place] pain treatment protocol completed. Yes I have increased oxycodone to 20 mg every 6 hours. 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 Chronic opioid/pain maintenance. This patient request [...] opioid misuse based on ORT. Toxicology and IMMIGRATION ASSOCIATE monitoring done and will follow protocol set forth by practice. As such controlled substance use requires judicious monitoring to access patient compliance with mutually agreed upon controlled substance use agreement which has been signed by the patient and initiation of controlled substance prescribing. Therefore following state, Federal, [facility] guidelines for controlled substance testing policies. This patient has been assessed on the basis of psychometric risk tool, IMMIGRATION ASSOCIATE monitoring, toxicology test results. Comorbid conditions may [...] discuss with patient to consult with his clerical support as he has an appointment coming up to discuss on possibility with being on low-dose Lasix daily or every other day. Type 2 diabetes - Previous a1c of 8.8. Adjustment of diabetic medications is usually through his jewellery designer. Humalog was adjusted to 60 before meal. He resumed himself on Mounjaro 2.5mg. Tolerating the medication. He has a follow-up with Employee Relations Manager This month Plantar fascitis- He was recommended orthotics. Discussed salt-warm water foot soak. He follows with [facility] podiatry, Has an appointment for [...] Xray: Shoulder Right-Min 2 Vws 4 Hemoglobin [id number] 10/03/2024 Hemoglobin [id number] 10/31/2024 ColoFIT,Occult Blood,Fecal,IA-[id number] 06/2025 TSH+Free [id number] 10/31/2024 TSH+Free T4 10/03/2024 DRUG MONITOR, ZOLPIDEM, QN, URINE (60265 ) 11/29/2024 Next Appt Details Provider Name:Ethan nelson, 09/16/2025 01:15:00 PM, [address] [place] [address] [address], [place], [address], Insurance Providers Payer Name Payer Address Payer Phone Subscriber Number Group Number Insured Name Patient Relationship to Insured Coverage Start Date Coverage End Date [facility] [address] [place] [id number] [phone] [id number] Peter Hernandez Self - patient is the insured Medical (General) History Medical History History ICD Code type 2 diabetes mellitus see [facility] ndocrinology hypertension hyperlipidemia generalized anxiety disorder insomnia hypothyroidism CKD-[facility] Surgical History Surgery Date(Month/Year) partial thyroidectomy left distal toe amputation
--- OUTSIDE RECORDS SUMMARY | 2025-07-31 14:21 | XMS_ITS | Patient Health Record ---
[facility] Organization [facility] Address [address] [place] [address] Care Team Providers Care Chemical Production Technician Name Role Phone Bruno Singer Primary Care Provider Pratik Grant Unavailable [phone] Allergies Allergen (clinical drug ingredient) Drug/Non Drug Allergy documented on EMR Reaction Allergy Type Onset Date Status codeine Codeine Unknown Drug Allergy Active Substance with 8-dvepaau-5-methylgluta ryl-coenzyme A reductase inhibitor mechanism of action [...] Polyneuropathy due to type 2 diabetes mellitus (469215844) Type 2 diabetes mellitus with diabetic polyneuropathy (E11.42) Active confirmed Problem Plantar fascial fibromatosis (04452593) Plantar fasciitis, bilateral (M72.2) Active confirmed Vital Signs Height 6ft 4in in 05/28/2025 Weight 346 lbs 05/28/2025 BMI 42.11 kg/m2 05/28/2025 Procedures Procedure Date Ordered Date Performed Result Body Sit e [id number]-[id number] NAIL, 1-5 05/28/2025 N/A [id number] SKIN LESIONS, 2 TO 4 05/28/2025 N/A [id number] DYSTROPHIC NAILS ANY # 05/28/2025 N/A Encounters Encounter Location Date Provider Diagnosis [facility] [address] [address] 04/23/2025 Pratik Gauthier Type 2 diabetes mellitus [...] M60.872 and Bursitis of left foot M77.52 [facility] [address] [place] [address] 05/28/2025 Pratik Gauthier Type 2 diabetes mellitus with diabetic polyneuropathy E11.42 ; Tinea unguium B35.1 and Plantar fasciitis, bilateral M72.[address] [address] 01/29/2025 [facility] Disha [address] [address] 04/10/2025 [facility] Disha [address] [address] 04/23/2025 [facility] Disha [address] [address] 05/28/2025 Pratik Gauthier Assessments Encounter Date Diagnosis [...] X ray : Foot, right 3V 04/23/2025 25687-[id number] NAIL, 1-5 05/28/2025 [id number] SKIN LESIONS, 2 TO 4 05/28/20 25 [id number] DYSTROPHIC NAILS ANY # Next Appt Details Provider Name:Pratik Gauthier , 09/04/2025 01:00:00 PM, [address] [facility] [address], [place], [address], Insurance Providers Payer Name Payer Address Payer Phone Subscriber Number Group Number Insured Name Patient Relationship to Insured Coverage Start Date Coverage End Date [facility] [employer] Claims [address] [place] [id number] Peter Hernandez Self - patient is the insured Medical (General) History Medical History History ICD Code Back, Hip, Knee Pain Cataracts Depression Diabetes Heart Disease High Blood Pressure Kidney Disease Numbness (Neuropathy) Poor Circulation (PVD) Sciatica Thyroid
--- OUTSIDE RECORDS SUMMARY | 2025-07-31 14:21 | XMS_ITS | Clinical Summary ---
Demographics Address [address] [place] [address] Home Phone Mobile Phone Preferred Language en Marital Status Caodaism Affiliation Unknown Race White Ethnic Group Not or Lati no Author Organization [facility] Address [address] [place] [address] Phone Care Team Providers Care Chemical Tank Worker Name Role Phone Bruno Singer MD Primary Care Provider [phone] Allergies Active Allergy Reactions Criticality Noted Date [...] Blood Sugar Average: Last 72 hrs: (P) [id number] Resume home regimen Obstructive sleep apnea syndrome [...] Office Visit [facility] [address] [address] Curtis Kovacs MD [address] [address] Health Maintenance Due Date Last [...] 06/26/2019, 06/26/2019, Additional history exists Insurance [address] [place] [id number] [place] [address] [place] [id number] Care Teams Chemical Tank Worker Relationship Specialty Start Date End Date Bruno Singer MD [address] [place] [address], [address] [place] [address] PCP - General Internal Medicine 06/13/24
== END 2025-07-31 11:47 | disposition home or self-care (01) ==
LOC: HO.HOS 11:17
PROVIDERS: Visit Provider Physical Medicine & Rehabilitation
DX: M50.221 Other cervical disc displacement at C4-C5 level (principal); M50.222 Other cervical disc displacement at C5-C6 level; M50.223 Other cervical disc displacement at C6-C7 level; G95.20 Unspecified cord compression
CPT/HCPCS: 99204

== ENCOUNTER → 2025-07-31 11:17 | Outpatient (BNVA) | payer OTHER, SELFPAY | PROVIDERS: Visit Provider Physical Medicine & Rehabilitation | DX: Z71.2 Person consulting for explanation of examination or test findings (principal); G95.20 Unspecified cord compression; M50.20 Other cervical disc displacement, unspecified cervical region | CPT/HCPCS: 99202 ==

== ENCOUNTER 2025-08-04 12:48 | Outpatient (AMB) | payer OTHER, SELFPAY ==
--- NOTE | 2025-08-04 13:18 | HO.SPINEOV ---
Intake Visit Reasons: Unspecified cord compression Intake Note: Mr. Hernandez is here today c/o back pain. [place] [facility] Magnet Placer Required: No Allergies codeine (Codeine) Allergy (Unknown, Unverified 03/06/25 14:09) RASH Yjqwuyk-YXS-IkT Reductase Inhibitor Adverse Reaction (Severe, Verified 03/06/25 14:10) Joint Pain Assessment & Plan Assessment & Plan (1) Neck pain: Code(s): M54.2 - Cervicalgia Category: Medical Plan Dear Dr. Juarez, Thank you for referring Peter to our office today. He is a pleasant 54-year-old male who comes in today for evaluation of right-sided neck pain near the base of his neck, and right shoulder pain. He reports that about 1.5 years ago he slipped on the ice and landed on his right shoulder. Since then he has had fairly significant right shoulder pain, and a pulling type pain toward the base of the right side of his neck. We also occasionally he will get pain beyond the shoulder that shoots down toward the base of the deltoid terminating before the elbow. When describing the pain he states it feels like a dull ache. He does not report any numbness/tingling/burning/electricity feeling associated with the pain. He does state that at baseline he has a slight feeling and numbness in his bilateral hands and has been told before that he likely has carpal tunnel syndrome. He does report that he recently had an MRI of the right shoulder which showed a tear in his right shoulder. He is scheduled to see Dr. Cortes to address this. 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 He does report some issue with balance, however states it is typically due to knee pain/knee instability. He reports that he has had gel injections in both knees and needs total knee replacements bilaterally. He reports that he is currently prescribed oxycodone to help mitigate the pain also utilizes asog-cna-diuxzhh medications for this. 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 PMH: When questioned regarding his past medical history the patient reports that his only medical diagnosis is type 2 diabetes with his last A1C reported as 7.9 down from 9.4. He reports that his only surgical history is that he had a partial right-sided thyroidectomy, and had surgery on his 2nd toe on the left side. Social hx: The the patient smokes 1.5 packs of cigarettes per day. He denies any other substance use. Medications: See Zumper list. The patient is on medications listed in his EMR they are indicative of additional diagnoses outside of just diabetes. Allergies: Codeine, statins. Physical exam: The patient has full 5/5 strength in his upper and lower extremities. He ambulates with a cane but does so fairly well with a nonantalgic non spastic gait. He has no significant sensational deficits to light touch during examination. His reflexes are absent bilaterally in the patella and 1+ hypoactive elsewhere. (-) Wills's, (-) clonus, (-) bilateral straight leg raise. Imaging review: MRI of the cervical spine completed here at [facility] is degraded likely due to motion artifact. Given this, it appears to show evidence of congenitally narrow spinal canal with no evidence of significant cord compression despite posterior disc bulging noted at multiple levels. The radiology read also confirms this. There was some mention of the T2 signal intensity on SAG T2 seen behind C4-5 being possibly of ligamentous origin. This anomaly is not present on sagittal STIR sequence or axial images, therefore I do not believe it represents cord signal change or myelomalacia. Reviewed Shoulder MRI report which states the patient has full thickness tear of supraspinatus and biceps tendon on the right. Impression: Peter is a pleasant 54-year-old male who comes in today for evaluation of right-sided lower neck pain after a fall about 1.5 years ago where he landed on his right shoulder. He reports that he recently had a MRI of the right shoulder completed which showed a tear in his right shoulder. I reviewed the radiology report which shows he is a full thickness tear of the supraspinatus on the right-hand side and the biceps tendon on the right. Based on the patient's history, imaging, and examination today I do not believe that he is suffering from a cervical radiculopathy. This is much more likely pain related to the tear(s) seen on MRI imaging of the right shoulder. I recommended that he follow up with our colleague Dr. Cortes for evaluation and treatment regarding this issue. If his neck pain does persist I would recommend an EMG be completed to r/o nerve root impingement. Thank you for allowing us to care for your patient. The total time spent with this visit with this patient was 45 minutes reviewing history, physical exam, MRI imaging review, and implementation of treatment plan or further diagnostic testing Silverio Hill MD,PhD [facility] Coding Level of Care Code New Pt Level 4 (48426) Diagnoses Neck pain M54.2
== END 2025-08-04 13:45 | disposition home or self-care (01) ==
LOC: HO.HNS 12:48
PROVIDERS: Referring Provider Physical Medicine & Rehabilitation; Visit Provider Physician Assistant
DX: M54.2 Cervicalgia (principal)
CPT/HCPCS: 99204

== ENCOUNTER → 2025-08-04 12:48 | Outpatient (BNVA) | payer OTHER, SELFPAY | PROVIDERS: Referring Provider Physical Medicine & Rehabilitation; Visit Provider Physician Assistant | DX: M54.2 Cervicalgia (principal); M25.511 Pain in right shoulder | CPT/HCPCS: 99202 ==

== ENCOUNTER 2025-08-25 11:13 | Outpatient (AMB) | payer OTHER, SELFPAY ==
--- NOTE | 2025-08-25 11:18 | MHC.OFFVIS ---
Vital Signs 08/25/25 11:20 Weight 350 lb Intake Visit Reasons: OV-Possible RT shoulder rotator cuff repair Intake Note: Peter is a 54 year old right hand dominant male who presents today for a follow up of his right shoulder RTC to discuss possible surgery. Patient has seen both Dr. Cortes and Dr. Juarez for his neck and shoulder. Dr. Juarez believed that his symptoms of his neck are separate from the shoulder Peter expresses that he is getting numbness the last mouth feeling on the side of the face neck and collar bone shoulder area Allergies codeine (Codeine) Allergy (Unknown, Verified 08/25/25 11:22) RASH Bgwkkjs-HSP-VrV Reductase Inhibitor Adverse Reaction (Severe, Verified 08/25/25 11:22) Joint Pain HPI HPI OV-Possible RT shoulder rotator cuff repair: Details: this is a 54-year-old gentleman who comes in today with ongoing right shoulder pain. He has a hard time getting his right shoulder above his head. He has difficulty sleeping at night. He feels like he injured it lifting heavy items out of a grocery cart and then re-injured it falling ice 1-2 hardin ago. I saw him many years ago for bilateral knee pain and he had gel injections at that time which were helpful but for a short while. He continues to have knee pain especially on the right where he limps when he walks. [facility] Social History (Updated 03/06/25 @ 14:09 by TAQUERIA Vizcaino) Patient Tobacco Use Status: Current everyday Tobacco user Current occupational status: retired Current occupation: rt handed Physical Exam Exam Exam: Right shoulder with 0-90 degrees of abduction 130 degrees of overhead abduction external rotation to 45 and internal rotation to S1. Positive Mcallister and Neer. 4-/ 5 empty He has tenderness to palpation medial Results Reviewed Results Reviewed: I personally reviewed the MR images. Supraspinatus full-thickness tear measuring 3 x 2.1 cm. Intact fibers demonstrate mild tendinosis. * Mild infraspinatus tendinosis, bursal surface fraying. * Moderate subscapularis tendinosis * Findings suspicious for proximal long head biceps tendon full-thickness tear. *Superior labral findings suspicious for a tear. *Mild glenohumeral joint arthritis. Small effusion. *Mild acromioclavicular arthritis. Assessment & Plan Assessment & Plan (1) Rotator cuff insufficiency of right shoulder: Code(s): M25.311 - Other instability, right shoulder Category: Medical Plan: This is a 54-year-old gentleman with a full-thickness tear of the supraspinatus. It is not retracted and repairable on MRI and I recommend surgery. I discussed the risks, benefits and alternatives with him including, but not limited to, the risk of infection, stiffness, incomplete symptom resolution medical complications associated with surgery. He expressed understanding. I will have him see his primary care doctor and possibly slab tripper given history of heart disease and states he has not seen anybody for 3 years for this. (2) Primary localized osteoarthritis of knees, bilateral: Code(s): M17.0 - Bilateral primary osteoarthritis of knee Category: Medical Plan: I recommend bilateral gel injections. He is diabetic and injections with steroid contraindicated. Coding Level of Care Code Est Pt Level 4 (60106) Diagnoses Rotator cuff insufficiency of right shoulder M25.311 Primary localized osteoarthritis of knees, bilateral M17.0
== END 2025-08-25 11:51 | disposition home or self-care (01) ==
LOC: HO.HOS 11:13
PROVIDERS: Visit Provider Orthopaedic Surgery
DX: M25.311 Other instability, right shoulder (principal); M17.0 Bilateral primary osteoarthritis of knee; E11.9 Type 2 diabetes mellitus without complications
CPT/HCPCS: 99214

== ENCOUNTER → 2025-08-25 11:13 | Outpatient (BNVA) | payer OTHER, SELFPAY | PROVIDERS: Visit Provider Orthopaedic Surgery | DX: M25.311 Other instability, right shoulder (principal); M17.0 Bilateral primary osteoarthritis of knee; E11.9 Type 2 diabetes mellitus without complications | CPT/HCPCS: 99212 ==